=== PATIENT | female | born 1935 | race Caucasian/White ===

== ENCOUNTER 2016-07-02 16:47 | Inpatient (IN) | END 2016-07-20 14:56 | DRG 208 | DX: J96.01 Acute respiratory failure with hypoxia (principal); I63.40 Cerebral infarction due to embolism of unspecified cerebral artery; G93.40 Encephalopathy, unspecified; I13.2 Hypertensive heart and chronic kidney disease with heart failure and with stage 5 chronic kidney disease, or end stage renal disease; J18.9 Pneumonia, unspecified organism; R13.10 Dysphagia, unspecified; N18.6 End stage renal disease; N39.0 Urinary tract infection, site not specified; I42.9 Cardiomyopathy, unspecified; I50.9 Heart failure, unspecified; T82.49XA Other complication of vascular dialysis catheter, initial encounter; B96.1 Klebsiella pneumoniae [K. pneumoniae] as the cause of diseases classified elsewhere; E78.5 Hyperlipidemia, unspecified; I48.2 Chronic atrial fibrillation; I25.10 Atherosclerotic heart disease of native coronary artery without angina pectoris; G47.33 Obstructive sleep apnea (adult) (pediatric); Y83.2 Surgical operation with anastomosis, bypass or graft as the cause of abnormal reaction of the patient, or of later complication, without mention of misadventure at the time of the procedure; Y92.230 Patient room in hospital as the place of occurrence of the external cause; Z66 Do not resuscitate; Z99.2 Dependence on renal dialysis; Z79.02 Long term (current) use of antithrombotics/antiplatelets; Z95.0 Presence of cardiac pacemaker; Z86.73 Personal history of transient ischemic attack (TIA), and cerebral infarction without residual deficits ==

== ENCOUNTER 2016-07-29 15:44 | Inpatient (IN) | payer MEDICARE, OTHER ==
[~2016-07-29] VITALS: Ht 157.5 cm; Wt 75.0 kg
[~2016-07-29 15:44] MED LIST: ACET325T45 PO; AMIO200T2 PO; APIX2.5T PO; ASPI81TA3 PO; ATOR20TA38 PO; CARV6.2579 PO; DILT120C77 PO; DOCU-159 PO; FE F1TAB7 PO; LEVO150T67 PO; PANT40TA3 PO
--- NOTE | 2016-07-29 15:52 | ERA ---
ER Documentation Chief Complaint Date/Time DATE: 07/29/16 TIME: 15:52 Chief Complaint The patient is a 80-year-old female, presenting to the ER because of acute altered level of consciousness today, EMS Accu-Chek was 103, last hemodialysis was 2 days ago. She is DNR. She is unable to provide history. 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 Past medical history: CAD, chronic kidney disease, atrial fibrillation, history of CVA, history of CHF, hypertension, dyslipidemia, cardiomyopathy Past surgical history: G-tube, pacemaker, hemodialysis catheter ROS All systems reviewed and are negative except as per history of present illness. Medications Home Meds Reported Medications Docusate Sodium* (Docusate Sodium*) 100 Mg Capsule, 100 MG PO BID, #60 CAP 07/02/16 Carvedilol* (Carvedilol*) 6.25 Mg Tablet, 6.25 MG PO BID, #60 TAB 07/02/16 Pantoprazole* (Protonix*) 40 Mg Tablet.dr, 40 MG PO DAILY, TAB 07/02/16 Amiodarone Hcl* (Amiodarone Hcl*) 200 Mg Tablet, 200 MG PO DAILY, #30 TAB 07/02/16 Atorvastatin Calcium* (Atorvastatin Calcium*) 20 Mg Tablet, 20 MG PO QHS, #30 TAB 07/02/16 Fe Fumarate/Hemanth/FA/Bcomp,C (Nephron FA Tablet) 1 Each Tablet, 1 EACH PO DAILY, TAB 07/02/16 Diltiazem Hcl* (Cardizem CD*) 120 Mg Cap.sr.24h, 120 MG PO DAILY, #30 CAP 07/02/16 Apixaban* (Eliquis*) 2.5 Mg Tablet, 2.5 MG PO BID, TAB 07/02/16 Aspirin* (Aspirin* Chew) 81 Mg Tab.chew, 81 MG PO DAILY, TAB.CHEW 07/02/16 Acetaminophen* (Acetaminophen*) 325 Mg Tablet, 325 MG PO DAILY Y for PAIN AND OR ELEVATED TEMP, #30 TAB 07/02/16 Levothyroxine Sodium* (Levothyroxine Sodium*) 150 Mcg Tablet, 150 MCG PO BEFORE BREAKFAST, #30 TAB 07/02/16 Allergies Allergies: Coded Allergies: No Known Allergies (Verified Allergy, Unknown, 07/29/16) PMhx/Soc History of Surgery: Yes (AV FISTULA PLACEMENT, PACEMAKER PLACEMENT) Anesthesia Reaction: No Hx Neurological Disorder: Yes (CVA) Hx Respiratory Disorders: No Hx Cardiac Disorders: Yes (CHF, CARDIAC ARRYTHMIA, AFIB, A FLUTTER, HTN) Hx Psychiatric Problems: No Hx Miscellaneous Medical Probl: Yes (ANEMIA, DYSLIPIDEMIA, HYPOTHYROIDISM, SHOCK, HYPOVOLEMIA) Physical Exam Vitals Vital Signs Date Time Temp Pulse Resp B/P Pulse Ox O2 Delivery O2 Flow Rate FiO2 07/29/16 18:09 72 20 92/49 97 Nasal Cannula 07/29/16 17:30 72 22 90/65 95 Nasal Cannula 07/29/16 17:00 78 28 83/47 95 Nasal Cannula 07/29/16 15:51 Nasal Cannula 2 07/29/16 15:50 99.5 102 28 57/34 96 Physical Exam Const: Mild acute respiratory distress. Head: Atraumatic. Eyes: Normal Conjunctiva. ENT: Normal External Ears, Nose and Mouth. Neck: Full range of motion. No meningismus. Resp: Clear to auscultation bilaterally. Tachypneic Cardio: Regular rate but tachycardic Abd: Soft, non distended, normal bowel sounds, non tender. Skin: No petechiae or rashes. Back: No midline or flank tenderness. Ext: No cyanosis, or edema. Neur: Awake and alert. Unable to perform due to her condition Psych: Unable to perform due to her condition Result Diagram: 07/29/16 1620 07/29/16 1620 Results 24 hrs Laboratory Tests Test 07/29/16 16:00 07/29/16 16:20 07/29/16 16:25 Lactic Acid Level 3.0mmol/L Alanine Aminotransferase (ALT/SGPT) 273IU/L Albumin 3.0g/dl Albumin/Globulin Ratio 0.68 Alkaline Phosphatase 416IU/L Anion Gap 18 Aspartate Amino Transf (AST/SGOT) 547IU/L Band Neutrophils % 21.0% Blood Morphology Comment Blood Urea Nitrogen 63mg/dl Calcium Level 9.8mg/dl Carbon Dioxide Level 25mmol/L Chloride Level 103mmol/L Creatinine 1.90mg/dl Direct Bilirubin 1.20mg/dl Globulin 4.40g/dl Glucose Level 92mg/dl Hematocrit 31.8% Hemoglobin 10.6g/dl Indirect Bilirubin 0.3mg/dl Lymphocytes # 1.310^3/ul Lymphocytes % 4.0% Mean Corpuscular Hemoglobin 34.8pg Mean Corpuscular Hemoglobin Concent 33.3g/dl Mean Corpuscular Volume 104.6fl Mean Platelet Volume 10.1fl Monocytes # 2.010^3/ul Monocytes % 6.0% Neutrophils # 23.210^3/ul Neutrophils % 69.0% Platelet Count 15351^3/UL Polychromasia OCCASIONAL Potassium Level 3.7mmol/L Red Blood Count 3.0410^6/ul Red Cell Distribution Width 16.9% Sodium Level 142mmol/L Total Bilirubin 1.5mg/dl Total Protein 7.4g/dl Troponin I 0.050ng/ml White Blood Count 33.610^3/ul Activated Partial Thromboplast Time 33.1Sec INR International Normalized Ratio 1.56 Prothrombin Time 18.8Sec Prothrombin Time Ratio 1.5 Current Medications Medications (Trade) Dose Ordered Sig/Volodymyr Route PRN Reason Start Time Stop Time Status Last Admin Dose Admin Sodium Chloride 500 ml @ 500 mls/hr Q1H ONCE IV 07/29/16 16:30 07/29/16 17:29 DC 07/29/16 16:32 Albumin Human 250 ml @ 250 mls/hr Q1H IV 07/29/16 16:30 07/29/16 18:29 DC 07/29/16 17:59 Vancomycin HCl 250 ml @ 125 mls/hr ONCE IVPB 07/29/16 17:00 07/29/16 18:59 07/29/16 17:33 Piperacillin Sod/ Tazobactam Sod 50 ml @ 100 mls/hr ONCE ONCE IVPB 07/29/16 17:00 07/29/16 17:29 DC 07/29/16 17:14 Phenylephrine HCl (Gerardo-Synephrine) 250 ml @ 75 mls/hr TITRATE IV 07/29/16 17:00 Procedures/MDM EKG: Read by emergency physician Rate/Rhythm: Atrial fibrillation 91 beats per min QRS, ST, T-waves: No ST elevation,right bundle branch block, septal Q waves, inferior lateral T abnormality Impression: Abnormal EKG [place] [id number] Radiology Main Line: [phone] DIAGNOSTIC IMAGING REPORT Patient: LIEJT DICKERSON : 1935 Age: 80 Sex: F MR #: [id number] DOS: 07/29/16 1555 Ordering MD: JAREN JAMES MD Location: E/R Room/Bed: PROCEDURE: XR Chest 1 view. CLINICAL INDICATION: Shortness of breath and sepsis TECHNIQUE: AP views of the chest were obtained. COMPARISON: July 05, 2016 FINDINGS: The heart is large. Calcified atherosclerosis is noted in the aorta. Left- sided dual chamber pacemaker has its leads over the heart and appears stable. Left-sided dialysis catheter has its tip in the expected location of the proximal superior vena cava. Lungs are hyperexpanded. Mild interstitial prominence is seen in both lungs. Patchy potential alveolar infiltrates are identified in the right mid and lower lung. Scattered atelectasis is seen in the left lower lobe. Osseous structures are osteopenic, but grossly intact. Degenerative changes are seen in the shoulders. IMPRESSION: Cardiomegaly with calcified atherosclerosis in the aorta. Left sided dialysis catheter with its tip in the expected location of the proximal superior vena cava. No visualized pneumothorax. Diffuse mild interstitial prominence in both lungs. This could be chronic. Patchy potential alveolar infiltrates in the right mid and lower lung. Scattered atelectasis in the left lower lobe. RPTAT: AA .Charles Montenegro MD, MD Date Time Electronically viewed and signed by .Charles Montenegro MD, on 07/29/2016 16:23 .P/ CC: JAREN JAMES MD MEDICAL MAKING DECISION: The patient is a 80-year-old female, presenting with acute severe sepsis due to acute healthcare acquired pneumonia. She was treated with vancomycin IV, Zosyn IV, albumin 500 mg IV, normal saline 500 mL IV. Admit MDM: Patient's infectious symptoms have not stabilized and the patient is at risk of rapid decompensation. The patient will be admitted for careful hydration, antibiotic therapy, and infectious source control. 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 Provision of immediate and broad-spectrum antibiotic therapy. Simultaneous assessment for possible sources in order to direct targeted therapy. Consideration for invasive and chemical support to prevent cardiopulmonary collapse. Septic Shock Assessment: Any lactic acid > 4.0 no Persistent hypotension (SBP < 90 or 40 mmHg drop, MAP < 65) despite 30 mL/kg IV fluid bolusno Departure Diagnosis: Primary Impression: Severe sepsis Additional Impressions: Pneumonia Abnormal LFTs Anemia Condition: Critical Comments I discussed the findings with the patient. I discussed the patient with his physician who was made aware of the lab, the treatment, the patient condition. The patient is admitted to ICU at 6 pm JAREN JAMES MD Jul 29, 2016 15:52
--- NOTE | 2016-07-29 16:24 | RADRPT ---
PROCEDURE: XR Chest 1 view. CLINICAL INDICATION: Shortness of breath and sepsis TECHNIQUE: AP views of the chest were obtained. COMPARISON: July 05, 2016 FINDINGS: The heart is large. Calcified atherosclerosis is noted in the aorta. Left-sided dual chamber pacema ker has its leads over the heart and appears stable. Left-sided dialysis catheter has its tip in th e expected location of the proximal superior vena cava. Lungs are hyperexpanded. Mild interstitial prominence is seen in both lungs. Patchy potential alveolar infiltrates are identified in the righ t mid and lower lung. Scattered atelectasis is seen in the left lower lobe. Osseous structures are osteopenic, but grossly intact. Degenerative changes are seen in the shoulders. IMPRESSION: Cardiomegaly with calcified atherosclerosis in the aorta. Left sided dialysis catheter with its tip in the expected location of the proximal superior vena cav a. No visualized pneumothorax. Diffuse mild interstitial prominence in both lungs. This could be chronic. Patchy potential alveolar infiltrates in the right mid and lower lung. Scattered atelectasis in the left lower lobe. RPTAT: AA .Charles Montenegro MD, MD Date Time Electronically viewed and signed by .Charles Montenegro MD, on 07/29/2016 16:23 .P/
[2016-07-29] MEDS ORDERED: SOD CHLORIDE 0.9% 500 ML IV ONE (16:30)
[2016-07-29 16:40] LABS: HEMATOCRIT 31.8 % (37.0-47.0); HEMOGLOBIN 10.6 g/dl (12.0-16.0); MEAN CORPUSCULAR HEMOGLOBIN 34.8 pg (29.0-33.0); MEAN CORPUSCULAR HGB CONC 33.3 g/dl (32.0-37.0); MEAN CORPUSCULAR VOLUME 104.6 fl (82.0-101.0); MEAN PLATELET VOLUME 10.1 fl (7.4-10.4); PLATELET COUNT 287 10^3/UL (140-440); RED BLOOD COUNT 3.04 10^6/ul (4.20-5.40); RED CELL DISTRIBUTION WIDTH 16.9 % (11.5-14.5); UNCORRECTED WBC 33.6 10^3/ul (4.8-10.8); WHITE BLOOD COUNT 33.6 10^3/ul (4.8-10.8)
[2016-07-29 16:45] LABS: CONDITION 1; SUSPECT 1
[2016-07-29 16:55] LABS: INR 1.56; PROTIME 18.8 Sec (12.2-14.2); PT RATIO 1.5
[2016-07-29] MEDS: ALBUMIN HUMAN 5% 250 ML IV SCH ×2 (16:55→17:59)
[2016-07-29 16:56] LABS: PARTIAL THROMBOPLASTIN TIME 33.1 Sec (25.0-35.0)
[2016-07-29 16:59] LABS: POTASSIUM 3.7 mmol/L (3.5-5.1)
[2016-07-29] MEDS ORDERED: VANCOMYCIN 1 GM (PMX) 250 ML IVPB SCH (17:00)
[2016-07-29] MEDS ORDERED: PHENYLephrine 20MG IN 250 ML 250 ML IV SCH (17:00)
[2016-07-29] MEDS ORDERED: PIPER-TAZO 2.25 GM (PMX) 50 ML IVPB ONE (17:00)
[2016-07-29 17:01] LABS: ALBUMIN/GLOBULIN RATIO 0.68; BILIRUBIN,DIRECT 1.2 mg/dl (0.00-0.20); BILIRUBIN,INDIRECT 0.3 mg/dl (0-1.1); BILIRUBIN,TOTAL 1.5 mg/dl (0.2-1.3); CREATININE 1.9 mg/dl (0.44-1.00); TOTAL PROTEIN 7.4 g/dl (6.1-8.1)
[2016-07-29 17:02] LABS: CALCIUM 9.8 mg/dl (8.4-10.2)
[2016-07-29 17:13] LABS: TROPONIN-I 0.05 ng/ml (0.00-0.12)
[2016-07-29 17:36] LABS: LYMPHOCYTES # 1.3 10^3/ul (0.8-2.9); NEUTROPHIL # 23.2 10^3/ul (1.6-7.5)
[2016-07-29 17:37] LABS: POLYCHROMASIA OCCASIONAL
[2016-07-29] MEDS ORDERED: DOCUSATE SODIUM 100 MG CAP PO PRN (20:30)
[2016-07-29] MEDS ORDERED: BISACODYL (EC) 5 MG TAB PO PRN (20:30)
[2016-07-29] MEDS ORDERED: ACETAMINOPHEN 325 MG TAB PO PRN (20:30)
[2016-07-29] MEDS ORDERED: NITROGLYCERIN (SL) 0.4 MG TAB SL PRN (20:30)
[2016-07-29] MEDS ORDERED: ONDANSETRON 4 MG INJ IV PRN (20:30)
[2016-07-29] MEDS ORDERED: IPRATROPIUM (NEB) 0.5 MG/2.5 ML AMP NEB PRN (20:30)
--- NOTE | 2016-07-29 20:43 | QN ---
Documentation Comment [id number] CRUZITO ARELLANO MD Jul 29, 2016 20:43
[2016-07-29] MEDS ORDERED: PIPER-TAZO 2.25 GM (PMX) 50 ML IVPB SCH (21:00)
[2016-07-29] MEDS: ALBUTEROL 0.5% (NEB) 2.5 MG/0.5 ML AMP NEB SCH (21:00)
[2016-07-29] MEDS: DOCUSATE SODIUM 100 MG CAP PO SCH (21:00)
--- NOTE | 2016-07-29 23:06 | RADRPT ---
PROCEDURE: Ultrasound of the abdomen. CLINICAL INDICATION: Right upper quadrant pain. TECHNIQUE: Sonographic images of the abdomen were performed. COMPARISON: No pertinent prior examinations were submitted for comparison. FINDINGS: Liver: The liver is normal in echogencity and size measuring approximately 16.2 cm. The hepatic vei ns and portal veins are patent with appropriate directional flow. No intrahepatic ductal dilatation is seen. Gallbladder: Stones are noted within the gallbladder. There is no definite gallbladder wall thicke aaron or pericholecystic free fluid. The common duct measures 3.2 mm. Pancreas: There is limited evaluation of the pancreatic body and tail. The visualized portions of the pancreas are unremarkable. Kidneys: The right kidney measures 8.5 cm. There is normal corticomedullary differentiation. There is no evidence of renal calculus or hydronephrosis. There is mild renal cortical thinning. IVC: The visualized portion of the inferior vena cava is unremarkable. Aorta: Normal in size. Free fluid: None. IMPRESSION: Small right kidney with mild cortical thinning. Cholelithiasis. RPTAT: HIKT .Yung Espino MD, Date Time Electronically viewed and signed by .Yung Espino MD, on 07/29/2016 23:05 .T/
[2016-07-29 23:15] VITALS: PULSE 70
[2016-07-29 23:32] VITALS: BP 88/44; PULSE 70; RESP 18
[2016-07-29 23:53] VITALS: Ht 157.5 cm; Wt 75.0 kg
[2016-07-30] VITALS (11 sets, daily range): BP systolic 89–97; BP diastolic 48–56; PULSE 69–70; RESP 17–21
[2016-07-30] MEDS: ALBUTEROL 0.5% (NEB) 2.5 MG/0.5 ML AMP NEB SCH ×6 (01:18→21:09)
[2016-07-30] MEDS: DEXTROSE 5%-0.45% NACL 1,000 ML IV SCH ×3 (01:24→21:52)
[2016-07-30] MEDS: ATORVASTATIN 20 MG TAB PO SCH ×2 (01:25→20:33)
[2016-07-30] MEDS: APIXABAN 5 MG TABLET PO SCH ×3 (01:25→20:33)
[2016-07-30] MEDS: PANTOPRAZOLE 40 MG INJ IV SCH (05:30)
--- NOTE | 2016-07-30 05:31 | HP ---
DATE OF ADMISSION: 07/29/2016 HISTORY OF PRESENT ILLNESS: The patient is an 80-year-old female who has a history of ESRD, hyperte nsion, and a history of atrial fibrillation, hypothyroidism, dyslipidemia, and G-tube placement, CVA recently. Was in the [place] [facility] and noted to have altered mental status, lethargic. The patient was transferred to [facility]. The patient was seen in the emergency room by Dr. Carmona, case was discussed with him. Dr. Carmona decided to put the patient on telemetry floor. Later on he changed his decision to put patient in ICU. The patient's blood pressure running 88/50 and emilio ent is going to be monitored for further management. PAST MEDICAL HISTORY: Please review the old chart. Positive for PermCath replacement, G-tube place ment, CVA with multiple strokes, congestive heart failure, ejection fraction 40%, atrial fibrillatio n, hypertension, dyslipidemia, cardiomyopathy, clotted AV graft. ALLERGY HISTORY: NEGATIVE. FAMILY HISTORY: Negative. SOCIAL HISTORY: Negative. MEDICATION HISTORY: The patient is on: 1. Tylenol. 2. Amiodarone. 3. Apixaban. 4. Aspirin. 5. Lipitor. 6. Coreg. 7. Diltiazem. 8. Docusate sodium. 9. Iron. 10. Levothyroxine. 11. Protonix. REVIEW OF SYSTEMS: Cannot be obtained. PHYSICAL EXAMINATION: GENERAL: The patient is weak, lethargic, family at bedside. VITAL SIGNS: As mentioned above. HEENT: Head is atraumatic. Pupils voluntary closing of both eyes. NECK: Supple. LUNGS: Clear. CARDIOVASCULAR: S1, S2 normal, irregular. ABDOMEN: Soft, nontender. Bowel sounds positive. No palpable mass or hepatosplenomegaly. No guar ding, rebound tenderness. EXTREMITIES: The patient has no cyanosis, clubbing, or edema. CENTRAL NERVOUS SYSTEM: The patient is weak, lethargic, unable to follow commands at this point. LABORATORY DATA: WBC 33.6, hematocrit 31.8, platelet count of 27. Sodium 142, potassium 3.7, BUN 6 3, creatinine 1.90, lactic acid 3, bilirubin 1.5, direct bilirubin 1.20, AST 547, ALT 279, alkaline phosphatase 416. IMPRESSION: 1. The patient has severe sepsis. 2. Chronic kidney disease. 3. The patient had atrial fibrillation history. 4. Leukocytosis. 5. Anemia. 6. Gastrostomy tube placement. 7. catheter placement. 8. Atherosclerotic heart disease. 9. Dyslipidemia. 10. Hypothyroidism. PLAN: To continue to support this patient with IV fluid, antibiotic. The patient will also h ave all medications reviewed and continued. The patient's family is at bedside, discussed with them . Dictated By: CRUZITO PLAZA/KATE Conf#: [id number] DID#: [id number]
[2016-07-30] MEDS ORDERED: PIPER-TAZO 2.25 GM (PMX) 50 ML IVPB SCH ×2 (06:00→14:00)
[2016-07-30] MEDS ORDERED: GLUCOSE GEL 15 GRAM TUBE PO PRN ×2 (06:30)
[2016-07-30] MEDS ORDERED: GLUCOSE GEL 15 GRAM TUBE BUCCAL PRN (06:30)
[2016-07-30] MEDS ORDERED: GLUCAGON 1 MG INJ IM PRN (06:30)
[2016-07-30] MEDS ORDERED: DEXTROSE 50% 50 ML SYRINGE IV PRN ×2 (06:30)
[2016-07-30] MEDS: LEVOTHYROXINE 150 MCG TAB PO SCH (06:46)
[2016-07-30] MEDS: INSULIN ASPART [NOVOLOG] 3 ML PEN SC SCH ×4 (08:00→20:54)
[2016-07-30] MEDS: DOCUSATE SODIUM 100 MG CAP PO SCH ×2 (09:00→20:33)
[2016-07-30] MEDS: DILTIAZEM (CD) 120 MG CAP PO SCH (09:00)
[2016-07-30] MEDS ORDERED: AMIODARONE 200 MG TAB PO SCH (09:00)
[2016-07-30] MEDS: ASPIRIN 81 MG TAB PO SCH (10:05)
[2016-07-30 12:23] LABS: HEMATOCRIT 24.9 % (37.0-47.0); HEMOGLOBIN 8.3 g/dl (12.0-16.0); MEAN CORPUSCULAR HEMOGLOBIN 35.3 pg (29.0-33.0); MEAN CORPUSCULAR HGB CONC 33.5 g/dl (32.0-37.0); MEAN CORPUSCULAR VOLUME 105.3 fl (82.0-101.0); MEAN PLATELET VOLUME 9.6 fl (7.4-10.4); PLATELET COUNT 219 10^3/UL (140-440); RED BLOOD COUNT 2.36 10^6/ul (4.20-5.40); RED CELL DISTRIBUTION WIDTH 17.8 % (11.5-14.5); UNCORRECTED WBC 20.5 10^3/ul (4.8-10.8); WHITE BLOOD COUNT 20.5 10^3/ul (4.8-10.8)
[2016-07-30 12:30] LABS: ALBUMIN/GLOBULIN RATIO 0.85; BILIRUBIN,DIRECT 1.2 mg/dl (0.00-0.20); BILIRUBIN,INDIRECT 0.2 mg/dl (0-1.1); BILIRUBIN,TOTAL 1.4 mg/dl (0.2-1.3); CREATININE 1.83 mg/dl (0.44-1.00); TOTAL PROTEIN 6.5 g/dl (6.1-8.1)
[2016-07-30 12:31] LABS: CALCIUM 8.9 mg/dl (8.4-10.2)
[2016-07-30 12:42] LABS: CONDITION 1; LH ANALYZER COMMENTS 1; SUSPECT 1
[2016-07-30] MEDS: ACETAMINOPHEN 325 MG TAB PO PRN ×2 (13:44→21:47)
[2016-07-30] MEDS: PIPER-TAZO 2.25 GM (PMX) 50 ML IVPB SCH ×2 (13:44→21:28)
[2016-07-30] MEDS ORDERED: POTASSIUM CHLORIDE 20 MEQ POWDER FOR ORAL SOLN GTB ONE (14:00)
--- NOTE | 2016-07-30 14:07 | RADRPT ---
PROCEDURE: XR Abdomen. CLINICAL INDICATION: Abdomen pain. TECHNIQUE: AP supine abdomen x-ray. COMPARISON: None. FINDINGS: The bowel gas pattern is normal. There is no evidence of obstruction. There are no abnormal calcifications overlying the urinary tracts. There are degenerative changes of the spine. There has been prior surgery with hardware and the L2- S1 level. There is a dual lead permanent pacemaker with leads in the right atrium and right ventric le. IMPRESSION: 1. Prior spine surgery. 2. Degenerative changes of the spine. 3. Permanent pacemaker. 4. Otherwise unremarkable supine abdomen radiograph. RPTAT: QQ .Darren Cornejo MD, MD Date Time Electronically viewed and signed by .Darren Cornejo MD, MD on 07/30/2016 14:06 .R/
[2016-07-30 14:52] LABS: LYMPHOCYTES # 1.2 10^3/ul (0.8-2.9)
[2016-07-30 16:34] LABS: LH ANALYZER COMMENTS 1
--- NOTE | 2016-07-30 16:56 | PN ---
Date/Time of Note Date/Time of Note DATE: 07/30/16 TIME: 16:53 Assessment/Plan VTE Prophylaxis VTE Prophylaxis Intervention: other Lines/Catheters IV [facility]ter Type (from [facility]): Peripheral IV Urinary Cath still in place: No Assessment/Plan Chief Complaint/Hosp Course IMPRESSION: 1. The patient has severe sepsis. 2. Chronic kidney disease. 3. The patient had atrial fibrillation history. 4. Leukocytosis. 5. Anemia. 6. Gastrostomy tube placement. 7. PERMA catheter placement. 8. Atherosclerotic heart disease. 9. Dyslipidemia. 10. Hypothyroidism. 11 GN BACTERRMIA PLAN ANTIBIOTIC HD AM Problems: Subjective 24 Hr Interval Summary Subjective hx not possible: other (AWAKE AND ALERT) Exam/Review of Systems Vital Signs Vitals Vital Signs Date Time Temp Pulse Resp B/P Pulse Ox O2 Delivery O2 Flow Rate FiO2 07/30/16 16:10 70 07/30/16 15:37 97.4 18 97/56 100 07/30/16 13:33 Nasal Cannula 2.0 Intake and Output 07/29/16 07/29/16 07/30/16 15:00 23:00 07:00 Intake Total 150 ml Balance 150 ml Exam Neck: supple Respiratory: clear to auscultation Cardiovascular: regular rate and rhythm Gastrointestinal: soft Musculoskeletal: nl extremities to inspection Extremities: normal pulses Results Result Diagram: 07/30/16 1150 07/30/16 1150 Results 24 hrs Laboratory Tests Test 07/29/16 18:49 07/29/16 21:30 07/30/16 01:45 07/30/16 08:25 Lactic Acid Level 2.3 H 1.7 Bedside Glucose 126 111 Test 07/30/16 11:50 07/30/16 12:37 Alanine Aminotransferase (ALT/SGPT) 165 H Albumin 3.0 L Albumin/Globulin Ratio 0.85 Alkaline Phosphatase 245 H Anion Gap 16 Aspartate Amino Transf (AST/SGOT) 225 H Band Neutrophils % 6.0 H Basophils # Basophils % Blood Morphology Comment Blood Urea Nitrogen 70 H Calcium Level 8.9 Carbon Dioxide Level 26 Chloride Level 103 Creatinine 1.83 H Differential Comment MANUAL DIFF Direct Bilirubin 1.20 H Eosinophils # Eosinophils % Globulin 3.50 H Glucose Level 124 Hematocrit 24.9 #L Hemoglobin 8.3 #L Indirect Bilirubin 0.2 Lymphocytes # 1.2 Lymphocytes % 6.0 L Mean Corpuscular Hemoglobin 35.3 H Mean Corpuscular Hemoglobin Concent 33.5 Mean Corpuscular Volume 105.3 H Mean Platelet Volume 9.6 Monocytes # 1.0 H Monocytes % 5.0 Neutrophils # 17.0 H Neutrophils % 83.0 H Nucleated Red Blood Cells # Nucleated Red Blood Cells % Platelet Count 219 # Potassium Level 3.0 L Red Blood Count 2.36 #L Red Cell Distribution Width 17.8 H Sodium Level 142 Total Bilirubin 1.4 H Total Protein 6.5 White Blood Count 20.5 #H Bedside Glucose 123 Medications Medications Current Medications Dextrose/Sodium Chloride (D5-1/2ns) 1,000 ml @ 50 mls/hr Q20H IV Last administered on 07/30/16 01:24; Admin Dose 50 MLS/HR; Start 07/29/16 at 20:17 Ondansetron HCl (Zofran Inj) 4 mg Q6H PRN IV NAUSEA AND/OR VOMITING; Start at 20:30 Nitroglycerin (Nitroglycerin (Sl Tab) 0.4 Mg) 1 tab Q5M PRN SL CHEST PAIN; Start 07/29/16 at 20:30 Acetaminophen (Tylenol Tab) 650 mg Q6H PRN PO PAIN LEVEL 1-3 OR FEVER Last administered on 07/30/16 13:44; Admin Dose 650 MG; Start 07/29/16 at 20:30 Docusate Sodium (Colace) 100 mg Q12H PRN PO CONSTIPATION; Start 07/29/16 at 20: 30 Bisacodyl (Dulcolax) 5 mg DAILY PRN PO CONSTIPATION; Start 07/29/16 at 20:30 Pantoprazole (Protonix Iv) 40 mg DAILY@06 IV Last administered on 07/30/16 05: 30; Admin Dose 40 MG; Start 07/30/16 at 06:00 Acetaminophen (Tylenol Tab) 325 mg DAILY PRN PO PAIN AND OR ELEVATED TEMP; Start 07/29/16 at 20:30 Amiodarone HCl (Cordarone) 200 mg DAILY PO Last administered on 07/30/16 10:07 ; Admin Dose 200 MG; Start 07/30/16 at 09:00 Apixaban (Eliquis) 2.5 mg BID PO Last administered on 07/30/16 10:07; Admin Dose 2.5 MG; Start 07/29/16 at 21:00 Aspirin (Aspirin) 81 mg DAILY PO Last administered on 07/30/16 10:05; Admin Dose 81 MG; Start 07/30/16 at 09:00 Atorvastatin Calcium (Lipitor) 20 mg QHS PO Last administered on 07/30/16 01: 25; Admin Dose 20 MG; Start 07/29/16 at 21:00 Carvedilol (Coreg) 6.25 mg BID PO ; Start 07/29/16 at 21:00 Diltiazem HCl (Cardizem Cd) 120 mg DAILY PO ; Start 07/30/16 at 09:00 Docusate Sodium (Colace) 100 mg BID PO Last administered on 07/29/16 21:00; Admin Dose 100 MG; Start 07/29/16 at 21:00 Diagnostic Test (Pha) (Accucheck) 1 ea 02 XX ; Start 07/31/16 at 02:00 Miscellaneous Information 1 ea NOTE XX ; Start 07/30/16 at 06:30 Glucose (Glutose) 15 gm Q15M PRN PO DECREASED GLUCOSE; Start 07/30/16 at 06:30 Glucose (Glutose) 22.5 gm Q15M PRN PO DECREASED GLUCOSE; Start 07/30/16 at 06: 30 Dextrose (D50w Syringe) 25 ml Q15M PRN IV DECREASED GLUCOSE; Start 07/30/16 at 06:30 Dextrose (D50w Syringe) 50 ml Q15M PRN IV DECREASED GLUCOSE; Start 07/30/16 at 06:30 Glucagon (Glucagen) 1 mg Q15M PRN IM DECREASED GLUCOSE; Start 07/30/16 at 06:30 Glucose 15 gm 15 gm Q15M PRN BUCCAL DECREASED GLUCOSE; Start 07/30/16 at 06:30 Piperacillin Sod/ Tazobactam Sod (Zosyn 2.25gm/ 50ml (Pmx)) 50 ml @ 100 mls/hr Q8 IVPB Last administered on 07/30/16 13:44; Admin Dose 100 MLS/HR; Start at 14:00 CRUZITO ARELLANO MD Jul 30, 2016 16:56
[2016-07-30] MEDS ORDERED: DIGOXIN 500 MCG INJ IV ONE (18:00)
[2016-07-30] MEDS ORDERED: METOPROLOL 5 MG INJ IV PRN (18:00)
--- NOTE | 2016-07-30 19:30 | CONS ---
DATE OF ADMISSION: 07/29/2016 DATE OF CONSULTATION: 07/30/2016 REASON FOR CONSULTATION: Cardiomyopathy, syncope. Assess for cardiac etiology, as well as rule out congestive heart failure. REQUESTING PHYSICIAN: Ceferino Arellano MD HISTORY OF PRESENT ILLNESS: Ms. Hooker is an 80-year-old female with a history of cardiomyo long with mildly depressed left ventricular ejection fraction, last known to be approximately 40% b y echo 06/2016, atrial fibrillation on systemic anticoagulation, very recent acute cerebrovascular a ccident with, thereafter, encephalopathy; hypertension, dysphagia status post G-tube, dyslipidemia w ho presented with worsening mental status, very lethargic, concern for possible syncope. Upon arriv al, temperature 99.5, blood pressure documented very low at 57/34, pulse 102, respiratory rate 28, s aturating 96% with improvement to systolic pressures in the 90s by the time she was transferred to [facility] floor. The patient's labs revealed a white count 33.6, hemoglobin 10.6, platelet count 287. Sod ium 142, potassium 3.7, creatinine 1.9, BUN of 63. T bilirubin 1.5. AST 547, ALT 273. INR 1.56. The patient underwent a liver ultrasound revealing a small right kidney with mild cortical thinning and cholelithiasis. The patient then underwent a chest x-ray revealing cardiomegaly with calcified atherosclerosis in the aorta, left-sided dialysis catheter, diffuse mild interstitial prominence of both lungs, patchy potential alveolar infiltration of the right mid and lower lung. A KUB revealed degenerative changes of the spine, permanent pacemaker. The patient's electrocardiogram revealed at rial fibrillation, rate of 91 with right bundle branch block, very wide QRS interval of 170 millisec onds, secondary repolarization abnormalities. Subsequently, she was on short term Levo, albumin wit h improvement in systolic blood pressure to the 90s. She has been transferred to the telemetry [facility]. She remains at this time. The patient was started on antibiotics and has her baseline diltiazem and carvedilol held in the setting of low blood pressures. The patient, at this time, does not res pond clearly to questioning pertaining to chest pain or shortness of breath and is very lethargic. PAST MEDICAL HISTORY: As above in HPI. MEDICATIONS CURRENTLY IN HOSPITAL: 1. Zosyn IV q.8h. 2. Amiodarone 200 mg daily. 3. Aspirin 81 mg daily. 4. Diltiazem 120 mg daily. 5. ____ 150 mcg daily. 6. Protonix 40 mg IV daily. 7. Albuterol. 8. Apixiban 2.5 mg p.o. b.i.d. 9. Lipitor 20 mg at bedtime. 10. Carvedilol 6.25 mg p.o. b.i.d. 11. Colace 100 mg b.i.d. 12. Zofran p.r.n. 13. Ativan p.r.n. 14. ____ p.r.n. 15. Colace p.r.n. 16. Tylenol p.r.n. 17. IV fluid hydration at 50 mL an hour. ALLERGIES: NO KNOWN DRUG ALLERGIES. SOCIAL HISTORY: No tobacco, ETOH, or illicit drug use. FAMILY HISTORY: No history of sudden cardiac or early CAD. REVIEW OF SYSTEMS: As above in HPI. CONSTITUTIONAL: No fevers, chills. PULMONARY: No current signs of respiratory compromise. GASTROINTESTINAL: Dysphagia, status post G-tube. GENITOURINARY: Renal failure. PSYCHIATRIC: No documented psychiatric history. NEUROLOGIC: Encephalopathy. CARDIOVASCULAR: Atrial fibrillation, hypotension. PHYSICAL EXAMINATION: VITAL SIGNS: Temperature 97.4, blood pressure 97/56, pulse 70, respiratory rate 18, saturating 100% . GENERAL: The patient is sleeping, encephalopathic, arousable, confused. NECK: No jugular venous distention. CHEST: Decreased breath sounds at bases bilaterally. Upper airway transferred rhonchorous sounds. HEART: Irregularly irregular. I/ systolic murmur, nondisplaced PMI. ABDOMEN: Positive bowel sounds, soft. Positive G-tube. EXTREMITIES: Trace edema, 1+ pulses bilaterally, posterior tibial. LABORATORIES: As above in HPI, with most recent today, sodium 142, potassium 3.0, creatinine 1.83, BUN of 70. AST 222, ALT 165, alkaline phosphatase 245. White blood cell count 20.5, hemoglobin 8.3 , platelet count 219. IMAGING STUDIES: As above in HPI. No further imaging studies for my review at this time. ELECTROCARDIOGRAM: As above in HPI. No further electrocardiograms for my review at this time. IMPRESSION: 1. Atrial fibrillation. 2. Abnormal electrocardiogram, assess for acute coronary syndrome. 3. History of cardiomyopathy with decreased left ventricular ejection fraction approximately 40% by most recent echo June 2016, assess for congestive heart failure. 4. Encephalopathy. 5. History of recent cerebrovascular accident. 6. Lethargy. 7. Leukocytosis. 8. Anemia. 9. Diabetes mellitus. 10. Hypotension. RECOMMENDATIONS: 1. At this time, would maintain the patient on Eliquis and will increase the patient's amiodarone i n an attempt to improve heart rate control and possible return to sinus rhythm. 2. Continue the patient's current carvedilol and diltiazem, as tolerated only, and will give patien t IV push p.r.n. beta-surya to use as necessary. 4. Continue the patient's antibiotics and follow up culture data closely. 5. Continue the patient's baby aspirin at this time and watch for any bleeding complications. The patient is also on Eliquis. 6. Continue to follow the patient's mental status closely. 7. Continue antibiotics and follow up all culture data. Thank you for allowing me to take part in the care of this patient. I will continue to follow along very closely with you. Further recommendations will be made as the patient progresses through her inpatient hospital clinical course. Dictated By: SASKIA MELVIN/KATE Conf#: [id number] DID#: [id number] CC: CEFERINO ARELLANO MD;*End*
[2016-07-30] MEDS: AMIODARONE 200 MG TAB PO SCH (20:55)
[2016-07-31] VITALS (12 sets, daily range): BP systolic 106–138; BP diastolic 53–72; PULSE 69–71; RESP 17–18
[2016-07-31] MEDS: ACCUCHECK XX SCH (01:20)
[2016-07-31] MEDS: ALBUTEROL 0.5% (NEB) 2.5 MG/0.5 ML AMP NEB SCH ×6 (01:38→22:16)
[2016-07-31] MEDS: PANTOPRAZOLE 40 MG INJ IV SCH (05:32)
[2016-07-31] MEDS: PIPER-TAZO 2.25 GM (PMX) 50 ML IVPB SCH ×3 (05:32→21:06)
[2016-07-31] MEDS: LEVOTHYROXINE 150 MCG TAB PO SCH (06:49)
[2016-07-31 07:29] LABS: EOSINOPHILS # 0.2 10^3/ul (0.0-0.5); EOSINOPHILS % 1.6 % (0.0-7.0); HEMATOCRIT 25.8 % (37.0-47.0); HEMOGLOBIN 8.6 g/dl (12.0-16.0); LYMPHOCYTES # 0.5 10^3/ul (0.8-2.9); MEAN CORPUSCULAR HEMOGLOBIN 35.3 pg (29.0-33.0); MEAN CORPUSCULAR HGB CONC 33.4 g/dl (32.0-37.0); MEAN CORPUSCULAR VOLUME 105.6 fl (82.0-101.0); MEAN PLATELET VOLUME 9.8 fl (7.4-10.4); MONOCYTE # 0.4 10^3/ul (0.3-0.9); MONOCYTES % 3.7 % (0.0-11.0); NEUTROPHIL # 9.6 10^3/ul (1.6-7.5); NEUTROPHILS % 89.7 % (39.0-77.0); PLATELET COUNT 211 10^3/UL (140-440); RED BLOOD COUNT 2.45 10^6/ul (4.20-5.40); RED CELL DISTRIBUTION WIDTH 17.8 % (11.5-14.5); UNCORRECTED WBC 10.7 10^3/ul (4.8-10.8); WHITE BLOOD COUNT 10.7 10^3/ul (4.8-10.8)
[2016-07-31 07:35] LABS: CONDITION 1; LH ANALYZER COMMENTS 1
[2016-07-31 08:23] LABS: ALBUMIN 2.9 g/dl (3.3-4.9)
[2016-07-31 08:26] LABS: ALBUMIN/GLOBULIN RATIO 0.8; BILIRUBIN,DIRECT 0.8 mg/dl (0.00-0.20); BILIRUBIN,INDIRECT 0.1 mg/dl (0-1.1); BILIRUBIN,TOTAL 0.9 mg/dl (0.2-1.3); CREATININE 1.68 mg/dl (0.44-1.00); TOTAL PROTEIN 6.5 g/dl (6.1-8.1)
[2016-07-31 08:27] LABS: CALCIUM 8.8 mg/dl (8.4-10.2)
[2016-07-31] MEDS: DOCUSATE SODIUM 100 MG CAP PO SCH (09:00)
[2016-07-31] MEDS: DILTIAZEM (CD) 120 MG CAP PO SCH (09:00)
--- NOTE | 2016-07-31 09:29 | RADRPT ---
Vent Rate: 71 bpm RR Interval: 0 msec ND Interval: 276 msec QRS Duration: 178 msec QT Interval: 464 msec QTC Interval: 504 msec P-R-T [place]: 79 - -57 - 97 degrees Undetermined rhythm Left axis deviation Right bundle branch block Inferior infarct , age undetermined Anterolateral infarct , age undetermined Abnormal ECG Electronically Signed By: Mukund Menjivar [id number]
[2016-07-31] MEDS: ASPIRIN 81 MG TAB PO SCH (10:33)
[2016-07-31] MEDS: AMIODARONE 200 MG TAB PO SCH ×2 (10:38→20:39)
[2016-07-31] MEDS: APIXABAN 5 MG TABLET PO SCH ×2 (10:40→20:38)
[2016-07-31] MEDS: INSULIN ASPART [NOVOLOG] 3 ML PEN SC SCH ×4 (10:45→20:40)
[2016-07-31] MEDS ORDERED: DOCUSATE SODIUM 10 MG/ML (10ML CUP) PO PRN (11:00)
--- NOTE | 2016-07-31 12:21 | CONS ---
Date/Time of Note Date/Time of Note DATE: 07/31/16 TIME: 12:17 Assessment/Plan Assessment/Plan Chief Complaint/Hosp Course IMPRESSION: 1. Atrial fibrillation-improved rate control s/p IVP digoxin 2. Abnormal electrocardiogram, assess for acute coronary syndrome. 3. History of cardiomyopathy with decreased left ventricular ejection fraction approximately 40% by most recent echo June 2016, assess for congestive heart failure. 4. Encephalopathy. 5. History of recent cerebrovascular accident. 6. Lethargy. 7. Leukocytosis. 8. Anemia. 9. Diabetes mellitus. 10. Hypotension-borderline Recc: -Tele -serial ecg's -Continue eliquis -contiue coreg and dilt as tolerated only -HD for volume removal -Follow MS closely -Continue amio/asa/statin . Problems: Consultation Date/Type/Reason Admit Date/Time Jul 29, 2016 at 20:17 Initial Consult Date 07/30/2016 Type of Consultation: Cardiology Reason for Consultation AF/cardiomyopathy Referring Provider: MANDI ARELLANO MD Exam/Review of Systems Vital Signs Vitals Vital Signs Date Time Temp Pulse Resp B/P Pulse Ox O2 Delivery O2 Flow Rate FiO2 07/31/16 11:57 97.5 70 18 138/62 97 07/31/16 08:40 3.0 07/31/16 08:40 Nasal Cannula Intake and Output 07/30/16 07/30/16 07/31/16 15:00 23:00 07:00 Intake Total 560 ml 600 ml Balance 560 ml 600 ml Exam Review of Systems: CONSTITUTIONAL: No fevers, chills. PULMONARY: No sob CARDIOVASCULAR: No chest pain/palpitations GASTROINTESTINAL: No nausea/vomiting. GENITOURINARY: No hematuria/dysuria. MUSCULOSKELETAL: No myagias/arthalgias. PSYCHIATRIC: The patient denies depression. NEUROLOGIC: encephalopathic Constitutional: other (encephalopathic) Head: normocephalic ENMT: mucosa pink and moist Neck: jvd (9 cm water), supple Respiratory: diminished breath sounds (at bases/B) Cardiovascular: regular rate and rhythm Gastrointestinal: non-tender, soft Musculoskeletal: muscle tone Extremities: normal pulses Neurological: confused (hold ) Results Result Diagram: 07/31/16 0628 07/31/1628 Results 24 hrs Laboratory Tests Test 07/30/16 12:37 07/30/16 17:22 07/30/16 20:07 2/1/17 06:28 Bedside Glucose 123 122 152 Alanine Aminotransferase (ALT/SGPT) 138 H Albumin 2.9 L Albumin/Globulin Ratio 0.80 Alkaline Phosphatase 240 H Anion Gap 19 H Aspartate Amino Transf (AST/SGOT) 151 H Basophils # 0.0 Basophils % 0.0 Blood Morphology Comment Blood Urea Nitrogen 73 H Calcium Level 8.8 Carbon Dioxide Level 21 Chloride Level 106 Creatinine 1.68 H Direct Bilirubin 0.80 #H Eosinophils # 0.2 Eosinophils % 1.6 Globulin 3.60 H Glucose Level 112 Hematocrit 25.8 L Hemoglobin 8.6 L Indirect Bilirubin 0.1 Lymphocytes # 0.5 L Lymphocytes % 5.0 L Mean Corpuscular Hemoglobin 35.3 H Mean Corpuscular Hemoglobin Concent 33.4 Mean Corpuscular Volume 105.6 H Mean Platelet Volume 9.8 Monocytes # 0.4 Monocytes % 3.7 Neutrophils # 9.6 H Neutrophils % 89.7 H Nucleated Red Blood Cells # 0.0 Nucleated Red Blood Cells % 0.0 Platelet Count 211 Potassium Level 4.0 Red Blood Count 2.45 L Red Cell Distribution Width 17.8 H Sodium Level 142 Total Bilirubin 0.9 Total Protein 6.5 White Blood Count 10.7 # Medications Medications Current Medications Dextrose/Sodium Chloride (D5-1/2ns) 1,000 ml @ 50 mls/hr Q20H IV Last administered on 07/30/16 21:52; Admin Dose 50 MLS/HR; Start 07/29/16 at 20:17 Ondansetron HCl (Zofran Inj) 4 mg Q6H PRN IV NAUSEA AND/OR VOMITING; Start at 20:30 Nitroglycerin (Nitroglycerin (Sl Tab) 0.4 Mg) 1 tab Q5M PRN SL CHEST PAIN; Start 07/29/16 at 20:30 Acetaminophen (Tylenol Tab) 650 mg Q6H PRN PO PAIN LEVEL 1-3 OR FEVER Last administered on 07/30/16 21:47; Admin Dose 650 MG; Start 07/29/16 at 20:30 Bisacodyl (Dulcolax) 5 mg DAILY PRN PO CONSTIPATION; Start 07/29/16 at 20:30 Pantoprazole (Protonix Iv) 40 mg DAILY@06 IV Last administered on 2/1/17at 05: 32; Admin Dose 40 MG; Start 07/30/16 at 06:00 Acetaminophen (Tylenol Tab) 325 mg DAILY PRN PO PAIN AND OR ELEVATED TEMP; Start 07/29/16 at 20:30 Apixaban (Eliquis) 2.5 mg BID PO Last administered on 07/31/16 10:40; Admin Dose 2.5 MG; Start 07/29/16 at 21:00 Aspirin (Aspirin) 81 mg DAILY PO Last administered on 07/31/16 10:33; Admin Dose 81 MG; Start 07/30/16 at 09:00 Atorvastatin Calcium (Lipitor) 20 mg QHS PO Last administered on 07/30/16 20: 33; Admin Dose 20 MG; Start 07/29/16 at 21:00 Carvedilol (Coreg) 6.25 mg BID PO ; Start 07/29/16 at 21:00 Diltiazem HCl (Cardizem Cd) 120 mg DAILY PO ; Start 07/30/16 at 09:00 Diagnostic Test (Pha) (Accucheck) 1 ea 02 XX ; Start 07/31/16 at 02:00 Miscellaneous Information 1 ea NOTE XX ; Start 07/30/16 at 06:30 Glucose (Glutose) 15 gm Q15M PRN PO DECREASED GLUCOSE; Start 07/30/16 at 06:30 Glucose (Glutose) 22.5 gm Q15M PRN PO DECREASED GLUCOSE; Start 07/30/16 at 06: 30 Dextrose (D50w Syringe) 25 ml Q15M PRN IV DECREASED GLUCOSE; Start 07/30/16 at 06:30 Dextrose (D50w Syringe) 50 ml Q15M PRN IV DECREASED GLUCOSE; Start 07/30/16 at 06:30 Glucagon (Glucagen) 1 mg Q15M PRN IM DECREASED GLUCOSE; Start 07/30/16 at 06:30 Glucose 15 gm 15 gm Q15M PRN BUCCAL DECREASED GLUCOSE; Start 07/30/16 at 06:30 Piperacillin Sod/ Tazobactam Sod (Zosyn 2.25gm/ 50ml (Pmx)) 50 ml @ 100 mls/hr Q8 IVPB Last administered on 07/31/16 05:32; Admin Dose 100 MLS/HR; Start 07/30 at 14:00 Amiodarone HCl (Cordarone) 200 mg BID PO Last administered on 07/31/16t 10:38; Admin Dose 200 MG; Start 07/30/16 at 21:00 Metoprolol Tartrate (Lopressor) 5 mg Q4H PRN IV HR>110 Hold SBP<100; Start at 18:00 Docusate Sodium (Colace Liquid Cup) 100 mg BID PO ; Start 07/31/16 at 21:00 Docusate Sodium (Colace Liquid Cup) 100 mg Q12H PRN PO CONSTIPATION; Start 07/31 at 11:00 SASKIA WHITE Jul 31, 2016 12:21
[2016-07-31] MEDS: DILTIAZEM 30 MG TAB PO SCH ×2 (17:51→21:06)
--- NOTE | 2016-07-31 19:56 | PN ---
Date/Time of Note Date/Time of Note DATE: 07/31/16 TIME: 19:55 Assessment/Plan VTE Prophylaxis VTE Prophylaxis Intervention: other Lines/Catheters IV Catheter Type (from [facility]): Peripheral IV Urinary Cath still in place: No Assessment/Plan Chief Complaint/Hosp Course IMPRESSION: 1. The patient has severe sepsis. 2. Chronic kidney disease. 3. The patient had atrial fibrillation history. 4. Leukocytosis. 5. Anemia. 6. Gastrostomy tube placement. 7. PERMA catheter placement. 8. Atherosclerotic heart disease. 9. Dyslipidemia. 10. Hypothyroidism. 11 GN BACTERRMIA PLAN ANTIBIOTIC HD AM Problems: Subjective 24 Hr Interval Summary Respiratory: no complaints Cardiovascular: no complaints Gastrointestinal: no complaints Exam/Review of Systems Vital Signs Vitals Vital Signs Date Time Temp Pulse Resp B/P Pulse Ox O2 Delivery O2 Flow Rate FiO2 07/31/16 17:19 70 07/31/16 17:07 18 98 Nasal Cannula 2.0 07/31/16 15:19 97.0 118/72 Intake and Output 07/30/16 07/30/16 07/31/16 15:00 23:00 07:00 Intake Total 560 ml 600 ml Balance 560 ml 600 ml Exam Neck: supple Respiratory: clear to auscultation Cardiovascular: regular rate and rhythm Gastrointestinal: soft Musculoskeletal: nl extremities to inspection Extremities: normal pulses Results Result Diagram: 07/31/1628 07/31/16627 Results 24 hrs Laboratory Tests Test 07/30/16 20:07 07/31/16 06:28 07/31/16 12:44 07/31/16 17:54 Bedside Glucose 152 115 131 Alanine Aminotransferase (ALT/SGPT) 138 H Albumin 2.9 L Albumin/Globulin Ratio 0.80 Alkaline Phosphatase 240 H Anion Gap 19 H Aspartate Amino Transf (AST/SGOT) 151 H Basophils # 0.0 Basophils % 0.0 Blood Morphology Comment Blood Urea Nitrogen 73 H Calcium Level 8.8 Carbon Dioxide Level 21 Chloride Level 106 Creatinine 1.68 H Direct Bilirubin 0.80 #H Eosinophils # 0.2 Eosinophils % 1.6 Globulin 3.60 H Glucose Level 112 Hematocrit 25.8 L Hemoglobin 8.6 L Indirect Bilirubin 0.1 Lymphocytes # 0.5 L Lymphocytes % 5.0 L Mean Corpuscular Hemoglobin 35.3 H Mean Corpuscular Hemoglobin Concent 33.4 Mean Corpuscular Volume 105.6 H Mean Platelet Volume 9.8 Monocytes # 0.4 Monocytes % 3.7 Neutrophils # 9.6 H Neutrophils % 89.7 H Nucleated Red Blood Cells # 0.0 Nucleated Red Blood Cells % 0.0 Platelet Count 211 Potassium Level 4.0 Red Blood Count 2.45 L Red Cell Distribution Width 17.8 H Sodium Level 142 Total Bilirubin 0.9 Total Protein 6.5 White Blood Count 10.7 # Medications Medications Current Medications Dextrose/Sodium Chloride (D5-1/2ns) 1,000 ml @ 50 mls/hr Q20H IV Last administered on 07/30/16 21:52; Admin Dose 50 MLS/HR; Start 07/29/16 at 20:17 Ondansetron HCl (Zofran Inj) 4 mg Q6H PRN IV NAUSEA AND/OR VOMITING; Start at 20:30 Nitroglycerin (Nitroglycerin (Sl Tab) 0.4 Mg) 1 tab Q5M PRN SL CHEST PAIN; Start 07/29/16 at 20:30 Acetaminophen (Tylenol Tab) 650 mg Q6H PRN PO PAIN LEVEL 1-3 OR FEVER Last administered on 07/30/16 21:47; Admin Dose 650 MG; Start 07/29/16 at 20:30 Bisacodyl (Dulcolax) 5 mg DAILY PRN PO CONSTIPATION; Start 07/29/16 at 20:30 Pantoprazole (Protonix Iv) 40 mg DAILY@06 IV Last administered on 07/31/16 05: 32; Admin Dose 40 MG; Start 07/30/16 at 06:00 Acetaminophen (Tylenol Tab) 325 mg DAILY PRN PO PAIN AND OR ELEVATED TEMP; Start 07/29/16 at 20:30 Apixaban (Eliquis) 2.5 mg BID PO Last administered on 07/31/16 10:40; Admin Dose 2.5 MG; Start 07/29/16 at 21:00 Aspirin (Aspirin) 81 mg DAILY PO Last administered on 07/31/16 10:33; Admin Dose 81 MG; Start 07/30/16 at 09:00 Atorvastatin Calcium (Lipitor) 20 mg QHS PO Last administered on 07/30/16 20: 33; Admin Dose 20 MG; Start 07/29/16 at 21:00 Carvedilol (Coreg) 6.25 mg BID PO ; Start 07/29/16 at 21:00 Diagnostic Test (Pha) (Accucheck) 1 ea 02 XX ; Start 07/31/16 at 02:00 Miscellaneous Information 1 ea NOTE XX ; Start 07/30/16 at 06:30 Glucose (Glutose) 15 gm Q15M PRN PO DECREASED GLUCOSE; Start 07/30/16 at 06:30 Glucose (Glutose) 22.5 gm Q15M PRN PO DECREASED GLUCOSE; Start 07/30/16 at 06: 30 Dextrose (D50w Syringe) 25 ml Q15M PRN IV DECREASED GLUCOSE; Start 07/30/16 at 06:30 Dextrose (D50w Syringe) 50 ml Q15M PRN IV DECREASED GLUCOSE; Start 07/30/16 at 06:30 Glucagon (Glucagen) 1 mg Q15M PRN IM DECREASED GLUCOSE; Start 07/30/16 at 06:30 Glucose 15 gm 15 gm Q15M PRN BUCCAL DECREASED GLUCOSE; Start 07/30/16 at 06:30 Piperacillin Sod/ Tazobactam Sod (Zosyn 2.25gm/ 50ml (Pmx)) 50 ml @ 100 mls/hr Q8 IVPB Last administered on 07/31/16 15:43; Admin Dose 100 MLS/HR; Start 07/30 at 14:00 Amiodarone HCl (Cordarone) 200 mg BID PO Last administered on 07/31/16 10:38; Admin Dose 200 MG; Start 07/30/16 at 21:00 Metoprolol Tartrate (Lopressor) 5 mg Q4H PRN IV HR>110 Hold SBP<100; Start at 18:00 Docusate Sodium (Colace Liquid Cup) 100 mg BID PO ; Start 07/31/16 at 21:00 Docusate Sodium (Colace Liquid Cup) 100 mg Q12H PRN PO CONSTIPATION; Start 07/31 at 11:00 Diltiazem HCl (Cardizem) 30 mg Q8 PO Last administered on 07/31/16 17:51; Admin Dose 30 MG; Start 07/31/16 at 14:00 CRUZITO ARELLANO MD Jul 31, 2016 19:56
[2016-07-31] MEDS: ATORVASTATIN 20 MG TAB PO SCH (20:38)
[2016-07-31] MEDS: DOCUSATE SODIUM 10 MG/ML (10ML CUP) PO SCH (20:38)
[2016-07-31] MEDS: DEXTROSE 5%-0.45% NACL 1,000 ML IV SCH (21:13)
[2016-08-01] VITALS (21 sets, daily range): BP systolic 97–135; BP diastolic 44–115; PULSE 70–71; RESP 16–20
[2016-08-01] MEDS: ACCUCHECK XX SCH (02:00)
[2016-08-01] MEDS: ALBUTEROL 0.5% (NEB) 2.5 MG/0.5 ML AMP NEB SCH ×6 (02:20→21:47)
[2016-08-01] MEDS: PIPER-TAZO 2.25 GM (PMX) 50 ML IVPB SCH ×3 (06:20→21:10)
[2016-08-01] MEDS: PANTOPRAZOLE 40 MG INJ IV SCH (06:21)
[2016-08-01] MEDS: DILTIAZEM 30 MG TAB PO SCH ×3 (06:21→21:12)
[2016-08-01] MEDS: LEVOTHYROXINE 150 MCG TAB PO SCH (06:21)
[2016-08-01] MEDS: INSULIN ASPART [NOVOLOG] 3 ML PEN SC SCH ×4 (08:00→21:00)
[2016-08-01] MEDS: ASPIRIN 81 MG TAB PO SCH (08:49)
[2016-08-01] MEDS: DOCUSATE SODIUM 10 MG/ML (10ML CUP) PO SCH ×2 (08:49→21:09)
[2016-08-01] MEDS: APIXABAN 5 MG TABLET PO SCH ×2 (08:51→21:11)
[2016-08-01] MEDS: AMIODARONE 200 MG TAB PO SCH ×2 (08:51→21:11)
[2016-08-01] MEDS ORDERED: SOD CHLORIDE 0.9% 1,000 ML IV PRN (11:44)
[2016-08-01] MEDS ORDERED: HEPARIN 1000 UNITS/ML 10 ML INJ CATHETER SCH (12:00)
[2016-08-01] MEDS ORDERED: ALTEPLASE (CATHFLO) 2 MG INJ CATHETER STA (14:48)
--- NOTE | 2016-08-01 17:57 | CONS ---
Date/Time of Note Date/Time of Note DATE: 08/01/16 TIME: 17:55 Assessment/Plan Assessment/Plan Chief Complaint/Hosp Course IMPRESSION: 1. Atrial fibrillation-improved rate control s/p IVP digoxin 2. Abnormal electrocardiogram, assess for acute coronary syndrome. 3. History of cardiomyopathy with decreased left ventricular ejection fraction approximately 40% by most recent echo June 2016, assess for congestive heart failure. 4. Encephalopathy. 5. History of recent cerebrovascular accident. 6. Lethargy. 7. Leukocytosis. 8. Anemia. 9. Diabetes mellitus. 10. Hypotension-very labile 11. Bacteremia-GNR Recc: -Tele -serial ecg's -Continue eliquis -Continue abx's and f/u cx data -contiue coreg and dilt as tolerated only -HD for volume removal -Follow MS closely -Continue amio/asa/statin . Problems: Consultation Date/Type/Reason Admit Date/Time Jul 29, 2016 at 20:17 Initial Consult Date 07/30/2016 Type of Consultation: Cardiology Reason for Consultation AF Referring Provider: MANDI ARELLANO MD Exam/Review of Systems Vital Signs Vitals Vital Signs Date Time Temp Pulse Resp B/P Pulse Ox O2 Delivery O2 Flow Rate FiO2 08/01/16 17:30 2.0 08/01/16 17:09 79 16 98 Nasal Cannula 08/01/16 15:59 98.3 135/60 Intake and Output 07/31/16 07/31/16 08/01/16 15:00 23:00 07:00 Intake Total 550 ml 1060 ml Balance 550 ml 1060 ml Exam Review of Systems: CONSTITUTIONAL: No fevers, chills. PULMONARY: No sob CARDIOVASCULAR: No chest pain/palpitations GASTROINTESTINAL: No nausea/vomiting. GENITOURINARY: No hematuria/dysuria. MUSCULOSKELETAL: No myagias/arthalgias. PSYCHIATRIC: The patient denies depression. NEUROLOGIC: Encephalopathic Constitutional: alert, oriented Psych: no complaints Head: normocephalic ENMT: mucosa pink and moist Neck: jvd (9 cm water), supple Respiratory: diminished breath sounds (at bases/B) Cardiovascular: regular rate and rhythm Gastrointestinal: non-tender, soft Musculoskeletal: muscle tone (normal) Extremities: edema (none) Neurological: lethargic Results Result Diagram: 2/1/17 0628 2/1/17 0628 Results 24 hrs Laboratory Tests Test 07/31/16 20:37 08/01/16 08:47 08/01/16 12:36 Bedside Glucose 115 106 140 Medications Medications Current Medications Dextrose/Sodium Chloride (D5-1/2ns) 1,000 ml @ 50 mls/hr Q20H IV Last administered on 07/31/16 21:13; Admin Dose 50 MLS/HR; Start 07/29/16 at 20:17 Ondansetron HCl (Zofran Inj) 4 mg Q6H PRN IV NAUSEA AND/OR VOMITING; Start at 20:30 Nitroglycerin (Nitroglycerin (Sl Tab) 0.4 Mg) 1 tab Q5M PRN SL CHEST PAIN; Start 07/29/16 at 20:30 Acetaminophen (Tylenol Tab) 650 mg Q6H PRN PO PAIN LEVEL 1-3 OR FEVER Last administered on 07/30/16 21:47; Admin Dose 650 MG; Start 07/29/16 at 20:30 Bisacodyl (Dulcolax) 5 mg DAILY PRN PO CONSTIPATION; Start 07/29/16 at 20:30 Pantoprazole (Protonix Iv) 40 mg DAILY@06 IV Last administered on 08/01/16 06: 21; Admin Dose 40 MG; Start 07/30/16 at 06:00 Acetaminophen (Tylenol Tab) 325 mg DAILY PRN PO PAIN AND OR ELEVATED TEMP; Start 07/29/16 at 20:30 Apixaban (Eliquis) 2.5 mg BID PO Last administered on 08/01/16 08:51; Admin Dose 2.5 MG; Start 07/29/16 at 21:00 Aspirin (Aspirin) 81 mg DAILY PO Last administered on 08/01/16 08:49; Admin Dose 81 MG; Start 07/30/16 at 09:00 Atorvastatin Calcium (Lipitor) 20 mg QHS PO Last administered on 07/31/16 20:38 ; Admin Dose 20 MG; Start 07/29/16 at 21:00 Carvedilol (Coreg) 6.25 mg BID PO Last administered on 07/31/16 20:39; Admin Dose 6.25 MG; Start 07/29/16 at 21:00 Diagnostic Test (Pha) (Accucheck) 1 ea 02 XX ; Start 07/31/16 at 02:00 Miscellaneous Information 1 ea NOTE XX ; Start 07/30/16 at 06:30 Glucose (Glutose) 15 gm Q15M PRN PO DECREASED GLUCOSE; Start 07/30/16 at 06:30 Glucose (Glutose) 22.5 gm Q15M PRN PO DECREASED GLUCOSE; Start 07/30/16 at 06: 30 Dextrose (D50w Syringe) 25 ml Q15M PRN IV DECREASED GLUCOSE; Start 07/30/16 at 06:30 Dextrose (D50w Syringe) 50 ml Q15M PRN IV DECREASED GLUCOSE; Start 07/30/16 at 06:30 Glucagon (Glucagen) 1 mg Q15M PRN IM DECREASED GLUCOSE; Start 07/30/16 at 06:30 Glucose 15 gm 15 gm Q15M PRN BUCCAL DECREASED GLUCOSE; Start 07/30/16 at 06:30 Piperacillin Sod/ Tazobactam Sod (Zosyn 2.25gm/ 50ml (Pmx)) 50 ml @ 100 mls/hr Q8 IVPB Last administered on 08/01/16 16:14; Admin Dose 100 MLS/HR; Start 07/30 at 14:00 Amiodarone HCl (Cordarone) 200 mg BID PO Last administered on 08/01/16 08:51; Admin Dose 200 MG; Start 07/30/16 at 21:00 Metoprolol Tartrate (Lopressor) 5 mg Q4H PRN IV HR>110 Hold SBP<100; Start at 18:00 Docusate Sodium (Colace Liquid Cup) 100 mg BID PO Last administered on 08:49; Admin Dose 100 MG; Start 07/31/16 at 21:00 Docusate Sodium (Colace Liquid Cup) 100 mg Q12H PRN PO CONSTIPATION; Start 07/31 at 11:00 Diltiazem HCl 30 mg 30 mg Q8 PO Last administered on 08/01/16 06:21; Admin Dose 30 MG; Start 07/31/16 at 14:00 Sodium Chloride (NS) 1,000 ml @ 0 mls/hr Q0M PRN IV TO KEEP SBP ABOVE 90; Start 08/01/16 at 11:44 SASKIA WHITE Aug 01, 2016 17:57
--- NOTE | 2016-08-01 18:51 | PN ---
Date/Time of Note Date/Time of Note DATE: 08/01/16 TIME: 18:51 Assessment/Plan VTE Prophylaxis VTE Prophylaxis Intervention: other Lines/Catheters [facility]from [facility] Permacath Urinary Cath still in place: No Assessment/Plan Chief Complaint/Hosp Course IMPRESSION: 1. The patient has severe sepsis. 2. Chronic kidney disease. 3. The patient had atrial fibrillation history. 4. Leukocytosis. 5. Anemia. 6. Gastrostomy tube placement. 7. PERMA catheter placement. 8. Atherosclerotic heart disease. 9. Dyslipidemia. 10. Hypothyroidism. 11 GN BACTERRMIA PLAN ANTIBIOTIC HD AM ck labs Problems: Subjective 24 Hr Interval Summary Respiratory: no complaints Cardiovascular: no complaints Exam/Review of Systems Vital Signs Vitals Vital Signs Date Time Temp Pulse Resp B/P Pulse Ox O2 Delivery O2 Flow Rate FiO2 08/01/16 17:30 2.0 08/01/16 17:09 79 16 98 Nasal Cannula 08/01/16 15:59 98.3 135/60 Intake and Output 07/31/16 07/31/16 08/01/16 15:00 23:00 07:00 Intake Total 550 ml 1060 ml Balance 550 ml 1060 ml Exam Neck: supple Respiratory: clear to auscultation Cardiovascular: regular rate and rhythm Gastrointestinal: soft Extremities: normal pulses Results Result Diagram: 07/31/1662707/31/16627 Results 24 hrs Laboratory Tests Test 07/31/16 20:37 08/01/16 08:47 08/01/16 12:36 08/01/16 18:19 Bedside Glucose 115 106 140 126 Medications Medications Current Medications Dextrose/Sodium Chloride (D5-1/2ns) 1,000 ml @ 50 mls/hr Q20H IV Last administered on 07/31/16 21:13; Admin Dose 50 MLS/HR; Start 07/29/16 at 20:17 Ondansetron HCl (Zofran Inj) 4 mg Q6H PRN IV NAUSEA AND/OR VOMITING; Start at 20:30 Nitroglycerin (Nitroglycerin (Sl Tab) 0.4 Mg) 1 tab Q5M PRN SL CHEST PAIN; Start 07/29/16 at 20:30 Acetaminophen (Tylenol Tab) 650 mg Q6H PRN PO PAIN LEVEL 1-3 OR FEVER Last administered on 07/30/16 21:47; Admin Dose 650 MG; Start 07/29/16 at 20:30 Bisacodyl (Dulcolax) 5 mg DAILY PRN PO CONSTIPATION; Start 07/29/16 at 20:30 Pantoprazole (Protonix Iv) 40 mg DAILY@06 IV Last administered on 08/01/16 06: 21; Admin Dose 40 MG; Start 07/30/16 at 06:00 Acetaminophen (Tylenol Tab) 325 mg DAILY PRN PO PAIN AND OR ELEVATED TEMP; Start 07/29/16 at 20:30 Apixaban (Eliquis) 2.5 mg BID PO Last administered on 08/01/16 08:51; Admin Dose 2.5 MG; Start 07/29/16 at 21:00 Aspirin (Aspirin) 81 mg DAILY PO Last administered on 08/01/16 08:49; Admin Dose 81 MG; Start 07/30/16 at 09:00 Atorvastatin Calcium (Lipitor) 20 mg QHS PO Last administered on 07/31/16 20:38 ; Admin Dose 20 MG; Start 07/29/16 at 21:00 Carvedilol (Coreg) 6.25 mg BID PO Last administered on 07/31/16 20:39; Admin Dose 6.25 MG; Start 07/29/16 at 21:00 Diagnostic Test (Pha) (Accucheck) 1 ea 02 XX ; Start 07/31/16 at 02:00 Miscellaneous Information 1 ea NOTE XX ; Start 07/30/16 at 06:30 Glucose (Glutose) 15 gm Q15M PRN PO DECREASED GLUCOSE; Start 07/30/16 at 06:30 Glucose (Glutose) 22.5 gm Q15M PRN PO DECREASED GLUCOSE; Start 07/30/16 at 06: 30 Dextrose (D50w Syringe) 25 ml Q15M PRN IV DECREASED GLUCOSE; Start 07/30/16 at 06:30 Dextrose (D50w Syringe) 50 ml Q15M PRN IV DECREASED GLUCOSE; Start 07/30/16 at 06:30 Glucagon (Glucagen) 1 mg Q15M PRN IM DECREASED GLUCOSE; Start 07/30/16 at 06:30 Glucose 15 gm 15 gm Q15M PRN BUCCAL DECREASED GLUCOSE; Start 07/30/16 at 06:30 Piperacillin Sod/ Tazobactam Sod (Zosyn 2.25gm/ 50ml (Pmx)) 50 ml @ 100 mls/hr Q8 IVPB Last administered on 08/01/16 16:14; Admin Dose 100 MLS/HR; Start 07/30 at 14:00 Amiodarone HCl (Cordarone) 200 mg BID PO Last administered on 08/01/16 08:51; Admin Dose 200 MG; Start 07/30/16 at 21:00 Metoprolol Tartrate (Lopressor) 5 mg Q4H PRN IV HR>110 Hold SBP<100; Start at 18:00 Docusate Sodium (Colace Liquid Cup) 100 mg BID PO Last administered on 08:49; Admin Dose 100 MG; Start 07/31/16 at 21:00 Docusate Sodium (Colace Liquid Cup) 100 mg Q12H PRN PO CONSTIPATION; Start 07/31 at 11:00 Diltiazem HCl 30 mg 30 mg Q8 PO Last administered on 08/01/16 06:21; Admin Dose 30 MG; Start 07/31/16 at 14:00 Sodium Chloride (NS) 1,000 ml @ 0 mls/hr Q0M PRN IV TO KEEP SBP ABOVE 90; Start 08/01/16 at 11:44 CRUZITO ARELLANO MD Aug 01, 2016 18:51
[2016-08-01] MEDS: ATORVASTATIN 20 MG TAB PO SCH (21:11)
[2016-08-02] VITALS (11 sets, daily range): BP systolic 90–115; BP diastolic 46–85; PULSE 68–70; RESP 17–20
[2016-08-02] MEDS ORDERED: ALTEPLASE (CATHFLO) 2 MG INJ CATHETER ONE (01:31)
[2016-08-02] MEDS: ALBUTEROL 0.5% (NEB) 2.5 MG/0.5 ML AMP NEB SCH ×6 (01:59→21:46)
[2016-08-02] MEDS: ACCUCHECK XX SCH (02:00)
[2016-08-02] MEDS: DEXTROSE 5%-0.45% NACL 1,000 ML IV SCH ×2 (05:19→23:44)
[2016-08-02] MEDS: PANTOPRAZOLE 40 MG INJ IV SCH (05:19)
[2016-08-02] MEDS: DILTIAZEM 30 MG TAB PO SCH ×3 (05:19→22:09)
[2016-08-02] MEDS: LEVOTHYROXINE 150 MCG TAB PO SCH (05:19)
[2016-08-02] MEDS: PIPER-TAZO 2.25 GM (PMX) 50 ML IVPB SCH ×3 (05:19→22:08)
[2016-08-02 06:22] LABS: BASOPHILS % 0.2 % (0.0-2.0); EOSINOPHILS # 0.4 10^3/ul (0.0-0.5); EOSINOPHILS % 5.3 % (0.0-7.0); HEMATOCRIT 25.6 % (37.0-47.0); HEMOGLOBIN 8.6 g/dl (12.0-16.0); LYMPHOCYTES # 0.8 10^3/ul (0.8-2.9); LYMPHOCYTES % 11.2 % (15.0-51.0); MEAN CORPUSCULAR HEMOGLOBIN 35.5 pg (29.0-33.0); MEAN CORPUSCULAR HGB CONC 33.8 g/dl (32.0-37.0); MEAN PLATELET VOLUME 9.9 fl (7.4-10.4); MONOCYTE # 0.6 10^3/ul (0.3-0.9); MONOCYTES % 7.9 % (0.0-11.0); NEUTROPHIL # 5.7 10^3/ul (1.6-7.5); NEUTROPHILS % 75.4 % (39.0-77.0); PLATELET COUNT 184 10^3/UL (140-440); RED BLOOD COUNT 2.44 10^6/ul (4.20-5.40); RED CELL DISTRIBUTION WIDTH 16.3 % (11.5-14.5); UNCORRECTED WBC 7.5 10^3/ul (4.8-10.8); WHITE BLOOD COUNT 7.5 10^3/ul (4.8-10.8)
[2016-08-02 06:27] LABS: POTASSIUM 3.6 mmol/L (3.5-5.1)
[2016-08-02 06:29] LABS: CREATININE 1.2 mg/dl (0.44-1.00)
[2016-08-02 06:30] LABS: CALCIUM 8.2 mg/dl (8.4-10.2)
[2016-08-02 06:50] LABS: CONDITION 1; LH ANALYZER COMMENTS 1
[2016-08-02] MEDS: INSULIN ASPART [NOVOLOG] 3 ML PEN SC SCH ×4 (08:00→21:00)
[2016-08-02] MEDS: ASPIRIN 81 MG TAB PO SCH (08:32)
[2016-08-02] MEDS: DOCUSATE SODIUM 10 MG/ML (10ML CUP) PO SCH ×2 (08:32→21:15)
[2016-08-02] MEDS: AMIODARONE 200 MG TAB PO SCH ×2 (08:33→21:17)
[2016-08-02] MEDS: APIXABAN 5 MG TABLET PO SCH ×2 (08:35→21:16)
--- NOTE | 2016-08-02 16:01 | CONS ---
Date/Time of Note Date/Time of Note DATE: 08/02/16 TIME: 15:59 Assessment/Plan Assessment/Plan Chief Complaint/Hosp Course IMPRESSION: 1. Atrial fibrillation-improved rate control s/p IVP digoxin 2. Abnormal electrocardiogram, assess for acute coronary syndrome. 3. History of cardiomyopathy with decreased left ventricular ejection fraction approximately 40% by most recent echo June 2016, assess for congestive heart failure. 4. Encephalopathy. 5. History of recent cerebrovascular accident. 6. Lethargy. 7. Leukocytosis. 8. Anemia. 9. Diabetes mellitus. 10. Hypotension-very labile 11. Bacteremia-GNR Recc: -Tele -serial ecg's -Continue eliquis -Continue abx's and f/u cx data -contiue coreg and dilt as tolerated only -HD for volume removal -Follow MS closely -Continue amio/asa/statin . Problems: Consultation Date/Type/Reason Admit Date/Time Jul 29, 2016 at 20:17 Initial Consult Date 07/30/2016 Type of Consultation: Cardiology Reason for Consultation AF Referring Provider: MANDI ARELLANO MD Exam/Review of Systems Vital Signs Vitals Vital Signs Date Time Temp Pulse Resp B/P Pulse Ox O2 Delivery O2 Flow Rate FiO2 08/02/16 13:40 74 20 98 Nasal Cannula 2.0 08/02/16 11:00 97.8 115/85 Intake and Output 08/01/16 08/01/16 08/02/16 15:00 23:00 07:00 Intake Total 400 ml 800 ml 460 ml Output Total 3000 ml Balance -2600 ml 800 ml 460 ml Exam Review of Systems: CONSTITUTIONAL: No fevers, chills. PULMONARY: No sob CARDIOVASCULAR: No chest pain/palpitations GASTROINTESTINAL: No nausea/vomiting. GENITOURINARY: No hematuria/dysuria. MUSCULOSKELETAL: No myagias/arthalgias. PSYCHIATRIC: The patient denies depression. NEUROLOGIC: No weakness Constitutional: alert Psych: no complaints Head: normocephalic ENMT: mucosa pink and moist Neck: jvd (8-9 cm water), supple Respiratory: diminished breath sounds (at bases/B) Cardiovascular: regular rate and rhythm Gastrointestinal: non-tender, soft Musculoskeletal: muscle tone (n ormal) Extremities: edema (none) Neurological: other (NO focal deficits) Results Result Diagram: 08/02/16 0553 08/02/16 0553 Results 24 hrs Laboratory Tests Test 08/01/16 18:19 08/01/16 21:09 08/02/16 02:53 08/02/16 05:53 Bedside Glucose 126 131 134 Anion Gap 14 Basophils # 0.0 Basophils % 0.2 Blood Morphology Comment Blood Urea Nitrogen 38 #H Calcium Level 8.2 L Carbon Dioxide Level 25 Chloride Level 102 Creatinine 1.20 H Eosinophils # 0.4 Eosinophils % 5.3 Glucose Level 116 Hematocrit 25.6 L Hemoglobin 8.6 L Lymphocytes # 0.8 Lymphocytes % 11.2 L Mean Corpuscular Hemoglobin 35.5 H Mean Corpuscular Hemoglobin Concent 33.8 Mean Corpuscular Volume 105.0 H Mean Platelet Volume 9.9 Monocytes # 0.6 Monocytes % 7.9 Neutrophils # 5.7 Neutrophils % 75.4 Nucleated Red Blood Cells # 0.0 Nucleated Red Blood Cells % 0.0 Platelet Count 184 Potassium Level 3.6 Red Blood Count 2.44 L Red Cell Distribution Width 16.3 H Sodium Level 137 White Blood Count 7.5 # Test 08/02/16 08:37 08/02/16 11:29 Bedside Glucose 125 110 Medications Medications Current Medications Dextrose/Sodium Chloride (D5-1/2ns) 1,000 ml @ 50 mls/hr Q20H IV Last administered on 08/02/16 05:19; Admin Dose 50 MLS/HR; Start 07/29/16 at 20:17 Ondansetron HCl (Zofran Inj) 4 mg Q6H PRN IV NAUSEA AND/OR VOMITING; Start at 20:30 Nitroglycerin (Nitroglycerin (Sl Tab) 0.4 Mg) 1 tab Q5M PRN SL CHEST PAIN; Start 07/29/16 at 20:30 Acetaminophen (Tylenol Tab) 650 mg Q6H PRN PO PAIN LEVEL 1-3 OR FEVER Last administered on 07/30/16 21:47; Admin Dose 650 MG; Start 07/29/16 at 20:30 Bisacodyl (Dulcolax) 5 mg DAILY PRN PO CONSTIPATION; Start 07/29/16 at 20:30 Pantoprazole (Protonix Iv) 40 mg DAILY@06 IV Last administered on 08/02/16 05: 19; Admin Dose 40 MG; Start 07/30/16 at 06:00 Acetaminophen (Tylenol Tab) 325 mg DAILY PRN PO PAIN AND OR ELEVATED TEMP; Start 07/29/16 at 20:30 Apixaban (Eliquis) 2.5 mg BID PO Last administered on 08/02/16 08:35; Admin Dose 2.5 MG; Start 07/29/16 at 21:00 Aspirin (Aspirin) 81 mg DAILY PO Last administered on 08/02/16 08:32; Admin Dose 81 MG; Start 07/30/16 at 09:00 Atorvastatin Calcium (Lipitor) 20 mg QHS PO Last administered on 08/01/16 21:11 ; Admin Dose 20 MG; Start 07/29/16 at 21:00 Carvedilol (Coreg) 6.25 mg BID PO Last administered on 08/01/16 21:11; Admin Dose 6.25 MG; Start 07/29/16 at 21:00 Diagnostic Test (Pha) (Accucheck) 1 ea 02 XX ; Start 07/31/16 at 02:00 Miscellaneous Information 1 ea NOTE XX ; Start 07/30/16 at 06:30 Glucose (Glutose) 15 gm Q15M PRN PO DECREASED GLUCOSE; Start 07/30/16 at 06:30 Glucose (Glutose) 22.5 gm Q15M PRN PO DECREASED GLUCOSE; Start 07/30/16 at 06: 30 Dextrose (D50w Syringe) 25 ml Q15M PRN IV DECREASED GLUCOSE; Start 07/30/16 at 06:30 Dextrose (D50w Syringe) 50 ml Q15M PRN IV DECREASED GLUCOSE; Start 07/30/16 at 06:30 Glucagon (Glucagen) 1 mg Q15M PRN IM DECREASED GLUCOSE; Start 07/30/16 at 06:30 Glucose 15 gm 15 gm Q15M PRN BUCCAL DECREASED GLUCOSE; Start 07/30/16 at 06:30 Piperacillin Sod/ Tazobactam Sod (Zosyn 2.25gm/ 50ml (Pmx)) 50 ml @ 100 mls/hr Q8 IVPB Last administered on 08/02/16 14:17; Admin Dose 100 MLS/HR; Start 07/30 at 14:00 Amiodarone HCl (Cordarone) 200 mg BID PO Last administered on 08/02/16 08:33; Admin Dose 200 MG; Start 07/30/16 at 21:00 Metoprolol Tartrate (Lopressor) 5 mg Q4H PRN IV HR>110 Hold SBP<100; Start at 18:00 Docusate Sodium (Colace Liquid Cup) 100 mg BID PO Last administered on 08:32; Admin Dose 100 MG; Start 07/31/16 at 21:00 Docusate Sodium (Colace Liquid Cup) 100 mg Q12H PRN PO CONSTIPATION; Start 07/31 at 11:00 Diltiazem HCl 30 mg 30 mg Q8 PO Last administered on 08/02/16 14:18; Admin Dose 30 MG; Start 07/31/16 at 14:00 Sodium Chloride (NS) 1,000 ml @ 0 mls/hr Q0M PRN IV TO KEEP SBP ABOVE 90; Start 08/01/16 at 11:44 SASKIA WHITE Aug 02, 2016 16:01
--- NOTE | 2016-08-02 16:52 | PN ---
Date/Time of Note Date/Time of Note DATE: 08/02/16 TIME: 16:51 Assessment/Plan VTE Prophylaxis VTE Prophylaxis Intervention: other Lines/Catheters IV [facility] Type [facility]from [facility] PERMACATH Urinary Cath still in place: No Assessment/Plan Chief Complaint/Hosp Course IMPRESSION: 1. The patient has severe sepsis. 2. Chronic kidney disease. 3. The patient had atrial fibrillation history. 4. Leukocytosis. 5. Anemia. 6. Gastrostomy tube placement. 7. PERMA catheter placement. 8. Atherosclerotic heart disease. 9. Dyslipidemia. 10. Hypothyroidism. 11 GN BACTERRMIA PLAN ANTIBIOTIC HD AM ck labs DC PLANNING Problems: Subjective 24 Hr Interval Summary Cardiovascular: no complaints Gastrointestinal: no complaints Genitourinary: no complaints Exam/Review of Systems Vital Signs Vitals Vital Signs Date Time Temp Pulse Resp B/P Pulse Ox O2 Delivery O2 Flow Rate FiO2 08/02/16 16:23 98.2 70 18 112/60 97 Nasal Cannula 2.0 Intake and Output 08/01/16 08/01/16 08/02/16 15:00 23:00 07:00 Intake Total 400 ml 800 ml 460 ml Output Total 3000 ml Balance -2600 ml 800 ml 460 ml Exam Respiratory: clear to auscultation Cardiovascular: regular rate and rhythm Gastrointestinal: soft Musculoskeletal: nl extremities to inspection Results Result Diagram: 08/02/16 0553 08/02/16 0553 Results 24 hrs Laboratory Tests Test 08/01/16 18:19 08/01/16 21:09 08/02/16 02:53 08/02/16 05:53 Bedside Glucose 126 131 134 Anion Gap 14 Basophils # 0.0 Basophils % 0.2 Blood Morphology Comment Blood Urea Nitrogen 38 #H Calcium Level 8.2 L Carbon Dioxide Level 25 Chloride Level 102 Creatinine 1.20 H Eosinophils # 0.4 Eosinophils % 5.3 Glucose Level 116 Hematocrit 25.6 L Hemoglobin 8.6 L Lymphocytes # 0.8 Lymphocytes % 11.2 L Mean Corpuscular Hemoglobin 35.5 H Mean Corpuscular Hemoglobin Concent 33.8 Mean Corpuscular Volume 105.0 H Mean Platelet Volume 9.9 Monocytes # 0.6 Monocytes % 7.9 Neutrophils # 5.7 Neutrophils % 75.4 Nucleated Red Blood Cells # 0.0 Nucleated Red Blood Cells % 0.0 Platelet Count 184 Potassium Level 3.6 Red Blood Count 2.44 L Red Cell Distribution Width 16.3 H Sodium Level 137 White Blood Count 7.5 # Test 08/02/16 08:37 08/02/16 11:29 Bedside Glucose 125 110 Medications Medications Current Medications Dextrose/Sodium Chloride (D5-1/2ns) 1,000 ml @ 50 mls/hr Q20H IV Last administered on 08/02/16 05:19; Admin Dose 50 MLS/HR; Start 07/29/16 at 20:17 Ondansetron HCl (Zofran Inj) 4 mg Q6H PRN IV NAUSEA AND/OR VOMITING; Start at 20:30 Nitroglycerin (Nitroglycerin (Sl Tab) 0.4 Mg) 1 tab Q5M PRN SL CHEST PAIN; Start 07/29/16 at 20:30 Acetaminophen (Tylenol Tab) 650 mg Q6H PRN PO PAIN LEVEL 1-3 OR FEVER Last administered on 07/30/16 21:47; Admin Dose 650 MG; Start 07/29/16 at 20:30 Bisacodyl (Dulcolax) 5 mg DAILY PRN PO CONSTIPATION; Start 07/29/16 at 20:30 Pantoprazole (Protonix Iv) 40 mg DAILY@06 IV Last administered on 08/02/16 05: 19; Admin Dose 40 MG; Start 07/30/16 at 06:00 Acetaminophen (Tylenol Tab) 325 mg DAILY PRN PO PAIN AND OR ELEVATED TEMP; Start 07/29/16 at 20:30 Apixaban (Eliquis) 2.5 mg BID PO Last administered on 08/02/16 08:35; Admin Dose 2.5 MG; Start 07/29/16 at 21:00 Aspirin (Aspirin) 81 mg DAILY PO Last administered on 08/02/16 08:32; Admin Dose 81 MG; Start 07/30/16 at 09:00 Atorvastatin Calcium (Lipitor) 20 mg QHS PO Last administered on 08/01/16 21:11 ; Admin Dose 20 MG; Start 07/29/16 at 21:00 Carvedilol (Coreg) 6.25 mg BID PO Last administered on 08/01/16 21:11; Admin Dose 6.25 MG; Start 07/29/16 at 21:00 Diagnostic Test (Pha) (Accucheck) 1 ea 02 XX ; Start 07/31/16 at 02:00 Miscellaneous Information 1 ea NOTE XX ; Start 07/30/16 at 06:30 Glucose (Glutose) 15 gm Q15M PRN PO DECREASED GLUCOSE; Start 07/30/16 at 06:30 Glucose (Glutose) 22.5 gm Q15M PRN PO DECREASED GLUCOSE; Start 07/30/16 at 06: 30 Dextrose (D50w Syringe) 25 ml Q15M PRN IV DECREASED GLUCOSE; Start 07/30/16 at 06:30 Dextrose (D50w Syringe) 50 ml Q15M PRN IV DECREASED GLUCOSE; Start 07/30/16 at 06:30 Glucagon (Glucagen) 1 mg Q15M PRN IM DECREASED GLUCOSE; Start 07/30/16 at 06:30 Glucose 15 gm 15 gm Q15M PRN BUCCAL DECREASED GLUCOSE; Start 07/30/16 at 06:30 Piperacillin Sod/ Tazobactam Sod (Zosyn 2.25gm/ 50ml (Pmx)) 50 ml @ 100 mls/hr Q8 IVPB Last administered on 08/02/16 14:17; Admin Dose 100 MLS/HR; Start 07/30 at 14:00 Amiodarone HCl (Cordarone) 200 mg BID PO Last administered on 08/02/16 08:33; Admin Dose 200 MG; Start 07/30/16 at 21:00 Metoprolol Tartrate (Lopressor) 5 mg Q4H PRN IV HR>110 Hold SBP<100; Start at 18:00 Docusate Sodium (Colace Liquid Cup) 100 mg BID PO Last administered on 08:32; Admin Dose 100 MG; Start 07/31/16 at 21:00 Docusate Sodium (Colace Liquid Cup) 100 mg Q12H PRN PO CONSTIPATION; Start 07/31 at 11:00 Diltiazem HCl 30 mg 30 mg Q8 PO Last administered on 08/02/16 14:18; Admin Dose 30 MG; Start 07/31/16 at 14:00 Sodium Chloride (NS) 1,000 ml @ 0 mls/hr Q0M PRN IV TO KEEP SBP ABOVE 90; Start 08/01/16 at 11:44 CRUZITO ARELLANO MD Aug 02, 2016 16:52
[2016-08-02] MEDS: ATORVASTATIN 20 MG TAB PO SCH (21:16)
[2016-08-03] VITALS (12 sets, daily range): BP systolic 100–159; BP diastolic 53–88; PULSE 70–82; RESP 15–20
[2016-08-03] MEDS: ALBUTEROL 0.5% (NEB) 2.5 MG/0.5 ML AMP NEB SCH ×6 (01:00→21:26)
[2016-08-03] MEDS: ACCUCHECK XX SCH (02:23)
[2016-08-03] MEDS: PIPER-TAZO 2.25 GM (PMX) 50 ML IVPB SCH ×3 (05:44→22:25)
[2016-08-03] MEDS: LANSOPRAZOLE 30 MG CAP GTB SCH (05:44)
[2016-08-03] MEDS: DILTIAZEM 30 MG TAB PO SCH ×3 (05:44→22:26)
[2016-08-03] MEDS: INSULIN ASPART [NOVOLOG] 3 ML PEN SC SCH ×4 (08:00→20:31)
[2016-08-03] MEDS: LEVOTHYROXINE 150 MCG TAB PO SCH (08:40)
[2016-08-03] MEDS: ASPIRIN 81 MG TAB PO SCH (08:41)
[2016-08-03] MEDS: DOCUSATE SODIUM 10 MG/ML (10ML CUP) PO SCH ×2 (08:41→20:30)
[2016-08-03] MEDS: AMIODARONE 200 MG TAB PO SCH ×2 (08:42→20:32)
[2016-08-03] MEDS: APIXABAN 5 MG TABLET PO SCH ×2 (08:42→20:30)
--- NOTE | 2016-08-03 12:03 | PN ---
Date/Time of Note Date/Time of Note DATE: 08/03/16 TIME: 12:02 Assessment/Plan VTE Prophylaxis VTE Prophylaxis Intervention: SCD's Lines/Catheters IV Catheter Type (from Nrs): PERMACATH Urinary Cath still in place: No Assessment/Plan Chief Complaint/Hosp Course IMPRESSION: 1. The patient has severe sepsis. 2. Chronic kidney disease. 3. The patient had atrial fibrillation history. 4. Leukocytosis. 5. Anemia. 6. Gastrostomy tube placement. 7. PERMA catheter placement. 8. Atherosclerotic heart disease. 9. Dyslipidemia. 10. Hypothyroidism. 11 GN BACTERRMIA PLAN ANTIBIOTIC HD AM ck labs DC PLANNING Problems: Subjective 24 Hr Interval Summary Gastrointestinal: no complaints Genitourinary: no complaints Musculoskeletal: no complaints Skin: no complaints Neurologic: no complaints Exam/Review of Systems Vital Signs Vitals Vital Signs Date Time Temp Pulse Resp B/P Pulse Ox O2 Delivery O2 Flow Rate FiO2 08/03/16 10:24 72 20 98 Nasal Cannula 2.0 08/03/16 07:32 98.9 159/67 Intake and Output 08/02/16 08/02/16 08/03/16 15:00 23:00 07:00 Intake Total 560 ml 400 ml Balance 560 ml 400 ml Exam Cardiovascular: regular rate and rhythm Gastrointestinal: soft Extremities: normal pulses Results Result Diagram: 08/02/16 0553 08/02/16 0553 Results 24 hrs Laboratory Tests Test 08/02/16 17:29 08/02/16 20:35 08/03/16 07:28 08/03/16 11:38 Bedside Glucose 128 134 140 111 Medications Medications Current Medications Dextrose/Sodium Chloride (D5-1/2ns) 1,000 ml @ 50 mls/hr Q20H IV Last administered on 08/02/16 23:44; Admin Dose 50 MLS/HR; Start 07/29/16 at 20:17 Ondansetron HCl (Zofran Inj) 4 mg Q6H PRN IV NAUSEA AND/OR VOMITING; Start at 20:30 Nitroglycerin (Nitroglycerin (Sl Tab) 0.4 Mg) 1 tab Q5M PRN SL CHEST PAIN; Start 07/29/16 at 20:30 Acetaminophen (Tylenol Tab) 650 mg Q6H PRN PO PAIN LEVEL 1-3 OR FEVER Last administered on 07/30/16 21:47; Admin Dose 650 MG; Start 07/29/16 at 20:30 Bisacodyl (Dulcolax) 5 mg DAILY PRN PO CONSTIPATION; Start 07/29/16 at 20:30 Acetaminophen (Tylenol Tab) 325 mg DAILY PRN PO PAIN AND OR ELEVATED TEMP; Start 07/29/16 at 20:30 Apixaban (Eliquis) 2.5 mg BID PO Last administered on 08/03/16 08:42; Admin Dose 2.5 MG; Start 07/29/16 at 21:00 Aspirin (Aspirin) 81 mg DAILY PO Last administered on 08/03/16 08:41; Admin Dose 81 MG; Start 07/30/16 at 09:00 Atorvastatin Calcium (Lipitor) 20 mg QHS PO Last administered on 08/02/16 21:16 ; Admin Dose 20 MG; Start 07/29/16 at 21:00 Carvedilol (Coreg) 6.25 mg BID PO Last administered on 08/02/16 21:16; Admin Dose 6.25 MG; Start 07/29/16 at 21:00 Diagnostic Test (Pha) (Accucheck) 1 ea 02 XX Last administered on 08/03/16 02: 23; Admin Dose 1 EA; Start 07/31/16 at 02:00 Miscellaneous Information 1 ea NOTE XX ; Start 07/30/16 at 06:30 Glucose (Glutose) 15 gm Q15M PRN PO DECREASED GLUCOSE; Start 07/30/16 at 06:30 Glucose (Glutose) 22.5 gm Q15M PRN PO DECREASED GLUCOSE; Start 07/30/16 at 06: 30 Dextrose (D50w Syringe) 25 ml Q15M PRN IV DECREASED GLUCOSE; Start 07/30/16 at 06:30 Dextrose (D50w Syringe) 50 ml Q15M PRN IV DECREASED GLUCOSE; Start 07/30/16 at 06:30 Glucagon (Glucagen) 1 mg Q15M PRN IM DECREASED GLUCOSE; Start 07/30/16 at 06:30 Glucose 15 gm 15 gm Q15M PRN BUCCAL DECREASED GLUCOSE; Start 07/30/16 at 06:30 Piperacillin Sod/ Tazobactam Sod (Zosyn 2.25gm/ 50ml (Pmx)) 50 ml @ 100 mls/hr Q8 IVPB Last administered on 08/03/16 05:44; Admin Dose 100 MLS/HR; Start 07/30 at 14:00 Amiodarone HCl (Cordarone) 200 mg BID PO Last administered on 08/03/16 08:42; Admin Dose 200 MG; Start 07/30/16 at 21:00 Metoprolol Tartrate (Lopressor) 5 mg Q4H PRN IV HR>110 Hold SBP<100; Start at 18:00 Docusate Sodium (Colace Liquid Cup) 100 mg BID PO Last administered on 08:41; Admin Dose 100 MG; Start 07/31/16 at 21:00 Docusate Sodium (Colace Liquid Cup) 100 mg Q12H PRN PO CONSTIPATION; Start 07/31 at 11:00 Diltiazem HCl 30 mg 30 mg Q8 PO Last administered on 08/03/16 05:44; Admin Dose 30 MG; Start 07/31/16 at 14:00 Sodium Chloride (NS) 1,000 ml @ 0 mls/hr Q0M PRN IV TO KEEP SBP ABOVE 90; Start 08/01/16 at 11:44 Lansoprazole (Prevacid) 30 mg DAILY@06 GTB Last administered on 08/03/16 05:44 ; Admin Dose 30 MG; Start 08/03/16 at 06:00 CRUZITO ARELLANO MD Aug 03, 2016 12:03
[2016-08-03] MEDS: DEXTROSE 5%-0.45% NACL 1,000 ML IV SCH (20:21)
[2016-08-03] MEDS: ATORVASTATIN 20 MG TAB PO SCH (20:31)
[2016-08-04] MEDS: ALBUTEROL 0.5% (NEB) 2.5 MG/0.5 ML AMP NEB SCH ×6 (00:45→21:13)
[2016-08-04] MEDS: ACCUCHECK XX SCH (02:00)
[2016-08-04] MEDS: PIPER-TAZO 2.25 GM (PMX) 50 ML IVPB SCH ×3 (05:35→21:45)
[2016-08-04] MEDS: LANSOPRAZOLE 30 MG CAP GTB SCH (05:35)
[2016-08-04] MEDS: DILTIAZEM 30 MG TAB PO SCH ×3 (05:38→21:49)
[2016-08-04] MEDS: LEVOTHYROXINE 150 MCG TAB PO SCH (07:10)
[2016-08-04 07:46] VITALS: BP 126/58; RESP 21
[2016-08-04] MEDS: INSULIN ASPART [NOVOLOG] 3 ML PEN SC SCH ×4 (08:00→20:48)
[2016-08-04] MEDS: AMIODARONE 200 MG TAB PO SCH ×2 (09:00→20:50)
[2016-08-04] MEDS: DOCUSATE SODIUM 10 MG/ML (10ML CUP) PO SCH ×2 (09:13→20:46)
[2016-08-04] MEDS: ASPIRIN 81 MG TAB PO SCH (09:13)
[2016-08-04] MEDS: APIXABAN 5 MG TABLET PO SCH ×2 (09:13→20:49)
[2016-08-04] MEDS: DEXTROSE 5%-0.45% NACL 1,000 ML IV SCH (12:15)
[2016-08-04] MEDS: ACETAMINOPHEN 325 MG TAB PO PRN (14:23)
[2016-08-04 19:46] VITALS: BP 122/59; RESP 18
[2016-08-04] MEDS: ATORVASTATIN 20 MG TAB PO SCH (20:47)
[2016-08-04 21:45] VITALS: BP 113/57; PULSE 70
--- NOTE | 2016-08-04 22:46 | PN ---
Date/Time of Note Date/Time of Note DATE: 08/04/16 TIME: 22:45 Assessment/Plan VTE Prophylaxis VTE Prophylaxis Intervention: other Lines/Catheters IV Catheter Type (from Nrs): permacath Urinary Cath still in place: No Assessment/Plan Chief Complaint/Hosp Course IMPRESSION: 1. The patient has severe sepsis.better 2. Chronic kidney disease. 3. The patient had atrial fibrillation history. 4. Leukocytosis.better 5. Anemia. 6. Gastrostomy tube placement. 7. PERMA catheter placement. 8. Atherosclerotic heart disease. 9. Dyslipidemia. 10. Hypothyroidism. 11 GN BACTERRMIA PLAN ANTIBIOTIC HD AM ck labs DC PLANNING Problems: Subjective 24 Hr Interval Summary Respiratory: no complaints Cardiovascular: no complaints Gastrointestinal: no complaints Exam/Review of Systems Vital Signs Vitals Vital Signs Date Time Temp Pulse Resp B/P Pulse Ox O2 Delivery O2 Flow Rate FiO2 08/04/16 21:18 76 18 99 Nasal Cannula 2.0 08/04/16 19:46 96.3 122/59 Intake and Output 08/03/16 08/03/16 08/04/16 15:00 23:00 07:00 Intake Total 50 ml 2010 ml 800 ml Output Total 2900 ml Balance 50 ml -890 ml 800 ml Exam Neck: supple Respiratory: clear to auscultation Cardiovascular: regular rate and rhythm Gastrointestinal: bowel sounds (+), soft Musculoskeletal: nl extremities to inspection Results Result Diagram: 08/02/16 0553 08/02/16 0553 Results 24 hrs Laboratory Tests Test 08/04/16 07:40 08/04/16 11:32 08/04/16 16:52 08/04/16 20:48 Bedside Glucose 131 122 133 145 Medications Medications Current Medications Dextrose/Sodium Chloride (D5-1/2ns) 1,000 ml @ 50 mls/hr Q20H IV Last administered on 08/04/16t 12:15; Admin Dose 50 MLS/HR; Start 07/29/16 at 20:17 Ondansetron HCl (Zofran Inj) 4 mg Q6H PRN IV NAUSEA AND/OR VOMITING; Start at 20:30 Nitroglycerin (Nitroglycerin (Sl Tab) 0.4 Mg) 1 tab Q5M PRN SL CHEST PAIN; Start 07/29/16 at 20:30 Acetaminophen (Tylenol Tab) 650 mg Q6H PRN PO PAIN LEVEL 1-3 OR FEVER Last administered on 08/04/16 14:23; Admin Dose 650 MG; Start 07/29/16 at 20:30 Bisacodyl (Dulcolax) 5 mg DAILY PRN PO CONSTIPATION; Start 07/29/16 at 20:30 Acetaminophen (Tylenol Tab) 325 mg DAILY PRN PO PAIN AND OR ELEVATED TEMP; Start 07/29/16 at 20:30 Apixaban (Eliquis) 2.5 mg BID PO Last administered on 08/04/16 20:49; Admin Dose 2.5 MG; Start 07/29/16 at 21:00 Aspirin (Aspirin) 81 mg DAILY PO Last administered on 08/04/16 09:13; Admin Dose 81 MG; Start 07/30/16 at 09:00 Atorvastatin Calcium (Lipitor) 20 mg QHS PO Last administered on 08/04/16 20:47 ; Admin Dose 20 MG; Start 07/29/16 at 21:00 Carvedilol (Coreg) 6.25 mg BID PO Last administered on 08/04/16 20:50; Admin Dose 6.25 MG; Start 07/29/16 at 21:00 Diagnostic Test (Pha) (Accucheck) 1 ea 02 XX Last administered on 08/03/16 02: 23; Admin Dose 1 EA; Start 07/31/16 at 02:00 Miscellaneous Information 1 ea NOTE XX ; Start 07/30/16 at 06:30 Glucose (Glutose) 15 gm Q15M PRN PO DECREASED GLUCOSE; Start 07/30/16 at 06:30 Glucose (Glutose) 22.5 gm Q15M PRN PO DECREASED GLUCOSE; Start 07/30/16 at 06: 30 Dextrose (D50w Syringe) 25 ml Q15M PRN IV DECREASED GLUCOSE; Start 07/30/16 at 06:30 Dextrose (D50w Syringe) 50 ml Q15M PRN IV DECREASED GLUCOSE; Start 07/30/16 at 06:30 Glucagon (Glucagen) 1 mg Q15M PRN IM DECREASED GLUCOSE; Start 07/30/16 at 06:30 Glucose 15 gm 15 gm Q15M PRN BUCCAL DECREASED GLUCOSE; Start 07/30/16 at 06:30 Piperacillin Sod/ Tazobactam Sod (Zosyn 2.25gm/ 50ml (Pmx)) 50 ml @ 100 mls/hr Q8 IVPB Last administered on 08/04/16 21:45; Admin Dose 100 MLS/HR; Start 07/30 at 14:00 Amiodarone HCl (Cordarone) 200 mg BID PO Last administered on 08/04/16 20:50; Admin Dose 200 MG; Start 07/30/16 at 21:00 Metoprolol Tartrate (Lopressor) 5 mg Q4H PRN IV HR>110 Hold SBP<100; Start at 18:00 Docusate Sodium (Colace Liquid Cup) 100 mg BID PO Last administered on 20:46; Admin Dose 100 MG; Start 07/31/16 at 21:00 Docusate Sodium (Colace Liquid Cup) 100 mg Q12H PRN PO CONSTIPATION; Start 07/31 at 11:00 Diltiazem HCl 30 mg 30 mg Q8 PO Last administered on 08/04/16 21:49; Admin Dose 30 MG; Start 07/31/16 at 14:00 Sodium Chloride (NS) 1,000 ml @ 0 mls/hr Q0M PRN IV TO KEEP SBP ABOVE 90; Start 08/01/16 at 11:44 Lansoprazole (Prevacid) 30 mg DAILY@06 GTB Last administered on 08/04/16 05:35 ; Admin Dose 30 MG; Start 08/03/16 at 06:00 CRUZITO ARELLANO MD Aug 04, 2016 22:45
[2016-08-04] MEDS: ERTAPENEM SODIUM 1 GM in SOD CHLORIDE 0.9% 100 ML IVPB SCH (23:33)
[2016-08-04 23:40] VITALS: BP 93/47; PULSE 70
[2016-08-05] VITALS (11 sets, daily range): BP systolic 107–141; BP diastolic 46–68; PULSE 69–78; RESP 18
[2016-08-05] MEDS: ALBUTEROL 0.5% (NEB) 2.5 MG/0.5 ML AMP NEB SCH ×6 (00:11→21:52)
[2016-08-05] MEDS: ACCUCHECK XX SCH (02:00)
[2016-08-05 06:12] LABS: ALBUMIN 2.7 g/dl (3.3-4.9); POTASSIUM 3.7 mmol/L (3.5-5.1)
[2016-08-05] MEDS: LANSOPRAZOLE 30 MG CAP GTB SCH (06:13)
[2016-08-05] MEDS: LEVOTHYROXINE 150 MCG TAB PO SCH (06:13)
[2016-08-05 06:15] LABS: ALBUMIN/GLOBULIN RATIO 0.81; BILIRUBIN,INDIRECT 0.1 mg/dl (0-1.1); BILIRUBIN,TOTAL 0.1 mg/dl (0.2-1.3); CALCIUM 8.7 mg/dl (8.4-10.2); CREATININE 1.22 mg/dl (0.44-1.00)
[2016-08-05] MEDS: DILTIAZEM 30 MG TAB PO SCH ×3 (06:19→22:34)
[2016-08-05 06:24] LABS: BASOPHILS % 0.2 % (0.0-2.0); EOSINOPHILS # 0.4 10^3/ul (0.0-0.5); EOSINOPHILS % 4.7 % (0.0-7.0); HEMOGLOBIN 8.9 g/dl (12.0-16.0); LYMPHOCYTES # 1.2 10^3/ul (0.8-2.9); LYMPHOCYTES % 13.5 % (15.0-51.0); MEAN CORPUSCULAR HEMOGLOBIN 36.2 pg (29.0-33.0); MEAN CORPUSCULAR HGB CONC 34.5 g/dl (32.0-37.0); MEAN CORPUSCULAR VOLUME 105.1 fl (82.0-101.0); MEAN PLATELET VOLUME 10.2 fl (7.4-10.4); MONOCYTE # 0.6 10^3/ul (0.3-0.9); MONOCYTES % 6.9 % (0.0-11.0); NEUTROPHIL # 6.5 10^3/ul (1.6-7.5); NEUTROPHILS % 74.7 % (39.0-77.0); PLATELET COUNT 206 10^3/UL (140-440); RED BLOOD COUNT 2.47 10^6/ul (4.20-5.40); RED CELL DISTRIBUTION WIDTH 16.6 % (11.5-14.5); UNCORRECTED WBC 8.7 10^3/ul (4.8-10.8); WHITE BLOOD COUNT 8.7 10^3/ul (4.8-10.8)
[2016-08-05 06:28] LABS: CONDITION 1; LH ANALYZER COMMENTS 1
[2016-08-05] MEDS: INSULIN ASPART [NOVOLOG] 3 ML PEN SC SCH ×4 (08:00→20:31)
[2016-08-05] MEDS: AMIODARONE 200 MG TAB PO SCH ×2 (09:00→20:30)
[2016-08-05] MEDS: ACETAMINOPHEN 325 MG TAB PO PRN (09:09)
[2016-08-05] MEDS: APIXABAN 5 MG TABLET PO SCH ×2 (09:09→20:28)
[2016-08-05] MEDS: DOCUSATE SODIUM 10 MG/ML (10ML CUP) PO SCH ×2 (09:09→20:28)
[2016-08-05] MEDS: ASPIRIN 81 MG TAB PO SCH (09:09)
--- NOTE | 2016-08-05 17:44 | PDOCDIS ---
Discharge Instructions CONDITION Patient Condition: Stable HOME CARE INSTRUCTIONS: Special Diet: NPO ACTIVITY: Activity Restrictions: Slowly Increase Activity FOLLOW UP/APPOINTMENTS Appointments f/u dr arellano [address] ford 1 wk CRUZITO ARELLANO MD Aug 05, 2016 17:44
[2016-08-05] MEDS ORDERED: LEVO500T10 PO (17:47)
[2016-08-05] MEDS ORDERED: LANS30CA GTB (17:47)
[2016-08-05] MEDS ORDERED: AMIO200T2 PO (17:47)
[2016-08-05] MEDS ORDERED: NIT4 SL (17:47)
--- NOTE | 2016-08-05 17:50 | PN ---
Date/Time of Note Date/Time of Note DATE: 08/05/16 TIME: 17:49 Assessment/Plan VTE Prophylaxis VTE Prophylaxis Intervention: other Lines/Catheters IV C[facility]ter Type (from [facility] PERMA CATH Urinary Cath still in place: No Assessment/Plan Chief Complaint/Hosp Course IMPRESSION: 1. The patient has severe sepsis.better 2. Chronic kidney disease. 3. The patient had atrial fibrillation history. 4. Leukocytosis.better 5. Anemia. 6. Gastrostomy tube placement. 7. PERMA catheter placement. 8. Atherosclerotic heart disease. 9. Dyslipidemia. 10. Hypothyroidism. 11 GN BACTERRMIA PLAN ANTIBIOTIC HD pt will need g tube feeding for 99 month due to cva /dysphagia and hospital bed due to cva/chf/afib.esrd Problems: Subjective 24 Hr Interval Summary Gastrointestinal: no complaints Genitourinary: no complaints Musculoskeletal: no complaints Exam/Review of Systems Vital Signs Vitals Vital Signs Date Time Temp Pulse Resp B/P Pulse Ox O2 Delivery O2 Flow Rate FiO2 08/05/16 17:00 72 08/05/16 17:00 20 08/05/16 12:46 95 Nasal Cannula 2.0 08/05/16 08:20 97.7 131/63 Intake and Output 08/04/16 08/04/16 08/05/16 15:00 23:00 07:00 Intake Total 610 ml 1030 ml Balance 610 ml 1030 ml Exam Respiratory: clear to auscultation Cardiovascular: regular rate and rhythm Gastrointestinal: soft Musculoskeletal: nl extremities to inspection Results Result Diagram: 08/05/16 0515 08/05/16 0515 Results 24 hrs Laboratory Tests Test 08/04/16 20:48 08/05/16 05:15 08/05/16 07:45 08/05/16 11:39 Bedside Glucose 145 118 120 Alanine Aminotransferase (ALT/SGPT) 52 Albumin 2.7 L Albumin/Globulin Ratio 0.81 Alkaline Phosphatase 289 H Anion Gap 14 Aspartate Amino Transf (AST/SGOT) 49 H Basophils # 0.0 Basophils % 0.2 Blood Morphology Comment Blood Urea Nitrogen 39 H Calcium Level 8.7 Carbon Dioxide Level 26 Chloride Level 100 Creatinine 1.22 H Direct Bilirubin 0.00 Eosinophils # 0.4 Eosinophils % 4.7 Globulin 3.30 H Glucose Level 139 Hematocrit 26.0 L Hemoglobin 8.9 L Indirect Bilirubin 0.1 Lymphocytes # 1.2 Lymphocytes % 13.5 L Mean Corpuscular Hemoglobin 36.2 H Mean Corpuscular Hemoglobin Concent 34.5 Mean Corpuscular Volume 105.1 H Mean Platelet Volume 10.2 Monocytes # 0.6 Monocytes % 6.9 Neutrophils # 6.5 Neutrophils % 74.7 Nucleated Red Blood Cells # 0.0 Nucleated Red Blood Cells % 0.0 Platelet Count 206 Potassium Level 3.7 Red Blood Count 2.47 L Red Cell Distribution Width 16.6 H Sodium Level 136 Total Bilirubin 0.1 L Total Protein 6.0 L White Blood Count 8.7 Test 08/05/16 17:28 Bedside Glucose 137 Medications Medications Current Medications Ondansetron HCl (Zofran Inj) 4 mg Q6H PRN IV NAUSEA AND/OR VOMITING; Start at 20:30 Nitroglycerin (Nitroglycerin (Sl Tab) 0.4 Mg) 1 tab Q5M PRN SL CHEST PAIN; Start 07/29/16 at 20:30 Acetaminophen (Tylenol Tab) 650 mg Q6H PRN PO PAIN LEVEL 1-3 OR FEVER Last administered on 08/05/16 09:09; Admin Dose 650 MG; Start 07/29/16 at 20:30 Bisacodyl (Dulcolax) 5 mg DAILY PRN PO CONSTIPATION; Start 07/29/16 at 20:30 Acetaminophen (Tylenol Tab) 325 mg DAILY PRN PO PAIN AND OR ELEVATED TEMP; Start 07/29/16 at 20:30 Apixaban (Eliquis) 2.5 mg BID PO Last administered on 08/05/16 09:09; Admin Dose 2.5 MG; Start 07/29/16 at 21:00 Aspirin (Aspirin) 81 mg DAILY PO Last administered on 08/05/16 09:09; Admin Dose 81 MG; Start 07/30/16 at 09:00 Atorvastatin Calcium (Lipitor) 20 mg QHS PO Last administered on 08/04/16 20:47 ; Admin Dose 20 MG; Start 07/29/16 at 21:00 Carvedilol (Coreg) 6.25 mg BID PO Last administered on 08/04/16 20:50; Admin Dose 6.25 MG; Start 07/29/16 at 21:00 Diagnostic Test (Pha) (Accucheck) XX Last administered on 08/03/16 02: 23; Admin Dose 1 EA; Start 07/31/16 at 02:00 Miscellaneous Information 1 ea NOTE XX ; Start 07/30/16 at 06:30 Glucose (Glutose) 15 gm Q15M PRN PO DECREASED GLUCOSE; Start 07/30/16 at 06:30 Glucose (Glutose) 22.5 gm Q15M PRN PO DECREASED GLUCOSE; Start 07/30/16 at 06: 30 Dextrose (D50w Syringe) 25 ml Q15M PRN IV DECREASED GLUCOSE; Start 07/30/16 at 06:30 Dextrose (D50w Syringe) 50 ml Q15M PRN IV DECREASED GLUCOSE; Start 07/30/16 at 06:30 Glucagon (Glucagen) 1 mg Q15M PRN IM DECREASED GLUCOSE; Start 07/30/16 at 06:30 Glucose (Glutose) 15 gm Q15M PRN BUCCAL DECREASED GLUCOSE; Start 07/30/16 at 06 :30 Amiodarone HCl (Cordarone) 200 mg BID PO Last administered on 08/04/16 20:50; Admin Dose 200 MG; Start 07/30/16 at 21:00 Metoprolol Tartrate (Lopressor) 5 mg Q4H PRN IV HR>110 Hold SBP<100; Start at 18:00 Docusate Sodium (Colace Liquid Cup) 100 mg BID PO Last administered on 09:09; Admin Dose 100 MG; Start 07/31/16 at 21:00 Docusate Sodium (Colace Liquid Cup) 100 mg Q12H PRN PO CONSTIPATION; Start 07/31 at 11:00 Diltiazem HCl 30 mg 30 mg Q8 PO Last administered on 08/05/16 06:19; Admin Dose 30 MG; Start 07/31/16 at 14:00 Sodium Chloride (NS) 1,000 ml @ 0 mls/hr Q0M PRN IV TO KEEP SBP ABOVE 90; Start 08/01/16 at 11:44 Lansoprazole 30 mg 30 mg DAILY@06 GTB Last administered on 08/05/16 06:13; Admin Dose 30 MG; Start 08/03/16 at 06:00 Ertapenem/Sodium Chloride (Invanz/NS) 100 ml @ 200 mls/hr Q24H IVPB Last administered on 08/04/16 23:33; Admin Dose 200 MLS/HR; Start 08/04/16 at 23:00 CRUZITO ARELLANO MD Aug 05, 2016 17:50
--- NOTE | 2016-08-05 18:10 | CONS ---
Date/Time of Note Date/Time of Note DATE: 08/05/16 TIME: 18:08 Assessment/Plan Assessment/Plan Chief Complaint/Hosp Course IMPRESSION: 1. Atrial fibrillation-improved rate control s/p IVP digoxin 2. Abnormal electrocardiogram, assess for acute coronary syndrome. 3. History of cardiomyopathy with decreased left ventricular ejection fraction approximately 40% by most recent echo June 2016, assess for congestive heart failure. 4. Encephalopathy. 5. History of recent cerebrovascular accident. 6. Lethargy. 7. Leukocytosis. 8. Anemia. 9. Diabetes mellitus. 10. Hypotension-very labile 11. Bacteremia-GNR Recc: -now on med-surg -serial ecg's -Continue eliquis -Continue abx's and f/u cx data -contiue coreg and dilt as tolerated only -HD for volume removal -Follow MS closely -Continue amio/asa/statin . Problems: Consultation Date/Type/Reason Admit Date/Time Jul 29, 2016 at 20:17 Initial Consult Date 07/30/2016 Type of Consultation: Cardiology Reason for Consultation AF/PPM Referring Provider: MANDI ARELLANO MD Exam/Review of Systems Vital Signs Vitals Vital Signs Date Time Temp Pulse Resp B/P Pulse Ox O2 Delivery O2 Flow Rate FiO2 08/05/16 17:00 72 08/05/16 17:00 20 08/05/16 12:46 95 Nasal Cannula 2.0 08/05/16 08:20 97.7 131/63 Intake and Output 08/04/16 08/04/16 08/05/16 15:00 23:00 07:00 Intake Total 610 ml 1030 ml Balance 610 ml 1030 ml Exam Review of Systems: CONSTITUTIONAL: No fevers, chills. PULMONARY: No sob CARDIOVASCULAR: No chest pain/palpitations GASTROINTESTINAL: No nausea/vomiting. GENITOURINARY: No hematuria/dysuria. MUSCULOSKELETAL: No myagias/arthalgias. PSYCHIATRIC: The patient denies depression. NEUROLOGIC: lethargic/encephalopathic Constitutional: other (sleeping) Psych: no complaints Head: normocephalic ENMT: mucosa pink and moist Neck: jvd (9 cm water), supple Respiratory: diminished breath sounds (at bases/B) Cardiovascular: regular rate and rhythm Gastrointestinal: non-tender, soft Musculoskeletal: muscle tone (normal) Extremities: edema (trace bilateral) Neurological: lethargic Results Result Diagram: 08/05/16 0515 08/05/16 0515 Results 24 hrs Laboratory Tests Test 08/04/16 20:48 08/05/16 05:15 08/05/16 07:45 08/05/16 11:39 Bedside Glucose 145 118 120 Alanine Aminotransferase (ALT/SGPT) 52 Albumin 2.7 L Albumin/Globulin Ratio 0.81 Alkaline Phosphatase 289 H Anion Gap 14 Aspartate Amino Transf (AST/SGOT) 49 H Basophils # 0.0 Basophils % 0.2 Blood Morphology Comment Blood Urea Nitrogen 39 H Calcium Level 8.7 Carbon Dioxide Level 26 Chloride Level 100 Creatinine 1.22 H Direct Bilirubin 0.00 Eosinophils # 0.4 Eosinophils % 4.7 Globulin 3.30 H Glucose Level 139 Hematocrit 26.0 L Hemoglobin 8.9 L Indirect Bilirubin 0.1 Lymphocytes # 1.2 Lymphocytes % 13.5 L Mean Corpuscular Hemoglobin 36.2 H Mean Corpuscular Hemoglobin Concent 34.5 Mean Corpuscular Volume 105.1 H Mean Platelet Volume 10.2 Monocytes # 0.6 Monocytes % 6.9 Neutrophils # 6.5 Neutrophils % 74.7 Nucleated Red Blood Cells # 0.0 Nucleated Red Blood Cells % 0.0 Platelet Count 206 Potassium Level 3.7 Red Blood Count 2.47 L Red Cell Distribution Width 16.6 H Sodium Level 136 Total Bilirubin 0.1 L Total Protein 6.0 L White Blood Count 8.7 Test 08/05/16 17:28 Bedside Glucose 137 Medications Medications Current Medications Ondansetron HCl (Zofran Inj) 4 mg Q6H PRN IV NAUSEA AND/OR VOMITING; Start at 20:30 Nitroglycerin (Nitroglycerin (Sl Tab) 0.4 Mg) 1 tab Q5M PRN SL CHEST PAIN; Start 07/29/16 at 20:30 Acetaminophen (Tylenol Tab) 650 mg Q6H PRN PO PAIN LEVEL 1-3 OR FEVER Last administered on 08/05/16t 09:09; Admin Dose 650 MG; Start 07/29/16 at 20:30 Bisacodyl (Dulcolax) 5 mg DAILY PRN PO CONSTIPATION; Start 07/29/16 at 20:30 Acetaminophen (Tylenol Tab) 325 mg DAILY PRN PO PAIN AND OR ELEVATED TEMP; Start 07/29/16 at 20:30 Apixaban (Eliquis) 2.5 mg BID PO Last administered on 08/05/16 09:09; Admin Dose 2.5 MG; Start 07/29/16 at 21:00 Aspirin (Aspirin) 81 mg DAILY PO Last administered on 08/05/16 09:09; Admin Dose 81 MG; Start 07/30/16 at 09:00 Atorvastatin Calcium (Lipitor) 20 mg QHS PO Last administered on 08/04/16 20:47 ; Admin Dose 20 MG; Start 07/29/16 at 21:00 Carvedilol (Coreg) 6.25 mg BID PO Last administered on 08/04/16 20:50; Admin Dose 6.25 MG; Start 07/29/16 at 21:00 Diagnostic Test (Pha) (Accucheck) 1 ea 02 XX Last administered on 08/03/16 02: 23; Admin Dose 1 EA; Start 07/31/16 at 02:00 Miscellaneous Information 1 ea NOTE XX ; Start 07/30/16 at 06:30 Glucose (Glutose) 15 gm Q15M PRN PO DECREASED GLUCOSE; Start 07/30/16 at 06:30 Glucose (Glutose) 22.5 gm Q15M PRN PO DECREASED GLUCOSE; Start 07/30/16 at 06: 30 Dextrose (D50w Syringe) 25 ml Q15M PRN IV DECREASED GLUCOSE; Start 07/30/16 at 06:30 Dextrose (D50w Syringe) 50 ml Q15M PRN IV DECREASED GLUCOSE; Start 07/30/16 at 06:30 Glucagon (Glucagen) 1 mg Q15M PRN IM DECREASED GLUCOSE; Start 07/30/16 at 06:30 Glucose (Glutose) 15 gm Q15M PRN BUCCAL DECREASED GLUCOSE; Start 07/30/16 at 06 :30 Amiodarone HCl (Cordarone) 200 mg BID PO Last administered on 08/04/16 20:50; Admin Dose 200 MG; Start 07/30/16 at 21:00 Metoprolol Tartrate (Lopressor) 5 mg Q4H PRN IV HR>110 Hold SBP<100; Start at 18:00 Docusate Sodium (Colace Liquid Cup) 100 mg BID PO Last administered on 09:09; Admin Dose 100 MG; Start 07/31/16 at 21:00 Docusate Sodium (Colace Liquid Cup) 100 mg Q12H PRN PO CONSTIPATION; Start 07/31 at 11:00 Diltiazem HCl 30 mg 30 mg Q8 PO Last administered on 08/05/16 06:19; Admin Dose 30 MG; Start 07/31/16 at 14:00 Sodium Chloride (NS) 1,000 ml @ 0 mls/hr Q0M PRN IV TO KEEP SBP ABOVE 90; Start 08/01/16 at 11:44 Lansoprazole 30 mg 30 mg DAILY@06 GTB Last administered on 08/05/16 06:13; Admin Dose 30 MG; Start 08/03/16 at 06:00 Ertapenem/Sodium Chloride (Invanz/NS) 100 ml @ 200 mls/hr Q24H IVPB Last administered on 08/04/16 23:33; Admin Dose 200 MLS/HR; Start 08/04/16 at 23:00 SASKIA WHITE Aug 05, 2016 18:10
[2016-08-05] MEDS: ATORVASTATIN 20 MG TAB PO SCH (20:29)
[2016-08-05] MEDS: ERTAPENEM SODIUM 1 GM in SOD CHLORIDE 0.9% 100 ML IVPB SCH (22:34)
[2016-08-06] MEDS: ALBUTEROL 0.5% (NEB) 2.5 MG/0.5 ML AMP NEB SCH ×6 (01:34→20:17)
[2016-08-06] MEDS: ACCUCHECK XX SCH (01:39)
[2016-08-06] MEDS: LANSOPRAZOLE 30 MG CAP GTB SCH (06:14)
[2016-08-06] MEDS: LEVOTHYROXINE 150 MCG TAB PO SCH (06:14)
[2016-08-06] MEDS: DILTIAZEM 30 MG TAB PO SCH ×2 (06:15→14:00)
[2016-08-06 06:21] VITALS: BP 118/58; PULSE 70
[2016-08-06] MEDS: INSULIN ASPART [NOVOLOG] 3 ML PEN SC SCH ×4 (07:50→20:36)
[2016-08-06 08:51] VITALS: BP 112/54; RESP 16
[2016-08-06] MEDS: ASPIRIN 81 MG TAB PO SCH (09:16)
[2016-08-06] MEDS: DOCUSATE SODIUM 10 MG/ML (10ML CUP) PO SCH ×2 (09:16→20:19)
[2016-08-06] MEDS: APIXABAN 5 MG TABLET PO SCH ×2 (09:17→20:20)
[2016-08-06] MEDS: AMIODARONE 200 MG TAB PO SCH ×2 (09:17→20:20)
--- NOTE | 2016-08-06 09:51 | CONS ---
Date/Time of Note Date/Time of Note DATE: 08/06/16 TIME: 09:49 Assessment/Plan Assessment/Plan Additional Assessment/Plan 1. Atrial fibrillation-improved rate control s/p IVP digoxin - rate controlled - pacer in place. 2. Abnormal electrocardiogram, assess for acute coronary syndrome- no CP - no intervention planned now. 3. History of cardiomyopathy with decreased left ventricular ejection fraction approximately 40% by most recent echo June 2016, assess for congestive heart failure- stable fluid satus. 4. Encephalopathy- no change - family at bedside -plan for home dispo. 5. History of recent cerebrovascular accident- no change. 6. Lethargy. 7. Leukocytosis- on anti-bx, con't med rx 8. Anemia. 9. Diabetes mellitus. 10. Hypotension-very labile 11. Bacteremia-GNR Consultation Date/Type/Reason Admit Date/Time Jul 29, 2016 at 20:17 Initial Consult Date Type of Consultation: Cardiology Referring Provider: MANDI ARELLANO MD 24 HR Interval Summary Free Text/Dictation NO acute change - lethargic - family at bedside - aware of guarded condition, ROS: No fever, no chills, no nausea, no vomiting, no diarrhea/constipation No recent weight changes No chest pain, no PND, no orthopnea No dizziness, blurred vision No thirst, no heat or cold intolerance (per nurse) Exam/Review of Systems Vital Signs Vitals Vital Signs Date Time Temp Pulse Resp B/P Pulse Ox O2 Delivery O2 Flow Rate FiO2 08/06/16 08:51 97.6 70 16 112/54 98 08/06/16 08:27 2.0 08/06/16 08:26 Nasal Cannula Intake and Output 08/05/16 08/05/16 08/06/16 15:00 23:00 07:00 Intake Total 860 ml 780 ml Output Total 3300 ml Balance -2440 ml 780 ml Exam General: WN/WD/NAD, AOx 0 HEENT: Unicetric/atraumatic/EOMI (does not follow commands) NECK: JVD elevated, no thyromegaly Lymph: no lymphadenopathy HEART: IRregular with no S3, II/ systolic murmur at apex, pacer LUNGS: Coarse sounds ABD: soft, NT, ND, +BS : Intact Neuro: non focal SKIN: chronic changes EXT: trace edema Results Result Diagram: 08/05/16 0515 08/05/16 0515 Results 24 hrs Laboratory Tests Test 08/05/16 11:39 08/05/16 17:28 08/05/16 20:27 08/06/16 07:29 Bedside Glucose 120 137 125 118 Medications Medications Current Medications Ondansetron HCl (Zofran Inj) 4 mg Q6H PRN IV NAUSEA AND/OR VOMITING; Start at 20:30 Nitroglycerin (Nitroglycerin (Sl Tab) 0.4 Mg) 1 tab Q5M PRN SL CHEST PAIN; Start 07/29/16 at 20:30 Acetaminophen (Tylenol Tab) 650 mg Q6H PRN PO PAIN LEVEL 1-3 OR FEVER Last administered on 08/05/16 09:09; Admin Dose 650 MG; Start 07/29/16 at 20:30 Bisacodyl (Dulcolax) 5 mg DAILY PRN PO CONSTIPATION; Start 07/29/16 at 20:30 Acetaminophen (Tylenol Tab) 325 mg DAILY PRN PO PAIN AND OR ELEVATED TEMP; Start 07/29/16 at 20:30 Apixaban (Eliquis) 2.5 mg BID PO Last administered on 08/06/16 09:17; Admin Dose 2.5 MG; Start 07/29/16 at 21:00 Aspirin (Aspirin) 81 mg DAILY PO Last administered on 08/06/16 09:16; Admin Dose 81 MG; Start 07/30/16 at 09:00 Atorvastatin Calcium (Lipitor) 20 mg QHS PO Last administered on 08/05/16 20:29 ; Admin Dose 20 MG; Start 07/29/16 at 21:00 Carvedilol (Coreg) 6.25 mg BID PO Last administered on 08/06/16 09:17; Admin Dose 6.25 MG; Start 07/29/16 at 21:00 Diagnostic Test (Pha) (Accucheck) 1 ea 02 XX Last administered on 08/03/16 02: 23; Admin Dose 1 EA; Start 07/31/16 at 02:00 Miscellaneous Information 1 ea NOTE XX ; Start 07/30/16 at 06:30 Glucose (Glutose) 15 gm Q15M PRN PO DECREASED GLUCOSE; Start 07/30/16 at 06:30 Glucose (Glutose) 22.5 gm Q15M PRN PO DECREASED GLUCOSE; Start 07/30/16 at 06: 30 Dextrose (D50w Syringe) 25 ml Q15M PRN IV DECREASED GLUCOSE; Start 07/30/16 at 06:30 Dextrose (D50w Syringe) 50 ml Q15M PRN IV DECREASED GLUCOSE; Start 07/30/16 at 06:30 Glucagon (Glucagen) 1 mg Q15M PRN IM DECREASED GLUCOSE; Start 07/30/16 at 06:30 Glucose (Glutose) 15 gm Q15M PRN BUCCAL DECREASED GLUCOSE; Start 07/30/16 at 06 :30 Amiodarone HCl (Cordarone) 200 mg BID PO Last administered on 08/06/16 09:17; Admin Dose 200 MG; Start 07/30/16 at 21:00 Metoprolol Tartrate (Lopressor) 5 mg Q4H PRN IV HR>110 Hold SBP<100; Start at 18:00 Docusate Sodium (Colace Liquid Cup) 100 mg BID PO Last administered on 09:16; Admin Dose 100 MG; Start 07/31/16 at 21:00 Docusate Sodium (Colace Liquid Cup) 100 mg Q12H PRN PO CONSTIPATION; Start 07/31 at 11:00 Diltiazem HCl 30 mg 30 mg Q8 PO Last administered on 08/06/16 06:15; Admin Dose 30 MG; Start 07/31/16 at 14:00 Sodium Chloride (NS) 1,000 ml @ 0 mls/hr Q0M PRN IV TO KEEP SBP ABOVE 90; Start 08/01/16 at 11:44 Lansoprazole 30 mg 30 mg DAILY@06 GTB Last administered on 08/06/16 06:14; Admin Dose 30 MG; Start 08/03/16 at 06:00 Ertapenem/Sodium Chloride (Invanz/NS) 100 ml @ 200 mls/hr Q24H IVPB Last administered on 08/05/16 22:34; Admin Dose 200 MLS/HR; Start 08/04/16 at 23:00 BURT BRITT MD Aug 06, 2016 09:51
[2016-08-06 14:24] VITALS: BP 104/56; PULSE 70; RESP 16
--- NOTE | 2016-08-06 14:51 | PN ---
Date/Time of Note Date/Time of Note DATE: 08/06/16 TIME: 14:49 Assessment/Plan VTE Prophylaxis VTE Prophylaxis Intervention: other Lines/Catheters IV [facility] [place] Urinary Cath still in place: No Assessment/Plan Chief Complaint/Hosp Course IMPRESSION: 1. The patient has severe sepsis.better 2. Chronic kidney disease. 3. The patient had atrial fibrillation history. 4. Leukocytosis.better 5. Anemia. 6. Gastrostomy tube placement. 7. PERMA catheter placement. 8. Atherosclerotic heart disease. 9. Dyslipidemia. 10. Hypothyroidism. 11 GN BACTERRMIA PLAN ANTIBIOTIC HD pt will need g tube feeding for 99 month due to cva /dysphagia and hospital bed due to cva/chf/afib.esrd home Problems: Subjective 24 Hr Interval Summary Gastrointestinal: no complaints Genitourinary: no complaints Musculoskeletal: no complaints Exam/Review of Systems Vital Signs Vitals Vital Signs Date Time Temp Pulse Resp B/P Pulse Ox O2 Delivery O2 Flow Rate FiO2 08/06/16 14:24 70 16 104/56 96 Nasal Cannula 2.0 08/06/16 08:51 97.6 Intake and Output 08/05/16 08/05/16 08/06/16 15:00 23:00 07:00 Intake Total 860 ml 780 ml Output Total 3300 ml Balance -2440 ml 780 ml Exam Neck: supple Respiratory: clear to auscultation Cardiovascular: regular rate and rhythm Gastrointestinal: soft Musculoskeletal: nl extremities to inspection Extremities: normal pulses Results Result Diagram: 08/05/16 0515 08/05/16 0515 Results 24 hrs Laboratory Tests Test 08/05/16 17:28 08/05/16 20:27 08/06/16 07:29 08/06/16 11:56 Bedside Glucose 137 125 118 111 Medications Medications Current Medications Ondansetron HCl (Zofran Inj) 4 mg Q6H PRN IV NAUSEA AND/OR VOMITING; Start at 20:30 Nitroglycerin (Nitroglycerin (Sl Tab) 0.4 Mg) 1 tab Q5M PRN SL CHEST PAIN; Start 07/29/16 at 20:30 Acetaminophen (Tylenol Tab) 650 mg Q6H PRN PO PAIN LEVEL 1-3 OR FEVER Last administered on 08/05/16t 09:09; Admin Dose 650 MG; Start 07/29/16 at 20:30 Bisacodyl (Dulcolax) 5 mg DAILY PRN PO CONSTIPATION; Start 07/29/16 at 20:30 Acetaminophen (Tylenol Tab) 325 mg DAILY PRN PO PAIN AND OR ELEVATED TEMP; Start 07/29/16 at 20:30 Apixaban (Eliquis) 2.5 mg BID PO Last administered on 08/06/16 09:17; Admin Dose 2.5 MG; Start 07/29/16 at 21:00 Aspirin (Aspirin) 81 mg DAILY PO Last administered on 08/06/16 09:16; Admin Dose 81 MG; Start 07/30/16 at 09:00 Atorvastatin Calcium (Lipitor) 20 mg QHS PO Last administered on 08/05/16 20:29 ; Admin Dose 20 MG; Start 07/29/16 at 21:00 Carvedilol (Coreg) 6.25 mg BID PO Last administered on 08/06/16 09:17; Admin Dose 6.25 MG; Start 07/29/16 at 21:00 Diagnostic Test (Pha) (Accucheck) 1 ea 02 XX Last administered on 08/03/16 02: 23; Admin Dose 1 EA; Start 07/31/16 at 02:00 Miscellaneous Information 1 ea NOTE XX ; Start 07/30/16 at 06:30 Glucose (Glutose) 15 gm Q15M PRN PO DECREASED GLUCOSE; Start 07/30/16 at 06:30 Glucose (Glutose) 22.5 gm Q15M PRN PO DECREASED GLUCOSE; Start 07/30/16 at 06: 30 Dextrose (D50w Syringe) 25 ml Q15M PRN IV DECREASED GLUCOSE; Start 07/30/16 at 06:30 Dextrose (D50w Syringe) 50 ml Q15M PRN IV DECREASED GLUCOSE; Start 07/30/16 at 06:30 Glucagon (Glucagen) 1 mg Q15M PRN IM DECREASED GLUCOSE; Start 07/30/16 at 06:30 Glucose (Glutose) 15 gm Q15M PRN BUCCAL DECREASED GLUCOSE; Start 07/30/16 at 06 :30 Amiodarone HCl (Cordarone) 200 mg BID PO Last administered on 08/06/16 09:17; Admin Dose 200 MG; Start 07/30/16 at 21:00 Metoprolol Tartrate (Lopressor) 5 mg Q4H PRN IV HR>110 Hold SBP<100; Start at 18:00 Docusate Sodium (Colace Liquid Cup) 100 mg BID PO Last administered on 09:16; Admin Dose 100 MG; Start 07/31/16 at 21:00 Docusate Sodium (Colace Liquid Cup) 100 mg Q12H PRN PO CONSTIPATION; Start 07/31 at 11:00 Diltiazem HCl 30 mg 30 mg Q8 PO Last administered on 08/06/16 06:15; Admin Dose 30 MG; Start 07/31/16 at 14:00 Sodium Chloride (NS) 1,000 ml @ 0 mls/hr Q0M PRN IV TO KEEP SBP ABOVE 90; Start 08/01/16 at 11:44 Lansoprazole 30 mg 30 mg DAILY@06 GTB Last administered on 08/06/16 06:14; Admin Dose 30 MG; Start 08/03/16 at 06:00 Ertapenem/Sodium Chloride (Invanz/NS) 100 ml @ 200 mls/hr Q24H IVPB Last administered on 08/05/16 22:34; Admin Dose 200 MLS/HR; Start 08/04/16 at 23:00 CRUZITO ARELLANO MD Aug 06, 2016 14:51
[2016-08-06 20:00] VITALS: BP 118/59; PULSE 70; RESP 20
[2016-08-06] MEDS: ATORVASTATIN 20 MG TAB PO SCH (20:20)
--- NOTE | 2016-08-07 20:57 | QN ---
Documentation Comment [id number] CRUZITO ARELLANO MD Aug 07, 2016 20:57
--- NOTE | 2016-08-08 07:43 | DS ---
DATE OF ADMISSION: 07/29/2016 DATE OF DISCHARGE: 08/06/2016 ADMITTING DIAGNOSES: The patient was admitted with diagnosis of 1. Sepsis. 2. Chronic kidney disease. 3. Atrial fibrillation. 4. Leukocytosis. 5. Anemia. 6. G tube placement. 7. Atherosclerotic heart disease. 8. Dyslipidemia. Was seen by in consultation. The patient also noted to have gram negative bacteremia. The patient's culture was positive for Klebsiella pneumoniae ESBL, gram negative rods as well as patient has Klebsiella pneumoniae ESBL, pneumoniae bacteremia. The patient's subsequent blood cultures were negative. The patient received antibiotics. The patient also did not want to go back to the nursing facility. Attempts were being made for patient to go home with home health and home antibiotics. The patient finally was cleared at the time of discharge. DISCHARGE DIAGNOSES: Includes: 1. Severe sepsis. 2. Chronic kidney disease. 3. Atrial fibrillation. 4. Leukocytosis. 5. Anemia. 6. G tube placement. 7. Perm-A-Cath replacement. 8. Atherosclerotic heart disease. 9. Dyslipidemia. 10. Hypothyroidism. 11. Gram negative bacteremia. 12. Klebsiella pneumoniae sepsis. DISCHARGE MEDICATIONS: The patient's discharge medications include: 1. Continue amiodarone. 2. Prevacid. 3. Levofloxacin. 4. Nitroglycerine. 5. Tylenol. 6. f acid. 7. Aspirin. 8. Lipitor. 9. Coreg. 10. Diltiazem. 11. Docusate sodium. 12. Levofloxacin. 13. Protonix. The patient's levofloxacin was switched to Septra. The patient will get gentamicin as an outpatient at the dialysis center. The patient is stable at the time of discharge. Dictated By: CRUZITO PLAZA/KATE Conf#: [id number] DID#: [id number] RENE
== END 2016-08-06 23:28 | disposition home health service (06) | DRG 871 ==
LOC: E/R 15:44 → MS4 20:17 → PP2 08-03 12:55
PROVIDERS: ADMIT Internal Medicine Nephrology; ATTEND Internal Medicine Nephrology
PROC: 5A1D60Z (ICD-10-PCS; principal; 2016-08-01)
DX: A41.59 Other Gram-negative sepsis (principal); N18.6 End stage renal disease; G93.40 Encephalopathy, unspecified; L89.152 Pressure ulcer of sacral region, stage 2; I12.0 Hypertensive chronic kidney disease with stage 5 chronic kidney disease or end stage renal disease; I42.9 Cardiomyopathy, unspecified; E11.22 Type 2 diabetes mellitus with diabetic chronic kidney disease; R65.20 Severe sepsis without septic shock; I48.91 Unspecified atrial fibrillation; E03.9 Hypothyroidism, unspecified; E78.5 Hyperlipidemia, unspecified; Z86.73 Personal history of transient ischemic attack (TIA), and cerebral infarction without residual deficits; D64.9 Anemia, unspecified; Z93.1 Gastrostomy status; I25.10 Atherosclerotic heart disease of native coronary artery without angina pectoris; I95.9 Hypotension, unspecified; Z95.0 Presence of cardiac pacemaker; L89.610 Pressure ulcer of right heel, unstageable; S31.119A Laceration without foreign body of abdominal wall, unspecified quadrant without penetration into peritoneal cavity, initial encounter; X58.XXXA Exposure to other specified factors, initial encounter; Y92.239 Unspecified place in hospital as the place of occurrence of the external cause; Z99.2 Dependence on renal dialysis
CPT/HCPCS: 36415; 71010; 74000; 76705; 80048; 80053; 82962; 83605; 84443; 84484; 85025; 85610; 85730; 87040; 87081; 90935; 93005; 94640; 94664; 94667; 94668; 96374; 96375; 96376; C9113; J1335; J1815; J2370; J2543; J2997; J3370; J7040; J7042; P9045

== ENCOUNTER → 2016-08-28 | Outpatient (CLI) | payer MEDICARE, OTHER ==
[~2016-08-28] MED LIST changes: +LANS30CA GTB; +LEVO500T10 PO; +NIT4 SL
--- NOTE | 2016-08-29 12:14 | RADRPT ---
PROCEDURE: Video-fluoroscopy swallowing study. CLINICAL INDICATION: Dysphagia. TECHNIQUE: Fluoroscopic guided video swallowing study was done in conjunction with the speech ther apist. The study was confined to the oral, pharyngeal, and cervical phases of the swallowing mechani sm. 4.7 minutes of fluoroscopy time was used. COMPARISON: No prior study is available for comparison. FINDINGS: There is penetration with nectar-thick liquids by spoon and cup. There is also penetration and resi dual within the vallecula with puree. There is deep penetration with nectar-thick liquids by straw. Penetration is also present with mechanical soft food. Trace aspiration is visualized on high-res olution imaging with the patient swallowing using a straw and soft food. IMPRESSION: 1. Extensive penetration and trace aspiration during swallowing as described above. 2. Please refer to the speech therapist's recommendations for future feedings. RPTAT: QQ .Darren Cornejo MD, MD Date Time Electronically viewed and signed by .Darren Cornejo MD, on 08/29/2016 12:14 .R/
== END | disposition home or self-care (01) ==
LOC: RAD 10:45
PROVIDERS: ATTEND Internal Medicine Nephrology
DX: R13.10 Dysphagia, unspecified (principal)
CPT/HCPCS: 74230

== ENCOUNTER 2016-09-04 08:52 | Inpatient (IN) | payer MEDICARE, OTHER ==
[~2016-09-04] VITALS: Ht 157.5 cm; Wt 70.0 kg
[2016-09-04] MEDS ORDERED: ALBUTEROL 0.5% (NEB) 2.5 MG/0.5 ML AMP INH STA (09:19)
[2016-09-04] MEDS ORDERED: METHYLPREDNISOLONE 125 MG INJ IV STA (09:19)
[2016-09-04] MEDS ORDERED: IPRATROPIUM (NEB) 0.5 MG/2.5 ML AMP INH STA (09:19)
[2016-09-04] MEDS ORDERED: AMIO200T2 PO (09:21)
--- NOTE | 2016-09-04 09:43 | ERA ---
ER Documentation Chief Complaint Date/Time DATE: 09/04/16 TIME: 09:39 Chief Complaint (ASHLEY SARMIENTO) HPI This is an 80-year-old [place] Zealander-speaking bedbound female, DO NOT RESUSCITATE, currently on dialysis which she receives every Friday and Friday. The patient a full run of dialysis yesterday. The patient is on home oxygen 2 L nasal cannula. Her daughter indicates that over the past 3 days she has had rhinorrhea, productive cough with whitish sputum and increased dyspnea. They increased her home oxygen to 4 L as the patient was hypoxic at roughly 89% on 2 L. She has had a decrease in appetite and has a PEG tube. There is been no documentation of fever shaking or chills. 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 (ASHLEY SARMIENTO) ROS All systems reviewed and are negative except as per history of present illness. (ASHLEY SARMIENTO) Medications Home Meds Active Scripts Nitroglycerin* (Nitrostat*) 0.4 Mg Tab.subl, 1 TAB SL Q5M Y for CHEST PAIN for 28 Days Prov:CRUZITO ARELLANO MD 08/05/16 Reported Medications Amiodarone Hcl* (Amiodarone Hcl*) 200 Mg Tablet, 200 MG PO DAILY, #30 TAB 09/04/16 Docusate Sodium* (Docusate Sodium*) 100 Mg Capsule, 100 MG PO BID, #60 CAP 07/02/16 Carvedilol* (Carvedilol*) 6.25 Mg Tablet, 6.25 MG PO BID, #60 TAB 07/02/16 Pantoprazole* (Protonix*) 40 Mg Tablet.dr, 40 MG PO DAILY, TAB 07/02/16 Atorvastatin Calcium* (Atorvastatin Calcium*) 20 Mg Tablet, 20 MG PO QHS, #30 TAB 07/02/16 Fe Fumarate/Hemanth/FA/Bcomp,C (Nephron FA Tablet) 1 Each Tablet, 1 EACH PO DAILY, TAB 07/02/16 Diltiazem Hcl* (Cardizem CD*) 120 Mg Cap.sr.24h, 120 MG PO DAILY, #30 CAP 07/02/16 Apixaban* (Eliquis*) 2.5 Mg Tablet, 2.5 MG PO BID, TAB 07/02/16 Aspirin* (Aspirin* Chew) 81 Mg Tab.chew, 81 MG PO DAILY, TAB.CHEW 07/02/16 Acetaminophen* (Acetaminophen*) 325 Mg Tablet, 325 MG PO DAILY Y for PAIN AND OR ELEVATED TEMP, #30 TAB 07/02/16 Levothyroxine Sodium* (Levothyroxine Sodium*) 150 Mcg Tablet, 150 MCG PO BEFORE BREAKFAST, #30 TAB 07/02/16 Discontinued Scripts Levofloxacin* (Levofloxacin*) 500 Mg Tablet, 500 MG PO DAILY for 10 Days, TAB Prov:CRUZITO ARELLANO MD 08/05/16 Lansoprazole* (Lansoprazole*) 30 Mg Capsule.dr, 30 MG GTB DAILY@06 for 28 Days Prov:CRUZITO ARELLANO MD 08/05/16 Amiodarone Hcl* (Amiodarone Hcl*) 200 Mg Tablet, 200 MG PO BID for 28 Days, TAB Prov:CRUZITO ARELLANO MD 08/05/16 Allergies Allergies: Coded Allergies: No Known Allergies (Verified Allergy, Unknown, 09/04/16) PMhx/Soc History of Surgery: Yes (AV FISTULA PLACEMENT, PACEMAKER PLACEMENT, GT ) Anesthesia Reaction: No Hx Neurological Disorder: Yes (CVA) Hx Respiratory Disorders: Yes (PNEUMONIA) Hx Cardiac Disorders: Yes (HTN,AFIB,A FLUTTER) Hx Psychiatric Problems: Yes (DEMENTIA) Hx Miscellaneous Medical Probl: Yes (ANEMIA,DYSLIPDIMIA) Hx Alcohol Use: No Hx Substance Use: No Hx Tobacco Use: No Smoking Status: Never smoker (ASHLEY SARMIENTO) Physical Exam Vitals Vital Signs Date Time Temp Pulse Resp B/P Pulse Ox O2 Delivery O2 Flow Rate FiO2 09/04/16 16:00 91 18 79/53 100 Mask 5.0 09/04/16 14:00 88 18 116/73 100 Mask 5.0 09/04/16 10:18 Simple Mask 5 09/04/16 09:54 90 22 98 Nasal Cannula 4.0 09/04/16 09:54 4.0 09/04/16 09:16 99.1 79 20 113/53 92 (CEE QUIROZ DO) Physical Exam Constitutional:Well-developed. Debilitated female in mild respiratory distress HEENT:Normocephalic. Atraumatic.Pupils were equal round reactive to light. Dry mucous membranes.No tonsillar exudates. Neck: No nuchal rigidity. No lymphadenopathy. No posterior cervical spine tenderness or step-offs. Respiratory: Not using accessory muscles of respiration. Not tachypneic. Bilateral rhonchi and wheezing on end auscultation bilaterally. Cardiovascular: Tachycardic with regular rhythm.No murmurs. No rubs were appreciated.S1, S2 normal. Distal pulses are palpable 2+ bilaterally. GI: Abdomen was soft. Nontender. Non Distended. No pulsatile abdominal masses or bruits. No rebound. No guarding. Bowel sounds were present and normal. G- tube present with no surrounding erythema warmth tenderness fluctuance or induration Muscle skeletal: Patient has full range of motion of bilateral upper extremities. No range of motion against gravity of the bilateral lower extremities due to previous CVA. With muscle atrophy of the bilateral lower extremities. Skin: No petechia, no purpura. No lesions on the palms or the soles of the feet. No maculopapular rash. Left tunneled chest catheter was clean dry and intact with no surrounding erythema warmth tenderness fluctuance or induration NEURO: Patient would open eyes to pain. Withdrew to pain. Gait not observed as patient is bedbound. Aphasic (GUILLERMINA,ASHLEY) Result Diagram: 09/04/16 1005 09/04/16 1005 Results 24 hrs Laboratory Tests Test 09/04/16 08:54 09/04/16 10:05 Arterial Blood HCO3 25.2mmol/L Arterial Blood Base Excess 0mmol/L Arterial Blood Oxygen Saturation 96.2mmHG Lloyd Test ACCEPTAB Arterial Blood Gas Puncture Site Right Radial Arterial Blood Carboxyhemoglobin 0.4% Arterial Blood Date Drawn 09/04/2016 10:19:29 AM Arterial Blood Methemoglobin 0.3% Arterial Blood pCO2 (Temp correct) 43.0mmhg Arterial Blood pH (Temp corrected) 7.385 Arterial Blood pO2 (Temp corrected) 85.0mmHG Blood Gas A-a O2 Differential 186.9mmHg Blood Gas Modality NEB MASK Blood Gas Notified Time 09/04/2016 10:28:13 AM Blood Gas Notified Whom DODIED Blood Gas Specimen Source Blood arterial Blood Gas Temperature 37.0C FiO2 45.0% Oxyhemoglobin Percent 95.5% Total Hemoglobin 12.9g/dl Activated Partial Thromboplast Time 37.8Sec Alanine Aminotransferase (ALT/SGPT) 149IU/L Albumin 3.7g/dl Albumin/Globulin Ratio 0.88 Alkaline Phosphatase 844IU/L Anion Gap 20 Aspartate Amino Transf (AST/SGOT) 286IU/L B-Type Natriuretic Peptide 65632JU/ML Basophils # 0.010^3/ul Basophils % 0.3% Blood Urea Nitrogen 32mg/dl Calcium Level 10.2mg/dl Carbon Dioxide Level 27mmol/L Chloride Level 99mmol/L Creatine Kinase 24IU/L Creatine Kinase Index 5.2 Creatinine 2.73mg/dl Creatinine Kinase MB (Mass) 1.24ng/ml Direct Bilirubin 0.40mg/dl Eosinophils # 0.010^3/ul Eosinophils % 0.1% Globulin 4.20g/dl Glucose Level 126mg/dl Hematocrit 39.0% Hemoglobin 12.4g/dl INR International Normalized Ratio 1.54 Indirect Bilirubin 0.1mg/dl Lymphocytes # 0.810^3/ul Lymphocytes % 6.8% Mean Corpuscular Hemoglobin 34.6pg Mean Corpuscular Hemoglobin Concent 31.8g/dl Mean Corpuscular Volume 108.9fl Mean Platelet Volume 11.8fl Monocytes # 0.610^3/ul Monocytes % 5.1% Neutrophils # 10.310^3/ul Neutrophils % 87.2% Nucleated Red Blood Cells # 0.010^3/ul Nucleated Red Blood Cells % 0.0/100WBC Platelet Count 36527^3/UL Potassium Level 5.1mmol/L Prothrombin Time 18.6Sec Prothrombin Time Ratio 1.5 Red Blood Count 3.5810^6/ul Red Cell Distribution Width 14.7% Sodium Level 141mmol/L Total Bilirubin 0.5mg/dl Total Protein 7.9g/dl Troponin I < 0.012ng/ml White Blood Count 11.810^3/ul Current Medications Medications (Trade) Dose Ordered Sig/Volodymyr Route PRN Reason Start Time Stop Time Status Last Admin Dose Admin Albuterol (Proventil 0.5% (Neb)) 10 mg ONCE STAT INH 09/04/16 09:19 09/04/16 09:22 DC 09/04/16 09:53 Ipratropium [place] (Atrovent 0.02% (Neb)) 1 mg ONCE STAT INH 09/04/16 09:19 09/04/16 09:22 DC 09/04/16 09:53 Methylprednisolone Sodium Succinate 125 mg 125 mg ONCE STAT IV 09/04/16 09:19 09/04/16 09:22 DC 09/04/16 10:18 Vancomycin HCl 250 ml @ 125 mls/hr ONCE IVPB 09/04/16 11:30 09/04/16 13:29 DC 09/04/16 13:03 Levofloxacin/ Dextrose (Levaquin 500mg/ D5W 100 ml (Pmx)) 100 ml @ 100 mls/hr ONCE ONCE IVPB 09/04/16 11:30 09/04/16 12:29 DC 09/04/16 13:03 Acetaminophen (Tylenol Tab) 325 mg DAILY PRN PO PAIN AND OR ELEVATED TEMP 09/04/16 16:00 Amiodarone HCl (Cordarone) 200 mg DAILY PO 09/05/16 09:00 Apixaban (Eliquis) 2.5 mg BID PO 09/04/16 21:00 Aspirin (Aspirin) 81 mg DAILY PO 09/05/16 09:00 Atorvastatin Calcium (Lipitor) 20 mg QHS PO 09/04/16 21:00 Carvedilol (Coreg) 6.25 mg BID PO 09/04/16 21:00 Diltiazem HCl (Cardizem Cd) 120 mg DAILY PO 09/05/16 09:00 Docusate Sodium (Colace) 100 mg BID PO 09/04/16 21:00 Levothyroxine Sodium (Synthroid) 150 mcg BEFORE BREAKFAST PO 09/05/16 07:00 Nitroglycerin (Nitroglycerin (Sl Tab) 0.4 Mg) 1 tab Q5M PRN SL CHEST PAIN 09/04/16 16:00 Pantoprazole 40 mg 40 mg DAILY PO 09/05/16 09:00 Sodium Chloride (NS) 500 ml @ 500 mls/hr Q1H ONCE IV 09/04/16 16:00 09/04/16 16:59 DC 09/04/16 15:53 Ondansetron HCl (Zofran Inj) 4 mg ER BRIDGE PRN IV NAUSEA AND/OR VOMITING 09/04/16 16:30 09/05/16 16:29 Acetaminophen 650 mg 650 mg ER BRIDGE PRN PO MILD PAIN/FEVER 09/04/16 16:30 09/04/16 16:30 DC Norepinephrine 250 ml @ ud STK-MED ONCE .ROUTE 09/04/16 17:19 09/04/16 17:20 DC Norepinephrine 250 ml @ 1.875 mls/ hr TITRATE IV 09/04/16 18:00 Sodium Chloride 1,000 ml @ 1,000 mls/hr Q1H ONCE IV 09/04/16 18:00 09/04/16 18:59 Sodium Chloride (NS) 500 ml @ 500 mls/hr Q1H ONCE IV 09/04/16 18:00 09/04/16 18:59 (CEE QUIROZ DO) Procedures/MDM The patient presented to the emergency department with dyspnea. My differential diagnosis included but was not limited to upper airway obstruction, CHF, pulmonary embolism, cardiac ischemia, pneumonia, pneumothorax, anemia, drug overdose, pulmonary edema, COPD or asthma. Patient was admitted placed on a dumpman continuous pulse oximetry and IV access was established by nursing staff. The patient appeared to be in mild respiratory distress and was started on nebulizer treatments of albuterol and Atrovent. Chest radiograph indicated that there was mild pulmonary vascular congestion however this had been improved from previous chest radiograph. The chest radiograph reviewed by the radiologist as well as myself indicated the followin. Cardiomegaly with significantly improved hydrostatic edema with minor residual right basilar atelectasis versus infiltrate. 2. Vascular calcifications consistent with atherosclerosis. 12 Lead EKG tracing ordered and reviewed by myself showed: Patient has a demand pacemaker rhythm at 105 bpm and no arrhythmia. WV interval prolonged at 178 ms with rightward axis deviation. Low voltage QRS The EKG read an acute CA with ST segment elevation in the inferior and anterior leads however this appeared to be premature supraventricular complexes due to the demand paced rhythm No ST segment depression. No changes consistent with acute ischemia. The patient has chronic renal failure with a BUN of 32 and a creatinine of 2.73 however the patient's potassium was normal at 5.1. EKG read an acute myocardial infarction however the patient is a DO NOT RESUSCITATE and I did feel the symptoms were likely result of premature ventricular complexes versus ST segment elevation therefore the patient was not taken to the [facility]. Blood cultures were obtained and the patient was started on broad-spectrum antibiotics to treat a suspected aspiration pneumonia. The patient was given vancomycin and Levaquin. The patient was given nebulizer treatments of albuterol Atrovent and low-dose steroids. The patient's respiratory distress had significantly improved but given her multiple comorbidities will be admitted for observation under the care of her wireless watcher Dr. Arellano. The patient will go to the telemetry service in serious condition for difficulty breathing and antibiotic treatment for possible right lower lobe pneumonia. (ASHLEY SARMIENTO) This 80-year-old female who is DNR had Jg been admitted to the telemetry floor under Dr. Arellano. However she began to have decreasing blood pressure with a systolic consistently in the 70s. This point I added sepsis to her diagnosis at approximately 5 PM and ordered additional IV fluids as well as lactate levels. I also placed a central line and initiated norepinephrine through IV drip. Critical care time 36 minutes: This includes time spent managing sepsis patient who began to have unstable vital signs, use of vasoactive medication Levophed, careful fluid administration, chart reviewed, discussion with family, discussion with admitting doctor for change his status to ICU. This does not include any billable procedures Central line note: Ultrasound-guided. Right IJ central line was first attempted however the wire would not feed more than 9 cm even though the ultrasound showed the wire in the center of the vein. Patient was then placed on this side an attempt was made at the left side were central line was successfully placed in the left IJ using ultrasound guidance. Patient was anesthetized with 2 cc of lidocaine without epinephrine, Seldinger technique was used to easily introduce a 7 [place] triple lumen catheter into the IJ. Patient taught the procedure well there were no complications. All ports flushed well and there was good blood return from each port. Vital signs remained unchanged. (CEE QUIROZ DO) Departure Diagnosis: Primary Impression: Pneumonia Qualified Code: J18.9 - Pneumonia of right lower lobe due to infectious organism Additional Impression: Chronic renal failure Qualified Code: N18.9 - Chronic renal failure, unspecified stage Condition: Serious ASHLEY SARMIENTO Sep 04, 2016 09:43 CEE QUIROZ DO Sep 04, 2016 18:13
--- NOTE | 2016-09-04 09:45 | RADRPT ---
PROCEDURE: XR Chest. CLINICAL INDICATION: Chest pain. TECHNIQUE: Single frontal chest x-ray. COMPARISON: Exam dated 07/29/2016. FINDINGS: The examination is rotated. There are atherosclerotic changes of the aorta. There is a left-sided dual lead cardiac pacer device and a tunneled left IJ central venous catheter tip overlying the uppe r SVC. The cardiomediastinal silhouette remains enlarged. Diffuse interstitial disease is improved with minor residual right basilar atelectasis versus infiltrate. There is no new focal consolidatio n, effusion, or pneumothorax. There are no acute osseous abnormalities. IMPRESSION: 1. Cardiomegaly with significantly improved hydrostatic edema with minor residual right basilar ate lectasis versus infiltrate. 2. Vascular calcifications consistent with atherosclerosis. RPTAT: GG .Jp Warren MD, Date Time Electronically viewed and signed by .Jp Warren MD, on 09/04/2016 09:45 .P/
[2016-09-04 10:11] LABS: ADD SCAN DIFF NO
[2016-09-04 10:23] LABS: ALBUMIN 3.7 g/dl (3.3-4.9)
[2016-09-04 10:24] LABS: CHLORIDE 99 mmol/L (97-110); POTASSIUM 5.1 mmol/L (3.5-5.1); SODIUM 141 mmol/L (135-144)
[2016-09-04 10:26] LABS: ALBUMIN/GLOBULIN RATIO 0.88; ANION GAP 20 (8-16); ASPARTATE AMINO TRANSFERASE 286 IU/L (15-46); BILIRUBIN,INDIRECT 0.1 mg/dl (0-1.1); BILIRUBIN,TOTAL 0.5 mg/dl (0.2-1.3); CARBON DIOXIDE 27 mmol/L (21-31); CREATININE 2.73 mg/dl (0.44-1.00); TOTAL PROTEIN 7.9 g/dl (6.1-8.1)
[2016-09-04 10:27] LABS: ALANINE AMINOTRANSFERASE 149 IU/L (13-69); ALKALINE PHOSPHATASE 844 IU/L (42-121); BLOOD UREA NITROGEN 32 mg/dl (7-20); CALCIUM 10.2 mg/dl (8.4-10.2); CREATINE KINASE 24 IU/L (23-200); GLUCOSE 126 mg/dl (70-220)
[2016-09-04 10:28] LABS: AADO2 Arterial 186.9 mmHg (7.0-24.0); Allen Test ACCEPTAB; Arterial Base Excess 0 mmol/L (-3.0-3); Arterial COHb 0.4 % (0.0-3.0); Arterial Fraction of Oxyhgb 95.5 % (93.0-99.0); Arterial HCO3 25.2 mmol/L (22.0-26.0); Arterial MetHb 0.3 % (0.0-1.5); Arterial Total Hemglobin 12.9 g/dl (12.0-18.0); MODE NEB MASK
[2016-09-04 10:30] LABS: BASOPHILS % 0.3 % (0.0-2.0); EOSINOPHILS % 0.1 % (0.0-7.0); HEMOGLOBIN 12.4 g/dl (12.0-16.0); LYMPHOCYTES # 0.8 10^3/ul (0.8-2.9); LYMPHOCYTES % 6.8 % (15.0-51.0); MEAN CORPUSCULAR HEMOGLOBIN 34.6 pg (29.0-33.0); MEAN CORPUSCULAR HGB CONC 31.8 g/dl (32.0-37.0); MEAN CORPUSCULAR VOLUME 108.9 fl (82.0-101.0); MEAN PLATELET VOLUME 11.8 fl (7.4-10.4); MONOCYTE # 0.6 10^3/ul (0.3-0.9); MONOCYTES % 5.1 % (0.0-11.0); NEUTROPHIL # 10.3 10^3/ul (1.6-7.5); NEUTROPHILS % 87.2 % (39.0-77.0); PLATELET COUNT 193 10^3/UL (140-415); RED BLOOD COUNT 3.58 10^6/ul (4.20-5.40); RED CELL DISTRIBUTION WIDTH 14.7 % (11.5-14.5); WHITE BLOOD COUNT 11.8 10^3/ul (4.8-10.8)
[2016-09-04 10:34] LABS: INR 1.54; PROTIME 18.6 Sec (12.2-14.2); PT RATIO 1.5
[2016-09-04 10:35] LABS: B-TYPE NATRIURETIC PEPTIDE 24900 PG/ML (0-450); CK-MB 1.24 ng/ml (0.0-2.4); PARTIAL THROMBOPLASTIN TIME 37.8 Sec (25.0-35.0)
[2016-09-04 10:41] LABS: TROPONIN-I < 0.012 ng/ml (0.00-0.12)
[2016-09-04] MEDS ORDERED: LEVOFLOXACIN 500MG/D5W (PMX) 100 ML IVPB ONE (11:30)
[2016-09-04] MEDS ORDERED: VANCOMYCIN 1 GM (PMX) 250 ML IVPB SCH (11:30)
[2016-09-04] MEDS ORDERED: SOD CHLORIDE 0.9% 500 ML IV ONE ×2 (16:00→18:00)
[2016-09-04] MEDS ORDERED: NITROGLYCERIN (SL) 0.4 MG TAB SL PRN ×2 (16:00→19:30)
[2016-09-04] MEDS ORDERED: ONDANSETRON 4 MG INJ IV PRN ×2 (16:30→19:30)
[2016-09-04] MEDS ORDERED: ACETAMINOPHEN 325 MG TAB PO PRN (16:30)
[2016-09-04] MEDS ORDERED: NORepinephrine 8MG/250 ML (PMX 250 ML ONE (17:19)
[2016-09-04] MEDS ORDERED: SOD CHLORIDE 0.9% 1,000 ML IV ONE (18:00)
[2016-09-04] MEDS ORDERED: NORepinephrine 8MG/250 ML (PMX 250 ML IV SCH (19:00)
--- NOTE | 2016-09-04 19:04 | RADRPT ---
PROCEDURE: XR Chest. CLINICAL INDICATION: Shortness of breath. TECHNIQUE: A single portable view of the chest was obtained. COMPARISON: 09/04/2016 from 09:34 a.m. FINDINGS: The hemodialysis catheter and pacemaker are unchanged. The aorta is tortuous and atherosclerotic. The cardiomediastinal silhouette is otherwise enlarged and is stable. Diffuse interstitial changes a re once again seen and has not changed significantly. Mild right basilar air space disease is once a gain seen and is stable. No discrete pleural effusion is seen. The soft tissues and osseous struct ures demonstrate benign age related senescent changes. IMPRESSION: 1. Diffuse interstitial changes which may represent interstitial pulmonary edema and is stable. 2. Mild right basilar air space disease which is unchanged. RPTAT: HPNM Physician Radha Date Time Electronically viewed and signed by Francois Pennington Physician on 09/04/2016 19:04 /
--- NOTE | 2016-09-04 19:21 | QN ---
Documentation Comment [id number] CRUZITO ARELLANO MD Sep 04, 2016 19:21
[2016-09-04] MEDS ORDERED: NALOXONE (0.4 MG/ML) INJ IV PRN (19:30)
[2016-09-04] MEDS: NORepinephrine 8MG/250 ML (PMX 250 ML IV SCH (20:02)
--- NOTE | 2016-09-04 20:13 | HP ---
DATE OF ADMISSION: 09/04/2016 HISTORY OF PRESENT ILLNESS: The patient with history of ESRD, hypertension, diabetes mellitus in th e past, AFib, cerebrovascular accident, dysphagia, G-tube placement, recently discharged with the di agnosis of sepsis, CKD, AFib, leukocytosis with anemia, G-tube placement and PermCath placement, ath erosclerotic heart disease, dyslipidemia, gram-negative bacteremia, presented with shortness of kam th, cough, lung congestion. The patient is being admitted to ICU for further management. The patie nt herself is unable to give any detailed history at this point. PAST MEDICAL HISTORY: 1. Sepsis. 2. CKD. 3. AFib. 4. Leukocytosis. 5. Anemia. 6. G-tube placement. 7. Atherosclerotic heart disease. 8. Dyslipidemia. 9. PermCath placement. 10. CVA. 11. Gram-negative bacteremia. ALLERGY HISTORY: NEGATIVE. FAMILY HISTORY: Noncontributory. MEDICATION HISTORY: The patient is currently on: 1. Tylenol. 2. Amiodarone. 3. Eliquis. 4. Aspirin. 5. Lipitor. 6. Diltiazem. 7. Docusate sodium. 8. Nephron. 9. Levothyroxine. 10. Nitroglycerin. 11. Protonix. REVIEW OF SYSTEMS: Cannot be obtained since patient is weak, lethargic. PHYSICAL EXAMINATION: GENERAL: The patient is awake, alert. Not able to communicate because of severe weakness. VITAL SIGNS: Pulse 71, blood pressure 116/73. HEENT: Head is atraumatic, normocephalic. PERRL. Pale conjunctivae. No icterus. NECK: Supple. LUNGS: Congestion noted. CARDIOVASCULAR: S1, S2 is normal. Irregular. ABDOMEN: Soft. Bowel sounds positive. EXTREMITIES: There is no cyanosis, clubbing. Trace edema. CENTRAL NERVOUS SYSTEM: The patient is weak, awake, lethargic. LABORATORY DATA: WBC 11.8, hematocrit 39.0, platelet count of 193. Sodium 141, potassium 5.1, BUN 32, creatinine 2.73. Lactic acid 3.9. IMPRESSION: 1. Sepsis. 2. Lung congestion. 3. Possible underlying pneumonia. 4. Underlying bronchitis. 5. Endstage renal disease. 6. Atrial fibrillation. 7. Atherosclerotic heart disease. 8. Dyslipidemia. 9. G-tube placement. PLAN: Continue home medication, oxygen, bronchodilator, and antibiotic. Orders were done. Dictated By: CRUZITO ARELLANO MD BS/NTS Conf#: [id number] DID#: [id number]
[2016-09-04] MEDS: ATORVASTATIN 20 MG TAB PO SCH (20:39)
[2016-09-04] MEDS: APIXABAN 5 MG TABLET PO SCH (20:39)
[2016-09-04] MEDS: METHYLPREDNISOLONE 40 MG INJ IV SCH (20:54)
[2016-09-04] MEDS ORDERED: DOCUSATE SODIUM 100 MG CAP PO SCH (21:00)
[2016-09-04] MEDS: ACETYLCYSTEINE 20% 4 ML VIAL NEB SCH (21:12)
[2016-09-04] MEDS: ALBUTEROL/IPRATROPIUM (NEB) 3 ML AMP NEB PRN (21:13)
[2016-09-04 22:30] VITALS: TEMP 99.1
[2016-09-04 23:27] VITALS: BP 123/85; PULSE 86; RESP 26
[2016-09-04 23:30] VITALS: BP 132/100; PULSE 79; RESP 20; Ht 157.5 cm; Wt 70.0 kg
[2016-09-04 23:45] VITALS: BP 116/66; PULSE 70; RESP 16
[2016-09-05] VITALS (86 sets, daily range): BP systolic 83–140; BP diastolic 11–111; PULSE 66–95; RESP 12–25
[2016-09-05] MEDS: NORepinephrine 8MG/250 ML (PMX 250 ML IV SCH ×3 (00:23→06:02)
[2016-09-05] MEDS: ALBUTEROL/IPRATROPIUM (NEB) 3 ML AMP NEB PRN ×3 (01:51→19:47)
[2016-09-05] MEDS: ACETYLCYSTEINE 20% 4 ML VIAL NEB SCH ×4 (01:51→19:47)
[2016-09-05] MEDS: PANTOPRAZOLE 40 MG INJ IV SCH (05:55)
[2016-09-05] MEDS: LEVOTHYROXINE 150 MCG TAB PO SCH (06:29)
[2016-09-05 06:49] LABS: ADD SCAN DIFF NO
[2016-09-05 06:52] LABS: BASOPHILS % 0.1 % (0.0-2.0); HEMATOCRIT 29.4 % (37.0-47.0); HEMOGLOBIN 9.1 g/dl (12.0-16.0); LYMPHOCYTES # 0.8 10^3/ul (0.8-2.9); LYMPHOCYTES % 4.2 % (15.0-51.0); MEAN CORPUSCULAR VOLUME 109.7 fl (82.0-101.0); MEAN PLATELET VOLUME 11.7 fl (7.4-10.4); MONOCYTE # 0.4 10^3/ul (0.3-0.9); NEUTROPHIL # 17.3 10^3/ul (1.6-7.5); PLATELET COUNT 150 10^3/UL (140-415); RED BLOOD COUNT 2.68 10^6/ul (4.20-5.40); WHITE BLOOD COUNT 18.6 10^3/ul (4.8-10.8)
[2016-09-05 07:01] LABS: NEUTROPHILS % 92.9 % (39.0-77.0)
[2016-09-05 07:08] LABS: POTASSIUM 4.6 mmol/L (3.5-5.1)
[2016-09-05 07:11] LABS: CALCIUM 8.8 mg/dl (8.4-10.2); CREATININE 3.28 mg/dl (0.44-1.00)
[2016-09-05] MEDS: ASPIRIN 81 MG TAB PO SCH (09:00)
[2016-09-05] MEDS ORDERED: DILTIAZEM (CD) 120 MG CAP PO SCH (09:00)
[2016-09-05] MEDS ORDERED: PANTOPRAZOLE (EC) 40 MG TAB PO SCH (09:00)
[2016-09-05] MEDS: DOCUSATE SODIUM 10 MG/ML (10ML CUP) GTB SCH ×2 (11:11→21:38)
[2016-09-05] MEDS: METHYLPREDNISOLONE 40 MG INJ IV SCH ×2 (11:11→21:39)
[2016-09-05] MEDS: AMIODARONE 200 MG TAB PO SCH (11:11)
[2016-09-05] MEDS: APIXABAN 5 MG TABLET PO SCH ×2 (11:12→21:40)
--- NOTE | 2016-09-05 12:16 | CONS ---
DATE OF ADMISSION: 09/04/2016 DATE OF CONSULTATION: 09/05/2016 REASON FOR CONSULTATION: Permanent pacemaker, atrial fibrillation, cardiomyopathy, shortness of yeimy ath, assess for congestive heart failure, as well as abnormal electrocardiogram, assess for acute co ronary syndrome. REQUESTING PHYSICIAN: Ceferino Arellano MD HISTORY OF PRESENT ILLNESS: Ms. 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 Upon arrival in the emergency department, temperature 99.1, blood pressure 113/50, pulse 79, respira tory rate 20, saturating 92%. The patient's labs revealed white count 11.8, hemoglobin 12.4, platel et count 193. Sodium of 141, potassium 5.1, creatinine 2.73, BUN 32, AST 286, ALT 149, alkaline billie sphatase 844. BNP of 24,900. INR 1.54. The patient underwent a chest x-ray revealing diffuse interstitial changes, may represent interstiti al pulmonary edema and is stable, and a mild right basilar airspace disease which is unchanged. The patient's electrocardiogram revealed a demand paced rhythm with underlying probable atrial fibri llation with nonspecific ST-T abnormalities diffusely and baseline artifact affecting accurate inter pretation. The patient has subsequently been admitted to the ICU where she remains at this time. The patient a t this time continues to be confused with labile blood pressures as low as 90s and high as 116. The patient has been placed on steroids and is additionally on pressors at this time, Levophed. PAST MEDICAL HISTORY: As above in HPI. MEDICATIONS CURRENTLY IN HOSPITAL: 1. Cefepime. 2. Amiodarone 200 mg daily. 3. Aspirin 81 mg daily. 4. Diltiazem CD 120 mg daily. 5. Colace 100 mg b.i.d. 6. Synthroid 150 mg daily. 7. Protonix 40 mg IV daily. 8. Apixaban 2.5 mg p.o. b.i.d. 9. Lipitor 20 mg at bedtime. 10. Carvedilol 6.25 mg p.o. b.i.d. 12. Solu-Medrol 40 mg IV b.i.d. 12. Mucomyst p.r.n. 13. Narcan p.r.n. 14. Zofran p.r.n. 15. DuoNebs p.r.n. ALLERGIES: NO KNOWN DRUG ALLERGIES. SOCIAL HISTORY: No current tobacco, ETOH or illicit drug use. FAMILY HISTORY: Negative for sudden cardiac or early CAD. REVIEW OF SYSTEMS: As above in HPI. CONSTITUTIONAL: No fevers, chills. PULMONARY: Shortness of breath. CARDIOVASCULAR: Cardiomyopathy with decreased left ventricular ejection fraction, congestive heart failure. GASTROINTESTINAL: Dysphagia, status post G-tube. GENITOURINARY: No hematuria. MUSCULOSKELETAL: Degenerative joint disease. PSYCHIATRIC: The patient denies depression. NEUROLOGIC: No documented history of CVA. PHYSICAL EXAMINATION VITAL SIGNS: Temperature of 98.5, blood pressure most recently 116/64, pulse of 66, respirations 17 , saturating 97%. GENERAL: The patient is alert, awake, confused. NECK: JVP approximately 9 cm of water. CHEST: Bibasilar crackles. HEART: Irregularly irregular, I/ systolic murmur. ABDOMEN: Positive bowel sounds, soft, obese. EXTREMITIES: Trace edema, 1+ pulses bilaterally, posterior tibial. LABORATORY DATA: As above in HPI, with most recent to date: Troponins negative x2. Sodium 141, po tassium 4.6, creatinine 3.28, BUN of 43, white count 18.6, hemoglobin 9.1, platelet count of 150, MC V 109. IMAGING STUDIES: As above in HPI with chest x-ray from today revealing cardiomegaly significantly i mproved hydropic edema with minor to the right basilar atelectasis, vascular calcifications consiste nt with atherosclerosis. IMPRESSION: 1. Congestive heart failure exacerbation, systolic, acute on chronic. 2. Hypotension/shock on pressor support. 3. Atrial fibrillation on systemic anticoagulation with reasonable rate control at this time. 4. History of recent cerebrovascular accident with altered mental status, encephalopathy. 5. Hypoxia. 6. Coronary artery disease. 7. Dysphagia status post G-tube. 8. Hypothyroidism. 9. Dyslipidemia. RECOMMENDATIONS: 1. At this time, would maintain the patient on telemetry monitoring to follow rhythm and rate contr ol closely. 2. Would continue hemodialysis for volume removal. 3. Continue the patient's antibiotics and follow up all culture data. 4. Hold the patient's diltiazem and carvedilol at this time while the patient on pressure support. 5. Wean the patient's pressor support as possible. 6. Continue the patient's aspirin at this time along with apixaban for prevention of cardiovascular events and thromboembolic events in the setting of paroxysmal atrial fibrillation and coronary martha ry disease. 7. Continue the patient's bronchodilators. 8. Follow the patient's mental status closely. 9. Continue the amiodarone at this time, but may be discontinued if patient continues to have bouts of atrial fibrillation. In addition, will check a TSH to assess the patient's current thyroid stat e and a fasting lipid panel and adjust the patient's statin therapy as necessary. Thank you for allowing me to take part in the care of this patient. I will continue to follow along very closely with you with further recommendations to be made as the patient progresses through her inpatient hospital clinical course. Dictated By: SASKIA MELVIN/KATE Conf#: [id number] DID#: [id number] CC: CEFERINO ARELLANO MD;*EndCC*
[2016-09-05] MEDS: DILTIAZEM 30 MG TAB PO SCH ×2 (14:00→21:39)
[2016-09-05 14:14] LABS: CK-MB 6.18 ng/ml (0.0-2.4)
[2016-09-05 14:17] LABS: TROPONIN-I 0.062 ng/ml (0.00-0.12)
[2016-09-05 19:23] LABS: CK-MB 4.81 ng/ml (0.0-2.4)
[2016-09-05 19:26] LABS: TROPONIN-I 0.044 ng/ml (0.00-0.12)
--- NOTE | 2016-09-05 20:28 | PN ---
Date/Time of Note Date/Time of Note DATE: 09/05/16 TIME: 20:26 Assessment/Plan VTE Prophylaxis VTE Prophylaxis Intervention: other Lines/Catheters IV Catheter Type (from Nrsg): Central Line Central line still needed: Yes Urinary Cath still in place: No Reason Cath still needed: other (indicate) Assessment/Plan Chief Complaint/Hosp Course IMPRESSION: 1. Sepsis. 2. Lung congestion. 3. Possible underlying pneumonia. 4. Underlying bronchitis. 5. Endstage renal disease. 6. Atrial fibrillation. 7. Atherosclerotic heart disease. 8. Dyslipidemia. 9. G-tube placement. plan antibiotic hd Problems: Subjective 24 Hr Interval Summary Respiratory: shortness of breath (better) Exam/Review of Systems Vital Signs Vitals Vital Signs Date Time Temp Pulse Resp B/P Pulse Ox O2 Delivery O2 Flow Rate FiO2 09/05/16 19:55 95 2.0 09/05/16 19:55 87 22 Nasal Cannula 09/05/16 18:30 121/83 09/05/16 16:00 98.4 Intake and Output 09/04/16 09/04/16 09/05/16 15:00 23:00 07:00 Intake Total 34.5 ml Output Total 0 ml Balance 34.5 ml Exam Respiratory: diminished breath sounds Cardiovascular: regular rate and rhythm Gastrointestinal: bowel sounds (+), soft Extremities: edema (tr) Results Result Diagram: 09/05/16 0550 09/05/16 0550 Results 24 hrs Laboratory Tests Test 09/04/16 22:45 09/05/16 00:50 09/05/16 05:50 09/05/16 13:15 Lactic Acid Level 1.4 Troponin I 0.053 0.062 Anion Gap 18 H Basophils # 0.0 Basophils % 0.1 Blood Urea Nitrogen 43 #H Calcium Level 8.8 Carbon Dioxide Level 23 Chloride Level 105 Creatinine 3.28 H Eosinophils # 0.0 Eosinophils % 0.0 Glucose Level 102 Hematocrit 29.4 #L Hemoglobin 9.1 #L Lymphocytes # 0.8 Lymphocytes % 4.2 L Mean Corpuscular Hemoglobin 34.0 H Mean Corpuscular Hemoglobin Concent 31.0 L Mean Corpuscular Volume 109.7 H Mean Platelet Volume 11.7 H Monocytes # 0.4 Monocytes % 2.0 Neutrophils # 17.3 H Neutrophils % 92.9 H Nucleated Red Blood Cells # 0.0 Nucleated Red Blood Cells % 0.0 Platelet Count 150 # Potassium Level 4.6 Red Blood Count 2.68 #L Red Cell Distribution Width 15.0 H Sodium Level 141 White Blood Count 18.6 #H Creatine Kinase 167 Creatine Kinase Index 3.7 Creatinine Kinase MB (Mass) 6.18 H Thyroid Stimulating Hormone (TSH) 1.310 Test 09/05/16 18:35 Creatine Kinase 123 Creatine Kinase Index 3.9 Creatinine Kinase MB (Mass) 4.81 H Troponin I 0.044 Medications Medications Current Medications Acetaminophen (Tylenol Tab) 325 mg DAILY PRN PO PAIN AND OR ELEVATED TEMP; Start 09/04/16 at 16:00 Amiodarone HCl (Cordarone) 200 mg DAILY PO Last administered on 09/05/16 11:11 ; Admin Dose 200 MG; Start 09/05/16 at 09:00 Apixaban (Eliquis) 2.5 mg BID PO Last administered on 09/05/16 11:12; Admin Dose 2.5 MG; Start 09/04/16 at 21:00 Aspirin (Aspirin) 81 mg DAILY PO Last administered on 09/05/16 09:00; Admin Dose 81 MG; Start 09/05/16 at 09:00 Atorvastatin Calcium (Lipitor) 20 mg QHS PO Last administered on 09/04/16 20:39 ; Admin Dose 20 MG; Start 09/04/16 at 21:00 Carvedilol 6.25 mg 6.25 mg BID PO ; Start 09/04/16 at 21:00 Norepinephrine (Levophed) 250 ml @ 1.875 mls/ hr TITRATE IV Last administered on 09/05/16 06:02; Admin Dose 3.75 MLS/HR; Start 09/04/16 at 18:00 Naloxone HCl (Narcan) 0.4 mg Q3M PRN IV DECREASED REPIRATORY RATE; Start at 19:30 Ondansetron HCl (Zofran Inj) 4 mg Q6H PRN IV NAUSEA AND/OR VOMITING; Start 09/04 at 19:30 Methylprednisolone Sodium Succinate (Solu-Medrol) 40 mg BID IV Last administered on 09/05/16 11:11; Admin Dose 40 MG; Start 09/04/16 at 21:00 Nitroglycerin (Nitroglycerin (Sl Tab) 0.4 Mg) 1 tab Q5M PRN SL CHEST PAIN; Start 09/04/16 at 19:30 Acetaminophen (Tylenol Liquid) 650 mg Q6H PRN PO PAIN LEVEL 1-3 OR FEVER; Start 09/04/16 at 19:30 Acetaminophen (Tylenol Tab) 650 mg Q6H PRN PO PAIN LEVEL 1-3 OR FEVER; Start at 19:30 Pantoprazole 40 mg 40 mg DAILY@06 IV Last administered on 09/05/16 05:55; Admin Dose 40 MG; Start 09/05/16 at 06:00 Cefepime HCl (Maxipime 1gm/50 ml (Pmx)) 50 ml @ 100 mls/hr Q24H IVPB ; Start at 20:00 Docusate Sodium (Colace Liquid Cup) 100 mg BID GTB Last administered on 11:11; Admin Dose 100 MG; Start 09/05/16 at 09:00 Diltiazem HCl (Cardizem) 30 mg Q8 PO ; Start 09/05/16 at 14:00 CRUZITO ARELLANO MD Sep 05, 2016 20:27
[2016-09-05] MEDS: ATORVASTATIN 20 MG TAB PO SCH (21:40)
[2016-09-05] MEDS: CEFEPIME 1GM/50 ML (PMX) 50 ML IVPB SCH (21:40)
[2016-09-06] VITALS (83 sets, daily range): BP systolic 81–141; BP diastolic 42–92; PULSE 69–89; RESP 13–29
[2016-09-06] MEDS: ALBUTEROL/IPRATROPIUM (NEB) 3 ML AMP NEB PRN ×3 (01:01→13:11)
[2016-09-06] MEDS: ACETYLCYSTEINE 20% 4 ML VIAL NEB SCH ×4 (01:01→20:00)
[2016-09-06 05:02] LABS: ADD SCAN DIFF NO
[2016-09-06 05:06] LABS: ABNORMAL IP MESSAGE 1; BASOPHILS % 0.1 % (0.0-2.0); HEMATOCRIT 31.7 % (37.0-47.0); HEMOGLOBIN 9.9 g/dl (12.0-16.0); LYMPHOCYTES # 0.6 10^3/ul (0.8-2.9); LYMPHOCYTES % 3.1 % (15.0-51.0); MEAN CORPUSCULAR HEMOGLOBIN 33.8 pg (29.0-33.0); MEAN CORPUSCULAR HGB CONC 31.2 g/dl (32.0-37.0); MEAN CORPUSCULAR VOLUME 108.2 fl (82.0-101.0); MEAN PLATELET VOLUME 11.9 fl (7.4-10.4); MONOCYTE # 0.5 10^3/ul (0.3-0.9); MONOCYTES % 2.6 % (0.0-11.0); NEUTROPHIL # 18.1 10^3/ul (1.6-7.5); NEUTROPHILS % 93.7 % (39.0-77.0); PLATELET COUNT 200 10^3/UL (140-415); RED BLOOD COUNT 2.93 10^6/ul (4.20-5.40); RED CELL DISTRIBUTION WIDTH 14.8 % (11.5-14.5); WHITE BLOOD COUNT 19.3 10^3/ul (4.8-10.8)
[2016-09-06] MEDS: PANTOPRAZOLE 40 MG INJ IV SCH (05:16)
[2016-09-06] MEDS: LEVOTHYROXINE 150 MCG TAB PO SCH ×2 (05:17→06:30)
[2016-09-06] MEDS: DILTIAZEM 30 MG TAB PO SCH (05:17)
[2016-09-06 05:23] LABS: CHOL/HDL RATIO 2.5 RATIO
[2016-09-06 05:59] LABS: ALBUMIN 2.9 g/dl (3.3-4.9)
[2016-09-06 06:00] LABS: POTASSIUM 3.9 mmol/L (3.5-5.1)
[2016-09-06 06:02] LABS: ALBUMIN/GLOBULIN RATIO 0.78; CREATININE 2.56 mg/dl (0.44-1.00); TOTAL PROTEIN 6.6 g/dl (6.1-8.1)
[2016-09-06 06:03] LABS: CALCIUM 9.1 mg/dl (8.4-10.2)
[2016-09-06] MEDS: AMIODARONE 200 MG TAB PO SCH (10:04)
[2016-09-06] MEDS: DOCUSATE SODIUM 10 MG/ML (10ML CUP) GTB SCH ×2 (10:04→20:26)
[2016-09-06] MEDS: METHYLPREDNISOLONE 40 MG INJ IV SCH ×2 (10:04→20:26)
[2016-09-06] MEDS: APIXABAN 5 MG TABLET PO SCH ×2 (10:05→20:26)
[2016-09-06] MEDS: ASPIRIN 81 MG TAB PO SCH (10:06)
[2016-09-06] MEDS: NORepinephrine 8MG/250 ML (PMX 250 ML IV SCH (10:45)
--- NOTE | 2016-09-06 10:50 | CONS ---
Date/Time of Note Date/Time of Note DATE: 09/06/16 TIME: 10:47 Assessment/Plan Assessment/Plan Chief Complaint/Hosp Course MPRESSION: 1. Congestive heart failure exacerbation, systolic, acute on chronic. 2. Hypotension/shock on pressor support. 3. Atrial fibrillation on systemic anticoagulation with reasonable rate control at this time. 4. History of recent cerebrovascular accident with altered mental status, encephalopathy. 5. Hypoxia. 6. Coronary artery disease. 7. Dysphagia status post G-tube. 8. Hypothyroidism. 9. Dyslipidemia. Recc: -Tele -wean levo as tolerated -HD for volume removal -Hold BB/CCB while patient is on pressors -Continue amio/asa/apixaban Problems: Consultation Date/Type/Reason Admit Date/Time Sep 04, 2016 at 16:03 Initial Consult Date 09/05/2016 Type of Consultation: Cardiology Reason for Consultation CHF Referring Provider: CRUZITO ARELLANO MD Exam/Review of Systems Vital Signs Vitals Vital Signs Date Time Temp Pulse Resp B/P Pulse Ox O2 Delivery O2 Flow Rate FiO2 09/06/16 09:00 72 22 135/74 94 Mechanical Ventilator 09/06/16 08:32 2.0 09/06/16 08:00 98.0 Intake and Output 09/05/16 09/05/16 09/06/16 15:00 23:00 07:00 Intake Total 523.750 ml 150.425 ml 260 ml Output Total 1800 ml Balance -1276.250 ml 150.425 ml 260 ml Exam Review of Systems: CONSTITUTIONAL: No fevers, chills. PULMONARY: Mild sob CARDIOVASCULAR: No chest pain/palpitations GASTROINTESTINAL: No nausea/vomiting. GENITOURINARY: No hematuria/dysuria. MUSCULOSKELETAL: No myagias/arthalgias. PSYCHIATRIC: The patient denies depression. NEUROLOGIC: Lethargic Constitutional: alert, other (lethargic) Psych: no complaints Head: normocephalic ENMT: mucosa pink and moist Neck: supple Respiratory: diminished breath sounds (at bases/B) Cardiovascular: regular rate and rhythm Gastrointestinal: non-tender, soft Musculoskeletal: muscle tone (normal) Extremities: edema (trace BIlateral) Neurological: lethargic Results Result Diagram: 09/06/16 0415 09/06/16 0415 Results 24 hrs Laboratory Tests Test 09/05/16 13:15 09/05/16 18:35 09/06/16 04:15 Creatine Kinase 167 123 Creatine Kinase Index 3.7 3.9 Creatinine Kinase MB (Mass) 6.18 H 4.81 H Thyroid Stimulating Hormone (TSH) 1.310 Troponin I 0.062 0.044 Alanine Aminotransferase (ALT/SGPT) 130 H Albumin 2.9 L Albumin/Globulin Ratio 0.78 Alkaline Phosphatase 443 H Anion Gap 19 H Aspartate Amino Transf (AST/SGOT) 147 H Basophils # 0.0 Basophils % 0.1 Blood Urea Nitrogen 40 H Calcium Level 9.1 Carbon Dioxide Level 25 Chloride Level 104 Cholesterol Level 87 L Cholesterol/HDL Ratio 2.5 Creatinine 2.56 H Direct Bilirubin 0.00 # Eosinophils # 0.0 Eosinophils % 0.0 Globulin 3.70 H Glucose Level 171 HDL Cholesterol 34 Hematocrit 31.7 L Hemoglobin 9.9 L Indirect Bilirubin 0.0 LDL Cholesterol, Calculated 27 Lymphocytes # 0.6 L Lymphocytes % 3.1 L Mean Corpuscular Hemoglobin 33.8 H Mean Corpuscular Hemoglobin Concent 31.2 L Mean Corpuscular Volume 108.2 H Mean Platelet Volume 11.9 H Monocytes # 0.5 Monocytes % 2.6 Neutrophils # 18.1 H Neutrophils % 93.7 H Nucleated Red Blood Cells # 0.0 Nucleated Red Blood Cells % 0.0 Platelet Count 200 # Potassium Level 3.9 Red Blood Count 2.93 L Red Cell Distribution Width 14.8 H Sodium Level 144 Total Bilirubin 0.0 L Total Protein 6.6 # Triglycerides Level 131 White Blood Count 19.3 H Medications Medications Current Medications Acetaminophen (Tylenol Tab) 325 mg DAILY PRN PO PAIN AND OR ELEVATED TEMP; Start 09/04/16 at 16:00 Amiodarone HCl (Cordarone) 200 mg DAILY PO Last administered on 09/06/16 10:04 ; Admin Dose 200 MG; Start 09/05/16 at 09:00 Apixaban (Eliquis) 2.5 mg BID PO Last administered on 09/06/16 10:05; Admin Dose 2.5 MG; Start 09/04/16 at 21:00 Aspirin (Aspirin) 81 mg DAILY PO Last administered on 09/06/16 10:06; Admin Dose 81 MG; Start 09/05/16 at 09:00 Atorvastatin Calcium (Lipitor) 20 mg QHS PO Last administered on 09/05/16 21:40 ; Admin Dose 20 MG; Start 09/04/16 at 21:00 Carvedilol 6.25 mg 6.25 mg BID PO Last administered on 09/05/16 21:39; Admin Dose 6.25 MG; Start 09/04/16 at 21:00 Norepinephrine (Levophed) 250 ml @ 1.875 mls/ hr TITRATE IV Last administered on 09/06/16 10:45; Admin Dose 7.5 MLS/HR; Start 09/04/16 at 18:00 Naloxone HCl (Narcan) 0.4 mg Q3M PRN IV DECREASED REPIRATORY RATE; Start at 19:30 Ondansetron HCl (Zofran Inj) 4 mg Q6H PRN IV NAUSEA AND/OR VOMITING; Start 09/04 at 19:30 Methylprednisolone Sodium Succinate (Solu-Medrol) 40 mg BID IV Last administered on 09/06/16 10:04; Admin Dose 40 MG; Start 09/04/16 at 21:00 Nitroglycerin (Nitroglycerin (Sl Tab) 0.4 Mg) 1 tab Q5M PRN SL CHEST PAIN; Start 09/04/16 at 19:30 Acetaminophen (Tylenol Liquid) 650 mg Q6H PRN PO PAIN LEVEL 1-3 OR FEVER; Start 09/04/16 at 19:30 Acetaminophen (Tylenol Tab) 650 mg Q6H PRN PO PAIN LEVEL 1-3 OR FEVER; Start at 19:30 Pantoprazole 40 mg 40 mg DAILY@06 IV Last administered on 09/06/16 05:16; Admin Dose 40 MG; Start 09/05/16 at 06:00 Cefepime HCl (Maxipime 1gm/50 ml (Pmx)) 50 ml @ 100 mls/hr Q24H IVPB Last administered on 09/05/16 21:40; Admin Dose 100 MLS/HR; Start 09/05/16 at 20:00 Docusate Sodium (Colace Liquid Cup) 100 mg BID GTB Last administered on 10:04; Admin Dose 100 MG; Start 09/05/16 at 09:00 Diltiazem HCl (Cardizem) 30 mg Q8 PO Last administered on 09/06/16 05:17; Admin Dose 30 MG; Start 09/05/16 at 14:00 SASKIA WHITE Sep 06, 2016 10:50
--- NOTE | 2016-09-06 18:44 | PN ---
Date/Time of Note Date/Time of Note DATE: 09/06/16 TIME: 18:43 Assessment/Plan VTE Prophylaxis VTE Prophylaxis Intervention: other Lines/Catheters IV Catheter Type (from Nrs): Central Line Central line still needed: Yes Urinary Cath still in place: No Assessment/Plan Chief Complaint/Hosp Course IMPRESSION: 1. Sepsis. 2. Lung congestion. 3. Possible underlying pneumonia. 4. Underlying bronchitis. 5. Endstage renal disease. 6. Atrial fibrillation. 7. Atherosclerotic heart disease. 8. Dyslipidemia. 9. G-tube placement. plan antibiotic hd AM Problems: Subjective 24 Hr Interval Summary Respiratory: shortness of breath (BETTER) Exam/Review of Systems Vital Signs Vitals Vital Signs Date Time Temp Pulse Resp B/P Pulse Ox O2 Delivery O2 Flow Rate FiO2 09/06/16 18:30 71 20 113/63 96 09/06/16 18:00 Nasal Cannula 09/06/16 16:00 97.7 09/06/16 15:30 4.0 Intake and Output 09/05/16 09/05/16 09/06/16 15:00 23:00 07:00 Intake Total 523.750 ml 150.425 ml 260 ml Output Total 1800 ml Balance -1276.250 ml 150.425 ml 260 ml Exam Respiratory: diminished breath sounds Cardiovascular: regular rate and rhythm Gastrointestinal: bowel sounds (+), soft Results Result Diagram: 09/06/16 0415 09/06/16 0415 Results 24 hrs Laboratory Tests Test 09/06/16 04:15 Alanine Aminotransferase (ALT/SGPT) 130 H Albumin 2.9 L Albumin/Globulin Ratio 0.78 Alkaline Phosphatase 443 H Anion Gap 19 H Aspartate Amino Transf (AST/SGOT) 147 H Basophils # 0.0 Basophils % 0.1 Blood Urea Nitrogen 40 H Calcium Level 9.1 Carbon Dioxide Level 25 Chloride Level 104 Cholesterol Level 87 L Cholesterol/HDL Ratio 2.5 Creatinine 2.56 H Direct Bilirubin 0.00 # Eosinophils # 0.0 Eosinophils % 0.0 Globulin 3.70 H Glucose Level 171 HDL Cholesterol 34 Hematocrit 31.7 L Hemoglobin 9.9 L Indirect Bilirubin 0.0 LDL Cholesterol, Calculated 27 Lymphocytes # 0.6 L Lymphocytes % 3.1 L Mean Corpuscular Hemoglobin 33.8 H Mean Corpuscular Hemoglobin Concent 31.2 L Mean Corpuscular Volume 108.2 H Mean Platelet Volume 11.9 H Monocytes # 0.5 Monocytes % 2.6 Neutrophils # 18.1 H Neutrophils % 93.7 H Nucleated Red Blood Cells # 0.0 Nucleated Red Blood Cells % 0.0 Platelet Count 200 # Potassium Level 3.9 Red Blood Count 2.93 L Red Cell Distribution Width 14.8 H Sodium Level 144 Total Bilirubin 0.0 L Total Protein 6.6 # Triglycerides Level 131 White Blood Count 19.3 H Medications Medications Current Medications Acetaminophen (Tylenol Tab) 325 mg DAILY PRN PO PAIN AND OR ELEVATED TEMP; Start 09/04/16 at 16:00 Amiodarone HCl (Cordarone) 200 mg DAILY PO Last administered on 09/06/16 10:04 ; Admin Dose 200 MG; Start 09/05/16 at 09:00 Apixaban (Eliquis) 2.5 mg BID PO Last administered on 09/06/16 10:05; Admin Dose 2.5 MG; Start 09/04/16 at 21:00 Aspirin (Aspirin) 81 mg DAILY PO Last administered on 09/06/16 10:06; Admin Dose 81 MG; Start 09/05/16 at 09:00 Atorvastatin Calcium 20 mg 20 mg QHS PO Last administered on 09/05/16 21:40; Admin Dose 20 MG; Start 09/04/16 at 21:00 Norepinephrine (Levophed) 250 ml @ 1.875 mls/ hr TITRATE IV Last administered on 09/06/16 10:45; Admin Dose 7.5 MLS/HR; Start 09/04/16 at 18:00 Naloxone HCl (Narcan) 0.4 mg Q3M PRN IV DECREASED REPIRATORY RATE; Start at 19:30 Ondansetron HCl (Zofran Inj) 4 mg Q6H PRN IV NAUSEA AND/OR VOMITING; Start 09/04 at 19:30 Methylprednisolone Sodium Succinate (Solu-Medrol) 40 mg BID IV Last administered on 09/06/16 10:04; Admin Dose 40 MG; Start 09/04/16 at 21:00 Nitroglycerin (Nitroglycerin (Sl Tab) 0.4 Mg) 1 tab Q5M PRN SL CHEST PAIN; Start 09/04/16 at 19:30 Acetaminophen (Tylenol Liquid) 650 mg Q6H PRN PO PAIN LEVEL 1-3 OR FEVER; Start 09/04/16 at 19:30 Acetaminophen (Tylenol Tab) 650 mg Q6H PRN PO PAIN LEVEL 1-3 OR FEVER; Start at 19:30 Pantoprazole 40 mg 40 mg DAILY@06 IV Last administered on 09/06/16 05:16; Admin Dose 40 MG; Start 09/05/16 at 06:00 Cefepime HCl (Maxipime 1gm/50 ml (Pmx)) 50 ml @ 100 mls/hr Q24H IVPB Last administered on 09/05/16 21:40; Admin Dose 100 MLS/HR; Start 09/05/16 at 20:00 Docusate Sodium (Colace Liquid Cup) 100 mg BID GTB Last administered on 10:04; Admin Dose 100 MG; Start 09/05/16 at 09:00 Diltiazem HCl (Cardizem) 30 mg Q8 PO Last administered on 09/06/16 05:17; Admin Dose 30 MG; Start 09/05/16 at 14:00; Status Future Hold CRUZITO ARELLANO MD Sep 06, 2016 18:44
[2016-09-06] MEDS: ATORVASTATIN 20 MG TAB PO SCH (20:26)
[2016-09-06] MEDS: CEFEPIME 1GM/50 ML (PMX) 50 ML IVPB SCH (20:26)
[2016-09-07] VITALS (39 sets, daily range): BP systolic 92–149; BP diastolic 48–100; PULSE 69–103; RESP 11–31
[2016-09-07] MEDS: ACETYLCYSTEINE 20% 4 ML VIAL NEB SCH ×4 (01:52→20:24)
[2016-09-07] MEDS: ALBUTEROL/IPRATROPIUM (NEB) 3 ML AMP NEB PRN ×3 (01:54→20:41)
[2016-09-07 04:33] LABS: ADD SCAN DIFF NO
[2016-09-07 04:39] LABS: ABNORMAL IP MESSAGE 1; BASOPHILS % 0.1 % (0.0-2.0); HEMATOCRIT 29.2 % (37.0-47.0); LYMPHOCYTES # 0.5 10^3/ul (0.8-2.9); LYMPHOCYTES % 4.2 % (15.0-51.0); MEAN CORPUSCULAR HEMOGLOBIN 33.7 pg (29.0-33.0); MEAN CORPUSCULAR HGB CONC 30.8 g/dl (32.0-37.0); MEAN CORPUSCULAR VOLUME 109.4 fl (82.0-101.0); MONOCYTE # 0.3 10^3/ul (0.3-0.9); MONOCYTES % 2.3 % (0.0-11.0); NEUTROPHIL # 11.9 10^3/ul (1.6-7.5); NEUTROPHILS % 92.8 % (39.0-77.0); PLATELET COUNT 166 10^3/UL (140-415); RED BLOOD COUNT 2.67 10^6/ul (4.20-5.40); RED CELL DISTRIBUTION WIDTH 14.7 % (11.5-14.5); WHITE BLOOD COUNT 12.8 10^3/ul (4.8-10.8)
[2016-09-07 04:49] LABS: ALBUMIN 2.6 g/dl (3.3-4.9); POTASSIUM 4.2 mmol/L (3.5-5.1)
[2016-09-07 04:52] LABS: ALBUMIN/GLOBULIN RATIO 0.81; CREATININE 3.37 mg/dl (0.44-1.00); TOTAL PROTEIN 5.8 g/dl (6.1-8.1)
[2016-09-07 04:53] LABS: CALCIUM 9.3 mg/dl (8.4-10.2)
[2016-09-07] MEDS: PANTOPRAZOLE 40 MG INJ IV SCH (06:00)
[2016-09-07] MEDS: METHYLPREDNISOLONE 40 MG INJ IV SCH ×2 (09:15→20:15)
[2016-09-07] MEDS: LEVOTHYROXINE 150 MCG TAB PO SCH (09:15)
[2016-09-07] MEDS: ASPIRIN 81 MG TAB PO SCH (09:15)
[2016-09-07] MEDS: APIXABAN 5 MG TABLET PO SCH (09:15)
[2016-09-07] MEDS: DOCUSATE SODIUM 10 MG/ML (10ML CUP) GTB SCH ×2 (09:15→20:18)
[2016-09-07] MEDS: AMIODARONE 200 MG TAB PO SCH (09:15)
--- NOTE | 2016-09-07 13:02 | PN ---
Date/Time of Note Date/Time of Note DATE: 09/07/16 TIME: 13:00 Assessment/Plan VTE Prophylaxis VTE Prophylaxis Intervention: SCD's Lines/Catheters IV Catheter Type (from [facility]): Central Line Central line still needed: No Urinary Cath still in place: No Assessment/Plan Chief Complaint/Hosp Course 1. Pt was transferred to [facility] floor, improvement Problems: Assessment/Plan 1. Continue a/b and hydration Subjective 24 Hr Interval Summary Constitutional: improved Exam/Review of Systems Vital Signs Vitals Vital Signs Date Time Temp Pulse Resp B/P Pulse Ox O2 Delivery O2 Flow Rate FiO2 09/07/16 11:26 98.0 84 20 149/68 98 09/07/16 11:00 Nasal Cannula 09/07/16 09:27 3.0 Intake and Output 09/06/16 09/06/16 09/07/16 15:00 23:00 07:00 Intake Total 593.75 ml 400.00 ml 855.00 ml Output Total 0 ml 3000 ml Balance 593.75 ml 400.00 ml -2145.00 ml Exam Constitutional: alert Psych: no complaints Head: normocephalic Eyes: nl conjunctiva ENMT: nl external ears & nose Respiratory: clear to auscultation Cardiovascular: regular rate and rhythm Results Result Diagram: 09/07/165 09/07/16 0345 Results 24 hrs Laboratory Tests Test 09/07/16 03:45 Alanine Aminotransferase (ALT/SGPT) 97 H Albumin 2.6 L Albumin/Globulin Ratio 0.81 Alkaline Phosphatase 324 H Anion Gap 18 H Aspartate Amino Transf (AST/SGOT) 69 H Basophils # 0.0 Basophils % 0.1 Blood Urea Nitrogen 67 H Calcium Level 9.3 Carbon Dioxide Level 25 Chloride Level 103 Creatinine 3.37 H Direct Bilirubin 0.00 Eosinophils # 0.0 Eosinophils % 0.0 Globulin 3.20 Glucose Level 155 Hematocrit 29.2 L Hemoglobin 9.0 L Indirect Bilirubin 0.0 Lymphocytes # 0.5 L Lymphocytes % 4.2 L Mean Corpuscular Hemoglobin 33.7 H Mean Corpuscular Hemoglobin Concent 30.8 L Mean Corpuscular Volume 109.4 H Mean Platelet Volume 12.0 H Monocytes # 0.3 Monocytes % 2.3 Neutrophils # 11.9 H Neutrophils % 92.8 H Nucleated Red Blood Cells # 0.0 Nucleated Red Blood Cells % 0.0 Platelet Count 166 Potassium Level 4.2 Red Blood Count 2.67 L Red Cell Distribution Width 14.7 H Sodium Level 142 Total Bilirubin 0.0 L Total Protein 5.8 L White Blood Count 12.8 #H Medications Medications Current Medications Acetaminophen (Tylenol Tab) 325 mg DAILY PRN PO PAIN AND OR ELEVATED TEMP; Start 09/04/16 at 16:00 Amiodarone HCl (Cordarone) 200 mg DAILY PO Last administered on 09/07/16 09:15 ; Admin Dose 200 MG; Start 09/05/16 at 09:00 Apixaban (Eliquis) 2.5 mg BID PO Last administered on 09/07/16 09:15; Admin Dose 2.5 MG; Start 09/04/16 at 21:00 Aspirin (Aspirin) 81 mg DAILY PO Last administered on 09/07/16 09:15; Admin Dose 81 MG; Start 09/05/16 at 09:00 Atorvastatin Calcium (Lipitor) 20 mg QHS PO Last administered on 09/06/16 20: 26; Admin Dose 20 MG; Start 09/04/16 at 21:00 Naloxone HCl (Narcan) 0.4 mg Q3M PRN IV DECREASED REPIRATORY RATE; Start at 19:30 Ondansetron HCl (Zofran Inj) 4 mg Q6H PRN IV NAUSEA AND/OR VOMITING; Start 09/04 at 19:30 Methylprednisolone Sodium Succinate (Solu-Medrol) 40 mg BID IV Last administered on 09/07/16 09:15; Admin Dose 40 MG; Start 09/04/16 at 21:00 Nitroglycerin (Nitroglycerin (Sl Tab) 0.4 Mg) 1 tab Q5M PRN SL CHEST PAIN; Start 09/04/16 at 19:30 Acetaminophen (Tylenol Liquid) 650 mg Q6H PRN PO PAIN LEVEL 1-3 OR FEVER; Start 09/04/16 at 19:30 Acetaminophen (Tylenol Tab) 650 mg Q6H PRN PO PAIN LEVEL 1-3 OR FEVER; Start at 19:30 Pantoprazole 40 mg 40 mg DAILY@06 IV Last administered on 09/07/16 06:00; Admin Dose 40 MG; Start 09/05/16 at 06:00 Cefepime HCl (Maxipime 1gm/50 ml (Pmx)) 50 ml @ 100 mls/hr Q24H IVPB Last administered on 09/06/16 20:26; Admin Dose 100 MLS/HR; Start 09/05/16 at 20:00 Docusate Sodium (Colace Liquid Cup) 100 mg BID GTB Last administered on 09:15; Admin Dose 100 MG; Start 09/05/16 at 09:00 Diltiazem HCl (Cardizem) 30 mg Q8 PO Last administered on 09/06/16 05:17; Admin Dose 30 MG; Start 09/05/16 at 14:00; Status Future Hold JERAMIE FLORES Sep 07, 2016 13:02
--- NOTE | 2016-09-07 14:26 | CONS ---
Date/Time of Note Date/Time of Note DATE: 09/07/16 TIME: 14:23 Assessment/Plan Assessment/Plan Chief Complaint/Hosp Course MPRESSION: 1. Congestive heart failure exacerbation, systolic, acute on chronic. EF 40% by echo 07/16 2. Hypotension/shock on pressor support. 3. Atrial fibrillation on systemic anticoagulation with reasonable rate control at this time. 4. History of recent cerebrovascular accident with altered mental status, encephalopathy. 5. Hypoxia. 6. Coronary artery disease. 7. Dysphagia status post G-tube. 8. Hypothyroidism. 9. Dyslipidemia. 10.PPM Recc: -Tele -HD for volume removal -Resume BB and erick CCB thereafterGiven now improved BP -Continue amio/asa/apixaban Problems: Consultation Date/Type/Reason Admit Date/Time Sep 04, 2016 at 16:03 Initial Consult Date 09/05/2016 Type of Consultation: Cardiology Reason for Consultation CHF/AF/PPM Referring Provider: CRUZITO ARELLANO MD Exam/Review of Systems Vital Signs Vitals Vital Signs Date Time Temp Pulse Resp B/P Pulse Ox O2 Delivery O2 Flow Rate FiO2 09/07/16 12:19 82 09/07/16 11:26 98.0 20 149/68 98 09/07/16 11:00 Nasal Cannula 09/07/16 09:27 3.0 Intake and Output 09/06/16 09/06/16 09/07/16 15:00 23:00 07:00 Intake Total 593.75 ml 400.00 ml 855.00 ml Output Total 0 ml 3000 ml Balance 593.75 ml 400.00 ml -2145.00 ml Exam Review of Systems: CONSTITUTIONAL: No fevers, chills. PULMONARY: No sob CARDIOVASCULAR: No chest pain/palpitations GASTROINTESTINAL: No nausea/vomiting. GENITOURINARY: No hematuria/dysuria. MUSCULOSKELETAL: No myagias/arthalgias. PSYCHIATRIC: The patient denies depression. NEUROLOGIC: lethargic Constitutional: other (sleeping, arousable) Psych: no complaints Head: normocephalic ENMT: mucosa pink and moist Neck: jvd (9 cm water), supple Respiratory: diminished breath sounds (at bases/B) Cardiovascular: irregular rhythm Gastrointestinal: non-tender, soft Musculoskeletal: muscle tone (normal) Extremities: edema (none) Neurological: lethargic Results Result Diagram: 09/07/16 0345 09/07/16 0345 Results 24 hrs Laboratory Tests Test 09/07/16 03:45 Alanine Aminotransferase (ALT/SGPT) 97 H Albumin 2.6 L Albumin/Globulin Ratio 0.81 Alkaline Phosphatase 324 H Anion Gap 18 H Aspartate Amino Transf (AST/SGOT) 69 H Basophils # 0.0 Basophils % 0.1 Blood Urea Nitrogen 67 H Calcium Level 9.3 Carbon Dioxide Level 25 Chloride Level 103 Creatinine 3.37 H Direct Bilirubin 0.00 Eosinophils # 0.0 Eosinophils % 0.0 Globulin 3.20 Glucose Level 155 Hematocrit 29.2 L Hemoglobin 9.0 L Indirect Bilirubin 0.0 Lymphocytes # 0.5 L Lymphocytes % 4.2 L Mean Corpuscular Hemoglobin 33.7 H Mean Corpuscular Hemoglobin Concent 30.8 L Mean Corpuscular Volume 109.4 H Mean Platelet Volume 12.0 H Monocytes # 0.3 Monocytes % 2.3 Neutrophils # 11.9 H Neutrophils % 92.8 H Nucleated Red Blood Cells # 0.0 Nucleated Red Blood Cells % 0.0 Platelet Count 166 Potassium Level 4.2 Red Blood Count 2.67 L Red Cell Distribution Width 14.7 H Sodium Level 142 Total Bilirubin 0.0 L Total Protein 5.8 L White Blood Count 12.8 #H Medications Medications Current Medications Acetaminophen (Tylenol Tab) 325 mg DAILY PRN PO PAIN AND OR ELEVATED TEMP; Start 09/04/16 at 16:00 Amiodarone HCl (Cordarone) 200 mg DAILY PO Last administered on 09/07/16 09:15 ; Admin Dose 200 MG; Start 09/05/16 at 09:00 Apixaban (Eliquis) 2.5 mg BID PO Last administered on 09/07/16 09:15; Admin Dose 2.5 MG; Start 09/04/16 at 21:00 Aspirin (Aspirin) 81 mg DAILY PO Last administered on 09/07/16 09:15; Admin Dose 81 MG; Start 09/05/16 at 09:00 Atorvastatin Calcium (Lipitor) 20 mg QHS PO Last administered on 09/06/16 20: 26; Admin Dose 20 MG; Start 09/04/16 at 21:00 Naloxone HCl (Narcan) 0.4 mg Q3M PRN IV DECREASED REPIRATORY RATE; Start at 19:30 Ondansetron HCl (Zofran Inj) 4 mg Q6H PRN IV NAUSEA AND/OR VOMITING; Start 09/04 at 19:30 Methylprednisolone Sodium Succinate (Solu-Medrol) 40 mg BID IV Last administered on 09/07/16 09:15; Admin Dose 40 MG; Start 09/04/16 at 21:00 Nitroglycerin (Nitroglycerin (Sl Tab) 0.4 Mg) 1 tab Q5M PRN SL CHEST PAIN; Start 09/04/16 at 19:30 Acetaminophen (Tylenol Liquid) 650 mg Q6H PRN PO PAIN LEVEL 1-3 OR FEVER; Start 09/04/16 at 19:30 Acetaminophen (Tylenol Tab) 650 mg Q6H PRN PO PAIN LEVEL 1-3 OR FEVER; Start at 19:30 Pantoprazole 40 mg 40 mg DAILY@06 IV Last administered on 09/07/16 06:00; Admin Dose 40 MG; Start 09/05/16 at 06:00 Cefepime HCl (Maxipime 1gm/50 ml (Pmx)) 50 ml @ 100 mls/hr Q24H IVPB Last administered on 09/06/16 20:26; Admin Dose 100 MLS/HR; Start 09/05/16 at 20:00 Docusate Sodium (Colace Liquid Cup) 100 mg BID GTB Last administered on 09:15; Admin Dose 100 MG; Start 09/05/16 at 09:00 Diltiazem HCl (Cardizem) 30 mg Q8 PO Last administered on 09/06/16 05:17; Admin Dose 30 MG; Start 09/05/16 at 14:00; Status Future Hold SASKIA WHITE Sep 07, 2016 14:26
[2016-09-07] MEDS: CEFEPIME 1GM/50 ML (PMX) 50 ML IVPB SCH (20:14)
[2016-09-07] MEDS: ATORVASTATIN 20 MG TAB GTB SCH (20:18)
[2016-09-07] MEDS: APIXABAN 5 MG TABLET GTB SCH (20:19)
[2016-09-08] VITALS (12 sets, daily range): BP systolic 96–143; BP diastolic 53–64; PULSE 69–81; RESP 18–20
[2016-09-08] MEDS: ACETYLCYSTEINE 20% 4 ML VIAL NEB SCH ×4 (01:15→20:09)
[2016-09-08] MEDS: ALBUTEROL/IPRATROPIUM (NEB) 3 ML AMP NEB PRN ×4 (01:24→16:21)
[2016-09-08] MEDS: PANTOPRAZOLE 40 MG INJ IV SCH (06:19)
[2016-09-08] MEDS: LEVOTHYROXINE 150 MCG TAB GTB SCH (07:35)
[2016-09-08] MEDS: DOCUSATE SODIUM 10 MG/ML (10ML CUP) GTB SCH ×2 (09:29→20:34)
[2016-09-08] MEDS: ASPIRIN 81 MG TAB PO SCH (09:30)
[2016-09-08] MEDS: APIXABAN 5 MG TABLET GTB SCH ×2 (09:30→20:34)
[2016-09-08] MEDS: METHYLPREDNISOLONE 40 MG INJ IV SCH ×2 (09:30→20:54)
[2016-09-08] MEDS: AMIODARONE 200 MG TAB PO SCH (09:31)
[2016-09-08] MEDS: ACETAMINOPHEN 650MG/20.3ML CUP PO PRN ×2 (09:33→20:48)
--- NOTE | 2016-09-08 14:24 | CONS ---
Date/Time of Note Date/Time of Note DATE: 09/08/16 TIME: 14:20 Assessment/Plan Assessment/Plan Chief Complaint/Hosp Course IMPRESSION: 1. Congestive heart failure exacerbation, systolic, acute on chronic. EF 40% by echo 07/16 2. Hypotension/shock on pressor support. 3. Atrial fibrillation on systemic anticoagulation with reasonable rate control at this time. 4. History of recent cerebrovascular accident with altered mental status, encephalopathy. 5. Hypoxia. 6. Coronary artery disease. 7. Dysphagia status post G-tube. 8. Hypothyroidism. 9. Dyslipidemia. 10.PPM Recc: -Tele -HD for volume removal -Continue current BB -Continue amio/asa/apixaban -start ACEI afterload reduction for low EF Problems: Consultation Date/Type/Reason Admit Date/Time Sep 04, 2016 at 16:03 Initial Consult Date 09/05/2016 Type of Consultation: Cardiology Reason for Consultation CHF Referring Provider: CRUZITO ARELLANO MD Exam/Review of Systems Vital Signs Vitals Vital Signs Date Time Temp Pulse Resp B/P Pulse Ox O2 Delivery O2 Flow Rate FiO2 09/08/16 13:18 78 18 95 3.0 32 09/08/16 11:47 98.2 96/53 09/08/16 07:30 Nasal Cannula Intake and Output 09/07/16 09/07/16 09/08/16 15:00 23:00 07:00 Intake Total 170 ml 280 ml Output Total 0 ml Balance 170 ml 280 ml Exam Review of Systems: CONSTITUTIONAL: No fevers, chills. PULMONARY: No sob CARDIOVASCULAR: No chest pain/palpitations GASTROINTESTINAL: No nausea/vomiting. GENITOURINARY: No hematuria/dysuria. MUSCULOSKELETAL: No myagias/arthalgias. PSYCHIATRIC: The patient denies depression. NEUROLOGIC: No weakness Constitutional: other (sleeping) Head: normocephalic ENMT: mucosa pink and moist Neck: jvd (9 cm water), supple Respiratory: diminished breath sounds (at bases/B) Cardiovascular: regular rate and rhythm Gastrointestinal: non-tender, soft Musculoskeletal: muscle tone Extremities: normal pulses (normal) Neurological: lethargic Results Result Diagram: 09/07/16 0345 09/07/16 0345 Medications Medications Current Medications Acetaminophen (Tylenol Tab) 325 mg DAILY PRN PO PAIN AND OR ELEVATED TEMP; Start 09/04/16 at 16:00 Amiodarone HCl (Cordarone) 200 mg DAILY PO Last administered on 09/08/16 09:31 ; Admin Dose 200 MG; Start 09/05/16 at 09:00 Aspirin (Aspirin) 81 mg DAILY PO Last administered on 09/08/16 09:30; Admin Dose 81 MG; Start 09/05/16 at 09:00 Naloxone HCl (Narcan) 0.4 mg Q3M PRN IV DECREASED REPIRATORY RATE; Start at 19:30 Ondansetron HCl (Zofran Inj) 4 mg Q6H PRN IV NAUSEA AND/OR VOMITING; Start 09/04 at 19:30 Methylprednisolone Sodium Succinate (Solu-Medrol) 40 mg BID IV Last administered on 09/08/16 09:30; Admin Dose 40 MG; Start 09/04/16 at 21:00 Nitroglycerin (Nitroglycerin (Sl Tab) 0.4 Mg) 1 tab Q5M PRN SL CHEST PAIN; Start 09/04/16 at 19:30 Acetaminophen (Tylenol Liquid) 650 mg Q6H PRN PO PAIN LEVEL 1-3 OR FEVER Last administered on 09/08/16 09:33; Admin Dose 650 MG; Start 09/04/16 at 19:30 Acetaminophen (Tylenol Tab) 650 mg Q6H PRN PO PAIN LEVEL 1-3 OR FEVER; Start at 19:30 Pantoprazole 40 mg 40 mg DAILY@06 IV Last administered on 09/08/16 06:19; Admin Dose 40 MG; Start 09/05/16 at 06:00 Cefepime HCl (Maxipime 1gm/50 ml (Pmx)) 50 ml @ 100 mls/hr Q24H IVPB Last administered on 09/07/16 20:14; Admin Dose 100 MLS/HR; Start 09/05/16 at 20:00 Docusate Sodium (Colace Liquid Cup) 100 mg BID GTB Last administered on 09:29; Admin Dose 100 MG; Start 09/05/16 at 09:00 Diltiazem HCl (Cardizem) 30 mg Q8 PO Last administered on 09/06/16 05:17; Admin Dose 30 MG; Start 09/05/16 at 14:00; Status Future Hold Apixaban (Eliquis) 2.5 mg BID GTB Last administered on 09/08/16 09:30; Admin Dose 2.5 MG; Start 09/07/16 at 21:00 Atorvastatin Calcium (Lipitor) 20 mg HS GTB Last administered on 09/07/16 20: 18; Admin Dose 20 MG; Start 09/07/16 at 21:00 Carvedilol (Coreg) 6.25 mg BID GTB Last administered on 09/08/16 09:30; Admin Dose 6.25 MG; Start 09/07/16 at 21:00 SASKIA WHITE Sep 08, 2016 14:23
--- NOTE | 2016-09-08 17:16 | PN ---
Date/Time of Note Date/Time of Note DATE: 09/08/16 TIME: 17:15 Assessment/Plan VTE Prophylaxis VTE Prophylaxis Intervention: other Lines/Catheters IV Catheter Type (from Nrsg): Central Line Central line still needed: Yes Urinary Cath still in place: No Reason Cath still needed: other (indicate) Assessment/Plan Chief Complaint/Hosp Course IMPRESSION: 1. Sepsis. 2. Lung congestion. 3. Possible underlying pneumonia. 4. Underlying bronchitis. 5. Endstage renal disease. 6. Atrial fibrillation. 7. Atherosclerotic heart disease. 8. Dyslipidemia. 9. G-tube placement. plan antibiotic hd BLOOD CULTURE Problems: Subjective 24 Hr Interval Summary Cardiovascular: no complaints Gastrointestinal: no complaints Exam/Review of Systems Vital Signs Vitals Vital Signs Date Time Temp Pulse Resp B/P Pulse Ox O2 Delivery O2 Flow Rate FiO2 09/08/16 16:22 94 3.0 32 09/08/16 16:22 80 20 09/08/16 15:31 98.3 112/60 09/08/16 07:30 Nasal Cannula Intake and Output 09/07/16 09/07/16 09/08/16 15:00 23:00 07:00 Intake Total 170 ml 280 ml Output Total 0 ml Balance 170 ml 280 ml Exam Respiratory: clear to auscultation Cardiovascular: regular rate and rhythm Gastrointestinal: soft Musculoskeletal: nl extremities to inspection Results Result Diagram: 09/07/16 0345 09/07/16 0345 Medications Medications Current Medications Acetaminophen (Tylenol Tab) 325 mg DAILY PRN PO PAIN AND OR ELEVATED TEMP; Start 09/04/16 at 16:00 Amiodarone HCl (Cordarone) 200 mg DAILY PO Last administered on 09/08/16 09:31 ; Admin Dose 200 MG; Start 09/05/16 at 09:00 Aspirin (Aspirin) 81 mg DAILY PO Last administered on 09/08/16 09:30; Admin Dose 81 MG; Start 09/05/16 at 09:00 Naloxone HCl (Narcan) 0.4 mg Q3M PRN IV DECREASED REPIRATORY RATE; Start at 19:30 Ondansetron HCl (Zofran Inj) 4 mg Q6H PRN IV NAUSEA AND/OR VOMITING; Start 09/04 at 19:30 Methylprednisolone Sodium Succinate (Solu-Medrol) 40 mg BID IV Last administered on 09/08/16 09:30; Admin Dose 40 MG; Start 09/04/16 at 21:00 Nitroglycerin (Nitroglycerin (Sl Tab) 0.4 Mg) 1 tab Q5M PRN SL CHEST PAIN; Start 09/04/16 at 19:30 Acetaminophen (Tylenol Liquid) 650 mg Q6H PRN PO PAIN LEVEL 1-3 OR FEVER Last administered on 09/08/16 09:33; Admin Dose 650 MG; Start 09/04/16 at 19:30 Acetaminophen (Tylenol Tab) 650 mg Q6H PRN PO PAIN LEVEL 1-3 OR FEVER; Start at 19:30 Pantoprazole 40 mg 40 mg DAILY@06 IV Last administered on 09/08/16 06:19; Admin Dose 40 MG; Start 09/05/16 at 06:00 Cefepime HCl (Maxipime 1gm/50 ml (Pmx)) 50 ml @ 100 mls/hr Q24H IVPB Last administered on 09/07/16 20:14; Admin Dose 100 MLS/HR; Start 09/05/16 at 20:00 Docusate Sodium (Colace Liquid Cup) 100 mg BID GTB Last administered on 09:29; Admin Dose 100 MG; Start 09/05/16 at 09:00 Diltiazem HCl (Cardizem) 30 mg Q8 PO Last administered on 09/06/16 05:17; Admin Dose 30 MG; Start 09/05/16 at 14:00; Status Future Hold Apixaban (Eliquis) 2.5 mg BID GTB Last administered on 09/08/16 09:30; Admin Dose 2.5 MG; Start 09/07/16 at 21:00 Atorvastatin Calcium (Lipitor) 20 mg HS GTB Last administered on 09/07/16 20: 18; Admin Dose 20 MG; Start 09/07/16 at 21:00 Carvedilol (Coreg) 6.25 mg BID GTB Last administered on 09/08/16 09:30; Admin Dose 6.25 MG; Start 09/07/16 at 21:00 CRUZITO ARELLANO MD Sep 08, 2016 17:16
--- NOTE | 2016-09-08 18:20 | CONS ---
Date/Time of Note Date/Time of Note DATE: 09/08/16 TIME: 17:51 Assessment/Plan Assessment/Plan Chief Complaint/Hosp Course ID SHORT NOTE => Full Consult Note Dictation to Follow Per Dr. Guido Thank you Dr. Arellano for referring this pleasant lady for ID consultation. Reason for referral: Antibiotic Management HPI Briefly, 80 yo F w/MMP admit [facility] 09/04/16 w/Fevers and increased SOB at SNF w/congested cough admitted with hypoxic respiratory failure and septic shock w/hypotension and significant leukocytosis. The patient was initially admitted to the [facility] ICU and stabilized with pressor support, supplemental oxygen, and started on Vanco IV on 09/04/16 x1 and Cefepime IV 09/05/16 for concern Aspiration HCAP on CXR. Subsequently, Blood Cx have come back (+)GNR E.Coli sensitive to both Gentamicin /Tobramycin and Cefotaxime. The patient has stabilized Specimen: [id number] Status: Complete Guilherme: 09/04/16-1020 Rcvd: 09/04-1340 Source: BLOOD Sp Descrip: Microbiology BLOOD CULTURE Final BCULT GRAM BOTTLE 1 Gram negative rods . seen on gram stain of the broth Organism 1 ESCHERICHIA COLI E COLI M.I.C. RX --------- --- AMPICILLIN >=32 R CEFAZOLIN R CEFOTAXIME S CIPROFLOXACIN 2 I GENTAMICIN <=1 S LEVOFLOXACIN >=8 R TOBRAMYCIN <=1 S TRIMETHOPRIM/SULFAMETHOXAZOLE >=320 R PAST MEDICAL HISTORY: HTN, dyslipidemia, CAD, cardiomyopathy with mildly depressed LV systolic function, last only approximately 40% by echo 06/2016, atrial fibrillation on systemic anticoagulation, recent CVA with thereafter encephalopathy, dysphagia status post G-tube, anemia of chronic disease, ESRD-HD, s/p Right internal jugular vein tunneled hemodialysis catheter placement 07/26/2016. s/p [facility] admission Jun 2016 for KP-ESBL Septicemia. RECENT DIAGNOSTIC IMAGING CXR ON ADMISSION 09/04/16 ROCEDURE: XR Chest. CLINICAL INDICATION: Chest pain. TECHNIQUE: Single frontal chest x-ray. COMPARISON: Exam dated 07/29/2016. FINDINGS: The examination is rotated. There are atherosclerotic changes of the aorta. There is a left-sided dual lead cardiac pacer device and a tunneled left IJ central venous catheter tip overlying the upper SVC. The cardiomediastinal silhouette remains enlarged. Diffuse interstitial disease is improved with minor residual right basilar atelectasis versus infiltrate. There is no new focal consolidation, effusion, or pneumothorax. There are no acute osseous abnormalities. IMPRESSION: 1. Cardiomegaly with significantly improved hydrostatic edema with minor residual right basilar atelectasis versus infiltrate. 2. Vascular calcifications consistent with atherosclerosis. ID INITIAL IMPRESSION 80 yo F w/MMP including PMHx CVA w/encephalopathy, dysphagia, CAD, CMY, admit [facility] 09/04/16 w/Fevers and increased SOB at SNF w/congested cough admitted with hypoxic respiratory failure and septic shock w/hypotension and significant leukocytosis with: 1. GNR Sepsis on admission w/hypotensive shock now resolved, low grade fevers, and marked leukocytosis w/(+)GNR E.Coli septicemia BCx(+)09/04/16. * DDx PermCath line sepsis vs alternative source? Pt is incontinent w/limited urine output, no urine sample sent. 2. HCAP - Probably Aspiration PNA per (+)Dysphagia, failed swallow eval prior admission, now with Peg. 3. Acute CHF exacerbation 4. CV issues: HTN, DLD, Afib,CAD, CMY EF 40%, Indwelling Pacer 5. ESRD -> PermCath present on admission appears placed Jun 2016. (-)MRSA Nares Screen CURRENT ABX: Cefepime s/p Vanco IV 09/04/16 x1 ID RECOMMENDATIONS 1. Continue current ABX 2. Dr. Guido full note dictation/recommendations to follow. *Thank-you again Dr. Arellano, "Team MD Lata" ID consultants will follow the patient with you. . Problems: Consultation Date/Type/Reason Admit Date/Time Sep 04, 2016 at 16:03 Initial Consult Date Type of Consultation: ID Referring Provider: CRUZITO ARELLANO MD Exam/Review of Systems Vital Signs Vitals Vital Signs Date Time Temp Pulse Resp B/P Pulse Ox O2 Delivery O2 Flow Rate FiO2 09/08/16 16:22 94 3.0 32 09/08/16 16:22 80 20 09/08/16 15:31 98.3 112/60 09/08/16 07:30 Nasal Cannula Intake and Output 09/07/16 09/07/16 09/08/16 15:00 23:00 07:00 Intake Total 170 ml 280 ml Output Total 0 ml Balance 170 ml 280 ml Results Result Diagram: 09/07/16 0345 09/07/16 0345 Medications Medications Current Medications Acetaminophen (Tylenol Tab) 325 mg DAILY PRN PO PAIN AND OR ELEVATED TEMP; Start 09/04/16 at 16:00 Amiodarone HCl (Cordarone) 200 mg DAILY PO Last administered on 09/08/16 09:31 ; Admin Dose 200 MG; Start 09/05/16 at 09:00 Aspirin (Aspirin) 81 mg DAILY PO Last administered on 09/08/16 09:30; Admin Dose 81 MG; Start 09/05/16 at 09:00 Naloxone HCl (Narcan) 0.4 mg Q3M PRN IV DECREASED REPIRATORY RATE; Start at 19:30 Ondansetron HCl (Zofran Inj) 4 mg Q6H PRN IV NAUSEA AND/OR VOMITING; Start 09/04 at 19:30 Methylprednisolone Sodium Succinate (Solu-Medrol) 40 mg BID IV Last administered on 09/08/16 09:30; Admin Dose 40 MG; Start 09/04/16 at 21:00 Nitroglycerin (Nitroglycerin (Sl Tab) 0.4 Mg) 1 tab Q5M PRN SL CHEST PAIN; Start 09/04/16 at 19:30 Acetaminophen (Tylenol Liquid) 650 mg Q6H PRN PO PAIN LEVEL 1-3 OR FEVER Last administered on 09/08/16 09:33; Admin Dose 650 MG; Start 09/04/16 at 19:30 Acetaminophen (Tylenol Tab) 650 mg Q6H PRN PO PAIN LEVEL 1-3 OR FEVER; Start at 19:30 Pantoprazole 40 mg 40 mg DAILY@06 IV Last administered on 09/08/16 06:19; Admin Dose 40 MG; Start 09/05/16 at 06:00 Cefepime HCl (Maxipime 1gm/50 ml (Pmx)) 50 ml @ 100 mls/hr Q24H IVPB Last administered on 09/07/16 20:14; Admin Dose 100 MLS/HR; Start 09/05/16 at 20:00 Docusate Sodium (Colace Liquid Cup) 100 mg BID GTB Last administered on 09:29; Admin Dose 100 MG; Start 09/05/16 at 09:00 Diltiazem HCl (Cardizem) 30 mg Q8 PO Last administered on 09/06/16 05:17; Admin Dose 30 MG; Start 09/05/16 at 14:00; Status Future Hold Apixaban (Eliquis) 2.5 mg BID GTB Last administered on 09/08/16 09:30; Admin Dose 2.5 MG; Start 09/07/16 at 21:00 Atorvastatin Calcium (Lipitor) 20 mg HS GTB Last administered on 09/07/16 20: 18; Admin Dose 20 MG; Start 09/07/16 at 21:00 Carvedilol (Coreg) 6.25 mg BID GTB Last administered on 09/08/16 09:30; Admin Dose 6.25 MG; Start 09/07/16 at 21:00 LOUISA MARIE NP Sep 08, 2016 18:01
[2016-09-08] MEDS: CEFEPIME 1GM/50 ML (PMX) 50 ML IVPB SCH (20:34)
[2016-09-08] MEDS: ATORVASTATIN 20 MG TAB GTB SCH (20:34)
--- NOTE | 2016-09-08 20:34 | CONS ---
DATE OF ADMISSION: 09/04/2016 DATE OF CONSULTATION: 09/04/2016 TYPE OF CONSULTATION: Infectious disease. REASON FOR CONSULTATION: Antibiotic management. HISTORY OF PRESENT ILLNESS: May Hooker is an 80-year-old female who is admitted now with shortness of breath and is being seen for antibiotic management. Her problems include: 1. History of cardiomyopathy with mildly depressed left ventricular systolic function with an eject ion fraction of 40% on an echo in 06/2016. 2. Atrial fibrillation on systemic anticoagulation. 3. Recent cerebrovascular accident with subsequent encephalopathy. 4. Hypertension. 5. Dysphagia, status post G-tube placement. 6. Dyslipidemia. 7. Permanent pacemaker placement. 8. Atrial fibrillation. She presents with worsening respiratory distress and hypoxemia. In the emergency room, she was afeb rile. White count was 11.8, hemoglobin 12.4, platelet count 193. BUN and creatinine 32/2.[address] with renal insufficiency or failure. Chest x-ray showed diffuse interstitial changes, which ma y represent interstitial pulmonary edema. She had mild right basilar airspace disease, which is unc hanged. Echocardiogram revealed a demand pacemaker, underlying probable atrial fibrillation. The p atroger was admitted to the ICU initially and subsequently transferred up to telemetry. PAST MEDICAL HISTORY: The patient is a resident of a alf facility. She came in with se ptic shock, hypotension, significant leukocytosis. She was started on vancomycin and cefepime, vanc omycin on 09/04/2016, cefepime on 09/05/2016. There was concern for aspiration and healthcare-assoc iated pneumonia. Blood cultures were positive for gram-negative rods, E. coli sensitive to gentamic in, tobramycin, and cefotaxime. The patient stabilized. PAST MEDICAL HISTORY: Operations as outlined. FAMILY HISTORY: Noncontributory. SOCIAL HISTORY: She does not smoke, drink, or abuse drugs. ALLERGIES: NONE TO PENICILLIN, SULFA, OR FOODS. MEDICATIONS: Per chart. REVIEW OF SYSTEMS: As per HPI. PHYSICAL EXAMINATION: GENERAL: The patient is an elderly appearing 80-year-old female who is encephalopathic. She has dy sphagia. She is in no acute distress. SKIN: Without generalized rash. She has a central line in place. HEENT: Within normal limits. NECK: Supple. She has a right internal jugular vein tunneled hemodialysis catheter placed 07/26/19 17. LYMPH NODES: None palpable. CHEST: Decreased breath sounds at the bases with scattered rhonchi. HEART: Irregularly irregular rhythm. ABDOMEN: Soft, nontender without organosplenomegaly or masses. She has a G-tube in place. EXTREMITIES: Without cyanosis, clubbing, or edema. RECTAL AND GENITAL: Deferred. NEUROLOGIC: No focal neurological abnormalities. She is encephalopathic. IMPRESSION AND PLAN: An 80-year-old female with numerous problems as previously outlined. She had gram-negative sepsis with hypotension and shock, now resolved. She had marked leukocytosis. She gr ew out Escherichia coli sensitive to cefotaxime. She is currently on cefepime. We will continue he r on this regimen. I will dictate my findings to Dr. Arellano and to the aforementioned consultants. Dictated By: OUSMANE GRIFFIN MD, JD/KATE Conf#: [id number] DID#: [id number] CC: CRUZITO ARELLANO MD;*End*
[2016-09-09] VITALS (26 sets, daily range): BP systolic 99–159; BP diastolic 56–75; PULSE 70–87; RESP 18–22
[2016-09-09] MEDS: ACETYLCYSTEINE 20% 4 ML VIAL NEB SCH ×4 (02:08→19:50)
[2016-09-09] MEDS: LEVOTHYROXINE 150 MCG TAB GTB SCH (07:00)
[2016-09-09] MEDS: PANTOPRAZOLE 40 MG INJ IV SCH (07:00)
[2016-09-09 07:06] LABS: ADD SCAN DIFF NO
[2016-09-09 07:19] LABS: BASOPHILS % 0.1 % (0.0-2.0); HEMATOCRIT 31.8 % (37.0-47.0); HEMOGLOBIN 10.1 g/dl (12.0-16.0); LYMPHOCYTES # 0.7 10^3/ul (0.8-2.9); LYMPHOCYTES % 4.5 % (15.0-51.0); MEAN CORPUSCULAR HEMOGLOBIN 34.5 pg (29.0-33.0); MEAN CORPUSCULAR HGB CONC 31.8 g/dl (32.0-37.0); MEAN CORPUSCULAR VOLUME 108.5 fl (82.0-101.0); MEAN PLATELET VOLUME 11.9 fl (7.4-10.4); MONOCYTE # 0.5 10^3/ul (0.3-0.9); MONOCYTES % 3.4 % (0.0-11.0); NEUTROPHIL # 13.8 10^3/ul (1.6-7.5); NEUTROPHILS % 90.4 % (39.0-77.0); PLATELET COUNT 191 10^3/UL (140-415); RED BLOOD COUNT 2.93 10^6/ul (4.20-5.40); RED CELL DISTRIBUTION WIDTH 14.2 % (11.5-14.5); WHITE BLOOD COUNT 15.2 10^3/ul (4.8-10.8)
[2016-09-09 07:35] LABS: ALBUMIN 2.9 g/dl (3.3-4.9)
[2016-09-09 07:36] LABS: POTASSIUM 4.4 mmol/L (3.5-5.1)
[2016-09-09 07:38] LABS: CREATININE 4.23 mg/dl (0.44-1.00)
[2016-09-09 07:39] LABS: ALBUMIN/GLOBULIN RATIO 0.82; CALCIUM 9.9 mg/dl (8.4-10.2); TOTAL PROTEIN 6.4 g/dl (6.1-8.1)
[2016-09-09] MEDS: ALBUTEROL/IPRATROPIUM (NEB) 3 ML AMP NEB PRN ×3 (08:31→19:50)
[2016-09-09] MEDS: METHYLPREDNISOLONE 40 MG INJ IV SCH ×2 (09:38→20:25)
[2016-09-09] MEDS: AMIODARONE 200 MG TAB PO SCH (09:39)
[2016-09-09] MEDS: DOCUSATE SODIUM 10 MG/ML (10ML CUP) GTB SCH ×2 (09:39→20:24)
[2016-09-09] MEDS: APIXABAN 5 MG TABLET GTB SCH (09:39)
[2016-09-09] MEDS: ASPIRIN 81 MG TAB PO SCH (09:43)
[2016-09-09] MEDS: METOCLOPRAMIDE 5 MG TAB PO SCH ×2 (12:48→20:26)
--- NOTE | 2016-09-09 13:15 | PN ---
DATE: 09/09/2016 SUBJECTIVE: No acute events overnight. The patient is lying comfortably in bed. She has high resi duals over 500 and tube feeding on hold, no fevers. LABORATORIES: WBC today 15.2 with H and H 10.1 and 31.8, platelets 191. INDWELLINGS: The patient has left chest Perm-A-Cath, PEG, PICC line, permanent pacemaker. ANTIMICROBIALS: Cefepime started on 09/05/2016. MICROBIOLOGY: Blood culture on admission grew E. coli resistant to ampicillin, Ancef and sensitive to cefotaxime, gentamicin and Tobramycin. PHYSICAL EXAMINATION: GENERAL: This is a fragile, elderly woman who is in no distress. The patient is noncommunicative. HEENT: Head atraumatic, normocephalic. Sclerae anicteric. Buccal mucosa dry. NECK: Supple, trachea midline. CHEST: Rise symmetrical. Breath sounds diminished to bases. HEART: S1, S2. ABDOMEN: Soft. Bowel tones present. EXTREMITIES: Without cyanosis. ASSESSMENT: 1. Sepsis, status post shock. 2. Escherichia coli bacteremia, possibly line sepsis. 3. End-stage renal disease, hemodialysis dependent. 4. Dysphagia. 5. Encephalopathy, status post cerebrovascular accident. 6. Atrial fibrillation. 7. History of permanent pacemaker placement. PLAN: The patient remained stable. We are going to repeat blood cultures with hemodialysis from [facility]. Continue cefepime. Continue Reglan and monitor residuals. Anti-aspiration measures, steroi d taper. Dictated By: TREMAINE MUNROE CLOTH FINISHING RANGE OPERATOR for OUSMANE JUAREZ/NTS Conf#: [id number] DID#: [id number]
--- NOTE | 2016-09-09 15:12 | CONS ---
Date/Time of Note Date/Time of Note DATE: 09/09/16 TIME: 15:10 Assessment/Plan Assessment/Plan Chief Complaint/Hosp Course IMPRESSION: 1. Congestive heart failure exacerbation, systolic, acute on chronic. EF 40% by echo 07/16 2. Hypotension/shock on pressor support. 3. Atrial fibrillation on systemic anticoagulation with reasonable rate control at this time. 4. History of recent cerebrovascular accident with altered mental status, encephalopathy. 5. Hypoxia. 6. Coronary artery disease. 7. Dysphagia status post G-tube. 8. Hypothyroidism. 9. Dyslipidemia. 10.PPM Recc: -Tele -HD for volume removal -Continue current BB/ACEI -Continue amio/asa/apixaban -Follow [facility] closely Problems: Consultation Date/Type/Reason Admit Date/Time Sep 04, 2016 at 16:03 Initial Consult Date 09/05/2016 Type of Consultation: Cardiology Reason for Consultation CHF Referring Provider: CRUZITO ARELLANO MD Exam/Review of Systems Vital Signs Vitals Vital Signs Date Time Temp Pulse Resp B/P Pulse Ox O2 Delivery O2 Flow Rate FiO2 09/09/16 13:37 79 18 96 Nasal Cannula 4.0 09/09/16 13:00 98.2 129/67 09/09/16 02:11 36 Intake and Output 09/08/16 09/08/16 09/09/16 15:00 23:00 07:00 Intake Total 460 ml 510 ml Output Total 0 ml 0 ml Balance 460 ml 510 ml Exam Review of Systems: CONSTITUTIONAL: No fevers, chills. PULMONARY: No sob CARDIOVASCULAR: No chest pain/palpitations GASTROINTESTINAL: No nausea/vomiting. GENITOURINARY: No hematuria/dysuria. MUSCULOSKELETAL: No myagias/arthalgias. PSYCHIATRIC: The patient denies depression. NEUROLOGIC: encephalopathic Constitutional: other (sleeping but arousable) Psych: no complaints Head: normocephalic ENMT: mucosa pink and moist Neck: jvd (9 cm water), supple Respiratory: diminished breath sounds (at bases/B) Cardiovascular: regular rate and rhythm Gastrointestinal: non-tender, soft Musculoskeletal: muscle tone (normal) Extremities: edema (trace/B) Neurological: confused, lethargic Results Result Diagram: 09/09/16 0640 09/09/16 0640 Results 24 hrs Laboratory Tests Test 09/09/16 06:40 Alanine Aminotransferase (ALT/SGPT) 64 Albumin 2.9 L Albumin/Globulin Ratio 0.82 Alkaline Phosphatase 286 H Anion Gap 20 H Aspartate Amino Transf (AST/SGOT) 34 Basophils # 0.0 Basophils % 0.1 Blood Urea Nitrogen 104 H Calcium Level 9.9 Carbon Dioxide Level 26 Chloride Level 105 Creatinine 4.23 H Direct Bilirubin 0.00 Eosinophils # 0.0 Eosinophils % 0.0 Globulin 3.50 H Glucose Level 168 Hematocrit 31.8 L Hemoglobin 10.1 L Indirect Bilirubin 0.0 Lymphocytes # 0.7 L Lymphocytes % 4.5 L Mean Corpuscular Hemoglobin 34.5 H Mean Corpuscular Hemoglobin Concent 31.8 L Mean Corpuscular Volume 108.5 H Mean Platelet Volume 11.9 H Monocytes # 0.5 Monocytes % 3.4 Neutrophils # 13.8 H Neutrophils % 90.4 H Nucleated Red Blood Cells # 0.0 Nucleated Red Blood Cells % 0.0 Platelet Count 191 Potassium Level 4.4 Red Blood Count 2.93 L Red Cell Distribution Width 14.2 Sodium Level 147 H Total Bilirubin 0.0 L Total Protein 6.4 White Blood Count 15.2 H Medications Medications Current Medications Acetaminophen (Tylenol Tab) 325 mg DAILY PRN PO PAIN AND OR ELEVATED TEMP; Start 09/04/16 at 16:00 Amiodarone HCl (Cordarone) 200 mg DAILY PO Last administered on 09/09/16 09:39 ; Admin Dose 200 MG; Start 09/05/16 at 09:00 Aspirin (Aspirin) 81 mg DAILY PO Last administered on 09/09/16 09:43; Admin Dose 81 MG; Start 09/05/16 at 09:00 Naloxone HCl (Narcan) 0.4 mg Q3M PRN IV DECREASED REPIRATORY RATE; Start at 19:30 Ondansetron HCl (Zofran Inj) 4 mg Q6H PRN IV NAUSEA AND/OR VOMITING; Start 09/04 at 19:30 Methylprednisolone Sodium Succinate (Solu-Medrol) 40 mg BID IV Last administered on 09/09/16 09:38; Admin Dose 40 MG; Start 09/04/16 at 21:00 Nitroglycerin (Nitroglycerin (Sl Tab) 0.4 Mg) 1 tab Q5M PRN SL CHEST PAIN; Start 09/04/16 at 19:30 Acetaminophen (Tylenol Liquid) 650 mg Q6H PRN PO PAIN LEVEL 1-3 OR FEVER Last administered on 09/08/16 20:48; Admin Dose 650 MG; Start 09/04/16 at 19:30 Acetaminophen (Tylenol Tab) 650 mg Q6H PRN PO PAIN LEVEL 1-3 OR FEVER; Start at 19:30 Pantoprazole 40 mg 40 mg DAILY@06 IV Last administered on 09/09/16 07:00; Admin Dose 40 MG; Start 09/05/16 at 06:00 Cefepime HCl (Maxipime 1gm/50 ml (Pmx)) 50 ml @ 100 mls/hr Q24H IVPB Last administered on 09/08/16 20:34; Admin Dose 100 MLS/HR; Start 09/05/16 at 20:00 Docusate Sodium (Colace Liquid Cup) 100 mg BID GTB Last administered on 09:39; Admin Dose 100 MG; Start 09/05/16 at 09:00 Diltiazem HCl (Cardizem) 30 mg Q8 PO Last administered on 09/06/16 05:17; Admin Dose 30 MG; Start 09/05/16 at 14:00; Status Future Hold Apixaban (Eliquis) 2.5 mg BID GTB Last administered on 09/09/16 09:39; Admin Dose 2.5 MG; Start 09/07/16 at 21:00 Atorvastatin Calcium (Lipitor) 20 mg HS GTB Last administered on 09/08/16 20: 34; Admin Dose 20 MG; Start 09/07/16 at 21:00 Carvedilol (Coreg) 6.25 mg BID GTB Last administered on 09/08/16 20:35; Admin Dose 6.25 MG; Start 09/07/16 at 21:00 Metoclopramide HCl (Reglan) 5 mg TID PO Last administered on 09/09/16 12:48; Admin Dose 5 MG; Start 09/09/16 at 13:00 SASKIA WHITE 13, 2017 15:11
--- NOTE | 2016-09-09 16:24 | RADRPT ---
PROCEDURE: XR Chest 1 view. CLINICAL INDICATION: Shortness of breath, pneumonia TECHNIQUE: AP views of the chest were obtained. COMPARISON: September 04, 2016 FINDINGS: The heart is large. Calcified atherosclerosis is noted in the aorta. Left-sided dual chamber pacema ker has its leads over the heart and is stable. Left-sided dialysis catheter is unchanged. Central pulmonary vascular congestion and interstitial prominence in both lungs appears stable. Small righ t pleural effusion has developed. Atelectasis versus mild infiltrate in the right lower lung is stab le. The osseous structures are osteopenic, but appear grossly intact. IMPRESSION: Cardiomegaly with calcified atherosclerosis in the aorta. Stable central pulmonary vascular congestion and interstitial prominence in both lungs. Interval development of small right pleural effusion. Stable atelectasis versus mild infiltrate in the right lower lung. RPTAT: AA .Charles Montenegro MD, MD Date Time Electronically viewed and signed by .Charles Montenegro MD, MD on 09/09/2016 16:23 .P/
[2016-09-09] MEDS: CEFEPIME 1GM/50 ML (PMX) 50 ML IVPB SCH (19:27)
[2016-09-09] MEDS: APIXABAN 5 MG TABLET PO SCH (20:25)
[2016-09-09] MEDS: ATORVASTATIN 20 MG TAB PO SCH (20:26)
--- NOTE | 2016-09-09 23:37 | PN ---
Date/Time of Note Date/Time of Note DATE: 09/09/16 TIME: 23:36 Assessment/Plan VTE Prophylaxis VTE Prophylaxis Intervention: other Lines/Catheters IV Catheter Type (from Nrs): Central Line Central line still needed: Yes Urinary Cath still in place: No Assessment/Plan Chief Complaint/Hosp Course IMPRESSION: 1. Sepsis. 2. Lung congestion. 3. Possible underlying pneumonia. 4. Underlying bronchitis. 5. Endstage renal disease. 6. Atrial fibrillation. 7. Atherosclerotic heart disease. 8. Dyslipidemia. 9. G-tube placement. plan antibiotic hd per id Problems: Subjective 24 Hr Interval Summary Cardiovascular: no complaints Gastrointestinal: no complaints Genitourinary: no complaints Exam/Review of Systems Vital Signs Vitals Vital Signs Date Time Temp Pulse Resp B/P Pulse Ox O2 Delivery O2 Flow Rate FiO2 09/09/16 20:31 84 09/09/16 19:56 4.0 09/09/16 19:55 22 96 Nasal Cannula 09/09/16 19:54 97.7 159/69 09/09/16 02:11 36 Intake and Output 09/08/16 09/08/16 09/09/16 15:00 23:00 07:00 Intake Total 460 ml 510 ml Output Total 0 ml 0 ml Balance 460 ml 510 ml Exam Respiratory: clear to auscultation Cardiovascular: regular rate and rhythm Gastrointestinal: soft Musculoskeletal: nl extremities to inspection Results Result Diagram: 09/09/16 0640 09/09/16 0640 Results 24 hrs Laboratory Tests Test 09/09/16 06:40 Alanine Aminotransferase (ALT/SGPT) 64 Albumin 2.9 L Albumin/Globulin Ratio 0.82 Alkaline Phosphatase 286 H Anion Gap 20 H Aspartate Amino Transf (AST/SGOT) 34 Basophils # 0.0 Basophils % 0.1 Blood Urea Nitrogen 104 H Calcium Level 9.9 Carbon Dioxide Level 26 Chloride Level 105 Creatinine 4.23 H Direct Bilirubin 0.00 Eosinophils # 0.0 Eosinophils % 0.0 Globulin 3.50 H Glucose Level 168 Hematocrit 31.8 L Hemoglobin 10.1 L Indirect Bilirubin 0.0 Lymphocytes # 0.7 L Lymphocytes % 4.5 L Mean Corpuscular Hemoglobin 34.5 H Mean Corpuscular Hemoglobin Concent 31.8 L Mean Corpuscular Volume 108.5 H Mean Platelet Volume 11.9 H Monocytes # 0.5 Monocytes % 3.4 Neutrophils # 13.8 H Neutrophils % 90.4 H Nucleated Red Blood Cells # 0.0 Nucleated Red Blood Cells % 0.0 Platelet Count 191 Potassium Level 4.4 Red Blood Count 2.93 L Red Cell Distribution Width 14.2 Sodium Level 147 H Total Bilirubin 0.0 L Total Protein 6.4 White Blood Count 15.2 H Medications Medications Current Medications Acetaminophen (Tylenol Tab) 325 mg DAILY PRN PO PAIN AND OR ELEVATED TEMP; Start 09/04/16 at 16:00 Amiodarone HCl (Cordarone) 200 mg DAILY PO Last administered on 09/09/16 09:39 ; Admin Dose 200 MG; Start 09/05/16 at 09:00 Aspirin (Aspirin) 81 mg DAILY PO Last administered on 09/09/16 09:43; Admin Dose 81 MG; Start 09/05/16 at 09:00 Naloxone HCl (Narcan) 0.4 mg Q3M PRN IV DECREASED REPIRATORY RATE; Start at 19:30 Ondansetron HCl (Zofran Inj) 4 mg Q6H PRN IV NAUSEA AND/OR VOMITING; Start 09/04 at 19:30 Methylprednisolone Sodium Succinate (Solu-Medrol) 40 mg BID IV Last administered on 09/09/16 20:25; Admin Dose 40 MG; Start 09/04/16 at 21:00 Nitroglycerin (Nitroglycerin (Sl Tab) 0.4 Mg) 1 tab Q5M PRN SL CHEST PAIN; Start 09/04/16 at 19:30 Acetaminophen (Tylenol Liquid) 650 mg Q6H PRN PO PAIN LEVEL 1-3 OR FEVER Last administered on 09/08/16 20:48; Admin Dose 650 MG; Start 09/04/16 at 19:30 Acetaminophen (Tylenol Tab) 650 mg Q6H PRN PO PAIN LEVEL 1-3 OR FEVER; Start at 19:30 Pantoprazole 40 mg 40 mg DAILY@06 IV Last administered on 09/09/16 07:00; Admin Dose 40 MG; Start 09/05/16 at 06:00 Cefepime HCl (Maxipime 1gm/50 ml (Pmx)) 50 ml @ 100 mls/hr Q24H IVPB Last administered on 09/09/16 19:27; Admin Dose 100 MLS/HR; Start 09/05/16 at 20:00 Docusate Sodium (Colace Liquid Cup) 100 mg BID GTB Last administered on 20:24; Admin Dose 100 MG; Start 09/05/16 at 09:00 Diltiazem HCl (Cardizem) 30 mg Q8 PO Last administered on 09/06/16 05:17; Admin Dose 30 MG; Start 09/05/16 at 14:00; Status Future Hold Carvedilol (Coreg) 6.25 mg BID GTB Last administered on 09/09/16 20:24; Admin Dose 6.25 MG; Start 09/07/16 at 21:00 Metoclopramide HCl (Reglan) 5 mg TID PO Last administered on 09/09/16 20:26; Admin Dose 5 MG; Start 09/09/16 at 13:00 Apixaban (Eliquis) 2.5 mg BID PO Last administered on 09/09/16 20:25; Admin Dose 2.5 MG; Start 09/09/16 at 21:00 Atorvastatin Calcium (Lipitor) 20 mg QHS PO Last administered on 09/09/16 20: 26; Admin Dose 20 MG; Start 09/09/16 at 21:00 CRUZITO ARELLANO MD Sep 09, 2016 23:37
[2016-09-10] VITALS (12 sets, daily range): BP systolic 115–149; BP diastolic 59–84; PULSE 71–92; RESP 18–20
[2016-09-10] MEDS: ACETYLCYSTEINE 20% 4 ML VIAL NEB SCH ×4 (02:14→20:46)
[2016-09-10] MEDS: ALBUTEROL/IPRATROPIUM (NEB) 3 ML AMP NEB PRN ×4 (02:14→20:46)
[2016-09-10] MEDS: PANTOPRAZOLE 40 MG INJ IV SCH (05:23)
[2016-09-10] MEDS: LEVOTHYROXINE 150 MCG TAB PO SCH (06:50)
[2016-09-10 06:59] LABS: ADD SCAN DIFF NO
[2016-09-10 07:02] LABS: BASOPHILS % 0.1 % (0.0-2.0); HEMATOCRIT 33.8 % (37.0-47.0); HEMOGLOBIN 10.5 g/dl (12.0-16.0); LYMPHOCYTES # 0.8 10^3/ul (0.8-2.9); LYMPHOCYTES % 4.8 % (15.0-51.0); MEAN CORPUSCULAR HEMOGLOBIN 33.1 pg (29.0-33.0); MEAN CORPUSCULAR HGB CONC 31.1 g/dl (32.0-37.0); MEAN CORPUSCULAR VOLUME 106.6 fl (82.0-101.0); MEAN PLATELET VOLUME 11.8 fl (7.4-10.4); MONOCYTE # 0.7 10^3/ul (0.3-0.9); MONOCYTES % 4.5 % (0.0-11.0); NEUTROPHIL # 13.7 10^3/ul (1.6-7.5); NEUTROPHILS % 87.2 % (39.0-77.0); NUCLEATED RED BLOOD CELLS% 0.2 /100WBC (0.0-0.0); PLATELET COUNT 203 10^3/UL (140-415); RED BLOOD COUNT 3.17 10^6/ul (4.20-5.40); RED CELL DISTRIBUTION WIDTH 14.1 % (11.5-14.5); WHITE BLOOD COUNT 15.7 10^3/ul (4.8-10.8)
[2016-09-10] MEDS: APIXABAN 5 MG TABLET PO SCH ×2 (08:40→21:37)
[2016-09-10] MEDS: DOCUSATE SODIUM 10 MG/ML (10ML CUP) GTB SCH ×2 (08:40→21:37)
[2016-09-10] MEDS: AMIODARONE 200 MG TAB PO SCH (08:41)
[2016-09-10] MEDS: ASPIRIN 81 MG TAB PO SCH (08:42)
[2016-09-10] MEDS: METOCLOPRAMIDE 5 MG TAB PO SCH ×3 (08:42→21:35)
[2016-09-10] MEDS: METHYLPREDNISOLONE 40 MG INJ IV SCH (08:42)
--- NOTE | 2016-09-10 09:54 | CONS ---
Date/Time of Note Date/Time of Note DATE: 09/10/16 TIME: 09:52 Assessment/Plan Assessment/Plan Additional Assessment/Plan 1. Congestive heart failure exacerbation, systolic, acute on chronic. EF 40% by echo 07/16 - stable fluid satus - remove fluid with HD 2. Hypotension/shock on pressor support- BP better now (pt DNR) 3. Atrial fibrillation on systemic anticoagulation with reasonable rate control at this time- pacer in place - chronic a. fib 4. History of recent cerebrovascular accident with altered mental status, encephalopathy- unchanged. 5. Hypoxia. 6. Coronary artery disease. 7. Dysphagia status post G-tube- Rx as needed 8. Hypothyroidism. 9. Dyslipidemia. 10.PPM -VVI - good function Consultation Date/Type/Reason Admit Date/Time Sep 04, 2016 at 16:03 Initial Consult Date Type of Consultation: Cardiology Referring Provider: CRUZITO ARELLANO MD 24 HR Interval Summary Free Text/Dictation NO acute events - confused - stable fluid status - will monitor as needed ROS: No fever, no chills, no nausea, no vomiting, no diarrhea/constipation No recent weight changes No chest pain, no PND, no orthopnea No dizziness, blurred vision No thirst, no heat or cold intolerance (confused, but stable per family at bedside) Exam/Review of Systems Vital Signs Vitals Vital Signs Date Time Temp Pulse Resp B/P Pulse Ox O2 Delivery O2 Flow Rate FiO2 09/10/16 08:24 75 18 97 Nasal Cannula 4.0 09/10/16 07:24 98.7 130/84 09/09/16 02:11 36 Intake and Output 09/09/16 09/09/16 09/10/16 15:00 23:00 07:00 Intake Total 460 ml 930 ml Output Total 2500 ml Balance 460 ml -1570 ml Results General: WN/WD/NAD, AOx 0 HEENT: Unicetric/atraumatic/EOMI (does not follow commands) NECK: JVD elevated, no thyromegaly Lymph: no lymphadenopathy HEART: regular with no S3, II/ systolic murmur at apex, pacer in place LUNGS: Coarse sounds ABD: soft, NT, ND, +BS : Intact Neuro: non focal SKIN: chronic changes EXT: trace edema Result Diagram: 09/10/16 0600 09/09/16 0640 Results 24 hrs Laboratory Tests Test 09/10/16 06:00 Basophils # 0.0 Basophils % 0.1 Eosinophils # 0.0 Eosinophils % 0.0 Hematocrit 33.8 L Hemoglobin 10.5 L Lymphocytes # 0.8 Lymphocytes % 4.8 L Mean Corpuscular Hemoglobin 33.1 H Mean Corpuscular Hemoglobin Concent 31.1 L Mean Corpuscular Volume 106.6 H Mean Platelet Volume 11.8 H Monocytes # 0.7 Monocytes % 4.5 Neutrophils # 13.7 H Neutrophils % 87.2 H Nucleated Red Blood Cells # 0.0 Nucleated Red Blood Cells % 0.2 H Platelet Count 203 Red Blood Count 3.17 L Red Cell Distribution Width 14.1 White Blood Count 15.7 H Medications Medications Current Medications Acetaminophen (Tylenol Tab) 325 mg DAILY PRN PO PAIN AND OR ELEVATED TEMP; Start 09/04/16 at 16:00 Amiodarone HCl (Cordarone) 200 mg DAILY PO Last administered on 09/10/16 08:41 ; Admin Dose 200 MG; Start 09/05/16 at 09:00 Aspirin (Aspirin) 81 mg DAILY PO Last administered on 09/10/16 08:42; Admin Dose 81 MG; Start 09/05/16 at 09:00 Naloxone HCl (Narcan) 0.4 mg Q3M PRN IV DECREASED REPIRATORY RATE; Start at 19:30 Ondansetron HCl (Zofran Inj) 4 mg Q6H PRN IV NAUSEA AND/OR VOMITING; Start 09/04 at 19:30 Methylprednisolone Sodium Succinate (Solu-Medrol) 40 mg BID IV Last administered on 09/10/16 08:42; Admin Dose 40 MG; Start 09/04/16 at 21:00 Nitroglycerin (Nitroglycerin (Sl Tab) 0.4 Mg) 1 tab Q5M PRN SL CHEST PAIN; Start 09/04/16 at 19:30 Acetaminophen (Tylenol Liquid) 650 mg Q6H PRN PO PAIN LEVEL 1-3 OR FEVER Last administered on 09/08/16 20:48; Admin Dose 650 MG; Start 09/04/16 at 19:30 Acetaminophen (Tylenol Tab) 650 mg Q6H PRN PO PAIN LEVEL 1-3 OR FEVER; Start at 19:30 Pantoprazole 40 mg 40 mg DAILY@06 IV Last administered on 09/10/16 05:23; Admin Dose 40 MG; Start 09/05/16 at 06:00 Cefepime HCl (Maxipime 1gm/50 ml (Pmx)) 50 ml @ 100 mls/hr Q24H IVPB Last administered on 09/09/16 19:27; Admin Dose 100 MLS/HR; Start 09/05/16 at 20:00 Docusate Sodium (Colace Liquid Cup) 100 mg BID GTB Last administered on 08:40; Admin Dose 100 MG; Start 09/05/16 at 09:00 Diltiazem HCl (Cardizem) 30 mg Q8 PO Last administered on 09/06/16 05:17; Admin Dose 30 MG; Start 09/05/16 at 14:00; Status Future Hold Carvedilol (Coreg) 6.25 mg BID GTB Last administered on 09/10/16 08:41; Admin Dose 6.25 MG; Start 09/07/16 at 21:00 Metoclopramide HCl (Reglan) 5 mg TID PO Last administered on 09/10/16 08:42; Admin Dose 5 MG; Start 09/09/16 at 13:00 Apixaban (Eliquis) 2.5 mg BID PO Last administered on 09/10/16 08:40; Admin Dose 2.5 MG; Start 09/09/16 at 21:00 Atorvastatin Calcium (Lipitor) 20 mg QHS PO Last administered on 09/09/16 20: 26; Admin Dose 20 MG; Start 09/09/16 at 21:00 BURT BRITT MD Sep 10, 2016 09:54
[2016-09-10] MEDS: ACETAMINOPHEN 650MG/20.3ML CUP PO PRN (13:56)
--- NOTE | 2016-09-10 16:19 | CONS ---
Date/Time of Note Date/Time of Note DATE: 09/10/16 TIME: 16:17 Assessment/Plan Assessment/Plan Chief Complaint/Hosp Course SUBJECTIVE: No acute events overnight. The patient is lying comfortably in bed. INDWELLINGS: The patient has left chest Perm-A-Cath, PEG, PICC line, permanent pacemaker. ANTIMICROBIALS: Cefepime #6 MICROBIOLOGY: Blood culture on admission grew E. coli resistant to ampicillin, Ancef and sensitive to cefotaxime, gentamicin and Tobramycin. PHYSICAL EXAMINATION: GENERAL: This is a fragile, elderly woman who is in no distress. The patient is noncommunicative. HEENT: Head atraumatic, normocephalic. Sclerae anicteric. Buccal mucosa dry. NECK: Supple, trachea midline. CHEST: Rise symmetrical. Breath sounds diminished to bases. HEART: S1, S2. ABDOMEN: Soft. Bowel tones present. EXTREMITIES: Without cyanosis. ASSESSMENT: 1. Sepsis, status post shock. 2. Escherichia coli bacteremia, possibly line sepsis. 3. End-stage renal disease, hemodialysis dependent. 4. Dysphagia. 5. Encephalopathy, status post cerebrovascular accident. 6. Atrial fibrillation. 7. History of permanent pacemaker placement. PLAN: The patient remained stable. Repeat bld cx negative, will change Cefepime to Gentamicin, continue anti-aspiration measures, steroid taper, recommend to change permacath. DW staff Problems: Consultation Date/Type/Reason Admit Date/Time Sep 04, 2016 at 16:03 Initial Consult Date Type of Consultation: ID Referring Provider: CRUZITO ARELLANO MD Exam/Review of Systems Vital Signs Vitals Vital Signs Date Time Temp Pulse Resp B/P Pulse Ox O2 Delivery O2 Flow Rate FiO2 09/10/16 15:22 98.7 71 18 138/61 97 09/10/16 13:40 Nasal Cannula 4.0 09/09/16 02:11 36 Intake and Output 09/09/16 09/09/16 09/10/16 15:00 23:00 07:00 Intake Total 460 ml 930 ml Output Total 2500 ml Balance 460 ml -1570 ml Results Result Diagram: 09/10/16 0600 09/09/16 0640 Results 24 hrs Laboratory Tests Test 09/10/16 06:00 Basophils # 0.0 Basophils % 0.1 Eosinophils # 0.0 Eosinophils % 0.0 Hematocrit 33.8 L Hemoglobin 10.5 L Lymphocytes # 0.8 Lymphocytes % 4.8 L Mean Corpuscular Hemoglobin 33.1 H Mean Corpuscular Hemoglobin Concent 31.1 L Mean Corpuscular Volume 106.6 H Mean Platelet Volume 11.8 H Monocytes # 0.7 Monocytes % 4.5 Neutrophils # 13.7 H Neutrophils % 87.2 H Nucleated Red Blood Cells # 0.0 Nucleated Red Blood Cells % 0.2 H Platelet Count 203 Red Blood Count 3.17 L Red Cell Distribution Width 14.1 White Blood Count 15.7 H Medications Medications Current Medications Acetaminophen (Tylenol Tab) 325 mg DAILY PRN PO PAIN AND OR ELEVATED TEMP; Start 09/04/16 at 16:00 Amiodarone HCl (Cordarone) 200 mg DAILY PO Last administered on 09/10/16 08:41 ; Admin Dose 200 MG; Start 09/05/16 at 09:00 Aspirin (Aspirin) 81 mg DAILY PO Last administered on 09/10/16 08:42; Admin Dose 81 MG; Start 09/05/16 at 09:00 Naloxone HCl (Narcan) 0.4 mg Q3M PRN IV DECREASED REPIRATORY RATE; Start at 19:30 Ondansetron HCl (Zofran Inj) 4 mg Q6H PRN IV NAUSEA AND/OR VOMITING; Start 09/04 at 19:30 Methylprednisolone Sodium Succinate (Solu-Medrol) 40 mg BID IV Last administered on 09/10/16 08:42; Admin Dose 40 MG; Start 09/04/16 at 21:00 Nitroglycerin (Nitroglycerin (Sl Tab) 0.4 Mg) 1 tab Q5M PRN SL CHEST PAIN; Start 09/04/16 at 19:30 Acetaminophen (Tylenol Liquid) 650 mg Q6H PRN PO PAIN LEVEL 1-3 OR FEVER Last administered on 09/10/16 13:56; Admin Dose 650 MG; Start 09/04/16 at 19:30 Acetaminophen (Tylenol Tab) 650 mg Q6H PRN PO PAIN LEVEL 1-3 OR FEVER; Start at 19:30 Pantoprazole 40 mg 40 mg DAILY@06 IV Last administered on 09/10/16 05:23; Admin Dose 40 MG; Start 09/05/16 at 06:00 Cefepime HCl (Maxipime 1gm/50 ml (Pmx)) 50 ml @ 100 mls/hr Q24H IVPB Last administered on 09/09/16 19:27; Admin Dose 100 MLS/HR; Start 09/05/16 at 20:00 Docusate Sodium (Colace Liquid Cup) 100 mg BID GTB Last administered on 08:40; Admin Dose 100 MG; Start 09/05/16 at 09:00 Diltiazem HCl (Cardizem) 30 mg Q8 PO Last administered on 09/06/16 05:17; Admin Dose 30 MG; Start 09/05/16 at 14:00; Status Future Hold Carvedilol (Coreg) 6.25 mg BID GTB Last administered on 09/10/16 08:41; Admin Dose 6.25 MG; Start 09/07/16 at 21:00 Metoclopramide HCl (Reglan) 5 mg TID PO Last administered on 09/10/16 13:54; Admin Dose 5 MG; Start 09/09/16 at 13:00 Apixaban (Eliquis) 2.5 mg BID PO Last administered on 09/10/16 08:40; Admin Dose 2.5 MG; Start 09/09/16 at 21:00 Atorvastatin Calcium (Lipitor) 20 mg QHS PO Last administered on 09/09/16 20: 26; Admin Dose 20 MG; Start 09/09/16 at 21:00 TREMAINE MUNROE NP Sep 10, 2016 16:19
[2016-09-10] MEDS ORDERED: GENTAMICIN IV PER PHARMACY XX SCH (16:30)
[2016-09-10] MEDS ORDERED: GENTAMICIN 150 MG in SOD CHLORIDE 0.9% 100 ML IVPB SCH (19:00)
--- NOTE | 2016-09-10 20:01 | PN ---
Date/Time of Note Date/Time of Note DATE: 09/10/16 TIME: 19:58 Assessment/Plan VTE Prophylaxis VTE Prophylaxis Intervention: other Lines/Catheters IV Catheter Type (from Nrsg): Central Line Central line still needed: Yes Urinary Cath still in place: No Assessment/Plan Chief Complaint/Hosp Course IMPRESSION: 1. Sepsis.better 2. Lung congestion.better 3. Possible underlying pneumonia. 4. Underlying bronchitis. 5. Endstage renal disease. 6. Atrial fibrillation. 7. Atherosclerotic heart disease. 8. Dyslipidemia. 9. G-tube placement. 10 e coli sepsis plan antibiotic hd per id dec steroid Problems: Subjective 24 Hr Interval Summary Respiratory: no complaints Cardiovascular: no complaints Exam/Review of Systems Vital Signs Vitals Vital Signs Date Time Temp Pulse Resp B/P Pulse Ox O2 Delivery O2 Flow Rate FiO2 09/10/16 19:40 97.5 20 123/66 98 09/10/16 16:00 71 09/10/16 13:40 Nasal Cannula 4.0 09/09/16 02:11 36 Intake and Output 09/09/16 09/09/16 09/10/16 15:00 23:00 07:00 Intake Total 460 ml 930 ml Output Total 2500 ml Balance 460 ml -1570 ml Exam Neck: supple Respiratory: clear to auscultation Cardiovascular: regular rate and rhythm Gastrointestinal: soft Musculoskeletal: nl extremities to inspection Results Result Diagram: 09/10/16 0600 09/09/16 0640 Results 24 hrs Laboratory Tests Test 09/10/16 06:00 Basophils # 0.0 Basophils % 0.1 Eosinophils # 0.0 Eosinophils % 0.0 Hematocrit 33.8 L Hemoglobin 10.5 L Lymphocytes # 0.8 Lymphocytes % 4.8 L Mean Corpuscular Hemoglobin 33.1 H Mean Corpuscular Hemoglobin Concent 31.1 L Mean Corpuscular Volume 106.6 H Mean Platelet Volume 11.8 H Monocytes # 0.7 Monocytes % 4.5 Neutrophils # 13.7 H Neutrophils % 87.2 H Nucleated Red Blood Cells # 0.0 Nucleated Red Blood Cells % 0.2 H Platelet Count 203 Red Blood Count 3.17 L Red Cell Distribution Width 14.1 White Blood Count 15.7 H Medications Medications Current Medications Acetaminophen (Tylenol Tab) 325 mg DAILY PRN PO PAIN AND OR ELEVATED TEMP; Start 09/04/16 at 16:00 Amiodarone HCl (Cordarone) 200 mg DAILY PO Last administered on 09/10/16 08:41 ; Admin Dose 200 MG; Start 09/05/16 at 09:00 Aspirin (Aspirin) 81 mg DAILY PO Last administered on 09/10/16 08:42; Admin Dose 81 MG; Start 09/05/16 at 09:00 Naloxone HCl (Narcan) 0.4 mg Q3M PRN IV DECREASED REPIRATORY RATE; Start at 19:30 Ondansetron HCl (Zofran Inj) 4 mg Q6H PRN IV NAUSEA AND/OR VOMITING; Start 09/04 at 19:30 Nitroglycerin (Nitroglycerin (Sl Tab) 0.4 Mg) 1 tab Q5M PRN SL CHEST PAIN; Start 09/04/16 at 19:30 Acetaminophen (Tylenol Liquid) 650 mg Q6H PRN PO PAIN LEVEL 1-3 OR FEVER Last administered on 09/10/16 13:56; Admin Dose 650 MG; Start 09/04/16 at 19:30 Acetaminophen (Tylenol Tab) 650 mg Q6H PRN PO PAIN LEVEL 1-3 OR FEVER; Start at 19:30 Pantoprazole (Protonix Iv) 40 mg DAILY@06 IV Last administered on 09/10/16 05: 23; Admin Dose 40 MG; Start 09/05/16 at 06:00 Docusate Sodium (Colace Liquid Cup) 100 mg BID GTB Last administered on 08:40; Admin Dose 100 MG; Start 09/05/16 at 09:00 Diltiazem HCl (Cardizem) 30 mg Q8 PO Last administered on 09/06/16 05:17; Admin Dose 30 MG; Start 09/05/16 at 14:00; Status Future Hold Carvedilol (Coreg) 6.25 mg BID GTB Last administered on 09/10/16 08:41; Admin Dose 6.25 MG; Start 09/07/16 at 21:00 Metoclopramide HCl (Reglan) 5 mg TID PO Last administered on 09/10/16 13:54; Admin Dose 5 MG; Start 09/09/16 at 13:00 Apixaban (Eliquis) 2.5 mg BID PO Last administered on 09/10/16 08:40; Admin Dose 2.5 MG; Start 09/09/16 at 21:00 Atorvastatin Calcium (Lipitor) 20 mg QHS PO Last administered on 09/09/16 20: 26; Admin Dose 20 MG; Start 09/09/16 at 21:00 Gentamicin Sulfate GENTAMICIN PER PHARMACY NOTE XX ; Start 09/10/16 at 16:30 Gentamicin Sulfate/Sodium Chloride (Gentamicin/NS) 103.75 ml @ 103.75 mls/hr ONCE IVPB Last administered on 09/10/16 19:24; Admin Dose 103.75 MLS/HR; Start 09/10/16 at 19:00; Stop 09/10/16 at 19:59 Methylprednisolone Sodium Succinate (Solu-Medrol) 20 mg DAILY IV ; Start at 09:00 CRUZITO ARELLANO MD Sep 10, 2016 20:00
[2016-09-10] MEDS: ATORVASTATIN 20 MG TAB PO SCH (21:36)
[2016-09-11] VITALS (21 sets, daily range): BP systolic 105–163; BP diastolic 57–74; PULSE 70–85; RESP 17–20
[2016-09-11] MEDS: ACETYLCYSTEINE 20% 4 ML VIAL NEB SCH ×4 (02:25→20:50)
[2016-09-11] MEDS: ALBUTEROL/IPRATROPIUM (NEB) 3 ML AMP NEB PRN ×3 (02:25→20:50)
[2016-09-11] MEDS: ACETAMINOPHEN 650MG/20.3ML CUP PO PRN ×2 (04:30→11:53)
[2016-09-11] MEDS: PANTOPRAZOLE 40 MG INJ IV SCH (06:41)
[2016-09-11] MEDS: LEVOTHYROXINE 150 MCG TAB PO SCH (06:41)
[2016-09-11 07:11] LABS: ADD SCAN DIFF NO
[2016-09-11 07:16] LABS: BASOPHILS % 0.1 % (0.0-2.0); EOSINOPHILS % 0.1 % (0.0-7.0); HEMATOCRIT 31.2 % (37.0-47.0); LYMPHOCYTES # 1.1 10^3/ul (0.8-2.9); LYMPHOCYTES % 6.4 % (15.0-51.0); MEAN CORPUSCULAR HEMOGLOBIN 33.9 pg (29.0-33.0); MEAN CORPUSCULAR HGB CONC 32.1 g/dl (32.0-37.0); MEAN CORPUSCULAR VOLUME 105.8 fl (82.0-101.0); MONOCYTE # 0.9 10^3/ul (0.3-0.9); MONOCYTES % 5.2 % (0.0-11.0); NEUTROPHIL # 14.2 10^3/ul (1.6-7.5); NEUTROPHILS % 85.5 % (39.0-77.0); PLATELET COUNT 213 10^3/UL (140-415); RED BLOOD COUNT 2.95 10^6/ul (4.20-5.40); RED CELL DISTRIBUTION WIDTH 13.7 % (11.5-14.5); WHITE BLOOD COUNT 16.6 10^3/ul (4.8-10.8)
[2016-09-11] MEDS: DOCUSATE SODIUM 10 MG/ML (10ML CUP) GTB SCH ×2 (09:20→21:16)
[2016-09-11] MEDS: METHYLPREDNISOLONE 40 MG INJ IV SCH (09:21)
[2016-09-11] MEDS: ASPIRIN 81 MG TAB PO SCH (09:21)
[2016-09-11] MEDS: APIXABAN 5 MG TABLET PO SCH ×2 (09:21→21:17)
[2016-09-11] MEDS: METOCLOPRAMIDE 5 MG TAB PO SCH ×3 (09:25→21:17)
[2016-09-11] MEDS: AMIODARONE 200 MG TAB PO SCH (09:25)
--- NOTE | 2016-09-11 14:59 | CONS ---
Date/Time of Note Date/Time of Note DATE: 09/11/16 TIME: 14:56 Assessment/Plan Assessment/Plan Chief Complaint/Hosp Course SUBJECTIVE: No acute events overnight. The patient is lying comfortably in bed. No fevers, TF on hold 2 to high residuals INDWELLINGS: The patient has left chest Perm-A-Cath, PEG, PICC line, permanent pacemaker. ANTIMICROBIALS: Gentamicin s/p Cefepime ==> abx #7 MICROBIOLOGY: Blood culture on admission grew E. coli resistant to ampicillin, Ancef and sensitive to cefotaxime, gentamicin and Tobramycin. PHYSICAL EXAMINATION: GENERAL: This is a fragile, elderly woman who is in no distress. The patient is noncommunicative. HEENT: Head atraumatic, normocephalic. Sclerae anicteric. Buccal mucosa dry. NECK: Supple, trachea midline. CHEST: Rise symmetrical. Breath sounds diminished to bases. HEART: S1, S2. ABDOMEN: Soft. Bowel tones present. EXTREMITIES: Without cyanosis. ASSESSMENT: 1. Sepsis, status post shock. 2. Escherichia coli bacteremia, possibly line sepsis. 3. End-stage renal disease, hemodialysis dependent. 4. Dysphagia. 5. Encephalopathy, status post cerebrovascular accident. 6. Atrial fibrillation. 7. History of permanent pacemaker placement. PLAN: The patient remained unchanged. Repeat bld cx negative, continue abx, anti-aspiration measures, steroid taper, may need permacath dc DW staff DW Dr Arellano Problems: Consultation Date/Type/Reason Admit Date/Time Sep 04, 2016 at 16:03 Type of Consultation: ID Referring Provider: CRUZITO ARELLANO MD 24 HR Interval Summary Subjective hx not possible: pt non-verbal Exam/Review of Systems Vital Signs Vitals Vital Signs Date Time Temp Pulse Resp B/P Pulse Ox O2 Delivery O2 Flow Rate FiO2 09/11/16 13:38 4.0 09/11/16 13:32 90 22 95 36 09/11/16 11:41 97.5 135/63 09/11/16 08:30 Nasal Cannula Intake and Output 09/10/16 09/10/16 09/11/16 15:00 23:00 07:00 Intake Total 550 ml 220 ml Balance 550 ml 220 ml Results Result Diagram: 09/11/16 0650 09/09/16 0640 Results 24 hrs Laboratory Tests Test 09/11/16 06:50 Basophils # 0.0 Basophils % 0.1 Eosinophils # 0.0 Eosinophils % 0.1 Hematocrit 31.2 L Hemoglobin 10.0 L Lymphocytes # 1.1 Lymphocytes % 6.4 L Mean Corpuscular Hemoglobin 33.9 H Mean Corpuscular Hemoglobin Concent 32.1 Mean Corpuscular Volume 105.8 H Mean Platelet Volume 12.0 H Monocytes # 0.9 Monocytes % 5.2 Neutrophils # 14.2 H Neutrophils % 85.5 H Nucleated Red Blood Cells # 0.0 Nucleated Red Blood Cells % 0.0 Platelet Count 213 Red Blood Count 2.95 L Red Cell Distribution Width 13.7 White Blood Count 16.6 H Medications Medications Current Medications Acetaminophen (Tylenol Tab) 325 mg DAILY PRN PO PAIN AND OR ELEVATED TEMP; Start 09/04/16 at 16:00 Amiodarone HCl (Cordarone) 200 mg DAILY PO Last administered on 09/11/16 09:25 ; Admin Dose 200 MG; Start 09/05/16 at 09:00 Aspirin (Aspirin) 81 mg DAILY PO Last administered on 09/11/16 09:21; Admin Dose 81 MG; Start 09/05/16 at 09:00 Naloxone HCl (Narcan) 0.4 mg Q3M PRN IV DECREASED REPIRATORY RATE; Start at 19:30 Ondansetron HCl (Zofran Inj) 4 mg Q6H PRN IV NAUSEA AND/OR VOMITING; Start 09/04 at 19:30 Nitroglycerin (Nitroglycerin (Sl Tab) 0.4 Mg) 1 tab Q5M PRN SL CHEST PAIN; Start 09/04/16 at 19:30 Acetaminophen (Tylenol Liquid) 650 mg Q6H PRN PO PAIN LEVEL 1-3 OR FEVER Last administered on 09/11/16 11:53; Admin Dose 650 MG; Start 09/04/16 at 19:30 Acetaminophen (Tylenol Tab) 650 mg Q6H PRN PO PAIN LEVEL 1-3 OR FEVER; Start at 19:30 Pantoprazole (Protonix Iv) 40 mg DAILY@06 IV Last administered on 09/11/16 06: 41; Admin Dose 40 MG; Start 09/05/16 at 06:00 Docusate Sodium (Colace Liquid Cup) 100 mg BID GTB Last administered on 09:20; Admin Dose 100 MG; Start 09/05/16 at 09:00 Diltiazem HCl (Cardizem) 30 mg Q8 PO Last administered on 09/06/16 05:17; Admin Dose 30 MG; Start 09/05/16 at 14:00; Status Future Hold Carvedilol (Coreg) 6.25 mg BID GTB Last administered on 09/11/16 09:24; Admin Dose 6.25 MG; Start 09/07/16 at 21:00 Metoclopramide HCl (Reglan) 5 mg TID PO Last administered on 09/11/16 12:32; Admin Dose 5 MG; Start 09/09/16 at 13:00 Apixaban (Eliquis) 2.5 mg BID PO Last administered on 09/11/16 09:21; Admin Dose 2.5 MG; Start 09/09/16 at 21:00 Atorvastatin Calcium (Lipitor) 20 mg QHS PO Last administered on 09/10/16 21: 36; Admin Dose 20 MG; Start 09/09/16 at 21:00 Gentamicin Sulfate (Gentamicin Iv Per Pharmacy) GENTAMICIN PER PHARMACY NOTE XX ; Start 09/10/16 at 16:30 Methylprednisolone Sodium Succinate (Solu-Medrol) 20 mg DAILY IV Last administered on 09/11/16 09:21; Admin Dose 20 MG; Start 09/11/16 at 09:00 TREMAINE MUNROE NP Sep 11, 2016 14:58
--- NOTE | 2016-09-11 15:18 | CONS ---
Date/Time of Note Date/Time of Note DATE: 09/11/16 TIME: 15:17 Assessment/Plan Assessment/Plan Chief Complaint/Hosp Course IMPRESSION: 1. Congestive heart failure exacerbation, systolic, acute on chronic. EF 40% by echo 07/16 2. Hypotension/shock on pressor support. 3. Atrial fibrillation on systemic anticoagulation with reasonable rate control at this time. 4. History of recent cerebrovascular accident with altered mental status, encephalopathy. 5. Hypoxia. 6. Coronary artery disease. 7. Dysphagia status post G-tube. 8. Hypothyroidism. 9. Dyslipidemia. 10.PPM Recc: -Tele -HD for volume removal -Continue current BB/ACEI -Continue amio/asa/apixaban -Follow MS closely Problems: Consultation Date/Type/Reason Admit Date/Time Sep 04, 2016 at 16:03 Initial Consult Date 09/05/2016 Type of Consultation: Cardiology Reason for Consultation CHF Referring Provider: CRUZITO ARELLANO MD Exam/Review of Systems Vital Signs Vitals Vital Signs Date Time Temp Pulse Resp B/P Pulse Ox O2 Delivery O2 Flow Rate FiO2 09/11/16 13:38 4.0 09/11/16 13:32 90 22 95 36 09/11/16 11:41 97.5 135/63 09/11/16 08:30 Nasal Cannula Intake and Output 09/10/16 09/10/16 09/11/16 15:00 23:00 07:00 Intake Total 550 ml 220 ml Balance 550 ml 220 ml Exam Review of Systems: CONSTITUTIONAL: No fevers, chills. PULMONARY: No sob CARDIOVASCULAR: No chest pain/palpitations GASTROINTESTINAL: No nausea/vomiting. GENITOURINARY: No hematuria/dysuria. MUSCULOSKELETAL: No myagias/arthalgias. PSYCHIATRIC: The patient denies depression. NEUROLOGIC: No weakness Constitutional: other (encephlaopathic) Psych: no complaints Head: normocephalic ENMT: mucosa pink and moist Neck: jvd (9 cm water), supple Respiratory: diminished breath sounds (at bases/B) Cardiovascular: regular rate and rhythm Gastrointestinal: non-tender, soft Musculoskeletal: muscle tone Extremities: edema (none) Neurological: other (No focal deficits) Results Result Diagram: 09/11/16 0650 09/09/16 0640 Results 24 hrs Laboratory Tests Test 09/11/16 06:50 Basophils # 0.0 Basophils % 0.1 Eosinophils # 0.0 Eosinophils % 0.1 Hematocrit 31.2 L Hemoglobin 10.0 L Lymphocytes # 1.1 Lymphocytes % 6.4 L Mean Corpuscular Hemoglobin 33.9 H Mean Corpuscular Hemoglobin Concent 32.1 Mean Corpuscular Volume 105.8 H Mean Platelet Volume 12.0 H Monocytes # 0.9 Monocytes % 5.2 Neutrophils # 14.2 H Neutrophils % 85.5 H Nucleated Red Blood Cells # 0.0 Nucleated Red Blood Cells % 0.0 Platelet Count 213 Red Blood Count 2.95 L Red Cell Distribution Width 13.7 White Blood Count 16.6 H Medications Medications Current Medications Acetaminophen (Tylenol Tab) 325 mg DAILY PRN PO PAIN AND OR ELEVATED TEMP; Start 09/04/16 at 16:00 Amiodarone HCl (Cordarone) 200 mg DAILY PO Last administered on 09/11/16 09:25 ; Admin Dose 200 MG; Start 09/05/16 at 09:00 Aspirin (Aspirin) 81 mg DAILY PO Last administered on 09/11/16 09:21; Admin Dose 81 MG; Start 09/05/16 at 09:00 Naloxone HCl (Narcan) 0.4 mg Q3M PRN IV DECREASED REPIRATORY RATE; Start at 19:30 Ondansetron HCl (Zofran Inj) 4 mg Q6H PRN IV NAUSEA AND/OR VOMITING; Start 09/04 at 19:30 Nitroglycerin (Nitroglycerin (Sl Tab) 0.4 Mg) 1 tab Q5M PRN SL CHEST PAIN; Start 09/04/16 at 19:30 Acetaminophen (Tylenol Liquid) 650 mg Q6H PRN PO PAIN LEVEL 1-3 OR FEVER Last administered on 09/11/16 11:53; Admin Dose 650 MG; Start 09/04/16 at 19:30 Acetaminophen (Tylenol Tab) 650 mg Q6H PRN PO PAIN LEVEL 1-3 OR FEVER; Start at 19:30 Pantoprazole (Protonix Iv) 40 mg DAILY@06 IV Last administered on 09/11/16 06: 41; Admin Dose 40 MG; Start 09/05/16 at 06:00 Docusate Sodium (Colace Liquid Cup) 100 mg BID GTB Last administered on 09:20; Admin Dose 100 MG; Start 09/05/16 at 09:00 Diltiazem HCl (Cardizem) 30 mg Q8 PO Last administered on 09/06/16 05:17; Admin Dose 30 MG; Start 09/05/16 at 14:00; Status Future Hold Carvedilol (Coreg) 6.25 mg BID GTB Last administered on 09/11/16 09:24; Admin Dose 6.25 MG; Start 09/07/16 at 21:00 Metoclopramide HCl (Reglan) 5 mg TID PO Last administered on 09/11/16 12:32; Admin Dose 5 MG; Start 09/09/16 at 13:00 Apixaban (Eliquis) 2.5 mg BID PO Last administered on 09/11/16 09:21; Admin Dose 2.5 MG; Start 09/09/16 at 21:00 Atorvastatin Calcium (Lipitor) 20 mg QHS PO Last administered on 09/10/16 21: 36; Admin Dose 20 MG; Start 09/09/16 at 21:00 Gentamicin Sulfate (Gentamicin Iv Per Pharmacy) GENTAMICIN PER PHARMACY NOTE XX ; Start 09/10/16 at 16:30 Methylprednisolone Sodium Succinate (Solu-Medrol) 20 mg DAILY IV Last administered on 09/11/16 09:21; Admin Dose 20 MG; Start 09/11/16 at 09:00 SASKIA HWITE Sep 11, 2016 15:18
[2016-09-11] MEDS: GENTAMICIN 70 MG in SOD CHLORIDE 0.9% 50 ML IVPB SCH (18:44)
--- NOTE | 2016-09-11 20:28 | PN ---
Date/Time of Note Date/Time of Note DATE: 09/11/16 TIME: 20:26 Assessment/Plan VTE Prophylaxis VTE Prophylaxis Intervention: other Lines/Catheters IV Catheter Type (from Nrsg): Central Line Central line still needed: Yes Urinary Cath still in place: No Assessment/Plan Chief Complaint/Hosp Course IMPRESSION: 1. Sepsis.better 2. Lung congestion.better 3. Possible underlying pneumonia. 4. Underlying bronchitis. 5. Endstage renal disease. 6. Atrial fibrillation. 7. Atherosclerotic heart disease. 8. Dyslipidemia. 9. G-tube placement.inc gastric residual 10 e coli sepsis plan antibiotic hd per id dec steroid gi consullt called Problems: Subjective 24 Hr Interval Summary Subjective hx not possible: other (weakness/lethargic) Exam/Review of Systems Vital Signs Vitals Vital Signs Date Time Temp Pulse Resp B/P Pulse Ox O2 Delivery O2 Flow Rate FiO2 09/11/16 20:24 85 09/11/16 19:59 97.6 20 163/74 96 09/11/16 13:38 4.0 09/11/16 13:32 36 09/11/16 08:30 Nasal Cannula Intake and Output 09/10/16 09/10/16 09/11/16 15:00 23:00 07:00 Intake Total 550 ml 220 ml Balance 550 ml 220 ml Exam Neck: supple Respiratory: diminished breath sounds Cardiovascular: regular rate and rhythm Gastrointestinal: soft Musculoskeletal: nl extremities to inspection Results Result Diagram: 09/11/16 0650 09/09/16 0640 Results 24 hrs Laboratory Tests Test 09/11/16 06:50 Basophils # 0.0 Basophils % 0.1 Eosinophils # 0.0 Eosinophils % 0.1 Hematocrit 31.2 L Hemoglobin 10.0 L Lymphocytes # 1.1 Lymphocytes % 6.4 L Mean Corpuscular Hemoglobin 33.9 H Mean Corpuscular Hemoglobin Concent 32.1 Mean Corpuscular Volume 105.8 H Mean Platelet Volume 12.0 H Monocytes # 0.9 Monocytes % 5.2 Neutrophils # 14.2 H Neutrophils % 85.5 H Nucleated Red Blood Cells # 0.0 Nucleated Red Blood Cells % 0.0 Platelet Count 213 Red Blood Count 2.95 L Red Cell Distribution Width 13.7 White Blood Count 16.6 H Medications Medications Current Medications Acetaminophen (Tylenol Tab) 325 mg DAILY PRN PO PAIN AND OR ELEVATED TEMP; Start 09/04/16 at 16:00 Amiodarone HCl (Cordarone) 200 mg DAILY PO Last administered on 09/11/16 09:25 ; Admin Dose 200 MG; Start 09/05/16 at 09:00 Aspirin (Aspirin) 81 mg DAILY PO Last administered on 09/11/16 09:21; Admin Dose 81 MG; Start 09/05/16 at 09:00 Naloxone HCl (Narcan) 0.4 mg Q3M PRN IV DECREASED REPIRATORY RATE; Start at 19:30 Ondansetron HCl (Zofran Inj) 4 mg Q6H PRN IV NAUSEA AND/OR VOMITING; Start 09/04 at 19:30 Nitroglycerin (Nitroglycerin (Sl Tab) 0.4 Mg) 1 tab Q5M PRN SL CHEST PAIN; Start 09/04/16 at 19:30 Acetaminophen (Tylenol Liquid) 650 mg Q6H PRN PO PAIN LEVEL 1-3 OR FEVER Last administered on 09/11/16 11:53; Admin Dose 650 MG; Start 09/04/16 at 19:30 Acetaminophen (Tylenol Tab) 650 mg Q6H PRN PO PAIN LEVEL 1-3 OR FEVER; Start at 19:30 Docusate Sodium (Colace Liquid Cup) 100 mg BID GTB Last administered on 09:20; Admin Dose 100 MG; Start 09/05/16 at 09:00 Diltiazem HCl (Cardizem) 30 mg Q8 PO Last administered on 09/06/16 05:17; Admin Dose 30 MG; Start 09/05/16 at 14:00; Status Future Hold Carvedilol (Coreg) 6.25 mg BID GTB Last administered on 09/11/16 09:24; Admin Dose 6.25 MG; Start 09/07/16 at 21:00 Metoclopramide HCl (Reglan) 5 mg TID PO Last administered on 09/11/16 12:32; Admin Dose 5 MG; Start 09/09/16 at 13:00 Apixaban (Eliquis) 2.5 mg BID PO Last administered on 09/11/16 09:21; Admin Dose 2.5 MG; Start 09/09/16 at 21:00 Atorvastatin Calcium (Lipitor) 20 mg QHS PO Last administered on 09/10/16 21: 36; Admin Dose 20 MG; Start 09/09/16 at 21:00 Gentamicin Sulfate (Gentamicin Iv Per Pharmacy) GENTAMICIN PER PHARMACY NOTE XX ; Start 09/10/16 at 16:30 Methylprednisolone Sodium Succinate (Solu-Medrol) 20 mg DAILY IV Last administered on 09/11/16 09:21; Admin Dose 20 MG; Start 09/11/16 at 09:00 Lansoprazole (Prevacid) 30 mg DAILY@06 GTB ; Start 09/12/16 at 06:00 CRUZITO ARELLANO MD Sep 11, 2016 20:28
[2016-09-11] MEDS: ATORVASTATIN 20 MG TAB PO SCH (21:17)
[2016-09-12] VITALS (12 sets, daily range): BP systolic 111–147; BP diastolic 63–70; PULSE 69–90; RESP 15–20
[2016-09-12] MEDS: ACETYLCYSTEINE 20% 4 ML VIAL NEB SCH ×4 (02:09→19:52)
[2016-09-12] MEDS: ALBUTEROL/IPRATROPIUM (NEB) 3 ML AMP NEB PRN ×4 (02:15→20:02)
[2016-09-12] MEDS: LANSOPRAZOLE 30 MG CAP GTB SCH (05:54)
[2016-09-12] MEDS: LEVOTHYROXINE 150 MCG TAB PO SCH (08:11)
[2016-09-12] MEDS: DOCUSATE SODIUM 10 MG/ML (10ML CUP) GTB SCH ×2 (09:00→20:49)
[2016-09-12] MEDS: METHYLPREDNISOLONE 40 MG INJ IV SCH (09:22)
[2016-09-12] MEDS: ASPIRIN 81 MG TAB PO SCH (09:22)
[2016-09-12] MEDS: AMIODARONE 200 MG TAB PO SCH (09:23)
[2016-09-12] MEDS: APIXABAN 5 MG TABLET PO SCH ×2 (09:23→20:48)
[2016-09-12] MEDS: METOCLOPRAMIDE 5 MG TAB PO SCH ×2 (09:35→14:16)
--- NOTE | 2016-09-12 13:30 | CONS ---
Date/Time of Note Date/Time of Note DATE: 09/12/16 TIME: 13:28 Assessment/Plan Assessment/Plan Chief Complaint/Hosp Course IMPRESSION: 1. Congestive heart failure exacerbation, systolic, acute on chronic. EF 40% by echo 07/16 2. Hypotension/shock on pressor support. 3. Atrial fibrillation on systemic anticoagulation with reasonable rate control at this time. 4. History of recent cerebrovascular accident with altered mental status, encephalopathy. 5. Hypoxia. 6. Coronary artery disease. 7. Dysphagia status post G-tube. 8. Hypothyroidism. 9. Dyslipidemia. 10.PPM Recc: -Tele -HD for volume removal -Continue current BB/ACEI -Continue amio/asa/apixaban -Follow MS closely Problems: Consultation Date/Type/Reason Admit Date/Time Sep 04, 2016 at 16:03 Initial Consult Date 09/05/2016 Type of Consultation: Cardiology Reason for Consultation CHF Referring Provider: CRUZITO ARELLANO MD Exam/Review of Systems Vital Signs Vitals Vital Signs Date Time Temp Pulse Resp B/P Pulse Ox O2 Delivery O2 Flow Rate FiO2 09/12/16 12:20 90 09/12/16 11:35 98.6 18 118/66 98 09/12/16 08:14 Nasal Cannula 3.0 09/11/16 13:32 36 Intake and Output 09/11/16 09/11/16 09/12/16 15:00 23:00 07:00 Intake Total 665 ml Output Total 1900 ml Balance -1235 ml Exam Review of Systems: CONSTITUTIONAL: No fevers, chills. PULMONARY: No sob CARDIOVASCULAR: No chest pain/palpitations GASTROINTESTINAL: No nausea/vomiting. GENITOURINARY: No hematuria/dysuria. MUSCULOSKELETAL: No myagias/arthalgias. PSYCHIATRIC: The patient denies depression. NEUROLOGIC: lethargic/encephalopathic Constitutional: other (encephalopathic) Psych: no complaints Head: normocephalic ENMT: mucosa pink and moist Neck: jvd (9 cm water), supple Respiratory: diminished breath sounds (at bases/B) Cardiovascular: regular rate and rhythm Gastrointestinal: non-tender, soft Musculoskeletal: muscle tone (normal) Extremities: edema (none) Neurological: unresponsive Results Result Diagram: 09/11/16 0650 09/09/16 0640 Medications Medications Current Medications Acetaminophen (Tylenol Tab) 325 mg DAILY PRN PO PAIN AND OR ELEVATED TEMP; Start 09/04/16 at 16:00 Amiodarone HCl (Cordarone) 200 mg DAILY PO Last administered on 09/12/16 09:23 ; Admin Dose 200 MG; Start 09/05/16 at 09:00 Aspirin (Aspirin) 81 mg DAILY PO Last administered on 09/12/16 09:22; Admin Dose 81 MG; Start 09/05/16 at 09:00 Naloxone HCl (Narcan) 0.4 mg Q3M PRN IV DECREASED REPIRATORY RATE; Start at 19:30 Ondansetron HCl (Zofran Inj) 4 mg Q6H PRN IV NAUSEA AND/OR VOMITING; Start 09/04 at 19:30 Nitroglycerin (Nitroglycerin (Sl Tab) 0.4 Mg) 1 tab Q5M PRN SL CHEST PAIN; Start 09/04/16 at 19:30 Acetaminophen (Tylenol Liquid) 650 mg Q6H PRN PO PAIN LEVEL 1-3 OR FEVER Last administered on 09/11/16 11:53; Admin Dose 650 MG; Start 09/04/16 at 19:30 Acetaminophen (Tylenol Tab) 650 mg Q6H PRN PO PAIN LEVEL 1-3 OR FEVER; Start at 19:30 Docusate Sodium (Colace Liquid Cup) 100 mg BID GTB Last administered on 21:16; Admin Dose 100 MG; Start 09/05/16 at 09:00 Diltiazem HCl (Cardizem) 30 mg Q8 PO Last administered on 09/06/16 05:17; Admin Dose 30 MG; Start 09/05/16 at 14:00; Status Future Hold Carvedilol (Coreg) 6.25 mg BID GTB Last administered on 09/12/16 09:21; Admin Dose 6.25 MG; Start 09/07/16 at 21:00 Metoclopramide HCl (Reglan) 5 mg TID PO Last administered on 09/12/16 09:35; Admin Dose 5 MG; Start 09/09/16 at 13:00 Apixaban (Eliquis) 2.5 mg BID PO Last administered on 09/12/16 09:23; Admin Dose 2.5 MG; Start 09/09/16 at 21:00 Atorvastatin Calcium (Lipitor) 20 mg QHS PO Last administered on 09/11/16 21: 17; Admin Dose 20 MG; Start 09/09/16 at 21:00 Gentamicin Sulfate (Gentamicin Iv Per Pharmacy) GENTAMICIN PER PHARMACY NOTE XX ; Start 09/10/16 at 16:30 Methylprednisolone Sodium Succinate (Solu-Medrol) 20 mg DAILY IV Last administered on 09/12/16 09:22; Admin Dose 20 MG; Start 09/11/16 at 09:00 Lansoprazole (Prevacid) 30 mg DAILY@06 GTB Last administered on 09/12/16 05:54 ; Admin Dose 30 MG; Start 09/12/16 at 06:00 SASKIA WHITE Sep 12, 2016 13:30
--- NOTE | 2016-09-12 15:24 | CONS ---
Date/Time of Note Date/Time of Note DATE: 09/12/16 TIME: 15:22 Assessment/Plan Assessment/Plan Chief Complaint/Hosp Course SUBJECTIVE: No acute events overnight. The patient is lying comfortably in bed. No fevers, TF on hold 2 to high residuals INDWELLINGS: Left chest Perm-A-Cath, PEG, PICC line, permanent pacemaker. ANTIMICROBIALS: Gentamicin s/p Cefepime ==> abx #8 MICROBIOLOGY: Blood culture on admission grew E. coli resistant to ampicillin, Ancef and sensitive to cefotaxime, gentamicin and Tobramycin. PHYSICAL EXAMINATION: GENERAL: This is a fragile, elderly woman who is in no distress. The patient is noncommunicative. HEENT: Head atraumatic, normocephalic. Sclerae anicteric. Buccal mucosa dry. NECK: Supple, trachea midline. CHEST: Rise symmetrical. Breath sounds diminished to bases. HEART: S1, S2. ABDOMEN: Soft. Bowel tones present. EXTREMITIES: Without cyanosis. ASSESSMENT: 1. Sepsis, status post shock. 2. Escherichia coli bacteremia, possibly line sepsis. 3. End-stage renal disease, hemodialysis dependent. 4. Dysphagia. 5. Encephalopathy, status post cerebrovascular accident. 6. Atrial fibrillation. 7. History of permanent pacemaker placement. PLAN: The patient remained unchanged. Repeat bld cx negative, she is getting Reglan, residuals still high, consider GI eval, continue abx, anti-aspiration measures DW staff Problems: Consultation Date/Type/Reason Admit Date/Time Sep 04, 2016 at 16:03 Type of Consultation: ID Referring Provider: CRUZITO ARELLANO MD Exam/Review of Systems Vital Signs Vitals Vital Signs Date Time Temp Pulse Resp B/P Pulse Ox O2 Delivery O2 Flow Rate FiO2 09/12/16 14:38 73 20 97 Nasal Cannula 3.0 09/12/16 11:35 98.6 118/66 09/11/16 13:32 36 Intake and Output 09/11/16 09/11/16 09/12/16 15:00 23:00 07:00 Intake Total 665 ml Output Total 1900 ml Balance -1235 ml Results Result Diagram: 09/11/16 0650 09/09/16 0640 Results 24 hrs Laboratory Tests Test 09/12/16 14:10 Bedside Glucose 167 Medications Medications Current Medications Acetaminophen (Tylenol Tab) 325 mg DAILY PRN PO PAIN AND OR ELEVATED TEMP; Start 09/04/16 at 16:00 Amiodarone HCl (Cordarone) 200 mg DAILY PO Last administered on 09/12/16 09:23 ; Admin Dose 200 MG; Start 09/05/16 at 09:00 Aspirin (Aspirin) 81 mg DAILY PO Last administered on 09/12/16 09:22; Admin Dose 81 MG; Start 09/05/16 at 09:00 Naloxone HCl (Narcan) 0.4 mg Q3M PRN IV DECREASED REPIRATORY RATE; Start at 19:30 Ondansetron HCl (Zofran Inj) 4 mg Q6H PRN IV NAUSEA AND/OR VOMITING; Start 09/04 at 19:30 Nitroglycerin (Nitroglycerin (Sl Tab) 0.4 Mg) 1 tab Q5M PRN SL CHEST PAIN; Start 09/04/16 at 19:30 Acetaminophen (Tylenol Liquid) 650 mg Q6H PRN PO PAIN LEVEL 1-3 OR FEVER Last administered on 09/11/16 11:53; Admin Dose 650 MG; Start 09/04/16 at 19:30 Acetaminophen (Tylenol Tab) 650 mg Q6H PRN PO PAIN LEVEL 1-3 OR FEVER; Start at 19:30 Docusate Sodium (Colace Liquid Cup) 100 mg BID GTB Last administered on 21:16; Admin Dose 100 MG; Start 09/05/16 at 09:00 Diltiazem HCl (Cardizem) 30 mg Q8 PO Last administered on 09/06/16 05:17; Admin Dose 30 MG; Start 09/05/16 at 14:00; Status Future Hold Carvedilol (Coreg) 6.25 mg BID GTB Last administered on 09/12/16 09:21; Admin Dose 6.25 MG; Start 09/07/16 at 21:00 Metoclopramide HCl (Reglan) 5 mg TID PO Last administered on 09/12/16 14:16; Admin Dose 5 MG; Start 09/09/16 at 13:00 Apixaban (Eliquis) 2.5 mg BID PO Last administered on 09/12/16 09:23; Admin Dose 2.5 MG; Start 09/09/16 at 21:00 Atorvastatin Calcium (Lipitor) 20 mg QHS PO Last administered on 09/11/16 21: 17; Admin Dose 20 MG; Start 09/09/16 at 21:00 Gentamicin Sulfate (Gentamicin Iv Per Pharmacy) GENTAMICIN PER PHARMACY NOTE XX ; Start 09/10/16 at 16:30 Methylprednisolone Sodium Succinate (Solu-Medrol) 20 mg DAILY IV Last administered on 09/12/16 09:22; Admin Dose 20 MG; Start 09/11/16 at 09:00 Lansoprazole (Prevacid) 30 mg DAILY@06 GTB Last administered on 09/12/16 05:54 ; Admin Dose 30 MG; Start 09/12/16 at 06:00 TREMAINE MUNROE NP Sep 12, 2016 15:23
--- NOTE | 2016-09-12 18:35 | CONS ---
DATE OF ADMISSION: 09/04/2016 DATE OF CONSULTATION: TYPE OF CONSULTATION: Gastroenterology. CONSULTING PHYSICIAN: Heron Suazo MD REQUESTING PHYSICIAN: Ceferino Myles MD REASON FOR CONSULTATION: Severe gastroparesis. HISTORY OF PRESENT ILLNESS: Dear Ceferino: Thank you for asking me to evaluate the patient, who is pleasant 80-year-old female with end-stage renal disease on dialysis, hypertension, diabetes mellitu s, atrial fibrillation, CVA, status post G-tube placement, presented to the ER with shortness of yeimy ath. The patient was admitted to the intensive care unit, started on antibiotic, stabilized and sub sequently transferred to the telemetry floor. The GI consult was called in for and patient is unable to tolerate feedings for the last 24 hours. No nausea, vomiting, no abdominal pain, no ches t pain or shortness of breath. ALLERGIES: Negative. FAMILY HISTORY: Nothing contributory. MEDICATIONS: All reviewed. REVIEW OF SYSTEMS: Negative. PHYSICAL EXAMINATION GENERAL: Not in distress. VITAL SIGNS: Stable. HEENT: Unremarkable. CARDIOVASCULAR: No murmur, gallop or click. LUNGS: Air entry diminished at both bases. ABDOMEN: Soft. G-tube in place. Bowel sounds good. EXTREMITIES: No edema. CENTRAL NERVOUS SYSTEM: Grossly within normal limits. IMPRESSION: 1. Atrial fibrillation. 2. Cardiomyopathy with ejection fraction of 40%. 3. Sepsis, Escherichia coli bacteremia. 4. End-stage renal disease. The patient is on dialysis. 5. Gastroparesis. 6. Cerebrovascular accident. 7. Atrial fibrillation. 8. Status post pacemaker placement. 9. Abnormal LFT. Looking at the patient's lab, patient's alkaline phosphatase on September 06 was 443, SGOT and SGPT 147 and 130, which gradually dropped down finally to 286 alkaline phosphatase. Previous sonogram in Jun showed multiple gallstones. The patient's blood culture grew E. coli. PLAN: 1. Get repeat ultrasound done to make sure patient does not have biliary pathology which might be t he cause of her biliary sepsis and Escherichia coli bacteremia. 2. The patient will be started empirically on Reglan IV and also erythromycin for gastroparesis. C ontinue rest of the medication. Dictated By: HERON FONSECA/KATE Conf#: [id number] DID#: [id number]
--- NOTE | 2016-09-12 18:43 | PN ---
Date/Time of Note Date/Time of Note DATE: 09/12/16 TIME: 18:41 Assessment/Plan VTE Prophylaxis VTE Prophylaxis Intervention: other Lines/Catheters IV Catheter Type (from Nrsg): Central Line Central line still needed: Yes Urinary Cath still in place: No Assessment/Plan Chief Complaint/Hosp Course IMPRESSION: 1. Sepsis. 2. Lung congestion.better 3. Possible underlying pneumonia. 4. Underlying bronchitis. 5. Endstage renal disease. 6. Atrial fibrillation. 7. Atherosclerotic heart disease. 8. Dyslipidemia. 9. G-tube placement.inc gastric residual 10 e coli sepsis plan antibiotic hd per id dec steroid gi consullt called Problems: Subjective 24 Hr Interval Summary Respiratory: no complaints Cardiovascular: no complaints Gastrointestinal: no complaints Exam/Review of Systems Vital Signs Vitals Vital Signs Date Time Temp Pulse Resp B/P Pulse Ox O2 Delivery O2 Flow Rate FiO2 09/12/16 16:31 74 09/12/16 16:13 98.0 18 139/68 98 09/12/16 14:38 Nasal Cannula 3.0 09/11/16 13:32 36 Intake and Output 09/11/16 09/11/16 09/12/16 15:00 23:00 07:00 Intake Total 665 ml Output Total 1900 ml Balance -1235 ml Exam Neck: supple Respiratory: clear to auscultation Cardiovascular: regular rate and rhythm Gastrointestinal: bowel sounds (+), soft Results Result Diagram: 09/11/16 0650 09/09/16 0640 Results 24 hrs Laboratory Tests Test 09/12/16 14:10 Bedside Glucose 167 Medications Medications Current Medications Acetaminophen (Tylenol Tab) 325 mg DAILY PRN PO PAIN AND OR ELEVATED TEMP; Start 09/04/16 at 16:00 Amiodarone HCl (Cordarone) 200 mg DAILY PO Last administered on 09/12/16 09:23 ; Admin Dose 200 MG; Start 09/05/16 at 09:00 Aspirin (Aspirin) 81 mg DAILY PO Last administered on 09/12/16 09:22; Admin Dose 81 MG; Start 09/05/16 at 09:00 Naloxone HCl (Narcan) 0.4 mg Q3M PRN IV DECREASED REPIRATORY RATE; Start at 19:30 Ondansetron HCl (Zofran Inj) 4 mg Q6H PRN IV NAUSEA AND/OR VOMITING; Start 09/04 at 19:30 Nitroglycerin (Nitroglycerin (Sl Tab) 0.4 Mg) 1 tab Q5M PRN SL CHEST PAIN; Start 09/04/16 at 19:30 Acetaminophen (Tylenol Tab) 650 mg Q6H PRN PO PAIN LEVEL 1-3 OR FEVER; Start at 19:30 Docusate Sodium (Colace Liquid Cup) 100 mg BID GTB Last administered on 21:16; Admin Dose 100 MG; Start 09/05/16 at 09:00 Diltiazem HCl (Cardizem) 30 mg Q8 PO Last administered on 09/06/16 05:17; Admin Dose 30 MG; Start 09/05/16 at 14:00; Status Future Hold Carvedilol (Coreg) 6.25 mg BID GTB Last administered on 09/12/16 09:21; Admin Dose 6.25 MG; Start 09/07/16 at 21:00 Apixaban (Eliquis) 2.5 mg BID PO Last administered on 09/12/16 09:23; Admin Dose 2.5 MG; Start 09/09/16 at 21:00 Atorvastatin Calcium (Lipitor) 20 mg QHS PO Last administered on 09/11/16 21: 17; Admin Dose 20 MG; Start 09/09/16 at 21:00 Gentamicin Sulfate (Gentamicin Iv Per Pharmacy) GENTAMICIN PER PHARMACY NOTE XX ; Start 09/10/16 at 16:30 Methylprednisolone Sodium Succinate (Solu-Medrol) 20 mg DAILY IV Last administered on 09/12/16 09:22; Admin Dose 20 MG; Start 09/11/16 at 09:00 Lansoprazole (Prevacid) 30 mg DAILY@06 GTB Last administered on 09/12/16 05:54 ; Admin Dose 30 MG; Start 09/12/16 at 06:00 Metoclopramide HCl (Reglan) 5 mg Q6 IV ; Start 09/12/16 at 18:00 CRUZITO ARELLANO MD Sep 12, 2016 18:42
--- NOTE | 2016-09-12 20:45 | RADRPT ---
PROCEDURE: US right upper quadrant CLINICAL INDICATION: Abdominal pain. Questionable common bile duct stone TECHNIQUE: Multiple real-time images were acquired of the patient's right upper abdomen utilizing a high resolution transducer. COMPARISON: Ultrasound 07/29/2016 FINDINGS: Liver: Normal in size, contour and echogenicity. The maximum dimension estimated at 15.5 cm . Gallbladder: Multiple mobile echogenic foci with distal acoustic shadowing are present. . the gall bladder is contracted with the wall top normal in thickness estimated at 3 mm and no evidence of per icholecystic fluid. No sonographic Mcnair's sign is reported. Common bile duct: Dilated; 8.6 mm, previously 3.2 mm. There is no visualization of choledocholithi asis however. Right Kidney: Normal; maximum length measured at approximately 10 cm. Pancreas: Visualized portions are normal. The tail is partially obscured by bowel gas. RPTAT:HJJR IMPRESSION: 1. Cholelithiasis without evidence of cholecystitis. 2. Interval increase in caliber of the common bile duct from 3.2 mm on the study of 07/29/2016 to a current estimation of 8.6 mm but choledocholithiasis is not visualized. Physician Lefty Date Time Electronically viewed and signed by Physician Lefty on 09/12/2016 20:45 /
[2016-09-12] MEDS: ATORVASTATIN 20 MG TAB PO SCH (20:48)
[2016-09-12] MEDS: METOCLOPRAMIDE 10 MG INJ IV SCH (20:49)
[2016-09-13] VITALS (19 sets, daily range): BP systolic 99–140; BP diastolic 40–74; PULSE 69–84; RESP 15–18
[2016-09-13] MEDS: ACETAMINOPHEN 325 MG TAB PO PRN ×2 (00:45→13:00)
[2016-09-13] MEDS: METOCLOPRAMIDE 10 MG INJ IV SCH ×5 (00:45→23:55)
[2016-09-13] MEDS: ACETYLCYSTEINE 20% 4 ML VIAL NEB SCH ×4 (01:03→20:47)
[2016-09-13] MEDS: ALBUTEROL/IPRATROPIUM (NEB) 3 ML AMP NEB PRN ×3 (01:11→20:47)
[2016-09-13] MEDS: LANSOPRAZOLE 30 MG CAP GTB SCH (05:36)
[2016-09-13 07:01] LABS: ADD SCAN DIFF NO
[2016-09-13 07:14] LABS: POTASSIUM 4.2 mmol/L (3.5-5.1)
[2016-09-13 07:15] LABS: BASOPHILS % 0.1 % (0.0-2.0); EOSINOPHILS % 0.1 % (0.0-7.0); HEMATOCRIT 30.9 % (37.0-47.0); LYMPHOCYTES # 1.2 10^3/ul (0.8-2.9); LYMPHOCYTES % 7.8 % (15.0-51.0); MEAN CORPUSCULAR HEMOGLOBIN 33.2 pg (29.0-33.0); MEAN CORPUSCULAR HGB CONC 32.4 g/dl (32.0-37.0); MEAN CORPUSCULAR VOLUME 102.7 fl (82.0-101.0); MEAN PLATELET VOLUME 12.1 fl (7.4-10.4); MONOCYTE # 0.7 10^3/ul (0.3-0.9); MONOCYTES % 4.8 % (0.0-11.0); NEUTROPHIL # 12.7 10^3/ul (1.6-7.5); NEUTROPHILS % 84.9 % (39.0-77.0); PLATELET COUNT 244 10^3/UL (140-415); RED BLOOD COUNT 3.01 10^6/ul (4.20-5.40); RED CELL DISTRIBUTION WIDTH 13.9 % (11.5-14.5); WHITE BLOOD COUNT 14.9 10^3/ul (4.8-10.8)
[2016-09-13 07:17] LABS: CREATININE 3.52 mg/dl (0.44-1.00)
[2016-09-13 07:18] LABS: CALCIUM 8.7 mg/dl (8.4-10.2)
[2016-09-13] MEDS: DOCUSATE SODIUM 10 MG/ML (10ML CUP) GTB SCH ×2 (08:06→20:16)
[2016-09-13] MEDS: ASPIRIN 81 MG TAB PO SCH (08:06)
[2016-09-13] MEDS: APIXABAN 5 MG TABLET PO SCH ×2 (08:07→20:16)
[2016-09-13] MEDS: AMIODARONE 200 MG TAB PO SCH (08:07)
[2016-09-13] MEDS: LEVOTHYROXINE 150 MCG TAB PO SCH (08:07)
[2016-09-13] MEDS: METHYLPREDNISOLONE 40 MG INJ IV SCH (08:08)
--- NOTE | 2016-09-13 10:48 | PN ---
Date/Time of Note Date/Time of Note DATE: 09/13/16 TIME: 10:46 Assessment/Plan VTE Prophylaxis VTE Prophylaxis Intervention: SCD's Lines/Catheters IV Catheter Type (from Nrsg): Central Line Central line still needed: Yes Urinary Cath still in place: No Assessment/Plan Chief Complaint/Hosp Course 1. Sepsis. 2. Lung congestion.better 3. Possible underlying pneumonia. 4. Underlying bronchitis. 5. Endstage renal disease. 6. Atrial fibrillation. 7. Atherosclerotic heart disease. 8. Dyslipidemia. 9. G-tube placement.inc gastric residual 10 e coli sepsis 11. HD Problems: Assessment/Plan 1. Continue a/b for sepsis 2. Continue GT feeding 3. Continue HD as ordered 4. Pain medication 5. DNR Exam/Review of Systems Vital Signs Vitals Vital Signs Date Time Temp Pulse Resp B/P Pulse Ox O2 Delivery O2 Flow Rate FiO2 09/13/16 10:24 78 09/13/16 08:17 97.3 18 118/57 98 09/13/16 08:00 Nasal Cannula 3.0 09/11/16 13:32 36 Intake and Output 09/12/16 09/12/16 09/13/16 15:00 23:00 07:00 Intake Total 200 ml 100 ml Balance 200 ml 100 ml Results Result Diagram: 09/13/16 0620 09/13/16 0545 Results 24 hrs Laboratory Tests Test 09/12/16 14:10 09/13/16 05:45 09/13/16 06:20 Bedside Glucose 167 Anion Gap 21 H Blood Urea Nitrogen 104 H Calcium Level 8.7 Carbon Dioxide Level 24 Chloride Level 99 Creatinine 3.52 H Glucose Level 64 L Potassium Level 4.2 Sodium Level 140 Basophils # 0.0 Basophils % 0.1 Eosinophils # 0.0 Eosinophils % 0.1 Hematocrit 30.9 L Hemoglobin 10.0 L Lymphocytes # 1.2 Lymphocytes % 7.8 L Mean Corpuscular Hemoglobin 33.2 H Mean Corpuscular Hemoglobin Concent 32.4 Mean Corpuscular Volume 102.7 H Mean Platelet Volume 12.1 H Monocytes # 0.7 Monocytes % 4.8 Neutrophils # 12.7 H Neutrophils % 84.9 H Nucleated Red Blood Cells # 0.0 Nucleated Red Blood Cells % 0.0 Platelet Count 244 Red Blood Count 3.01 L Red Cell Distribution Width 13.9 White Blood Count 14.9 H Medications Medications Current Medications Acetaminophen (Tylenol Tab) 325 mg DAILY PRN PO PAIN AND OR ELEVATED TEMP; Start 09/04/16 at 16:00 Amiodarone HCl (Cordarone) 200 mg DAILY PO Last administered on 09/12/16 09:23 ; Admin Dose 200 MG; Start 09/05/16 at 09:00 Aspirin (Aspirin) 81 mg DAILY PO Last administered on 09/13/16 08:06; Admin Dose 81 MG; Start 09/05/16 at 09:00 Naloxone HCl (Narcan) 0.4 mg Q3M PRN IV DECREASED REPIRATORY RATE; Start at 19:30 Ondansetron HCl (Zofran Inj) 4 mg Q6H PRN IV NAUSEA AND/OR VOMITING; Start 09/04 at 19:30 Nitroglycerin (Nitroglycerin (Sl Tab) 0.4 Mg) 1 tab Q5M PRN SL CHEST PAIN; Start 09/04/16 at 19:30 Acetaminophen (Tylenol Tab) 650 mg Q6H PRN PO PAIN LEVEL 1-3 OR FEVER Last administered on 09/13/16 00:45; Admin Dose 650 MG; Start 09/04/16 at 19:30 Docusate Sodium (Colace Liquid Cup) 100 mg BID GTB Last administered on 08:06; Admin Dose 100 MG; Start 09/05/16 at 09:00 Diltiazem HCl (Cardizem) 30 mg Q8 PO Last administered on 09/06/16 05:17; Admin Dose 30 MG; Start 09/05/16 at 14:00; Status Future Hold Carvedilol (Coreg) 6.25 mg BID GTB Last administered on 09/12/16 20:48; Admin Dose 6.25 MG; Start 09/07/16 at 21:00 Apixaban (Eliquis) 2.5 mg BID PO Last administered on 09/13/16 08:07; Admin Dose 2.5 MG; Start 09/09/16 at 21:00 Atorvastatin Calcium (Lipitor) 20 mg QHS PO Last administered on 09/12/16 20: 48; Admin Dose 20 MG; Start 09/09/16 at 21:00 Gentamicin Sulfate (Gentamicin Iv Per Pharmacy) GENTAMICIN PER PHARMACY NOTE XX ; Start 09/10/16 at 16:30 Methylprednisolone Sodium Succinate (Solu-Medrol) 20 mg DAILY IV Last administered on 09/13/16 08:08; Admin Dose 20 MG; Start 09/11/16 at 09:00 Lansoprazole (Prevacid) 30 mg DAILY@06 GTB Last administered on 09/13/16 05:36 ; Admin Dose 30 MG; Start 09/12/16 at 06:00 Metoclopramide HCl (Reglan) 5 mg Q6 IV Last administered on 09/13/16 05:35; Admin Dose 5 MG; Start 09/12/16 at 18:00 JERAMIE FLORES 17, 2017 10:48
[2016-09-13] MEDS: GENTAMICIN 70 MG in SOD CHLORIDE 0.9% 50 ML IVPB SCH (11:41)
--- NOTE | 2016-09-13 13:22 | CONS ---
Date/Time of Note Date/Time of Note DATE: 09/13/16 TIME: 13:21 Assessment/Plan Assessment/Plan Additional Assessment/Plan IMPRESSION: 1. Atrial fibrillation. 2. Cardiomyopathy with ejection fraction of 40%. 3. Sepsis, Escherichia coli bacteremia. 4. End-stage renal disease. The patient is on dialysis. 5. Gastroparesis.,tolerating feeding now 6. Cerebrovascular accident. 7. Atrial fibrillation. 8. Status post pacemaker placement. 9. Abnormal LFT. dilated bile duct Plan continue present care MRCP today Consultation Date/Type/Reason Admit Date/Time Sep 04, 2016 at 16:03 Initial Consult Date Type of Consultation: ID Referring Provider: CRUZITO ARELLANO MD 24 HR Interval Summary Constitutional: no complaints Exam/Review of Systems Vital Signs Vitals Vital Signs Date Time Temp Pulse Resp B/P Pulse Ox O2 Delivery O2 Flow Rate FiO2 09/13/16 11:09 98.5 78 18 132/40 96 09/13/16 08:00 Nasal Cannula 3.0 09/11/16 13:32 36 Intake and Output 09/12/16 09/12/16 09/13/16 15:00 23:00 07:00 Intake Total 200 ml 100 ml Balance 200 ml 100 ml Exam Constitutional: alert, oriented, well developed Psych: nl mood/affect, no complaints Head: atraumatic, normocephalic Eyes: EOMI, PERRL, nl conjunctiva, nl lids, nl sclera ENMT: nl external ears & nose, nl lips & teeth, nl nasal mucosa & septum Neck: non-tender, supple Respiratory: clear to auscultation, normal air movement Cardiovascular: nl pulses, regular rate and rhythm Gastrointestinal: nl liver, spleen, non-tender, soft Musculoskeletal: nl extremities to inspection, nl gait and stance Extremities: normal pulses Neurological: RAVELER II-XII intact, nl mental status, nl speech, nl strength Skin: nl turgor, No rash or lesions Lymph: nl lymph nodes Results Result Diagram: 09/13/16 0620 09/13/16 0545 Results 24 hrs Laboratory Tests Test 09/12/16 14:10 09/13/16 05:45 09/13/16 06:20 Bedside Glucose 167 Anion Gap 21 H Blood Urea Nitrogen 104 H Calcium Level 8.7 Carbon Dioxide Level 24 Chloride Level 99 Creatinine 3.52 H Glucose Level 64 L Potassium Level 4.2 Sodium Level 140 Basophils # 0.0 Basophils % 0.1 Eosinophils # 0.0 Eosinophils % 0.1 Hematocrit 30.9 L Hemoglobin 10.0 L Lymphocytes # 1.2 Lymphocytes % 7.8 L Mean Corpuscular Hemoglobin 33.2 H Mean Corpuscular Hemoglobin Concent 32.4 Mean Corpuscular Volume 102.7 H Mean Platelet Volume 12.1 H Monocytes # 0.7 Monocytes % 4.8 Neutrophils # 12.7 H Neutrophils % 84.9 H Nucleated Red Blood Cells # 0.0 Nucleated Red Blood Cells % 0.0 Platelet Count 244 Red Blood Count 3.01 L Red Cell Distribution Width 13.9 White Blood Count 14.9 H Medications Medications Current Medications Acetaminophen (Tylenol Tab) 325 mg DAILY PRN PO PAIN AND OR ELEVATED TEMP Last administered on 09/13/16 13:00; Admin Dose 325 MG; Start 09/04/16 at 16:00 Amiodarone HCl (Cordarone) 200 mg DAILY PO Last administered on 09/12/16 09:23 ; Admin Dose 200 MG; Start 09/05/16 at 09:00 Aspirin (Aspirin) 81 mg DAILY PO Last administered on 09/13/16 08:06; Admin Dose 81 MG; Start 09/05/16 at 09:00 Naloxone HCl (Narcan) 0.4 mg Q3M PRN IV DECREASED REPIRATORY RATE; Start at 19:30 Ondansetron HCl (Zofran Inj) 4 mg Q6H PRN IV NAUSEA AND/OR VOMITING; Start 09/04 at 19:30 Nitroglycerin (Nitroglycerin (Sl Tab) 0.4 Mg) 1 tab Q5M PRN SL CHEST PAIN; Start 09/04/16 at 19:30 Acetaminophen (Tylenol Tab) 650 mg Q6H PRN PO PAIN LEVEL 1-3 OR FEVER Last administered on 09/13/16 00:45; Admin Dose 650 MG; Start 09/04/16 at 19:30 Docusate Sodium (Colace Liquid Cup) 100 mg BID GTB Last administered on 08:06; Admin Dose 100 MG; Start 09/05/16 at 09:00 Diltiazem HCl (Cardizem) 30 mg Q8 PO Last administered on 09/06/16 05:17; Admin Dose 30 MG; Start 09/05/16 at 14:00; Status Future Hold Carvedilol (Coreg) 6.25 mg BID GTB Last administered on 09/12/16 20:48; Admin Dose 6.25 MG; Start 09/07/16 at 21:00 Apixaban (Eliquis) 2.5 mg BID PO Last administered on 09/13/16 08:07; Admin Dose 2.5 MG; Start 09/09/16 at 21:00 Atorvastatin Calcium (Lipitor) 20 mg QHS PO Last administered on 09/12/16 20: 48; Admin Dose 20 MG; Start 09/09/16 at 21:00 Gentamicin Sulfate (Gentamicin Iv Per Pharmacy) GENTAMICIN PER PHARMACY NOTE XX ; Start 09/10/16 at 16:30 Methylprednisolone Sodium Succinate (Solu-Medrol) 20 mg DAILY IV Last administered on 09/13/16 08:08; Admin Dose 20 MG; Start 09/11/16 at 09:00 Lansoprazole (Prevacid) 30 mg DAILY@06 GTB Last administered on 09/13/16 05:36 ; Admin Dose 30 MG; Start 09/12/16 at 06:00 Metoclopramide HCl (Reglan) 5 mg Q6 IV Last administered on 09/13/16 11:41; Admin Dose 5 MG; Start 09/12/16 at 18:00 HERON DIALLO MD Sep 13, 2016 13:22
--- NOTE | 2016-09-13 15:38 | CONS ---
Date/Time of Note Date/Time of Note DATE: 09/13/16 TIME: 15:37 Assessment/Plan Assessment/Plan Chief Complaint/Hosp Course SUBJECTIVE: No acute events overnight. The patient is lying comfortably in bed. TF at 30 cc/hr, no fevers INDWELLINGS: Left chest Perm-A-Cath, PEG, PICC line, permanent pacemaker. ANTIMICROBIALS: Gentamicin ==> abx #9 MICROBIOLOGY: Blood culture on admission grew E. coli PHYSICAL EXAMINATION: GENERAL: This is a fragile, elderly woman who is in no distress. The patient is noncommunicative. HEENT: Head atraumatic, normocephalic. Sclerae anicteric. Buccal mucosa dry. NECK: Supple, trachea midline. CHEST: Rise symmetrical. Breath sounds diminished to bases. HEART: S1, S2. ABDOMEN: Soft. Bowel tones present. EXTREMITIES: Without cyanosis. ASSESSMENT: 1. Sepsis, status post shock. 2. Escherichia coli bacteremia, possibly line sepsis. 3. End-stage renal disease, hemodialysis dependent. 4. Dysphagia. 5. Encephalopathy, status post cerebrovascular accident. 6. Atrial fibrillation. 7. History of permanent pacemaker placement. PLAN: The patient remained unchanged. Repeat bld cx negative, continue abx, anti-aspiration measures DW staff Problems: Consultation Date/Type/Reason Admit Date/Time Sep 04, 2016 at 16:03 Type of Consultation: ID Referring Provider: CRUZITO ARELLANO MD Exam/Review of Systems Vital Signs Vitals Vital Signs Date Time Temp Pulse Resp B/P Pulse Ox O2 Delivery O2 Flow Rate FiO2 09/13/16 15:33 97.4 70 18 118/67 97 09/13/16 15:06 3.0 09/13/16 14:38 Nasal Cannula 09/11/16 13:32 36 Intake and Output 09/12/16 09/12/16 09/13/16 15:00 23:00 07:00 Intake Total 200 ml 100 ml Balance 200 ml 100 ml Results Result Diagram: 09/13/16 0620 09/13/16 0545 Results 24 hrs Laboratory Tests Test 09/13/16 05:45 09/13/16 06:20 Anion Gap 21 H Blood Urea Nitrogen 104 H Calcium Level 8.7 Carbon Dioxide Level 24 Chloride Level 99 Creatinine 3.52 H Glucose Level 64 L Potassium Level 4.2 Sodium Level 140 Basophils # 0.0 Basophils % 0.1 Eosinophils # 0.0 Eosinophils % 0.1 Hematocrit 30.9 L Hemoglobin 10.0 L Lymphocytes # 1.2 Lymphocytes % 7.8 L Mean Corpuscular Hemoglobin 33.2 H Mean Corpuscular Hemoglobin Concent 32.4 Mean Corpuscular Volume 102.7 H Mean Platelet Volume 12.1 H Monocytes # 0.7 Monocytes % 4.8 Neutrophils # 12.7 H Neutrophils % 84.9 H Nucleated Red Blood Cells # 0.0 Nucleated Red Blood Cells % 0.0 Platelet Count 244 Red Blood Count 3.01 L Red Cell Distribution Width 13.9 White Blood Count 14.9 H Medications Medications Current Medications Acetaminophen (Tylenol Tab) 325 mg DAILY PRN PO PAIN AND OR ELEVATED TEMP Last administered on 09/13/16 13:00; Admin Dose 325 MG; Start 09/04/16 at 16:00 Amiodarone HCl (Cordarone) 200 mg DAILY PO Last administered on 09/12/16 09:23 ; Admin Dose 200 MG; Start 09/05/16 at 09:00 Aspirin (Aspirin) 81 mg DAILY PO Last administered on 09/13/16 08:06; Admin Dose 81 MG; Start 09/05/16 at 09:00 Naloxone HCl (Narcan) 0.4 mg Q3M PRN IV DECREASED REPIRATORY RATE; Start at 19:30 Ondansetron HCl (Zofran Inj) 4 mg Q6H PRN IV NAUSEA AND/OR VOMITING; Start 09/04 at 19:30 Nitroglycerin (Nitroglycerin (Sl Tab) 0.4 Mg) 1 tab Q5M PRN SL CHEST PAIN; Start 09/04/16 at 19:30 Acetaminophen (Tylenol Tab) 650 mg Q6H PRN PO PAIN LEVEL 1-3 OR FEVER Last administered on 09/13/16 00:45; Admin Dose 650 MG; Start 09/04/16 at 19:30 Docusate Sodium (Colace Liquid Cup) 100 mg BID GTB Last administered on 08:06; Admin Dose 100 MG; Start 09/05/16 at 09:00 Diltiazem HCl (Cardizem) 30 mg Q8 PO Last administered on 09/06/16 05:17; Admin Dose 30 MG; Start 09/05/16 at 14:00; Status Future Hold Carvedilol (Coreg) 6.25 mg BID GTB Last administered on 09/12/16 20:48; Admin Dose 6.25 MG; Start 09/07/16 at 21:00 Apixaban (Eliquis) 2.5 mg BID PO Last administered on 09/13/16 08:07; Admin Dose 2.5 MG; Start 09/09/16 at 21:00 Atorvastatin Calcium (Lipitor) 20 mg QHS PO Last administered on 09/12/16 20: 48; Admin Dose 20 MG; Start 09/09/16 at 21:00 Gentamicin Sulfate (Gentamicin Iv Per Pharmacy) GENTAMICIN PER PHARMACY NOTE XX ; Start 09/10/16 at 16:30 Methylprednisolone Sodium Succinate (Solu-Medrol) 20 mg DAILY IV Last administered on 09/13/16 08:08; Admin Dose 20 MG; Start 09/11/16 at 09:00 Lansoprazole (Prevacid) 30 mg DAILY@06 GTB Last administered on 09/13/16 05:36 ; Admin Dose 30 MG; Start 09/12/16 at 06:00 Metoclopramide HCl (Reglan) 5 mg Q6 IV Last administered on 09/13/16 11:41; Admin Dose 5 MG; Start 09/12/16 at 18:00 TREMAINE MUNROE NP Sep 13, 2016 15:38
[2016-09-13] MEDS ORDERED: BARIUM SULF 2% 450 ML BTL (BERRY SMOOTHIE) PO ONE (17:30)
--- NOTE | 2016-09-13 17:55 | CONS ---
Date/Time of Note Date/Time of Note DATE: 09/13/16 TIME: 17:52 Assessment/Plan Assessment/Plan Chief Complaint/Hosp Course IMPRESSION: 1. Congestive heart failure exacerbation, systolic, acute on chronic. EF 40% by echo 07/16 2. Hypotension/shock on pressor support. 3. Atrial fibrillation on systemic anticoagulation with reasonable rate control at this time. 4. History of recent cerebrovascular accident with altered mental status, encephalopathy. 5. Hypoxia. 6. Coronary artery disease. 7. Dysphagia status post G-tube. 8. Hypothyroidism. 9. Dyslipidemia. 10.PPM Recc: -Tele -HD for volume removal -Continue current BB/ACEI -Continue amio for now/asa/apixaban -Follow MS closely -Dose digoxin Problems: Consultation Date/Type/Reason Admit Date/Time Sep 04, 2016 at 16:03 Initial Consult Date 09/05/2016 Type of Consultation: Cardiology Reason for Consultation AF/CHF Referring Provider: CRUZITO ARELLANO MD Exam/Review of Systems Vital Signs Vitals Vital Signs Date Time Temp Pulse Resp B/P Pulse Ox O2 Delivery O2 Flow Rate FiO2 09/13/16 16:30 77 09/13/16 15:33 97.4 18 118/67 97 09/13/16 15:06 3.0 09/13/16 14:38 Nasal Cannula 09/11/16 13:32 36 Intake and Output 09/12/16 09/12/16 09/13/16 15:00 23:00 07:00 Intake Total 200 ml 100 ml Balance 200 ml 100 ml Exam Review of Systems: CONSTITUTIONAL: No fevers, chills. PULMONARY: No sob CARDIOVASCULAR: No chest pain/palpitations GASTROINTESTINAL: No nausea/vomiting. GENITOURINARY: No hematuria/dysuria. MUSCULOSKELETAL: No myagias/arthalgias. PSYCHIATRIC: The patient denies depression. NEUROLOGIC: encephalopathic Constitutional: alert Psych: no complaints Head: normocephalic ENMT: mucosa pink and moist Neck: jvd, supple Respiratory: diminished breath sounds Cardiovascular: irregular rhythm Gastrointestinal: non-tender, soft Musculoskeletal: muscle tone (normal) Extremities: edema (Trace/B) Results Result Diagram: 09/13/16 0620 09/13/16 0545 Results 24 hrs Laboratory Tests Test 09/13/16 05:45 09/13/16 06:20 Anion Gap 21 H Blood Urea Nitrogen 104 H Calcium Level 8.7 Carbon Dioxide Level 24 Chloride Level 99 Creatinine 3.52 H Glucose Level 64 L Potassium Level 4.2 Sodium Level 140 Basophils # 0.0 Basophils % 0.1 Eosinophils # 0.0 Eosinophils % 0.1 Hematocrit 30.9 L Hemoglobin 10.0 L Lymphocytes # 1.2 Lymphocytes % 7.8 L Mean Corpuscular Hemoglobin 33.2 H Mean Corpuscular Hemoglobin Concent 32.4 Mean Corpuscular Volume 102.7 H Mean Platelet Volume 12.1 H Monocytes # 0.7 Monocytes % 4.8 Neutrophils # 12.7 H Neutrophils % 84.9 H Nucleated Red Blood Cells # 0.0 Nucleated Red Blood Cells % 0.0 Platelet Count 244 Red Blood Count 3.01 L Red Cell Distribution Width 13.9 White Blood Count 14.9 H Medications Medications Current Medications Acetaminophen (Tylenol Tab) 325 mg DAILY PRN PO PAIN AND OR ELEVATED TEMP Last administered on 09/13/16 13:00; Admin Dose 325 MG; Start 09/04/16 at 16:00 Amiodarone HCl (Cordarone) 200 mg DAILY PO Last administered on 09/12/16 09:23 ; Admin Dose 200 MG; Start 09/05/16 at 09:00 Aspirin (Aspirin) 81 mg DAILY PO Last administered on 09/13/16 08:06; Admin Dose 81 MG; Start 09/05/16 at 09:00 Naloxone HCl (Narcan) 0.4 mg Q3M PRN IV DECREASED REPIRATORY RATE; Start at 19:30 Ondansetron HCl (Zofran Inj) 4 mg Q6H PRN IV NAUSEA AND/OR VOMITING; Start 09/04 at 19:30 Nitroglycerin (Nitroglycerin (Sl Tab) 0.4 Mg) 1 tab Q5M PRN SL CHEST PAIN; Start 09/04/16 at 19:30 Acetaminophen (Tylenol Tab) 650 mg Q6H PRN PO PAIN LEVEL 1-3 OR FEVER Last administered on 09/13/16 00:45; Admin Dose 650 MG; Start 09/04/16 at 19:30 Docusate Sodium (Colace Liquid Cup) 100 mg BID GTB Last administered on 08:06; Admin Dose 100 MG; Start 09/05/16 at 09:00 Diltiazem HCl (Cardizem) 30 mg Q8 PO Last administered on 09/06/16 05:17; Admin Dose 30 MG; Start 09/05/16 at 14:00; Status Future Hold Carvedilol (Coreg) 6.25 mg BID GTB Last administered on 09/12/16 20:48; Admin Dose 6.25 MG; Start 09/07/16 at 21:00 Apixaban (Eliquis) 2.5 mg BID PO Last administered on 09/13/16 08:07; Admin Dose 2.5 MG; Start 09/09/16 at 21:00 Atorvastatin Calcium (Lipitor) 20 mg QHS PO Last administered on 09/12/16 20: 48; Admin Dose 20 MG; Start 09/09/16 at 21:00 Gentamicin Sulfate (Gentamicin Iv Per Pharmacy) GENTAMICIN PER PHARMACY NOTE XX ; Start 09/10/16 at 16:30 Methylprednisolone Sodium Succinate (Solu-Medrol) 20 mg DAILY IV Last administered on 09/13/16 08:08; Admin Dose 20 MG; Start 09/11/16 at 09:00 Lansoprazole (Prevacid) 30 mg DAILY@06 GTB Last administered on 09/13/16 05:36 ; Admin Dose 30 MG; Start 09/12/16 at 06:00 Metoclopramide HCl (Reglan) 5 mg Q6 IV Last administered on 09/13/16 17:02; Admin Dose 5 MG; Start 09/12/16 at 18:00 SASKIA WHITE 17, 2017 17:54
[2016-09-13] MEDS ORDERED: DIGOXIN 500 MCG INJ IV ONE (18:00)
[2016-09-13] MEDS: ATORVASTATIN 20 MG TAB PO SCH (20:16)
[2016-09-14] VITALS (12 sets, daily range): BP systolic 101–138; BP diastolic 53–71; PULSE 70–80; RESP 18–20
[2016-09-14] MEDS: ACETYLCYSTEINE 20% 4 ML VIAL NEB SCH ×4 (02:56→20:21)
[2016-09-14] MEDS: ALBUTEROL/IPRATROPIUM (NEB) 3 ML AMP NEB PRN ×3 (02:56→20:21)
[2016-09-14] MEDS: METOCLOPRAMIDE 10 MG INJ IV SCH ×3 (06:08→17:09)
[2016-09-14] MEDS: LEVOTHYROXINE 150 MCG TAB PO SCH (06:08)
[2016-09-14] MEDS: LANSOPRAZOLE 30 MG CAP GTB SCH (06:08)
[2016-09-14] MEDS: ASPIRIN 81 MG TAB PO SCH (08:31)
[2016-09-14] MEDS: DOCUSATE SODIUM 10 MG/ML (10ML CUP) GTB SCH ×2 (08:32→20:14)
[2016-09-14] MEDS: AMIODARONE 200 MG TAB PO SCH (08:32)
[2016-09-14] MEDS: APIXABAN 5 MG TABLET PO SCH ×2 (08:32→20:14)
[2016-09-14] MEDS: METHYLPREDNISOLONE 40 MG INJ IV SCH (08:32)
--- NOTE | 2016-09-14 09:21 | RADRPT ---
PROCEDURE: CT abdomen and pelvis without contrast. CLINICAL INDICATION: Obstructive uropathy TECHNIQUE: CT scan of the abdomen and pelvis without contrast was performed and is reconstructed a t 2.5 mm contiguous axial intervals from the dome of the diaphragm to the inferior pubic rami.. The patient was scanned without intravenous contrast. Sagittal and coronal reformatted images were obt ained from the axial source images. The calculated radiation dose measures 1128 mGy centimeters. The CTDI measures 22 mGy. COMPARISON: CT abdomen pelvis April 26, 2015 FINDINGS: There is plate-like atelectasis at the lung bases. Calcified granulomas seen in the right lower lob e. No alveolar infiltrate is seen. There is no effusion. Pacemaker wires are seen in the heart. There is cardiomegaly. The liver is of normal size, contour and attenuation with no mass or ductal dilatation. There are ga llstones. No splenic, adrenal or pancreatic abnormalities present. Kidneys are of normal size and contour. No hydronephrosis, calculus or masses seen. Ureters are o f normal course and caliber with no stone. No bladder mass or stone is present. Atrophic postmenopa usal uterus is normal. No adnexal mass is seen. There is no aneurysm. No adenopathy is present. No bowel mass or obstruction is present. Percutaneous gastrostomy tube is seen in the lumen of the stomach. There is diverticulosis. Retained barium is present in the sigmoid and rectum. The append ix is normal . no phlegmon, ascites or pneumoperitoneum is visualized. Postsurgical changes are noted in the lumbar spine. IMPRESSION: No evidence of urolithiasis, obstructive uropathy, diverticulitis or appendicitis. Diverticulosis. Bibasilar atelectasis. Cardiomegaly. .Ricardo Weaver MD, MD Date Time Electronically viewed and signed by .Ricardo Weaver MD, MD on 09/14/2016 09:21 .A/
--- NOTE | 2016-09-14 11:02 | PN ---
Date/Time of Note Date/Time of Note DATE: 09/14/16 TIME: 10:57 Assessment/Plan VTE Prophylaxis VTE Prophylaxis Intervention: SCD's Lines/Catheters IV Catheter Type (from Nrs): Central Line Central line still needed: Yes Urinary Cath still in place: No Assessment/Plan Chief Complaint/Hosp Course 1. Sepsis. 2. Lung congestion,l better 3. Possible underlying pneumonia. 4. Underlying bronchitis. 5. Endstage renal disease. 6. Atrial fibrillation. 7. Atherosclerotic heart disease. 8. Dyslipidemia. 9. G-tube placement.inc gastric residual 10 e coli sepsis 11. HD tomorrow Problems: Assessment/Plan 1. HD tomorrow 2, Continue A/b 3. Continue GT feeding Subjective 24 Hr Interval Summary Constitutional: no complaints Eyes: no complaints ENT: no complaints Respiratory: no complaints Cardiovascular: no complaints Gastrointestinal: pain Genitourinary: no complaints Exam/Review of Systems Vital Signs Vitals Vital Signs Date Time Temp Pulse Resp B/P Pulse Ox O2 Delivery O2 Flow Rate FiO2 09/14/16 09:57 80 20 99 Nasal Cannula 3.0 09/14/16 08:03 97.4 122/55 09/11/16 13:32 36 Intake and Output 09/13/16 09/13/16 09/14/16 15:00 23:00 07:00 Intake Total 400 ml 361 ml 310 ml Output Total 1400 ml Balance -1000 ml 361 ml 310 ml Exam Constitutional: alert, oriented Psych: no complaints Head: normocephalic Eyes: nl conjunctiva ENMT: nl external ears & nose Neck: supple Respiratory: diminished breath sounds Cardiovascular: irregular rhythm Gastrointestinal: other (GT ), soft Musculoskeletal: muscle weakness Extremities: normal pulses Results Result Diagram: 09/13/16 0620 09/13/16 0545 Results 24 hrs Laboratory Tests Test 09/13/16 16:30 Stool Occult Blood POSITIVE Medications Medications Current Medications Acetaminophen (Tylenol Tab) 325 mg DAILY PRN PO PAIN AND OR ELEVATED TEMP Last administered on 09/13/16 13:00; Admin Dose 325 MG; Start 09/04/16 at 16:00 Amiodarone HCl (Cordarone) 200 mg DAILY PO Last administered on 09/14/16 08:32 ; Admin Dose 200 MG; Start 09/05/16 at 09:00 Aspirin (Aspirin) 81 mg DAILY PO Last administered on 09/14/16 08:31; Admin Dose 81 MG; Start 09/05/16 at 09:00 Naloxone HCl (Narcan) 0.4 mg Q3M PRN IV DECREASED REPIRATORY RATE; Start at 19:30 Ondansetron HCl (Zofran Inj) 4 mg Q6H PRN IV NAUSEA AND/OR VOMITING; Start 09/04 at 19:30 Nitroglycerin (Nitroglycerin (Sl Tab) 0.4 Mg) 1 tab Q5M PRN SL CHEST PAIN; Start 09/04/16 at 19:30 Acetaminophen (Tylenol Tab) 650 mg Q6H PRN PO PAIN LEVEL 1-3 OR FEVER Last administered on 09/13/16 00:45; Admin Dose 650 MG; Start 09/04/16 at 19:30 Docusate Sodium (Colace Liquid Cup) 100 mg BID GTB Last administered on 08:32; Admin Dose 100 MG; Start 09/05/16 at 09:00 Diltiazem HCl (Cardizem) 30 mg Q8 PO Last administered on 09/06/16 05:17; Admin Dose 30 MG; Start 09/05/16 at 14:00; Status Future Hold Carvedilol (Coreg) 6.25 mg BID GTB Last administered on 09/14/16 08:32; Admin Dose 6.25 MG; Start 09/07/16 at 21:00 Apixaban (Eliquis) 2.5 mg BID PO Last administered on 09/14/16 08:32; Admin Dose 2.5 MG; Start 09/09/16 at 21:00 Atorvastatin Calcium (Lipitor) 20 mg QHS PO Last administered on 09/13/16 20: 16; Admin Dose 20 MG; Start 09/09/16 at 21:00 Gentamicin Sulfate (Gentamicin Iv Per Pharmacy) GENTAMICIN PER PHARMACY NOTE XX ; Start 09/10/16 at 16:30 Methylprednisolone Sodium Succinate (Solu-Medrol) 20 mg DAILY IV Last administered on 09/14/16 08:32; Admin Dose 20 MG; Start 09/11/16 at 09:00 Lansoprazole (Prevacid) 30 mg DAILY@06 GTB Last administered on 09/14/16 06:08 ; Admin Dose 30 MG; Start 09/12/16 at 06:00 Metoclopramide HCl (Reglan) 5 mg Q6 IV Last administered on 09/14/16t 06:08; Admin Dose 5 MG; Start 09/12/16 at 18:00 JERAMIE FLORES 18, 2017 11:01
--- NOTE | 2016-09-14 14:09 | CONS ---
Date/Time of Note Date/Time of Note DATE: 09/14/16 TIME: 14:07 Assessment/Plan Assessment/Plan Additional Assessment/Plan 1. Congestive heart failure exacerbation, systolic, acute on chronic. EF 40% by echo 07/16 - stable fluid satus - remove fluid with HD - BETTER NOW 2. Hypotension/shock on pressor support- BP better now (pt DNR) 3. Atrial fibrillation on systemic anticoagulation with reasonable rate control at this time- pacer in place - chronic a. fib - PACED 4. History of recent cerebrovascular accident with altered mental status, encephalopathy- unchanged. 5. Hypoxia. 6. Coronary artery disease. 7. Dysphagia status post G-tube- Rx as needed 8. Hypothyroidism. 9. Dyslipidemia. 10.PPM -VVI - good function Consultation Date/Type/Reason Admit Date/Time Sep 04, 2016 at 16:03 Type of Consultation: Cardiology Referring Provider: CRUZITO ARELLANO MD 24 HR Interval Summary Free Text/Dictation NO acute events - better fluid status - paced as need on tele ROS: No fever, no chills, no nausea, no vomiting, no diarrhea/constipation No recent weight changes No chest pain, no PND, no orthopnea No dizziness, blurred vision No thirst, no heat or cold intolerance Exam/Review of Systems Vital Signs Vitals Vital Signs Date Time Temp Pulse Resp B/P Pulse Ox O2 Delivery O2 Flow Rate FiO2 09/14/16 12:08 70 09/14/16 11:41 98.1 18 115/63 99 09/14/16 09:57 Nasal Cannula 3.0 09/11/16 13:32 36 Intake and Output 09/13/16 09/13/16 09/14/16 15:00 23:00 07:00 Intake Total 400 ml 361 ml 310 ml Output Total 1400 ml Balance -1000 ml 361 ml 310 ml Exam General: WN/WD/NAD, AOx 0 HEENT: Unicetric/atraumatic/EOMI (does not follow commands) NECK: JVD elevated, no thyromegaly Lymph: no lymphadenopathy HEART: regular with no S3, II/ systolic murmur at apex.pacer LUNGS: Coarse sounds ABD: soft, NT, ND, +BS : Intact Neuro: non focal SKIN: chronic changes EXT: trace edema Results Result Diagram: 09/13/16 0620 09/13/16 0545 Results 24 hrs Laboratory Tests Test 09/13/16 16:30 Stool Occult Blood POSITIVE Medications Medications Current Medications Acetaminophen (Tylenol Tab) 325 mg DAILY PRN PO PAIN AND OR ELEVATED TEMP Last administered on 09/13/16 13:00; Admin Dose 325 MG; Start 09/04/16 at 16:00 Amiodarone HCl (Cordarone) 200 mg DAILY PO Last administered on 09/14/16 08:32 ; Admin Dose 200 MG; Start 09/05/16 at 09:00 Aspirin (Aspirin) 81 mg DAILY PO Last administered on 09/14/16 08:31; Admin Dose 81 MG; Start 09/05/16 at 09:00 Naloxone HCl (Narcan) 0.4 mg Q3M PRN IV DECREASED REPIRATORY RATE; Start at 19:30 Ondansetron HCl (Zofran Inj) 4 mg Q6H PRN IV NAUSEA AND/OR VOMITING; Start 09/04 at 19:30 Nitroglycerin (Nitroglycerin (Sl Tab) 0.4 Mg) 1 tab Q5M PRN SL CHEST PAIN; Start 09/04/16 at 19:30 Acetaminophen (Tylenol Tab) 650 mg Q6H PRN PO PAIN LEVEL 1-3 OR FEVER Last administered on 09/13/16 00:45; Admin Dose 650 MG; Start 09/04/16 at 19:30 Docusate Sodium (Colace Liquid Cup) 100 mg BID GTB Last administered on 08:32; Admin Dose 100 MG; Start 09/05/16 at 09:00 Diltiazem HCl (Cardizem) 30 mg Q8 PO Last administered on 09/06/16 05:17; Admin Dose 30 MG; Start 09/05/16 at 14:00; Status Future Hold Carvedilol (Coreg) 6.25 mg BID GTB Last administered on 09/14/16 08:32; Admin Dose 6.25 MG; Start 09/07/16 at 21:00 Apixaban (Eliquis) 2.5 mg BID PO Last administered on 09/14/16 08:32; Admin Dose 2.5 MG; Start 09/09/16 at 21:00 Atorvastatin Calcium (Lipitor) 20 mg QHS PO Last administered on 09/13/16 20: 16; Admin Dose 20 MG; Start 09/09/16 at 21:00 Gentamicin Sulfate (Gentamicin Iv Per Pharmacy) GENTAMICIN PER PHARMACY NOTE XX ; Start 09/10/16 at 16:30 Methylprednisolone Sodium Succinate (Solu-Medrol) 20 mg DAILY IV Last administered on 09/14/16 08:32; Admin Dose 20 MG; Start 09/11/16 at 09:00 Lansoprazole (Prevacid) 30 mg DAILY@06 GTB Last administered on 09/14/16 06:08 ; Admin Dose 30 MG; Start 09/12/16 at 06:00 Metoclopramide HCl (Reglan) 5 mg Q6 IV Last administered on 09/14/16 11:55; Admin Dose 5 MG; Start 09/12/16 at 18:00 BURT BRITT MD Sep 14, 2016 14:09
[2016-09-14] MEDS: COLLAGENASE 30 GM TUBE TOP PRN (15:54)
--- NOTE | 2016-09-14 17:09 | CONS ---
Date/Time of Note Date/Time of Note DATE: 09/14/16 TIME: 17:08 Assessment/Plan Assessment/Plan Chief Complaint/Hosp Course SUBJECTIVE: No acute events overnight. The patient is lying comfortably in bed , no fevers INDWELLINGS: Left chest Perm-A-Cath, PEG, PICC line, permanent pacemaker. ANTIMICROBIALS: Gentamicin ==> abx #9 MICROBIOLOGY: Blood culture on admission grew E. coli PHYSICAL EXAMINATION: GENERAL: This is a fragile, elderly woman who is in no distress. The patient is noncommunicative. HEENT: Head atraumatic, normocephalic. Sclerae anicteric. Buccal mucosa dry. NECK: Supple, trachea midline. CHEST: Rise symmetrical. Breath sounds diminished to bases. HEART: S1, S2. ABDOMEN: Soft. Bowel tones present. EXTREMITIES: Without cyanosis. ASSESSMENT: 1. Sepsis, status post shock. 2. Escherichia coli bacteremia, possibly line sepsis. 3. End-stage renal disease, hemodialysis dependent. 4. Dysphagia. 5. Encephalopathy, status post cerebrovascular accident. 6. Atrial fibrillation. 7. History of permanent pacemaker placement. PLAN: Remained unchanged. Repeat bld cx negative, continue abx, anti-aspiration measures DW staff Problems: Consultation Date/Type/Reason Admit Date/Time Sep 04, 2016 at 16:03 Type of Consultation: ID Referring Provider: CRUZITO ARELLANO MD Exam/Review of Systems Vital Signs Vitals Vital Signs Date Time Temp Pulse Resp B/P Pulse Ox O2 Delivery O2 Flow Rate FiO2 09/14/16 16:06 72 09/14/16 15:25 97.3 18 105/56 98 09/14/16 14:41 3.0 09/14/16 14:38 Nasal Cannula 09/11/16 13:32 36 Intake and Output 09/13/16 09/13/16 09/14/16 15:00 23:00 07:00 Intake Total 400 ml 361 ml 310 ml Output Total 1400 ml Balance -1000 ml 361 ml 310 ml Results Result Diagram: 09/13/16 0620 09/13/16 0545 Medications Medications Current Medications Acetaminophen (Tylenol Tab) 325 mg DAILY PRN PO PAIN AND OR ELEVATED TEMP Last administered on 09/13/16t 13:00; Admin Dose 325 MG; Start 09/04/16 at 16:00 Amiodarone HCl (Cordarone) 200 mg DAILY PO Last administered on 09/14/16 08:32 ; Admin Dose 200 MG; Start 09/05/16 at 09:00 Aspirin (Aspirin) 81 mg DAILY PO Last administered on 09/14/16 08:31; Admin Dose 81 MG; Start 09/05/16 at 09:00 Naloxone HCl (Narcan) 0.4 mg Q3M PRN IV DECREASED REPIRATORY RATE; Start at 19:30 Ondansetron HCl (Zofran Inj) 4 mg Q6H PRN IV NAUSEA AND/OR VOMITING; Start 09/04 at 19:30 Nitroglycerin (Nitroglycerin (Sl Tab) 0.4 Mg) 1 tab Q5M PRN SL CHEST PAIN; Start 09/04/16 at 19:30 Acetaminophen (Tylenol Tab) 650 mg Q6H PRN PO PAIN LEVEL 1-3 OR FEVER Last administered on 09/13/16 00:45; Admin Dose 650 MG; Start 09/04/16 at 19:30 Docusate Sodium (Colace Liquid Cup) 100 mg BID GTB Last administered on 08:32; Admin Dose 100 MG; Start 09/05/16 at 09:00 Diltiazem HCl (Cardizem) 30 mg Q8 PO Last administered on 09/06/16 05:17; Admin Dose 30 MG; Start 09/05/16 at 14:00; Status Future Hold Carvedilol (Coreg) 6.25 mg BID GTB Last administered on 09/14/16 08:32; Admin Dose 6.25 MG; Start 09/07/16 at 21:00 Apixaban (Eliquis) 2.5 mg BID PO Last administered on 09/14/16 08:32; Admin Dose 2.5 MG; Start 09/09/16 at 21:00 Atorvastatin Calcium (Lipitor) 20 mg QHS PO Last administered on 09/13/16 20: 16; Admin Dose 20 MG; Start 09/09/16 at 21:00 Gentamicin Sulfate (Gentamicin Iv Per Pharmacy) GENTAMICIN PER PHARMACY NOTE XX ; Start 09/10/16 at 16:30 Methylprednisolone Sodium Succinate (Solu-Medrol) 20 mg DAILY IV Last administered on 09/14/16 08:32; Admin Dose 20 MG; Start 09/11/16 at 09:00 Lansoprazole (Prevacid) 30 mg DAILY@06 GTB Last administered on 09/14/16 06:08 ; Admin Dose 30 MG; Start 09/12/16 at 06:00 Metoclopramide HCl (Reglan) 5 mg Q6 IV Last administered on 09/14/16 11:55; Admin Dose 5 MG; Start 09/12/16 at 18:00 TREMAINE MUNROE NP Sep 14, 2016 17:09
[2016-09-14] MEDS: ATORVASTATIN 20 MG TAB PO SCH (20:13)
[2016-09-15] VITALS (22 sets, daily range): BP systolic 76–145; BP diastolic 40–72; PULSE 62–78; RESP 18–20
[2016-09-15] MEDS: ACETAMINOPHEN 325 MG TAB PO PRN (00:03)
[2016-09-15] MEDS: METOCLOPRAMIDE 10 MG INJ IV SCH ×5 (00:20→23:58)
[2016-09-15] MEDS: ALBUTEROL/IPRATROPIUM (NEB) 3 ML AMP NEB PRN ×3 (01:48→13:17)
[2016-09-15] MEDS: ACETYLCYSTEINE 20% 4 ML VIAL NEB SCH ×3 (01:48→13:17)
[2016-09-15 06:01] LABS: ADD SCAN DIFF NO
[2016-09-15 06:10] LABS: BASOPHILS % 0.1 % (0.0-2.0); EOSINOPHILS # 0.1 10^3/ul (0.0-0.5); EOSINOPHILS % 0.5 % (0.0-7.0); HEMOGLOBIN 9.9 g/dl (12.0-16.0); LYMPHOCYTES # 1.2 10^3/ul (0.8-2.9); LYMPHOCYTES % 6.6 % (15.0-51.0); MEAN CORPUSCULAR HEMOGLOBIN 34.4 pg (29.0-33.0); MEAN CORPUSCULAR VOLUME 104.2 fl (82.0-101.0); MEAN PLATELET VOLUME 12.1 fl (7.4-10.4); MONOCYTES % 5.4 % (0.0-11.0); NEUTROPHILS % 86.1 % (39.0-77.0); PLATELET COUNT 288 10^3/UL (140-415); RED BLOOD COUNT 2.88 10^6/ul (4.20-5.40); WHITE BLOOD COUNT 17.5 10^3/ul (4.8-10.8)
[2016-09-15 06:32] LABS: ALBUMIN 2.7 g/dl (3.3-4.9)
[2016-09-15 06:34] LABS: CREATININE 3.34 mg/dl (0.44-1.00)
[2016-09-15 06:35] LABS: ALBUMIN/GLOBULIN RATIO 0.93; TOTAL PROTEIN 5.6 g/dl (6.1-8.1)
[2016-09-15 06:36] LABS: CALCIUM 8.8 mg/dl (8.4-10.2)
[2016-09-15] MEDS: LANSOPRAZOLE 30 MG CAP GTB SCH (06:37)
[2016-09-15] MEDS: COLLAGENASE 30 GM TUBE TOP PRN (06:43)
[2016-09-15] MEDS: LEVOTHYROXINE 150 MCG TAB PO SCH (07:17)
[2016-09-15] MEDS: AMIODARONE 200 MG TAB PO SCH (08:55)
[2016-09-15] MEDS: APIXABAN 5 MG TABLET PO SCH ×2 (08:56→21:23)
[2016-09-15] MEDS: DOCUSATE SODIUM 10 MG/ML (10ML CUP) GTB SCH ×2 (08:56→21:22)
[2016-09-15] MEDS: METHYLPREDNISOLONE 40 MG INJ IV SCH (08:56)
[2016-09-15] MEDS: ASPIRIN 81 MG TAB PO SCH (08:56)
--- NOTE | 2016-09-15 15:33 | PN ---
Date/Time of Note Date/Time of Note DATE: 09/15/16 TIME: 15:31 Assessment/Plan VTE Prophylaxis VTE Prophylaxis Intervention: other Lines/Catheters IV Catheter Type (from Nrsg): Central Line Central line still needed: Yes Urinary Cath still in place: No Reason Cath still needed: other (indicate) Assessment/Plan Chief Complaint/Hosp Course IMPRESSION: 1. Sepsis. 2. Lung congestion.better 3. Possible underlying pneumonia. 4. Underlying bronchitis. 5. Endstage renal disease. 6. Atrial fibrillation. 7. Atherosclerotic heart disease. 8. Dyslipidemia. 9. G-tube placement.inc gastric residual 10 e coli sepsis 11 high gastric residuals will need j tube plan antibiotic hd per id dec steroid gi consullt called Problems: Subjective 24 Hr Interval Summary Subjective hx not possible: other (d/w family about j tube they will decide) Exam/Review of Systems Vital Signs Vitals Vital Signs Date Time Temp Pulse Resp B/P Pulse Ox O2 Delivery O2 Flow Rate FiO2 09/15/16 13:17 80 20 99 Nasal Cannula 3.0 09/15/16 11:33 97.8 120/68 09/11/16 13:32 36 Intake and Output 09/14/16 09/14/16 09/15/16 15:00 23:00 07:00 Intake Total 520 ml 50 ml Balance 520 ml 50 ml Exam Neck: supple Respiratory: clear to auscultation Cardiovascular: regular rate and rhythm Gastrointestinal: soft Extremities: edema (+) Results Result Diagram: 09/15/16 0515 09/15/16 0515 Results 24 hrs Laboratory Tests Test 09/15/16 05:15 Alanine Aminotransferase (ALT/SGPT) 39 Albumin 2.7 L Albumin/Globulin Ratio 0.93 Alkaline Phosphatase 232 H Anion Gap 22 H Aspartate Amino Transf (AST/SGOT) 22 Basophils # 0.0 Basophils % 0.1 Blood Urea Nitrogen 94 H Calcium Level 8.8 Carbon Dioxide Level 25 Chloride Level 98 Creatinine 3.34 H Direct Bilirubin 0.00 Eosinophils # 0.1 Eosinophils % 0.5 Globulin 2.90 Glucose Level 81 Hematocrit 30.0 L Hemoglobin 9.9 L Indirect Bilirubin 0.0 Lymphocytes # 1.2 Lymphocytes % 6.6 L Mean Corpuscular Hemoglobin 34.4 H Mean Corpuscular Hemoglobin Concent 33.0 Mean Corpuscular Volume 104.2 H Mean Platelet Volume 12.1 H Monocytes # 1.0 H Monocytes % 5.4 Neutrophils # 15.0 H Neutrophils % 86.1 H Nucleated Red Blood Cells # 0.0 Nucleated Red Blood Cells % 0.0 Platelet Count 288 Potassium Level 4.0 Red Blood Count 2.88 L Red Cell Distribution Width 14.0 Sodium Level 141 Total Bilirubin 0.0 L Total Protein 5.6 L White Blood Count 17.5 H Medications Medications Current Medications Acetaminophen (Tylenol Tab) 325 mg DAILY PRN PO PAIN AND OR ELEVATED TEMP Last administered on 09/13/16 13:00; Admin Dose 325 MG; Start 09/04/16 at 16:00 Amiodarone HCl (Cordarone) 200 mg DAILY PO Last administered on 09/14/16 08:32 ; Admin Dose 200 MG; Start 09/05/16 at 09:00 Aspirin (Aspirin) 81 mg DAILY PO Last administered on 09/15/16 08:56; Admin Dose 81 MG; Start 09/05/16 at 09:00 Naloxone HCl (Narcan) 0.4 mg Q3M PRN IV DECREASED REPIRATORY RATE; Start at 19:30 Ondansetron HCl (Zofran Inj) 4 mg Q6H PRN IV NAUSEA AND/OR VOMITING; Start 09/04 at 19:30 Nitroglycerin (Nitroglycerin (Sl Tab) 0.4 Mg) 1 tab Q5M PRN SL CHEST PAIN; Start 09/04/16 at 19:30 Acetaminophen (Tylenol Tab) 650 mg Q6H PRN PO PAIN LEVEL 1-3 OR FEVER Last administered on 09/15/16 00:03; Admin Dose 650 MG; Start 09/04/16 at 19:30 Docusate Sodium (Colace Liquid Cup) 100 mg BID GTB Last administered on 08:56; Admin Dose 100 MG; Start 09/05/16 at 09:00 Diltiazem HCl (Cardizem) 30 mg Q8 PO Last administered on 09/06/16 05:17; Admin Dose 30 MG; Start 09/05/16 at 14:00; Status Future Hold Carvedilol (Coreg) 6.25 mg BID GTB Last administered on 09/14/16 08:32; Admin Dose 6.25 MG; Start 09/07/16 at 21:00 Apixaban (Eliquis) 2.5 mg BID PO Last administered on 09/15/16 08:56; Admin Dose 2.5 MG; Start 09/09/16 at 21:00 Atorvastatin Calcium (Lipitor) 20 mg QHS PO Last administered on 09/14/16 20: 13; Admin Dose 20 MG; Start 09/09/16 at 21:00 Gentamicin Sulfate (Gentamicin Iv Per Pharmacy) GENTAMICIN PER PHARMACY NOTE XX ; Start 09/10/16 at 16:30 Lansoprazole (Prevacid) 30 mg DAILY@06 GTB Last administered on 09/15/16 06:37 ; Admin Dose 30 MG; Start 09/12/16 at 06:00 Metoclopramide HCl (Reglan) 5 mg Q6 IV Last administered on 09/15/16 12:03; Admin Dose 5 MG; Start 09/12/16 at 18:00 CRUZITO ARELLANO MD Sep 15, 2016 15:33
--- NOTE | 2016-09-15 15:54 | CONS ---
Date/Time of Note Date/Time of Note DATE: 09/15/16 TIME: 15:53 Assessment/Plan Assessment/Plan Chief Complaint/Hosp Course SUBJECTIVE: No acute events overnight. The patient is lying comfortably in bed , no fevers INDWELLINGS: Left chest Perm-A-Cath, PEG, PICC line, permanent pacemaker. ANTIMICROBIALS: Gentamicin ==> abx #10 MICROBIOLOGY: Blood culture on admission grew E. coli PHYSICAL EXAMINATION: GENERAL: This is a fragile, elderly woman who is in no distress. The patient is noncommunicative. HEENT: Head atraumatic, normocephalic. Sclerae anicteric. Buccal mucosa dry. NECK: Supple, trachea midline. CHEST: Rise symmetrical. Breath sounds diminished to bases. HEART: S1, S2. ABDOMEN: Soft. Bowel tones present. EXTREMITIES: Without cyanosis. ASSESSMENT: 1. Sepsis, status post shock. 2. Escherichia coli bacteremia, possibly line sepsis. 3. End-stage renal disease, hemodialysis dependent. 4. Dysphagia. 5. Encephalopathy, status post cerebrovascular accident. 6. Atrial fibrillation. 7. History of permanent pacemaker placement. PLAN: Remained unchanged. Repeat bld cx negative, continue abx, anti-aspiration measures, steroids taper DW staff Problems: Consultation Date/Type/Reason Admit Date/Time Sep 04, 2016 at 16:03 Type of Consultation: ID Referring Provider: CRUZITO ARELLANO MD Exam/Review of Systems Vital Signs Vitals Vital Signs Date Time Temp Pulse Resp B/P Pulse Ox O2 Delivery O2 Flow Rate FiO2 09/15/16 13:17 80 20 99 Nasal Cannula 3.0 09/15/16 11:33 97.8 120/68 09/11/16 13:32 36 Intake and Output 09/14/16 09/14/16 09/15/16 15:00 23:00 07:00 Intake Total 520 ml 50 ml Balance 520 ml 50 ml Results Result Diagram: 09/15/16 0515 09/15/16 0515 Results 24 hrs Laboratory Tests Test 09/15/16 05:15 Alanine Aminotransferase (ALT/SGPT) 39 Albumin 2.7 L Albumin/Globulin Ratio 0.93 Alkaline Phosphatase 232 H Anion Gap 22 H Aspartate Amino Transf (AST/SGOT) 22 Basophils # 0.0 Basophils % 0.1 Blood Urea Nitrogen 94 H Calcium Level 8.8 Carbon Dioxide Level 25 Chloride Level 98 Creatinine 3.34 H Direct Bilirubin 0.00 Eosinophils # 0.1 Eosinophils % 0.5 Globulin 2.90 Glucose Level 81 Hematocrit 30.0 L Hemoglobin 9.9 L Indirect Bilirubin 0.0 Lymphocytes # 1.2 Lymphocytes % 6.6 L Mean Corpuscular Hemoglobin 34.4 H Mean Corpuscular Hemoglobin Concent 33.0 Mean Corpuscular Volume 104.2 H Mean Platelet Volume 12.1 H Monocytes # 1.0 H Monocytes % 5.4 Neutrophils # 15.0 H Neutrophils % 86.1 H Nucleated Red Blood Cells # 0.0 Nucleated Red Blood Cells % 0.0 Platelet Count 288 Potassium Level 4.0 Red Blood Count 2.88 L Red Cell Distribution Width 14.0 Sodium Level 141 Total Bilirubin 0.0 L Total Protein 5.6 L White Blood Count 17.5 H Medications Medications Current Medications Acetaminophen (Tylenol Tab) 325 mg DAILY PRN PO PAIN AND OR ELEVATED TEMP Last administered on 09/13/16 13:00; Admin Dose 325 MG; Start 09/04/16 at 16:00 Amiodarone HCl (Cordarone) 200 mg DAILY PO Last administered on 09/14/16 08:32 ; Admin Dose 200 MG; Start 09/05/16 at 09:00 Aspirin (Aspirin) 81 mg DAILY PO Last administered on 09/15/16 08:56; Admin Dose 81 MG; Start 09/05/16 at 09:00 Naloxone HCl (Narcan) 0.4 mg Q3M PRN IV DECREASED REPIRATORY RATE; Start at 19:30 Ondansetron HCl (Zofran Inj) 4 mg Q6H PRN IV NAUSEA AND/OR VOMITING; Start 09/04 at 19:30 Nitroglycerin (Nitroglycerin (Sl Tab) 0.4 Mg) 1 tab Q5M PRN SL CHEST PAIN; Start 09/04/16 at 19:30 Acetaminophen (Tylenol Tab) 650 mg Q6H PRN PO PAIN LEVEL 1-3 OR FEVER Last administered on 09/15/16 00:03; Admin Dose 650 MG; Start 09/04/16 at 19:30 Docusate Sodium (Colace Liquid Cup) 100 mg BID GTB Last administered on 08:56; Admin Dose 100 MG; Start 09/05/16 at 09:00 Diltiazem HCl (Cardizem) 30 mg Q8 PO Last administered on 09/06/16 05:17; Admin Dose 30 MG; Start 09/05/16 at 14:00; Status Future Hold Carvedilol (Coreg) 6.25 mg BID GTB Last administered on 09/14/16 08:32; Admin Dose 6.25 MG; Start 09/07/16 at 21:00 Apixaban (Eliquis) 2.5 mg BID PO Last administered on 09/15/16 08:56; Admin Dose 2.5 MG; Start 09/09/16 at 21:00 Atorvastatin Calcium (Lipitor) 20 mg QHS PO Last administered on 09/14/16 20: 13; Admin Dose 20 MG; Start 09/09/16 at 21:00 Gentamicin Sulfate (Gentamicin Iv Per Pharmacy) GENTAMICIN PER PHARMACY NOTE XX ; Start 09/10/16 at 16:30 Lansoprazole (Prevacid) 30 mg DAILY@06 GTB Last administered on 09/15/16 06:37 ; Admin Dose 30 MG; Start 09/12/16 at 06:00 Metoclopramide HCl (Reglan) 5 mg Q6 IV Last administered on 09/15/16 12:03; Admin Dose 5 MG; Start 09/12/16 at 18:00 TREMAINE MUNROE NP Sep 15, 2016 15:54
--- NOTE | 2016-09-15 17:48 | CONS ---
Date/Time of Note Date/Time of Note DATE: 09/15/16 TIME: 17:46 Assessment/Plan Assessment/Plan Additional Assessment/Plan 1. Congestive heart failure exacerbation, systolic, acute on chronic. EF 40% by echo 07/16 - stable fluid satus - remove fluid with HD - BETTER NOW 2. Hypotension/shock on pressor support- BP better now (pt DNR) - BP modestly controlled 3. Atrial fibrillation on systemic anticoagulation with reasonable rate control at this time- pacer in place - chronic a. fib - PACED 4. History of recent cerebrovascular accident with altered mental status, encephalopathy- unchanged. 5. Hypoxia- stable - con't supportive care. 6. Coronary artery disease- no Cp now, no intervention planned. 7. Dysphagia status post G-tube- Rx as needed 8. Hypothyroidism. 9. Dyslipidemia. 10.PPM -VVI - good function Consultation Date/Type/Reason Admit Date/Time Sep 04, 2016 at 16:03 Type of Consultation: ID Referring Provider: CRUZITO ARELLANO MD 24 HR Interval Summary Free Text/Dictation NO acute events - BP stable - pacer with good function - no intervention planned. ROS: No fever, no chills, no nausea, no vomiting, no diarrhea/constipation No recent weight changes No chest pain, no PND, no orthopnea No dizziness, blurred vision No thirst, no heat or cold intolerance (per nurse) Exam/Review of Systems Vital Signs Vitals Vital Signs Date Time Temp Pulse Resp B/P Pulse Ox O2 Delivery O2 Flow Rate FiO2 09/15/16 17:34 62 09/15/16 16:15 14 09/15/16 16:04 98.0 131/68 97 09/15/16 13:17 Nasal Cannula 3.0 09/11/16 13:32 36 Intake and Output 09/14/16 09/14/16 09/15/16 15:00 23:00 07:00 Intake Total 520 ml 50 ml Balance 520 ml 50 ml Exam General: WN/WD/NAD, AOx 0 HEENT: Unicetric/atraumatic/EOMI (does not follow commands) NECK: JVD elevated, no thyromegaly Lymph: no lymphadenopathy HEART: regular with no S3, II/ systolic murmur at apex LUNGS: Coarse sounds ABD: soft, NT, ND, +BS : Intact Neuro: non focal SKIN: chronic changes EXT: trace edema Results Result Diagram: 09/15/16 0515 09/15/16 0515 Results 24 hrs Laboratory Tests Test 09/15/16 05:15 Alanine Aminotransferase (ALT/SGPT) 39 Albumin 2.7 L Albumin/Globulin Ratio 0.93 Alkaline Phosphatase 232 H Anion Gap 22 H Aspartate Amino Transf (AST/SGOT) 22 Basophils # 0.0 Basophils % 0.1 Blood Urea Nitrogen 94 H Calcium Level 8.8 Carbon Dioxide Level 25 Chloride Level 98 Creatinine 3.34 H Direct Bilirubin 0.00 Eosinophils # 0.1 Eosinophils % 0.5 Globulin 2.90 Glucose Level 81 Hematocrit 30.0 L Hemoglobin 9.9 L Indirect Bilirubin 0.0 Lymphocytes # 1.2 Lymphocytes % 6.6 L Mean Corpuscular Hemoglobin 34.4 H Mean Corpuscular Hemoglobin Concent 33.0 Mean Corpuscular Volume 104.2 H Mean Platelet Volume 12.1 H Monocytes # 1.0 H Monocytes % 5.4 Neutrophils # 15.0 H Neutrophils % 86.1 H Nucleated Red Blood Cells # 0.0 Nucleated Red Blood Cells % 0.0 Platelet Count 288 Potassium Level 4.0 Red Blood Count 2.88 L Red Cell Distribution Width 14.0 Sodium Level 141 Total Bilirubin 0.0 L Total Protein 5.6 L White Blood Count 17.5 H Medications Medications Current Medications Acetaminophen (Tylenol Tab) 325 mg DAILY PRN PO PAIN AND OR ELEVATED TEMP Last administered on 09/13/16 13:00; Admin Dose 325 MG; Start 09/04/16 at 16:00 Amiodarone HCl (Cordarone) 200 mg DAILY PO Last administered on 09/14/16 08:32 ; Admin Dose 200 MG; Start 09/05/16 at 09:00 Aspirin (Aspirin) 81 mg DAILY PO Last administered on 09/15/16 08:56; Admin Dose 81 MG; Start 09/05/16 at 09:00 Naloxone HCl (Narcan) 0.4 mg Q3M PRN IV DECREASED REPIRATORY RATE; Start at 19:30 Ondansetron HCl (Zofran Inj) 4 mg Q6H PRN IV NAUSEA AND/OR VOMITING; Start 09/04 at 19:30 Nitroglycerin (Nitroglycerin (Sl Tab) 0.4 Mg) 1 tab Q5M PRN SL CHEST PAIN; Start 09/04/16 at 19:30 Acetaminophen (Tylenol Tab) 650 mg Q6H PRN PO PAIN LEVEL 1-3 OR FEVER Last administered on 09/15/16 00:03; Admin Dose 650 MG; Start 09/04/16 at 19:30 Docusate Sodium (Colace Liquid Cup) 100 mg BID GTB Last administered on 08:56; Admin Dose 100 MG; Start 09/05/16 at 09:00 Diltiazem HCl (Cardizem) 30 mg Q8 PO Last administered on 09/06/16 05:17; Admin Dose 30 MG; Start 09/05/16 at 14:00; Status Future Hold Carvedilol (Coreg) 6.25 mg BID GTB Last administered on 09/14/16 08:32; Admin Dose 6.25 MG; Start 09/07/16 at 21:00 Apixaban (Eliquis) 2.5 mg BID PO Last administered on 09/15/16 08:56; Admin Dose 2.5 MG; Start 09/09/16 at 21:00 Atorvastatin Calcium (Lipitor) 20 mg QHS PO Last administered on 09/14/16 20: 13; Admin Dose 20 MG; Start 09/09/16 at 21:00 Gentamicin Sulfate (Gentamicin Iv Per Pharmacy) GENTAMICIN PER PHARMACY NOTE XX ; Start 09/10/16 at 16:30 Lansoprazole (Prevacid) 30 mg DAILY@06 GTB Last administered on 09/15/16 06:37 ; Admin Dose 30 MG; Start 09/12/16 at 06:00 Metoclopramide HCl (Reglan) 5 mg Q6 IV Last administered on 09/15/16 12:03; Admin Dose 5 MG; Start 09/12/16 at 18:00 BURT BRITT MD Sep 15, 2016 17:47
[2016-09-15] MEDS: GENTAMICIN 70 MG in SOD CHLORIDE 0.9% 50 ML IVPB SCH (18:31)
[2016-09-15] MEDS: ATORVASTATIN 20 MG TAB PO SCH (21:22)
--- NOTE | 2016-09-15 21:32 | PN ---
DATE: SUBJECTIVE: Inability to tolerate feeding. The residual is high 200 to 120 despite getting IV Regl an. OBJECTIVE: GENERAL: The patient is lethargic. ABDOMEN: Benign. CARDIOVASCULAR: No murmur. LUNGS: Clear. EXTREMITIES: No edema. CENTRAL NERVOUS SYSTEM: The patient is lethargic. IMPRESSION: 1. Status post sepsis. 2. Pneumonia. 3. Abnormal LFT. 4. Atrial fibrillation. 5. End-stage renal disease. 6. Gastroparesis. 7. Escherichia coli sepsis. PLAN: At this point, is to start the patient on erythromycin. Suggested J-tube to the family, but all the members of the family discussed with each other and decided not to have a J-tube. Hopefully erythromycin will work. Dictated By: HERON FONSECA/NTS Conf#: [id number] DID#: [id number] CC: CRUZITO ARELLANO MD; HERON DIALLO MD;*EndCC*
[2016-09-15] MEDS: ERYTHROMYCIN LACTOBIONATE 250 MG in SOD CHLORIDE 0.9% 100 ML IVPB SCH (23:58)
[2016-09-16] VITALS (11 sets, daily range): BP systolic 102–141; BP diastolic 50–75; PULSE 69–74; RESP 16–20
[2016-09-16] MEDS: METOCLOPRAMIDE 10 MG INJ IV SCH ×3 (05:06→18:52)
[2016-09-16] MEDS: ERYTHROMYCIN LACTOBIONATE 250 MG in SOD CHLORIDE 0.9% 100 ML IVPB SCH ×3 (05:06→21:10)
[2016-09-16] MEDS: LEVOTHYROXINE 150 MCG TAB PO SCH (05:06)
[2016-09-16] MEDS: LANSOPRAZOLE 30 MG CAP GTB SCH (05:06)
[2016-09-16 06:06] LABS: ADD SCAN DIFF NO
[2016-09-16 06:12] LABS: BASOPHILS % 0.1 % (0.0-2.0); EOSINOPHILS # 0.2 10^3/ul (0.0-0.5); EOSINOPHILS % 1.2 % (0.0-7.0); HEMATOCRIT 27.9 % (37.0-47.0); HEMOGLOBIN 9.3 g/dl (12.0-16.0); LYMPHOCYTES % 6.1 % (15.0-51.0); MEAN CORPUSCULAR HEMOGLOBIN 34.2 pg (29.0-33.0); MEAN CORPUSCULAR HGB CONC 33.3 g/dl (32.0-37.0); MEAN CORPUSCULAR VOLUME 102.6 fl (82.0-101.0); MEAN PLATELET VOLUME 11.3 fl (7.4-10.4); MONOCYTE # 0.9 10^3/ul (0.3-0.9); MONOCYTES % 5.8 % (0.0-11.0); NEUTROPHIL # 13.8 10^3/ul (1.6-7.5); NEUTROPHILS % 85.4 % (39.0-77.0); PLATELET COUNT 285 10^3/UL (140-415); RED BLOOD COUNT 2.72 10^6/ul (4.20-5.40); WHITE BLOOD COUNT 16.2 10^3/ul (4.8-10.8)
[2016-09-16 06:29] LABS: ALBUMIN 2.7 g/dl (3.3-4.9)
[2016-09-16 06:31] LABS: BILIRUBIN,INDIRECT 0.1 mg/dl (0-1.1); BILIRUBIN,TOTAL 0.1 mg/dl (0.2-1.3); CREATININE 2.3 mg/dl (0.44-1.00)
[2016-09-16 06:32] LABS: ALBUMIN/GLOBULIN RATIO 0.87; CALCIUM 8.6 mg/dl (8.4-10.2); TOTAL PROTEIN 5.8 g/dl (6.1-8.1)
[2016-09-16] MEDS: APIXABAN 5 MG TABLET PO SCH ×2 (08:48→21:10)
[2016-09-16] MEDS: ASPIRIN 81 MG TAB PO SCH (08:48)
[2016-09-16] MEDS: AMIODARONE 200 MG TAB PO SCH (08:49)
[2016-09-16] MEDS: DOCUSATE SODIUM 10 MG/ML (10ML CUP) GTB SCH ×3 (08:54→22:15)
--- NOTE | 2016-09-16 11:07 | CONS ---
Date/Time of Note Date/Time of Note DATE: 09/16/16 TIME: 11:05 Assessment/Plan Assessment/Plan Chief Complaint/Hosp Course IMPRESSION: 1. Congestive heart failure exacerbation, systolic, acute on chronic. EF 40% by echo 07/16 2. Hypotension/shock on pressor support. 3. Atrial fibrillation on systemic anticoagulation with reasonable rate control at this time. 4. History of recent cerebrovascular accident with altered mental status, encephalopathy. 5. Hypoxia. 6. Coronary artery disease. 7. Dysphagia status post G-tube. 8. Hypothyroidism. 9. Dyslipidemia. 10.PPM Recc: -Tele -HD for volume removal -Continue current BB/ACEI -Continue amio for now/asa/apixaban -Follow MS closely Problems: Consultation Date/Type/Reason Admit Date/Time Sep 04, 2016 at 16:03 Initial Consult Date 09/05/2016 Type of Consultation: Cardiology Reason for Consultation CHF Referring Provider: CRUZITO ARELLANO MD Exam/Review of Systems Vital Signs Vitals Vital Signs Date Time Temp Pulse Resp B/P Pulse Ox O2 Delivery O2 Flow Rate FiO2 09/16/16 10:51 98.5 71 18 125/75 99 09/16/16 02:27 3.0 09/15/16 20:00 Nasal Cannula Intake and Output 09/15/16 09/15/16 09/16/16 15:00 23:00 07:00 Intake Total 760 ml 470 ml Output Total 1200 ml Balance -440 ml 470 ml Exam Review of Systems: CONSTITUTIONAL: No fevers, chills. PULMONARY: No sob CARDIOVASCULAR: No chest pain/palpitations GASTROINTESTINAL: No nausea/vomiting. GENITOURINARY: No hematuria/dysuria. MUSCULOSKELETAL: No myagias/arthalgias. PSYCHIATRIC: The patient denies depression. NEUROLOGIC: encephalopathic Constitutional: other (sleeping) Psych: no complaints Head: normocephalic ENMT: mucosa pink and moist Neck: jvd (9 cm water), supple Respiratory: diminished breath sounds (at bases/B) Cardiovascular: regular rate and rhythm Gastrointestinal: non-tender, soft Musculoskeletal: muscle weakness (generaliZed) Extremities: edema (None) Neurological: lethargic Results Result Diagram: 09/16/16 0554 09/16/16 0554 Results 24 hrs Laboratory Tests Test 09/16/16 05:54 Alanine Aminotransferase (ALT/SGPT) 43 Albumin 2.7 L Albumin/Globulin Ratio 0.87 Alkaline Phosphatase 266 H Anion Gap 17 H Aspartate Amino Transf (AST/SGOT) 33 Basophils # 0.0 Basophils % 0.1 Blood Urea Nitrogen 58 #H Calcium Level 8.6 Carbon Dioxide Level 27 Chloride Level 100 Creatinine 2.30 #H Direct Bilirubin 0.00 Eosinophils # 0.2 Eosinophils % 1.2 Globulin 3.10 Glucose Level 85 Hematocrit 27.9 L Hemoglobin 9.3 L Indirect Bilirubin 0.1 Lymphocytes # 1.0 Lymphocytes % 6.1 L Mean Corpuscular Hemoglobin 34.2 H Mean Corpuscular Hemoglobin Concent 33.3 Mean Corpuscular Volume 102.6 H Mean Platelet Volume 11.3 H Monocytes # 0.9 Monocytes % 5.8 Neutrophils # 13.8 H Neutrophils % 85.4 H Nucleated Red Blood Cells # 0.0 Nucleated Red Blood Cells % 0.0 Platelet Count 285 Potassium Level 3.0 L Red Blood Count 2.72 L Red Cell Distribution Width 14.0 Sodium Level 141 Total Bilirubin 0.1 L Total Protein 5.8 L White Blood Count 16.2 H Medications Medications Current Medications Acetaminophen (Tylenol Tab) 325 mg DAILY PRN PO PAIN AND OR ELEVATED TEMP Last administered on 09/13/16 13:00; Admin Dose 325 MG; Start 09/04/16 at 16:00 Amiodarone HCl (Cordarone) 200 mg DAILY PO Last administered on 09/16/16 08:49 ; Admin Dose 200 MG; Start 09/05/16 at 09:00 Aspirin (Aspirin) 81 mg DAILY PO Last administered on 09/16/16 08:48; Admin Dose 81 MG; Start 09/05/16 at 09:00 Naloxone HCl (Narcan) 0.4 mg Q3M PRN IV DECREASED REPIRATORY RATE; Start at 19:30 Ondansetron HCl (Zofran Inj) 4 mg Q6H PRN IV NAUSEA AND/OR VOMITING; Start 09/04 at 19:30 Nitroglycerin (Nitroglycerin (Sl Tab) 0.4 Mg) 1 tab Q5M PRN SL CHEST PAIN; Start 09/04/16 at 19:30 Acetaminophen (Tylenol Tab) 650 mg Q6H PRN PO PAIN LEVEL 1-3 OR FEVER Last administered on 09/15/16 00:03; Admin Dose 650 MG; Start 09/04/16 at 19:30 Docusate Sodium (Colace Liquid Cup) 100 mg BID GTB Last administered on 08:54; Admin Dose 100 MG; Start 09/05/16 at 09:00 Diltiazem HCl (Cardizem) 30 mg Q8 PO Last administered on 09/06/16 05:17; Admin Dose 30 MG; Start 09/05/16 at 14:00; Status Future Hold Carvedilol (Coreg) 6.25 mg BID GTB Last administered on 09/16/16 08:49; Admin Dose 6.25 MG; Start 09/07/16 at 21:00 Apixaban (Eliquis) 2.5 mg BID PO Last administered on 09/16/16 08:48; Admin Dose 2.5 MG; Start 09/09/16 at 21:00 Atorvastatin Calcium (Lipitor) 20 mg QHS PO Last administered on 09/15/16 21: 22; Admin Dose 20 MG; Start 09/09/16 at 21:00 Gentamicin Sulfate (Gentamicin Iv Per Pharmacy) GENTAMICIN PER PHARMACY NOTE XX ; Start 09/10/16 at 16:30 Lansoprazole (Prevacid) 30 mg DAILY@06 GTB Last administered on 09/16/16 05:06 ; Admin Dose 30 MG; Start 09/12/16 at 06:00 Metoclopramide HCl 5 mg 5 mg Q6 IV Last administered on 09/16/16 05:06; Admin Dose 5 MG; Start 09/12/16 at 18:00 Erythromycin Lactobionate/ Sodium Chloride (Erythromycin Lactobionate/NS) 100 ml @ 100 mls/hr Q6 IVPB Last administered on 09/16/16 05:06; Admin Dose 100 MLS/HR; Start 09/16/16 at 00:00 SASKIA WHITE Sep 16, 2016 11:06
--- NOTE | 2016-09-16 14:44 | CONS ---
Date/Time of Note Date/Time of Note DATE: 09/16/16 TIME: 14:43 Assessment/Plan Assessment/Plan Chief Complaint/Hosp Course SUBJECTIVE: No acute events overnight. The patient is lying comfortably in bed , no fevers INDWELLINGS: Left chest Perm-A-Cath, PEG, PICC line, permanent pacemaker. ANTIMICROBIALS: Gentamicin ==> abx #11, Erythromycin MICROBIOLOGY: Blood culture on admission grew E. coli PHYSICAL EXAMINATION: GENERAL: This is a fragile, elderly woman who is in no distress. The patient is noncommunicative. HEENT: Head atraumatic, normocephalic. Sclerae anicteric. Buccal mucosa dry. NECK: Supple, trachea midline. CHEST: Rise symmetrical. Breath sounds diminished to bases. HEART: S1, S2. ABDOMEN: Soft. Bowel tones present. EXTREMITIES: Without cyanosis. ASSESSMENT: 1. Sepsis, status post shock. 2. Escherichia coli bacteremia, possibly line sepsis. 3. End-stage renal disease, hemodialysis dependent. 4. Dysphagia. 5. Encephalopathy, status post cerebrovascular accident. 6. Atrial fibrillation. 7. History of permanent pacemaker placement. PLAN: Remained unchanged. Completing abx, continue present care, anti- aspiration measures, f/u GI rec-s [facility] staff Problems: Consultation Date/Type/Reason Admit Date/Time Sep 04, 2016 at 16:03 Type of Consultation: id Referring Provider: CRUZITO ARELLANO MD Exam/Review of Systems Vital Signs Vitals Vital Signs Date Time Temp Pulse Resp B/P Pulse Ox O2 Delivery O2 Flow Rate FiO2 09/16/16 12:00 70 09/16/16 10:51 98.5 18 125/75 99 09/16/16 02:27 3.0 09/15/16 20:00 Nasal Cannula Intake and Output 09/15/16 09/15/16 09/16/16 15:00 23:00 07:00 Intake Total 760 ml 470 ml Output Total 1200 ml Balance -440 ml 470 ml Results Result Diagram: 09/16/16 0554 09/16/16 0554 Results 24 hrs Laboratory Tests Test 09/16/16 05:54 Alanine Aminotransferase (ALT/SGPT) 43 Albumin 2.7 L Albumin/Globulin Ratio 0.87 Alkaline Phosphatase 266 H Anion Gap 17 H Aspartate Amino Transf (AST/SGOT) 33 Basophils # 0.0 Basophils % 0.1 Blood Urea Nitrogen 58 #H Calcium Level 8.6 Carbon Dioxide Level 27 Chloride Level 100 Creatinine 2.30 #H Direct Bilirubin 0.00 Eosinophils # 0.2 Eosinophils % 1.2 Globulin 3.10 Glucose Level 85 Hematocrit 27.9 L Hemoglobin 9.3 L Indirect Bilirubin 0.1 Lymphocytes # 1.0 Lymphocytes % 6.1 L Mean Corpuscular Hemoglobin 34.2 H Mean Corpuscular Hemoglobin Concent 33.3 Mean Corpuscular Volume 102.6 H Mean Platelet Volume 11.3 H Monocytes # 0.9 Monocytes % 5.8 Neutrophils # 13.8 H Neutrophils % 85.4 H Nucleated Red Blood Cells # 0.0 Nucleated Red Blood Cells % 0.0 Platelet Count 285 Potassium Level 3.0 L Red Blood Count 2.72 L Red Cell Distribution Width 14.0 Sodium Level 141 Total Bilirubin 0.1 L Total Protein 5.8 L White Blood Count 16.2 H Medications Medications Current Medications Acetaminophen (Tylenol Tab) 325 mg DAILY PRN PO PAIN AND OR ELEVATED TEMP Last administered on 09/13/16 13:00; Admin Dose 325 MG; Start 09/04/16 at 16:00 Amiodarone HCl (Cordarone) 200 mg DAILY PO Last administered on 09/16/16 08:49 ; Admin Dose 200 MG; Start 09/05/16 at 09:00 Aspirin (Aspirin) 81 mg DAILY PO Last administered on 09/16/16 08:48; Admin Dose 81 MG; Start 09/05/16 at 09:00 Naloxone HCl (Narcan) 0.4 mg Q3M PRN IV DECREASED REPIRATORY RATE; Start at 19:30 Ondansetron HCl (Zofran Inj) 4 mg Q6H PRN IV NAUSEA AND/OR VOMITING; Start 09/04 at 19:30 Nitroglycerin (Nitroglycerin (Sl Tab) 0.4 Mg) 1 tab Q5M PRN SL CHEST PAIN; Start 09/04/16 at 19:30 Acetaminophen (Tylenol Tab) 650 mg Q6H PRN PO PAIN LEVEL 1-3 OR FEVER Last administered on 09/15/16 00:03; Admin Dose 650 MG; Start 09/04/16 at 19:30 Docusate Sodium (Colace Liquid Cup) 100 mg BID GTB Last administered on 08:54; Admin Dose 100 MG; Start 09/05/16 at 09:00 Diltiazem HCl (Cardizem) 30 mg Q8 PO Last administered on 09/06/16 05:17; Admin Dose 30 MG; Start 09/05/16 at 14:00; Status Future Hold Carvedilol (Coreg) 6.25 mg BID GTB Last administered on 09/16/16 08:49; Admin Dose 6.25 MG; Start 09/07/16 at 21:00 Apixaban (Eliquis) 2.5 mg BID PO Last administered on 09/16/16 08:48; Admin Dose 2.5 MG; Start 09/09/16 at 21:00 Atorvastatin Calcium (Lipitor) 20 mg QHS PO Last administered on 09/15/16 21: 22; Admin Dose 20 MG; Start 09/09/16 at 21:00 Gentamicin Sulfate (Gentamicin Iv Per Pharmacy) GENTAMICIN PER PHARMACY NOTE XX ; Start 09/10/16 at 16:30 Lansoprazole (Prevacid) 30 mg DAILY@06 GTB Last administered on 09/16/16 05:06 ; Admin Dose 30 MG; Start 09/12/16 at 06:00 Metoclopramide HCl 5 mg 5 mg Q6 IV Last administered on 09/16/16 05:06; Admin Dose 5 MG; Start 09/12/16 at 18:00 Erythromycin Lactobionate/ Sodium Chloride (Erythromycin Lactobionate/NS) 100 ml @ 100 mls/hr Q6 IVPB Last administered on 09/16/16 05:06; Admin Dose 100 MLS/HR; Start 09/16/16 at 00:00 TREMAINE MUNROE NP Sep 16, 2016 14:44
--- NOTE | 2016-09-16 16:40 | CONS ---
Date/Time of Note Date/Time of Note DATE: 09/16/16 TIME: 16:39 Assessment/Plan Assessment/Plan Additional Assessment/Plan IMPRESSION: 1. Status post sepsis. 2. Pneumonia. 3. Abnormal LFT. 4. Atrial fibrillation. 5. End-stage renal disease. 6. Gastroparesis. 7. Escherichia coli sepsis 8.gastroparesis ,resolved Plan continue erythromycin Consultation Date/Type/Reason Admit Date/Time Sep 04, 2016 at 16:03 Type of Consultation: id Referring Provider: CRUZITO ARELLANO MD 24 HR Interval Summary Constitutional: no complaints Exam/Review of Systems Vital Signs Vitals Vital Signs Date Time Temp Pulse Resp B/P Pulse Ox O2 Delivery O2 Flow Rate FiO2 09/16/16 15:08 98.2 78 20 105/66 97 09/16/16 02:27 3.0 09/15/16 20:00 Nasal Cannula Intake and Output 09/15/16 09/15/16 09/16/16 15:00 23:00 07:00 Intake Total 760 ml 470 ml Output Total 1200 ml Balance -440 ml 470 ml Exam Constitutional: alert, oriented, well developed Psych: nl mood/affect, no complaints Head: atraumatic, normocephalic Eyes: EOMI, PERRL, nl conjunctiva, nl lids, nl sclera ENMT: nl external ears & nose, nl lips & teeth, nl nasal mucosa & septum Neck: non-tender, supple Respiratory: clear to auscultation, normal air movement Cardiovascular: nl pulses, regular rate and rhythm Gastrointestinal: nl liver, spleen, non-tender, soft Musculoskeletal: nl extremities to inspection, nl gait and stance Extremities: normal pulses Neurological: [employer] II-XII intact, nl mental status, nl speech, nl strength Skin: nl turgor, No rash or lesions Lymph: nl lymph nodes Results Result Diagram: 09/16/16 0554 09/16/16 0554 Results 24 hrs Laboratory Tests Test 09/16/16 05:54 Alanine Aminotransferase (ALT/SGPT) 43 Albumin 2.7 L Albumin/Globulin Ratio 0.87 Alkaline Phosphatase 266 H Anion Gap 17 H Aspartate Amino Transf (AST/SGOT) 33 Basophils # 0.0 Basophils % 0.1 Blood Urea Nitrogen 58 #H Calcium Level 8.6 Carbon Dioxide Level 27 Chloride Level 100 Creatinine 2.30 #H Direct Bilirubin 0.00 Eosinophils # 0.2 Eosinophils % 1.2 Globulin 3.10 Glucose Level 85 Hematocrit 27.9 L Hemoglobin 9.3 L Indirect Bilirubin 0.1 Lymphocytes # 1.0 Lymphocytes % 6.1 L Mean Corpuscular Hemoglobin 34.2 H Mean Corpuscular Hemoglobin Concent 33.3 Mean Corpuscular Volume 102.6 H Mean Platelet Volume 11.3 H Monocytes # 0.9 Monocytes % 5.8 Neutrophils # 13.8 H Neutrophils % 85.4 H Nucleated Red Blood Cells # 0.0 Nucleated Red Blood Cells % 0.0 Platelet Count 285 Potassium Level 3.0 L Red Blood Count 2.72 L Red Cell Distribution Width 14.0 Sodium Level 141 Total Bilirubin 0.1 L Total Protein 5.8 L White Blood Count 16.2 H Medications Medications Current Medications Acetaminophen (Tylenol Tab) 325 mg DAILY PRN PO PAIN AND OR ELEVATED TEMP Last administered on 09/13/16 13:00; Admin Dose 325 MG; Start 09/04/16 at 16:00 Amiodarone HCl (Cordarone) 200 mg DAILY PO Last administered on 09/16/16 08:49 ; Admin Dose 200 MG; Start 09/05/16 at 09:00 Aspirin (Aspirin) 81 mg DAILY PO Last administered on 09/16/16 08:48; Admin Dose 81 MG; Start 09/05/16 at 09:00 Naloxone HCl (Narcan) 0.4 mg Q3M PRN IV DECREASED REPIRATORY RATE; Start at 19:30 Ondansetron HCl (Zofran Inj) 4 mg Q6H PRN IV NAUSEA AND/OR VOMITING; Start 09/04 at 19:30 Nitroglycerin (Nitroglycerin (Sl Tab) 0.4 Mg) 1 tab Q5M PRN SL CHEST PAIN; Start 09/04/16 at 19:30 Acetaminophen (Tylenol Tab) 650 mg Q6H PRN PO PAIN LEVEL 1-3 OR FEVER Last administered on 09/15/16 00:03; Admin Dose 650 MG; Start 09/04/16 at 19:30 Docusate Sodium (Colace Liquid Cup) 100 mg BID GTB Last administered on 08:54; Admin Dose 100 MG; Start 09/05/16 at 09:00 Diltiazem HCl (Cardizem) 30 mg Q8 PO Last administered on 09/06/16 05:17; Admin Dose 30 MG; Start 09/05/16 at 14:00; Status Future Hold Carvedilol (Coreg) 6.25 mg BID GTB Last administered on 09/16/16 08:49; Admin Dose 6.25 MG; Start 09/07/16 at 21:00 Apixaban (Eliquis) 2.5 mg BID PO Last administered on 09/16/16 08:48; Admin Dose 2.5 MG; Start 09/09/16 at 21:00 Atorvastatin Calcium (Lipitor) 20 mg QHS PO Last administered on 09/15/16 21: 22; Admin Dose 20 MG; Start 09/09/16 at 21:00 Gentamicin Sulfate (Gentamicin Iv Per Pharmacy) GENTAMICIN PER PHARMACY NOTE XX ; Start 09/10/16 at 16:30 Lansoprazole (Prevacid) 30 mg DAILY@06 GTB Last administered on 09/16/16 05:06 ; Admin Dose 30 MG; Start 09/12/16 at 06:00 Metoclopramide HCl 5 mg 5 mg Q6 IV Last administered on 09/16/16 12:36; Admin Dose 5 MG; Start 09/12/16 at 18:00 Erythromycin Lactobionate/ Sodium Chloride (Erythromycin Lactobionate/NS) 100 ml @ 100 mls/hr Q6 IVPB Last administered on 09/16/16 12:36; Admin Dose 100 MLS/HR; Start 09/16/16 at 00:00 HERON DIALLO MD Sep 16, 2016 16:40
--- NOTE | 2016-09-16 17:33 | PN ---
Date/Time of Note Date/Time of Note DATE: 09/16/16 TIME: 17:32 Assessment/Plan VTE Prophylaxis VTE Prophylaxis Intervention: other Lines/Catheters IV Catheter Type (from Nrsg): Central Line Central line still needed: Yes Urinary Cath still in place: No Reason Cath still needed: other (indicate) Assessment/Plan Chief Complaint/Hosp Course IMPRESSION: 1. Sepsis. 2. Lung congestion.better 3. Possible underlying pneumonia. 4. Underlying bronchitis. 5. Endstage renal disease. 6. Atrial fibrillation. 7. Atherosclerotic heart disease. 8. Dyslipidemia. 9. G-tube placement.inc gastric residual 10 e coli sepsis 11 high gastric residuals will need j tube plan antibiotic hd per id dec steroid gi consullt called KCL Problems: Subjective 24 Hr Interval Summary Cardiovascular: no complaints Gastrointestinal: no complaints Exam/Review of Systems Vital Signs Vitals Vital Signs Date Time Temp Pulse Resp B/P Pulse Ox O2 Delivery O2 Flow Rate FiO2 09/16/16 16:00 70 09/16/16 15:08 98.2 20 105/66 97 09/16/16 02:27 3.0 09/15/16 20:00 Nasal Cannula Intake and Output 09/15/16 09/15/16 09/16/16 15:00 23:00 07:00 Intake Total 760 ml 470 ml Output Total 1200 ml Balance -440 ml 470 ml Exam Respiratory: clear to auscultation Cardiovascular: regular rate and rhythm Gastrointestinal: soft Musculoskeletal: nl extremities to inspection Extremities: normal pulses Results Result Diagram: 09/16/16 0554 09/16/16 0554 Results 24 hrs Laboratory Tests Test 09/16/16 05:54 Alanine Aminotransferase (ALT/SGPT) 43 Albumin 2.7 L Albumin/Globulin Ratio 0.87 Alkaline Phosphatase 266 H Anion Gap 17 H Aspartate Amino Transf (AST/SGOT) 33 Basophils # 0.0 Basophils % 0.1 Blood Urea Nitrogen 58 #H Calcium Level 8.6 Carbon Dioxide Level 27 Chloride Level 100 Creatinine 2.30 #H Direct Bilirubin 0.00 Eosinophils # 0.2 Eosinophils % 1.2 Globulin 3.10 Glucose Level 85 Hematocrit 27.9 L Hemoglobin 9.3 L Indirect Bilirubin 0.1 Lymphocytes # 1.0 Lymphocytes % 6.1 L Mean Corpuscular Hemoglobin 34.2 H Mean Corpuscular Hemoglobin Concent 33.3 Mean Corpuscular Volume 102.6 H Mean Platelet Volume 11.3 H Monocytes # 0.9 Monocytes % 5.8 Neutrophils # 13.8 H Neutrophils % 85.4 H Nucleated Red Blood Cells # 0.0 Nucleated Red Blood Cells % 0.0 Platelet Count 285 Potassium Level 3.0 L Red Blood Count 2.72 L Red Cell Distribution Width 14.0 Sodium Level 141 Total Bilirubin 0.1 L Total Protein 5.8 L White Blood Count 16.2 H Medications Medications Current Medications Acetaminophen (Tylenol Tab) 325 mg DAILY PRN PO PAIN AND OR ELEVATED TEMP Last administered on 09/13/16 13:00; Admin Dose 325 MG; Start 09/04/16 at 16:00 Amiodarone HCl (Cordarone) 200 mg DAILY PO Last administered on 09/16/16 08:49 ; Admin Dose 200 MG; Start 09/05/16 at 09:00 Aspirin (Aspirin) 81 mg DAILY PO Last administered on 09/16/16 08:48; Admin Dose 81 MG; Start 09/05/16 at 09:00 Naloxone HCl (Narcan) 0.4 mg Q3M PRN IV DECREASED REPIRATORY RATE; Start at 19:30 Ondansetron HCl (Zofran Inj) 4 mg Q6H PRN IV NAUSEA AND/OR VOMITING; Start 09/04 at 19:30 Nitroglycerin (Nitroglycerin (Sl Tab) 0.4 Mg) 1 tab Q5M PRN SL CHEST PAIN; Start 09/04/16 at 19:30 Acetaminophen (Tylenol Tab) 650 mg Q6H PRN PO PAIN LEVEL 1-3 OR FEVER Last administered on 09/15/16 00:03; Admin Dose 650 MG; Start 09/04/16 at 19:30 Docusate Sodium (Colace Liquid Cup) 100 mg BID GTB Last administered on 08:54; Admin Dose 100 MG; Start 09/05/16 at 09:00 Diltiazem HCl (Cardizem) 30 mg Q8 PO Last administered on 09/06/16 05:17; Admin Dose 30 MG; Start 09/05/16 at 14:00; Status Future Hold Carvedilol (Coreg) 6.25 mg BID GTB Last administered on 09/16/16 08:49; Admin Dose 6.25 MG; Start 09/07/16 at 21:00 Apixaban (Eliquis) 2.5 mg BID PO Last administered on 09/16/16 08:48; Admin Dose 2.5 MG; Start 09/09/16 at 21:00 Atorvastatin Calcium (Lipitor) 20 mg QHS PO Last administered on 09/15/16 21: 22; Admin Dose 20 MG; Start 09/09/16 at 21:00 Gentamicin Sulfate (Gentamicin Iv Per Pharmacy) GENTAMICIN PER PHARMACY NOTE XX ; Start 09/10/16 at 16:30 Lansoprazole (Prevacid) 30 mg DAILY@06 GTB Last administered on 09/16/16 05:06 ; Admin Dose 30 MG; Start 09/12/16 at 06:00 Metoclopramide HCl 5 mg 5 mg Q6 IV Last administered on 09/16/16 12:36; Admin Dose 5 MG; Start 09/12/16 at 18:00 Erythromycin Lactobionate/ Sodium Chloride (Erythromycin Lactobionate/NS) 100 ml @ 100 mls/hr Q6 IVPB Last administered on 09/16/16 12:36; Admin Dose 100 MLS/HR; Start 09/16/16 at 00:00 CRUZITO ARELLANO MD Sep 16, 2016 17:33
[2016-09-16] MEDS ORDERED: POTASSIUM CHLORIDE 30 MEQ in SOD CHLORIDE 0.9% 150 ML IVPB ONE (18:30)
[2016-09-16] MEDS: ATORVASTATIN 20 MG TAB PO SCH (21:10)
[2016-09-17] VITALS (19 sets, daily range): BP systolic 98–118; BP diastolic 50–63; PULSE 69–80; RESP 16–18
[2016-09-17] MEDS: METOCLOPRAMIDE 10 MG INJ IV SCH ×5 (00:03→23:43)
[2016-09-17] MEDS: ERYTHROMYCIN LACTOBIONATE 250 MG in SOD CHLORIDE 0.9% 100 ML IVPB SCH ×5 (00:56→23:43)
[2016-09-17] MEDS: LANSOPRAZOLE 30 MG CAP GTB SCH (06:31)
[2016-09-17] MEDS: LEVOTHYROXINE 150 MCG TAB PO SCH (06:31)
[2016-09-17] MEDS: COLLAGENASE 30 GM TUBE TOP PRN (06:45)
[2016-09-17 07:58] LABS: CREATININE 3.13 mg/dl (0.44-1.00)
[2016-09-17 07:59] LABS: CALCIUM 8.3 mg/dl (8.4-10.2)
[2016-09-17] MEDS: ASPIRIN 81 MG TAB PO SCH (08:51)
[2016-09-17] MEDS: DOCUSATE SODIUM 10 MG/ML (10ML CUP) GTB SCH ×2 (08:51→20:36)
[2016-09-17] MEDS: APIXABAN 5 MG TABLET PO SCH ×2 (08:52→20:37)
[2016-09-17] MEDS: AMIODARONE 200 MG TAB PO SCH (08:53)
--- NOTE | 2016-09-17 11:11 | CONS ---
Date/Time of Note Date/Time of Note DATE: 09/17/16 TIME: 11:07 Assessment/Plan Assessment/Plan Additional Assessment/Plan 1. Congestive heart failure exacerbation, systolic, acute on chronic. EF 40% by echo 07/16 - stable fluid satus - remove fluid with HD - BETTER NOW 2. Hypotension/shock on pressor support- BP better now (pt DNR) - BP modestly controlled - will monitor clinically 3. Atrial fibrillation on systemic anticoagulation with reasonable rate control at this time- pacer in place - chronic a. fib - PACED 4. History of recent cerebrovascular accident with altered mental status, encephalopathy- unchanged. 5. Hypoxia- stable - con't supportive care. 6. Coronary artery disease- no Cp now, no intervention planned. 7. Dysphagia status post G-tube- Rx as needed 8. Hypothyroidism. 9. Dyslipidemia. 10.PPM -VVI - good function - no further interrogation planned now Consultation Date/Type/Reason Admit Date/Time Sep 04, 2016 at 16:03 Type of Consultation: id Referring Provider: CRUZITO ARELLANO MD 24 HR Interval Summary Free Text/Dictation No acute change - BP stable -paced rhythm - family aware of overall poor prognosis ROS: No fever, no chills, no nausea, no vomiting, no diarrhea/constipation No recent weight changes No chest pain, no PND, no orthopnea No dizziness, blurred vision No thirst, no heat or cold intolerance (per nurse, pt non-verbal) Exam/Review of Systems Vital Signs Vitals Vital Signs Date Time Temp Pulse Resp B/P Pulse Ox O2 Delivery O2 Flow Rate FiO2 09/17/16 11:01 97.9 78 18 99/53 99 09/17/16 08:30 Nasal Cannula 3.0 Intake and Output 09/16/16 09/16/16 09/17/16 15:00 23:00 07:00 Intake Total 315 ml 540 ml Balance 315 ml 540 ml Exam General: WN/WD/NAD, AOx 0,encephalopathic HEENT: Unicetric/atraumatic/EOMI (does not follow commands) NECK: JVD elevated, no thyromegaly Lymph: no lymphadenopathy HEART: regular with no S3, II/ systolic murmur at apex, pacer LUNGS: Coarse sounds ABD: soft, NT, ND, +BS : Intact Neuro: non focal SKIN: chronic changes EXT: trace edema Results Result Diagram: 09/16/16 0554 09/17/16 0651 Results 24 hrs Laboratory Tests Test 09/17/16 06:51 Anion Gap 15 Blood Urea Nitrogen 83 H Calcium Level 8.3 L Carbon Dioxide Level 26 Chloride Level 104 Creatinine 3.13 H Glucose Level 86 Potassium Level 4.0 Sodium Level 141 Medications Medications Current Medications Acetaminophen (Tylenol Tab) 325 mg DAILY PRN PO PAIN AND OR ELEVATED TEMP Last administered on 09/13/16 13:00; Admin Dose 325 MG; Start 09/04/16 at 16:00 Amiodarone HCl (Cordarone) 200 mg DAILY PO Last administered on 09/16/16 08:49 ; Admin Dose 200 MG; Start 09/05/16 at 09:00 Aspirin (Aspirin) 81 mg DAILY PO Last administered on 09/17/16 08:51; Admin Dose 81 MG; Start 09/05/16 at 09:00 Naloxone HCl (Narcan) 0.4 mg Q3M PRN IV DECREASED REPIRATORY RATE; Start at 19:30 Ondansetron HCl (Zofran Inj) 4 mg Q6H PRN IV NAUSEA AND/OR VOMITING; Start 09/04 at 19:30 Nitroglycerin (Nitroglycerin (Sl Tab) 0.4 Mg) 1 tab Q5M PRN SL CHEST PAIN; Start 09/04/16 at 19:30 Acetaminophen (Tylenol Tab) 650 mg Q6H PRN PO PAIN LEVEL 1-3 OR FEVER Last administered on 09/15/16 00:03; Admin Dose 650 MG; Start 09/04/16 at 19:30 Docusate Sodium (Colace Liquid Cup) 100 mg BID GTB Last administered on 08:51; Admin Dose 100 MG; Start 09/05/16 at 09:00 Diltiazem HCl (Cardizem) 30 mg Q8 PO Last administered on 09/06/16 05:17; Admin Dose 30 MG; Start 09/05/16 at 14:00; Status Future Hold Carvedilol (Coreg) 6.25 mg BID GTB Last administered on 09/16/16 21:47; Admin Dose 6.25 MG; Start 09/07/16 at 21:00 Apixaban (Eliquis) 2.5 mg BID PO Last administered on 09/17/16 08:52; Admin Dose 2.5 MG; Start 09/09/16 at 21:00 Atorvastatin Calcium (Lipitor) 20 mg QHS PO Last administered on 09/16/16 21: 10; Admin Dose 20 MG; Start 09/09/16 at 21:00 Gentamicin Sulfate (Gentamicin Iv Per Pharmacy) GENTAMICIN PER PHARMACY NOTE XX ; Start 09/10/16 at 16:30 Lansoprazole (Prevacid) 30 mg DAILY@06 GTB Last administered on 09/17/16 06:31 ; Admin Dose 30 MG; Start 09/12/16 at 06:00 Metoclopramide HCl 5 mg 5 mg Q6 IV Last administered on 09/17/16 06:31; Admin Dose 5 MG; Start 09/12/16 at 18:00 Erythromycin Lactobionate/ Sodium Chloride (Erythromycin Lactobionate/NS) 100 ml @ 100 mls/hr Q6 IVPB Last administered on 09/17/16 06:32; Admin Dose 100 MLS/HR; Start 09/16/16 at 00:00 BURT BRITT MD Sep 17, 2016 11:11
[2016-09-17] MEDS: GENTAMICIN 70 MG in SOD CHLORIDE 0.9% 50 ML IVPB SCH (14:16)
--- NOTE | 2016-09-17 15:02 | CONS ---
Date/Time of Note Date/Time of Note DATE: 09/17/16 TIME: 15:01 Assessment/Plan Assessment/Plan Chief Complaint/Hosp Course SUBJECTIVE: No acute events overnight. The patient is lying comfortably in bed , no fevers INDWELLINGS: Left chest Perm-A-Cath, PEG, PICC line, permanent pacemaker. ANTIMICROBIALS: Gentamicin, Erythromycin MICROBIOLOGY: Blood culture on admission grew E. coli PHYSICAL EXAMINATION: GENERAL: This is a fragile, elderly woman who is in no distress. The patient is noncommunicative. HEENT: Head atraumatic, normocephalic. Sclerae anicteric. Buccal mucosa dry. NECK: Supple, trachea midline. CHEST: Rise symmetrical. Breath sounds diminished to bases. HEART: S1, S2. ABDOMEN: Soft. Bowel tones present. EXTREMITIES: Without cyanosis. ASSESSMENT: 1. S/p post septic shock. 2. Escherichia coli bacteremia, possibly line sepsis. 3. End-stage renal disease, hemodialysis dependent. 4. Dysphagia. 5. Encephalopathy, status post cerebrovascular accident. 6. Atrial fibrillation. 7. History of permanent pacemaker placement. PLAN: Remained unchanged. Completing abx, continue present care, anti- aspiration measures, f/u GI rec-s [facility] staff Problems: Consultation Date/Type/Reason Admit Date/Time Sep 04, 2016 at 16:03 Type of Consultation: id Referring Provider: CRUZITO ARELLANO MD Exam/Review of Systems Vital Signs Vitals Vital Signs Date Time Temp Pulse Resp B/P Pulse Ox O2 Delivery O2 Flow Rate FiO2 09/17/16 12:04 77 09/17/16 11:01 97.9 18 99/53 99 09/17/16 08:30 Nasal Cannula 3.0 Intake and Output 09/16/16 09/16/16 09/17/16 15:00 23:00 07:00 Intake Total 315 ml 540 ml Balance 315 ml 540 ml Results Result Diagram: 09/16/16 0554 09/17/16 0651 Results 24 hrs Laboratory Tests Test 09/17/16 06:51 Anion Gap 15 Blood Urea Nitrogen 83 H Calcium Level 8.3 L Carbon Dioxide Level 26 Chloride Level 104 Creatinine 3.13 H Glucose Level 86 Potassium Level 4.0 Sodium Level 141 Medications Medications Current Medications Acetaminophen (Tylenol Tab) 325 mg DAILY PRN PO PAIN AND OR ELEVATED TEMP Last administered on 09/13/16t 13:00; Admin Dose 325 MG; Start 3/8/17 at 16:00 Amiodarone HCl (Cordarone) 200 mg DAILY PO Last administered on 09/16/16 08:49 ; Admin Dose 200 MG; Start 09/05/16 at 09:00 Aspirin (Aspirin) 81 mg DAILY PO Last administered on 09/17/16 08:51; Admin Dose 81 MG; Start 09/05/16 at 09:00 Naloxone HCl (Narcan) 0.4 mg Q3M PRN IV DECREASED REPIRATORY RATE; Start at 19:30 Ondansetron HCl (Zofran Inj) 4 mg Q6H PRN IV NAUSEA AND/OR VOMITING; Start 09/04 at 19:30 Nitroglycerin (Nitroglycerin (Sl Tab) 0.4 Mg) 1 tab Q5M PRN SL CHEST PAIN; Start 09/04/16 at 19:30 Acetaminophen (Tylenol Tab) 650 mg Q6H PRN PO PAIN LEVEL 1-3 OR FEVER Last administered on 09/15/16 00:03; Admin Dose 650 MG; Start 09/04/16 at 19:30 Docusate Sodium (Colace Liquid Cup) 100 mg BID GTB Last administered on 08:51; Admin Dose 100 MG; Start 09/05/16 at 09:00 Diltiazem HCl (Cardizem) 30 mg Q8 PO Last administered on 09/06/16 05:17; Admin Dose 30 MG; Start 09/05/16 at 14:00; Status Future Hold Carvedilol (Coreg) 6.25 mg BID GTB Last administered on 09/16/16 21:47; Admin Dose 6.25 MG; Start 09/07/16 at 21:00 Apixaban (Eliquis) 2.5 mg BID PO Last administered on 09/17/16 08:52; Admin Dose 2.5 MG; Start 09/09/16 at 21:00 Atorvastatin Calcium (Lipitor) 20 mg QHS PO Last administered on 09/16/16 21: 10; Admin Dose 20 MG; Start 09/09/16 at 21:00 Gentamicin Sulfate (Gentamicin Iv Per Pharmacy) GENTAMICIN PER PHARMACY NOTE XX ; Start 09/10/16 at 16:30 Lansoprazole (Prevacid) 30 mg DAILY@06 GTB Last administered on 09/17/16 06:31 ; Admin Dose 30 MG; Start 09/12/16 at 06:00 Metoclopramide HCl 5 mg 5 mg Q6 IV Last administered on 09/17/16 12:25; Admin Dose 5 MG; Start 09/12/16 at 18:00 Erythromycin Lactobionate/ Sodium Chloride (Erythromycin Lactobionate/NS) 100 ml @ 100 mls/hr Q6 IVPB Last administered on 09/17/16 12:25; Admin Dose 100 MLS/HR; Start 09/16/16 at 00:00 TREMAINE MUNROE NP Sep 17, 2016 15:02
--- NOTE | 2016-09-17 18:15 | RADRPT ---
Vent Rate: 75 bpm RR Interval: 0 msec NV Interval: 0 msec QRS Duration: 152 msec QT Interval: 456 msec QTC Interval: 509 msec P-R-T [place]: 0 - -81 - 88 degrees Electronic ventricular pacemaker Electronically Signed By: Clayton Cook [id number]
--- NOTE | 2016-09-17 19:06 | CONS ---
Date/Time of Note Date/Time of Note DATE: 09/17/16 TIME: 19:05 Assessment/Plan Assessment/Plan Additional Assessment/Plan Assessment/Plan Additional Assessment/Plan IMPRESSION: 1. Status post sepsis. 2. Pneumonia. 3. Abnormal LFT. 4. Atrial fibrillation. 5. End-stage renal disease. 6. Gastroparesis. 7. Escherichia coli sepsis 8.gastroparesis ,resolved Plan continue erythromycin pt. now tolerating feeding discussed with Dr. Arellano Consultation Date/Type/Reason Admit Date/Time Sep 04, 2016 at 16:03 Type of Consultation: id Referring Provider: CRUZITO ARELLANO MD 24 HR Interval Summary Constitutional: improved, no complaints Exam/Review of Systems Vital Signs Vitals Vital Signs Date Time Temp Pulse Resp B/P Pulse Ox O2 Delivery O2 Flow Rate FiO2 09/17/16 16:50 3.0 09/17/16 16:28 73 09/17/16 15:03 97.9 18 118/57 98 09/17/16 08:30 Nasal Cannula Intake and Output 09/16/16 09/16/16 09/17/16 15:00 23:00 07:00 Intake Total 315 ml 540 ml Balance 315 ml 540 ml Exam Constitutional: alert, oriented, well developed Psych: nl mood/affect, no complaints Head: atraumatic, normocephalic Eyes: EOMI, PERRL, nl conjunctiva, nl lids, nl sclera ENMT: nl external ears & nose, nl lips & teeth, nl nasal mucosa & septum Neck: non-tender, supple Respiratory: clear to auscultation, normal air movement Cardiovascular: nl pulses, regular rate and rhythm Gastrointestinal: nl liver, spleen, non-tender, soft Musculoskeletal: nl extremities to inspection, nl gait and stance Extremities: normal pulses Neurological: SPA CONSULTANT II-XII intact, nl mental status, nl speech, nl strength Skin: nl turgor, No rash or lesions Lymph: nl lymph nodes Results Result Diagram: 09/16/16 0554 09/17/16 0651 Results 24 hrs Laboratory Tests Test 09/17/16 06:51 Anion Gap 15 Blood Urea Nitrogen 83 H Calcium Level 8.3 L Carbon Dioxide Level 26 Chloride Level 104 Creatinine 3.13 H Glucose Level 86 Potassium Level 4.0 Sodium Level 141 Medications Medications Current Medications Acetaminophen (Tylenol Tab) 325 mg DAILY PRN PO PAIN AND OR ELEVATED TEMP Last administered on 3/17/17at 13:00; Admin Dose 325 MG; Start 09/04/16 at 16:00 Amiodarone HCl (Cordarone) 200 mg DAILY PO Last administered on 09/16/16 08:49 ; Admin Dose 200 MG; Start 09/05/16 at 09:00 Aspirin (Aspirin) 81 mg DAILY PO Last administered on 09/17/16 08:51; Admin Dose 81 MG; Start 09/05/16 at 09:00 Naloxone HCl (Narcan) 0.4 mg Q3M PRN IV DECREASED REPIRATORY RATE; Start at 19:30 Ondansetron HCl (Zofran Inj) 4 mg Q6H PRN IV NAUSEA AND/OR VOMITING; Start 09/04 at 19:30 Nitroglycerin (Nitroglycerin (Sl Tab) 0.4 Mg) 1 tab Q5M PRN SL CHEST PAIN; Start 09/04/16 at 19:30 Acetaminophen (Tylenol Tab) 650 mg Q6H PRN PO PAIN LEVEL 1-3 OR FEVER Last administered on 09/15/16 00:03; Admin Dose 650 MG; Start 09/04/16 at 19:30 Docusate Sodium (Colace Liquid Cup) 100 mg BID GTB Last administered on 08:51; Admin Dose 100 MG; Start 09/05/16 at 09:00 Diltiazem HCl (Cardizem) 30 mg Q8 PO Last administered on 09/06/16 05:17; Admin Dose 30 MG; Start 09/05/16 at 14:00; Status Future Hold Carvedilol (Coreg) 6.25 mg BID GTB Last administered on 09/16/16 21:47; Admin Dose 6.25 MG; Start 09/07/16 at 21:00 Apixaban (Eliquis) 2.5 mg BID PO Last administered on 09/17/16 08:52; Admin Dose 2.5 MG; Start 09/09/16 at 21:00 Atorvastatin Calcium (Lipitor) 20 mg QHS PO Last administered on 09/16/16 21: 10; Admin Dose 20 MG; Start 09/09/16 at 21:00 Gentamicin Sulfate (Gentamicin Iv Per Pharmacy) GENTAMICIN PER PHARMACY NOTE XX ; Start 09/10/16 at 16:30 Lansoprazole (Prevacid) 30 mg DAILY@06 GTB Last administered on 09/17/16 06:31 ; Admin Dose 30 MG; Start 09/12/16 at 06:00 Metoclopramide HCl 5 mg 5 mg Q6 IV Last administered on 09/17/16 17:19; Admin Dose 5 MG; Start 09/12/16 at 18:00 Erythromycin Lactobionate/ Sodium Chloride (Erythromycin Lactobionate/NS) 100 ml @ 100 mls/hr Q6 IVPB Last administered on 09/17/16 17:19; Admin Dose 100 MLS/HR; Start 09/16/16 at 00:00 HERON DIALLO MD Sep 17, 2016 19:06
[2016-09-17] MEDS: ATORVASTATIN 20 MG TAB PO SCH (20:37)
--- NOTE | 2016-09-17 23:21 | PN ---
Date/Time of Note Date/Time of Note DATE: 09/17/16 TIME: 23:20 Assessment/Plan VTE Prophylaxis VTE Prophylaxis Intervention: other Lines/Catheters IV Catheter Type (from Nrsg): Central Line Central line still needed: Yes Urinary Cath still in place: No Reason Cath still needed: other (indicate) Assessment/Plan Chief Complaint/Hosp Course IMPRESSION: 1. Sepsis. 2. Lung congestion.better 3. Possible underlying pneumonia. 4. Underlying bronchitis. 5. Endstage renal disease. 6. Atrial fibrillation. 7. Atherosclerotic heart disease. 8. Dyslipidemia. 9. G-tube placement.inc gastric residual 10 e coli sepsis 11 high gastric residuals will need j tube plan antibiotic hd per id dec steroid peg feeding hd Problems: Subjective 24 Hr Interval Summary Cardiovascular: no complaints Gastrointestinal: No diarrhea Exam/Review of Systems Vital Signs Vitals Vital Signs Date Time Temp Pulse Resp B/P Pulse Ox O2 Delivery O2 Flow Rate FiO2 09/17/16 20:14 97.8 78 18 113/53 92 09/17/16 16:50 3.0 09/17/16 08:30 Nasal Cannula Intake and Output 09/16/16 09/16/16 09/17/16 15:00 23:00 07:00 Intake Total 315 ml 540 ml Balance 315 ml 540 ml Exam Respiratory: clear to auscultation Cardiovascular: regular rate and rhythm Gastrointestinal: soft Musculoskeletal: nl extremities to inspection Extremities: normal pulses Results Result Diagram: 09/16/16 0554 09/17/16 0651 Results 24 hrs Laboratory Tests Test 09/17/16 06:51 Anion Gap 15 Blood Urea Nitrogen 83 H Calcium Level 8.3 L Carbon Dioxide Level 26 Chloride Level 104 Creatinine 3.13 H Glucose Level 86 Potassium Level 4.0 Sodium Level 141 Medications Medications Current Medications Acetaminophen (Tylenol Tab) 325 mg DAILY PRN PO PAIN AND OR ELEVATED TEMP Last administered on 09/13/16 13:00; Admin Dose 325 MG; Start 09/04/16 at 16:00 Amiodarone HCl (Cordarone) 200 mg DAILY PO Last administered on 09/16/16 08:49 ; Admin Dose 200 MG; Start 09/05/16 at 09:00 Aspirin (Aspirin) 81 mg DAILY PO Last administered on 09/17/16 08:51; Admin Dose 81 MG; Start 09/05/16 at 09:00 Naloxone HCl (Narcan) 0.4 mg Q3M PRN IV DECREASED REPIRATORY RATE; Start at 19:30 Ondansetron HCl (Zofran Inj) 4 mg Q6H PRN IV NAUSEA AND/OR VOMITING; Start 09/04 at 19:30 Nitroglycerin (Nitroglycerin (Sl Tab) 0.4 Mg) 1 tab Q5M PRN SL CHEST PAIN; Start 09/04/16 at 19:30 Acetaminophen (Tylenol Tab) 650 mg Q6H PRN PO PAIN LEVEL 1-3 OR FEVER Last administered on 09/15/16 00:03; Admin Dose 650 MG; Start 09/04/16 at 19:30 Docusate Sodium (Colace Liquid Cup) 100 mg BID GTB Last administered on 08:51; Admin Dose 100 MG; Start 09/05/16 at 09:00 Diltiazem HCl (Cardizem) 30 mg Q8 PO Last administered on 09/06/16 05:17; Admin Dose 30 MG; Start 09/05/16 at 14:00; Status Future Hold Carvedilol (Coreg) 6.25 mg BID GTB Last administered on 09/17/16 20:37; Admin Dose 6.25 MG; Start 09/07/16 at 21:00 Apixaban (Eliquis) 2.5 mg BID PO Last administered on 09/17/16 20:37; Admin Dose 2.5 MG; Start 09/09/16 at 21:00 Atorvastatin Calcium (Lipitor) 20 mg QHS PO Last administered on 09/17/16 20: 37; Admin Dose 20 MG; Start 09/09/16 at 21:00 Gentamicin Sulfate (Gentamicin Iv Per Pharmacy) GENTAMICIN PER PHARMACY NOTE XX ; Start 09/10/16 at 16:30 Lansoprazole (Prevacid) 30 mg DAILY@06 GTB Last administered on 09/17/16 06:31 ; Admin Dose 30 MG; Start 09/12/16 at 06:00 Metoclopramide HCl 5 mg 5 mg Q6 IV Last administered on 09/17/16 17:19; Admin Dose 5 MG; Start 09/12/16 at 18:00 Erythromycin Lactobionate/ Sodium Chloride (Erythromycin Lactobionate/NS) 100 ml @ 100 mls/hr Q6 IVPB Last administered on 09/17/16 17:19; Admin Dose 100 MLS/HR; Start 09/16/16 at 00:00 CRUZITO ARELLANO MD Sep 17, 2016 23:21
[2016-09-18] VITALS (15 sets, daily range): BP systolic 89–167; BP diastolic 45–74; PULSE 69–70; RESP 17–19
[2016-09-18] MEDS: METOCLOPRAMIDE 10 MG INJ IV SCH ×3 (05:44→17:38)
[2016-09-18] MEDS: LANSOPRAZOLE 30 MG CAP GTB SCH (05:44)
[2016-09-18] MEDS: ERYTHROMYCIN LACTOBIONATE 250 MG in SOD CHLORIDE 0.9% 100 ML IVPB SCH ×3 (05:45→17:38)
[2016-09-18] MEDS: LEVOTHYROXINE 150 MCG TAB PO SCH (06:02)
[2016-09-18 06:43] LABS: ADD SCAN DIFF NO
[2016-09-18 06:46] LABS: BASOPHILS % 0.1 % (0.0-2.0); EOSINOPHILS # 0.3 10^3/ul (0.0-0.5); EOSINOPHILS % 2.8 % (0.0-7.0); HEMATOCRIT 25.7 % (37.0-47.0); HEMOGLOBIN 8.4 g/dl (12.0-16.0); LYMPHOCYTES # 1.2 10^3/ul (0.8-2.9); LYMPHOCYTES % 10.7 % (15.0-51.0); MEAN CORPUSCULAR HEMOGLOBIN 34.9 pg (29.0-33.0); MEAN CORPUSCULAR HGB CONC 32.7 g/dl (32.0-37.0); MEAN CORPUSCULAR VOLUME 106.6 fl (82.0-101.0); MEAN PLATELET VOLUME 11.8 fl (7.4-10.4); MONOCYTE # 0.9 10^3/ul (0.3-0.9); MONOCYTES % 7.7 % (0.0-11.0); NEUTROPHIL # 8.5 10^3/ul (1.6-7.5); NEUTROPHILS % 77.1 % (39.0-77.0); PLATELET COUNT 241 10^3/UL (140-415); RED BLOOD COUNT 2.41 10^6/ul (4.20-5.40); RED CELL DISTRIBUTION WIDTH 14.1 % (11.5-14.5)
[2016-09-18] MEDS: ASPIRIN 81 MG TAB PO SCH (08:53)
[2016-09-18] MEDS: DOCUSATE SODIUM 10 MG/ML (10ML CUP) GTB SCH ×2 (08:53→21:00)
[2016-09-18] MEDS: APIXABAN 5 MG TABLET PO SCH ×2 (08:54→21:00)
--- NOTE | 2016-09-18 10:24 | CONS ---
Date/Time of Note Date/Time of Note DATE: 09/18/16 TIME: 10:22 Assessment/Plan Assessment/Plan Chief Complaint/Hosp Course IMPRESSION: 1. Congestive heart failure exacerbation, systolic, acute on chronic. EF 40% by echo 07/16 2. HTN-very labile 3. Atrial fibrillation on systemic anticoagulation with reasonable rate control at this time. 4. History of recent cerebrovascular accident with altered mental status, encephalopathy. 5. Hypoxia. 6. Coronary artery disease. 7. Dysphagia status post G-tube. 8. Hypothyroidism. 9. Dyslipidemia. 10.PPM Recc: -Tele -HD for volume removal -Continue current BB/ACEI -Continue amio for now/asa/apixaban -Follow MS closely Problems: Consultation Date/Type/Reason Admit Date/Time Sep 04, 2016 at 16:03 Initial Consult Date 09/05/2016 Type of Consultation: Cardiology Reason for Consultation CHF Referring Provider: CRUZITO ARELLANO MD Exam/Review of Systems Vital Signs Vitals Vital Signs Date Time Temp Pulse Resp B/P Pulse Ox O2 Delivery O2 Flow Rate FiO2 09/18/16 08:08 70 09/18/16 07:22 98.3 18 103/53 98 09/18/16 04:07 3.0 09/17/16 20:00 Nasal Cannula Intake and Output 09/17/16 09/17/16 09/18/16 15:00 23:00 07:00 Intake Total 650 ml 590 ml 633 ml Output Total 3000 ml Balance -2350 ml 590 ml 633 ml Exam Review of Systems: CONSTITUTIONAL: No fevers, chills. PULMONARY: No sob CARDIOVASCULAR: No chest pain/palpitations GASTROINTESTINAL: No nausea/vomiting. GENITOURINARY: No hematuria/dysuria. MUSCULOSKELETAL: No myagias/arthalgias. PSYCHIATRIC: The patient denies depression. NEUROLOGIC: encephalopathy Constitutional: other (sleeping) Psych: no complaints Head: normocephalic ENMT: mucosa pink and moist Neck: jvd (9cm water), supple Respiratory: diminished breath sounds (at bases/B) Cardiovascular: regular rate and rhythm Gastrointestinal: non-tender, soft Musculoskeletal: muscle tone (normal) Extremities: edema (none) Neurological: other (No focal deficits) Results Result Diagram: 09/18/16 0550 09/17/16 0651 Results 24 hrs Laboratory Tests Test 09/18/16 05:50 Basophils # 0.0 Basophils % 0.1 Eosinophils # 0.3 Eosinophils % 2.8 Hematocrit 25.7 L Hemoglobin 8.4 L Lymphocytes # 1.2 Lymphocytes % 10.7 L Mean Corpuscular Hemoglobin 34.9 H Mean Corpuscular Hemoglobin Concent 32.7 Mean Corpuscular Volume 106.6 H Mean Platelet Volume 11.8 H Monocytes # 0.9 Monocytes % 7.7 Neutrophils # 8.5 H Neutrophils % 77.1 H Nucleated Red Blood Cells # 0.0 Nucleated Red Blood Cells % 0.0 Platelet Count 241 Red Blood Count 2.41 L Red Cell Distribution Width 14.1 White Blood Count 11.0 #H Medications Medications Current Medications Acetaminophen (Tylenol Tab) 325 mg DAILY PRN PO PAIN AND OR ELEVATED TEMP Last administered on 09/13/16 13:00; Admin Dose 325 MG; Start 09/04/16 at 16:00 Amiodarone HCl (Cordarone) 200 mg DAILY PO Last administered on 09/16/16 08:49 ; Admin Dose 200 MG; Start 09/05/16 at 09:00 Aspirin (Aspirin) 81 mg DAILY PO Last administered on 09/18/16 08:53; Admin Dose 81 MG; Start 09/05/16 at 09:00 Naloxone HCl (Narcan) 0.4 mg Q3M PRN IV DECREASED REPIRATORY RATE; Start at 19:30 Ondansetron HCl (Zofran Inj) 4 mg Q6H PRN IV NAUSEA AND/OR VOMITING; Start 09/04 at 19:30 Nitroglycerin (Nitroglycerin (Sl Tab) 0.4 Mg) 1 tab Q5M PRN SL CHEST PAIN; Start 09/04/16 at 19:30 Acetaminophen (Tylenol Tab) 650 mg Q6H PRN PO PAIN LEVEL 1-3 OR FEVER Last administered on 09/15/16 00:03; Admin Dose 650 MG; Start 09/04/16 at 19:30 Docusate Sodium (Colace Liquid Cup) 100 mg BID GTB Last administered on 08:53; Admin Dose 100 MG; Start 09/05/16 at 09:00 Diltiazem HCl (Cardizem) 30 mg Q8 PO Last administered on 09/06/16 05:17; Admin Dose 30 MG; Start 09/05/16 at 14:00; Status Future Hold Carvedilol (Coreg) 6.25 mg BID GTB Last administered on 09/18/16 08:53; Admin Dose 6.25 MG; Start 09/07/16 at 21:00 Apixaban (Eliquis) 2.5 mg BID PO Last administered on 09/18/16 08:54; Admin Dose 2.5 MG; Start 09/09/16 at 21:00 Atorvastatin Calcium (Lipitor) 20 mg QHS PO Last administered on 09/17/16 20: 37; Admin Dose 20 MG; Start 09/09/16 at 21:00 Gentamicin Sulfate (Gentamicin Iv Per Pharmacy) GENTAMICIN PER PHARMACY NOTE XX ; Start 09/10/16 at 16:30 Lansoprazole (Prevacid) 30 mg DAILY@06 GTB Last administered on 09/18/16 05:44 ; Admin Dose 30 MG; Start 09/12/16 at 06:00 Metoclopramide HCl 5 mg 5 mg Q6 IV Last administered on 09/18/16 05:44; Admin Dose 5 MG; Start 09/12/16 at 18:00 Erythromycin Lactobionate/ Sodium Chloride (Erythromycin Lactobionate/NS) 100 ml @ 100 mls/hr Q6 IVPB Last administered on 09/18/16 05:45; Admin Dose 100 MLS/HR; Start 09/16/16 at 00:00 SASKIA WHITE Sep 18, 2016 10:24
[2016-09-18] MEDS: AMIODARONE 200 MG TAB PO SCH (11:08)
[2016-09-18] MEDS: VANCOMYCIN HCL 250 MG/5ML POSYG PO SCH ×2 (13:26→17:47)
--- NOTE | 2016-09-18 13:34 | PN ---
DATE: 09/18/2016 SUBJECTIVE: No acute changes. The patient is awake, lying comfortably in bed. She has been workin g with physical therapy, no fevers. MICROBIOLOGY: Stool for C. difficile from yesterday came back positive. INDWELLINGS: She has a Perm-A-Cath, PEG and permanent pacemaker. ANTIMICROBIALS: 1. Gentamicin. 2. Erythromycin per gastroenterology. PHYSICAL EXAMINATION: GENERAL: This is a fragile, chronically ill-appearing, elderly woman who is in no distress. HEENT: Head atraumatic, normocephalic. Sclerae anicteric. Buccal mucosa dry. NECK: Supple. CHEST: Rise symmetrical. Breath sounds diminished. HEART: S1, S2. ABDOMEN: Soft. Bowel tones present. ASSESSMENT: 1. Status post septic shock with Escherichia coli bacteremia. 2. Clostridium difficile colitis. 3. End-stage renal disease, hemodialysis dependent. 4. Diabetic gastroparesis. 5. Dysphagia. 6. Coronary artery disease with a history of permanent pacemaker placement. 7. History of cerebrovascular accident. PLAN: The patient remains clinically stable. We are going to discontinue gentamicin and start her on oral vancomycin. Continue present care and management per primary team and consultants. Dictated By: TREMAINE MUNROE MUSIC SUPERVISOR for OUSMANE JUAREZ/KATE Conf#: [id number] DID#: [id number]
[2016-09-18] MEDS: ACETAMINOPHEN 325 MG TAB PO PRN (17:47)
--- NOTE | 2016-09-18 19:17 | CONS ---
Date/Time of Note Date/Time of Note DATE: 09/18/16 TIME: 19:16 Assessment/Plan Assessment/Plan Additional Assessment/Plan Additional Assessment/Plan IMPRESSION: 1. Status post sepsis. 2. Pneumonia. 3. Abnormal LFT. 4. Atrial fibrillation. 5. End-stage renal disease. 6. Gastroparesis. 7. Escherichia coli sepsis 8.gastroparesis ,resolved 9.c.difficile colitis Plan continue PO Vancomycin pt. now tolerating feeding Consultation Date/Type/Reason Admit Date/Time Sep 04, 2016 at 16:03 Type of Consultation: Cardiology Referring Provider: CRUZITO ARELLANO MD 24 HR Interval Summary Constitutional: no complaints Exam/Review of Systems Vital Signs Vitals Vital Signs Date Time Temp Pulse Resp B/P Pulse Ox O2 Delivery O2 Flow Rate FiO2 09/18/16 16:03 70 09/18/16 15:02 98.2 18 94/49 97 09/18/16 12:18 3.0 09/17/16 20:00 Nasal Cannula Intake and Output 09/17/16 09/17/16 09/18/16 15:00 23:00 07:00 Intake Total 650 ml 590 ml 633 ml Output Total 3000 ml Balance -2350 ml 590 ml 633 ml Exam Constitutional: alert, oriented, well developed Psych: nl mood/affect, no complaints Head: atraumatic, normocephalic Eyes: EOMI, PERRL, nl conjunctiva, nl lids, nl sclera ENMT: nl external ears & nose, nl lips & teeth, nl nasal mucosa & septum Neck: non-tender, supple Respiratory: clear to auscultation, normal air movement Cardiovascular: nl pulses, regular rate and rhythm Gastrointestinal: nl liver, spleen, non-tender, soft Musculoskeletal: nl extremities to inspection, nl gait and stance Extremities: normal pulses Neurological: RETAIL WIRELESS SALES REPRESENTATIVE II-XII intact, nl mental status, nl speech, nl strength Skin: nl turgor, No rash or lesions Lymph: nl lymph nodes Results Result Diagram: 09/18/16 0550 09/17/16 0651 Results 24 hrs Laboratory Tests Test 09/18/16 05:50 White Blood Count 11.0 #H Red Blood Count 2.41 L Hemoglobin 8.4 L Hematocrit 25.7 L Mean Corpuscular Volume 106.6 H Mean Corpuscular Hemoglobin 34.9 H Mean Corpuscular Hemoglobin Concent 32.7 Red Cell Distribution Width 14.1 Platelet Count 241 Mean Platelet Volume 11.8 H Neutrophils % 77.1 H Lymphocytes % 10.7 L Monocytes % 7.7 Eosinophils % 2.8 Basophils % 0.1 Nucleated Red Blood Cells % 0.0 Neutrophils # 8.5 H Lymphocytes # 1.2 Monocytes # 0.9 Eosinophils # 0.3 Basophils # 0.0 Nucleated Red Blood Cells # 0.0 Medications Medications Current Medications Acetaminophen (Tylenol Tab) 325 mg DAILY PRN PO PAIN AND OR ELEVATED TEMP Last administered on 09/13/16 13:00; Admin Dose 325 MG; Start 09/04/16 at 16:00 Amiodarone HCl (Cordarone) 200 mg DAILY PO Last administered on 09/18/16 11:08 ; Admin Dose 200 MG; Start 09/05/16 at 09:00 Aspirin (Aspirin) 81 mg DAILY PO Last administered on 09/18/16 08:53; Admin Dose 81 MG; Start 09/05/16 at 09:00 Naloxone HCl (Narcan) 0.4 mg Q3M PRN IV DECREASED REPIRATORY RATE; Start at 19:30 Ondansetron HCl (Zofran Inj) 4 mg Q6H PRN IV NAUSEA AND/OR VOMITING; Start 09/04 at 19:30 Nitroglycerin (Nitroglycerin (Sl Tab) 0.4 Mg) 1 tab Q5M PRN SL CHEST PAIN; Start 09/04/16 at 19:30 Acetaminophen (Tylenol Tab) 650 mg Q6H PRN PO PAIN LEVEL 1-3 OR FEVER Last administered on 09/18/16 17:47; Admin Dose 650 MG; Start 09/04/16 at 19:30 Docusate Sodium (Colace Liquid Cup) 100 mg BID GTB Last administered on 08:53; Admin Dose 100 MG; Start 09/05/16 at 09:00 Diltiazem HCl (Cardizem) 30 mg Q8 PO Last administered on 09/06/16 05:17; Admin Dose 30 MG; Start 09/05/16 at 14:00; Status Future Hold Carvedilol (Coreg) 6.25 mg BID GTB Last administered on 09/18/16 08:53; Admin Dose 6.25 MG; Start 09/07/16 at 21:00 Apixaban (Eliquis) 2.5 mg BID PO Last administered on 09/18/16 08:54; Admin Dose 2.5 MG; Start 09/09/16 at 21:00 Atorvastatin Calcium (Lipitor) 20 mg QHS PO Last administered on 09/17/16 20: 37; Admin Dose 20 MG; Start 09/09/16 at 21:00 Lansoprazole (Prevacid) 30 mg DAILY@06 GTB Last administered on 09/18/16 05:44 ; Admin Dose 30 MG; Start 09/12/16 at 06:00 Metoclopramide HCl 5 mg 5 mg Q6 IV Last administered on 09/18/16 17:38; Admin Dose 5 MG; Start 09/12/16 at 18:00 Erythromycin Lactobionate/ Sodium Chloride (Erythromycin Lactobionate/NS) 100 ml @ 100 mls/hr Q6 IVPB Last administered on 09/18/16 17:38; Admin Dose 100 MLS/HR; Start 09/16/16 at 00:00 Vancomycin HCl (Vancomycin Oral Syringe) 250 mg Q6 PO Last administered on 09/18 17:47; Admin Dose 250 MG; Start 09/18/16 at 13:00 HERON DIALLO MD Sep 18, 2016 19:17
[2016-09-18] MEDS: ATORVASTATIN 20 MG TAB PO SCH (21:00)
--- NOTE | 2016-09-18 23:14 | PN ---
Date/Time of Note Date/Time of Note DATE: 09/18/16 TIME: 23:13 Assessment/Plan VTE Prophylaxis VTE Prophylaxis Intervention: other Lines/Catheters IV Catheter Type (from Nrs): Perma Cath Urinary Cath still in place: No Assessment/Plan Chief Complaint/Hosp Course IMPRESSION: 1. Sepsis. 2. Lung congestion.better 3. Possible underlying pneumonia. 4. Underlying bronchitis. 5. Endstage renal disease. 6. Atrial fibrillation. 7. Atherosclerotic heart disease. 8. Dyslipidemia. 9. G-tube placement.inc gastric residual 10 e coli sepsis 11 high gastric residuals will need j tube better 12 c diff+ plan antibiotic hd per id dec steroid peg feeding hd vanco po Problems: Subjective 24 Hr Interval Summary Subjective hx not possible: pt non-verbal Cardiovascular: no complaints Gastrointestinal: diarrhea (+) Exam/Review of Systems Vital Signs Vitals Vital Signs Date Time Temp Pulse Resp B/P Pulse Ox O2 Delivery O2 Flow Rate FiO2 09/18/16 22:37 97.6 70 18 94/54 96 Nasal Cannula 3.0 Intake and Output 09/17/16 09/17/16 09/18/16 15:00 23:00 07:00 Intake Total 650 ml 590 ml 633 ml Output Total 3000 ml Balance -2350 ml 590 ml 633 ml Exam Respiratory: diminished breath sounds Cardiovascular: regular rate and rhythm Gastrointestinal: bowel sounds (+), soft Extremities: edema (+) Results Result Diagram: 09/18/16 0550 09/17/16 0651 Results 24 hrs Laboratory Tests Test 09/18/16 05:50 White Blood Count 11.0 #H Red Blood Count 2.41 L Hemoglobin 8.4 L Hematocrit 25.7 L Mean Corpuscular Volume 106.6 H Mean Corpuscular Hemoglobin 34.9 H Mean Corpuscular Hemoglobin Concent 32.7 Red Cell Distribution Width 14.1 Platelet Count 241 Mean Platelet Volume 11.8 H Neutrophils % 77.1 H Lymphocytes % 10.7 L Monocytes % 7.7 Eosinophils % 2.8 Basophils % 0.1 Nucleated Red Blood Cells % 0.0 Neutrophils # 8.5 H Lymphocytes # 1.2 Monocytes # 0.9 Eosinophils # 0.3 Basophils # 0.0 Nucleated Red Blood Cells # 0.0 Medications Medications Current Medications Acetaminophen (Tylenol Tab) 325 mg DAILY PRN PO PAIN AND OR ELEVATED TEMP Last administered on 09/13/16t 13:00; Admin Dose 325 MG; Start 09/04/16 at 16:00 Amiodarone HCl (Cordarone) 200 mg DAILY PO Last administered on 09/18/16 11:08 ; Admin Dose 200 MG; Start 09/05/16 at 09:00 Aspirin (Aspirin) 81 mg DAILY PO Last administered on 09/18/16 08:53; Admin Dose 81 MG; Start 09/05/16 at 09:00 Naloxone HCl (Narcan) 0.4 mg Q3M PRN IV DECREASED REPIRATORY RATE; Start at 19:30 Ondansetron HCl (Zofran Inj) 4 mg Q6H PRN IV NAUSEA AND/OR VOMITING; Start 09/04 at 19:30 Nitroglycerin (Nitroglycerin (Sl Tab) 0.4 Mg) 1 tab Q5M PRN SL CHEST PAIN; Start 09/04/16 at 19:30 Acetaminophen (Tylenol Tab) 650 mg Q6H PRN PO PAIN LEVEL 1-3 OR FEVER Last administered on 09/18/16 17:47; Admin Dose 650 MG; Start 09/04/16 at 19:30 Docusate Sodium (Colace Liquid Cup) 100 mg BID GTB Last administered on 08:53; Admin Dose 100 MG; Start 09/05/16 at 09:00 Diltiazem HCl (Cardizem) 30 mg Q8 PO Last administered on 09/06/16 05:17; Admin Dose 30 MG; Start 09/05/16 at 14:00; Status Future Hold Carvedilol (Coreg) 6.25 mg BID GTB Last administered on 09/18/16 08:53; Admin Dose 6.25 MG; Start 09/07/16 at 21:00 Apixaban (Eliquis) 2.5 mg BID PO Last administered on 09/18/16 21:00; Admin Dose 2.5 MG; Start 09/09/16 at 21:00 Atorvastatin Calcium (Lipitor) 20 mg QHS PO Last administered on 09/18/16 21: 00; Admin Dose 20 MG; Start 09/09/16 at 21:00 Lansoprazole (Prevacid) 30 mg DAILY@06 GTB Last administered on 09/18/16 05:44 ; Admin Dose 30 MG; Start 09/12/16 at 06:00 Metoclopramide HCl 5 mg 5 mg Q6 IV Last administered on 09/18/16 17:38; Admin Dose 5 MG; Start 09/12/16 at 18:00 Erythromycin Lactobionate/ Sodium Chloride (Erythromycin Lactobionate/NS) 100 ml @ 100 mls/hr Q6 IVPB Last administered on 09/18/16 17:38; Admin Dose 100 MLS/HR; Start 09/16/16 at 00:00 Vancomycin HCl (Vancomycin Oral Syringe) 250 mg Q6 PO Last administered on 09/18 17:47; Admin Dose 250 MG; Start 09/18/16 at 13:00 CRUZITO ARELLANO MD Sep 18, 2016 23:14
[2016-09-19] VITALS (16 sets, daily range): BP systolic 105–122; BP diastolic 48–68; PULSE 69–76; RESP 16–19
[2016-09-19] MEDS: ERYTHROMYCIN LACTOBIONATE 250 MG in SOD CHLORIDE 0.9% 100 ML IVPB SCH ×5 (01:03→23:34)
[2016-09-19] MEDS: VANCOMYCIN HCL 250 MG/5ML POSYG PO SCH ×5 (01:04→23:34)
[2016-09-19] MEDS: METOCLOPRAMIDE 10 MG INJ IV SCH ×5 (06:00→23:34)
[2016-09-19] MEDS: LANSOPRAZOLE 30 MG CAP GTB SCH (06:50)
[2016-09-19] MEDS: LEVOTHYROXINE 150 MCG TAB PO SCH (06:51)
[2016-09-19] MEDS: DOCUSATE SODIUM 10 MG/ML (10ML CUP) GTB SCH ×2 (09:00→22:00)
--- NOTE | 2016-09-19 12:42 | CONS ---
Date/Time of Note Date/Time of Note DATE: 09/19/16 TIME: 12:40 Assessment/Plan Assessment/Plan Chief Complaint/Hosp Course IMPRESSION: 1. Congestive heart failure exacerbation, systolic, acute on chronic. EF 40% by echo 07/16 2. HTN-currently well controlled 3. Atrial fibrillation on systemic anticoagulation with reasonable rate control at this time. 4. History of recent cerebrovascular accident with altered mental status, encephalopathy. 5. Hypoxia. 6. Coronary artery disease. 7. Dysphagia status post G-tube. 8. Hypothyroidism. 9. Dyslipidemia. 10.PPM Recc: -Tele -HD for volume removal -Continue current BB/ACEI -Continue amio for now/asa/apixaban -Follow MS closely Problems: Consultation Date/Type/Reason Admit Date/Time Sep 04, 2016 at 16:03 Initial Consult Date 09/05/2016 Type of Consultation: Cardiology Reason for Consultation CHF Referring Provider: CRUZITO ARELLANO MD Exam/Review of Systems Vital Signs Vitals Vital Signs Date Time Temp Pulse Resp B/P Pulse Ox O2 Delivery O2 Flow Rate FiO2 09/19/16 12:04 69 09/19/16 11:18 98.7 105/51 96 09/19/16 09:00 17 09/19/16 02:10 3.0 09/18/16 22:37 Nasal Cannula Intake and Output 09/18/16 09/18/16 09/19/16 15:00 23:00 07:00 Intake Total 600 ml 530 ml Balance 600 ml 530 ml Exam Review of Systems: CONSTITUTIONAL: No fevers, chills. PULMONARY: No sob CARDIOVASCULAR: No chest pain/palpitations GASTROINTESTINAL: No nausea/vomiting. GENITOURINARY: No hematuria/dysuria. MUSCULOSKELETAL: No myagias/arthalgias. PSYCHIATRIC: The patient denies depression. NEUROLOGIC: Encephalopathy Constitutional: alert Psych: no complaints Head: normocephalic ENMT: mucosa pink and moist Neck: jvd (9 cm water), supple Respiratory: diminished breath sounds (at bases/B) Cardiovascular: regular rate and rhythm Gastrointestinal: non-tender, soft Musculoskeletal: muscle tone (normal) Extremities: edema (trace) Neurological: lethargic Results Result Diagram: 09/18/16 0550 09/17/16 0651 Medications Medications Current Medications Acetaminophen (Tylenol Tab) 325 mg DAILY PRN PO PAIN AND OR ELEVATED TEMP Last administered on 09/13/16 13:00; Admin Dose 325 MG; Start 09/04/16 at 16:00 Amiodarone HCl (Cordarone) 200 mg DAILY PO Last administered on 09/18/16 11:08 ; Admin Dose 200 MG; Start 09/05/16 at 09:00 Aspirin (Aspirin) 81 mg DAILY PO Last administered on 09/18/16 08:53; Admin Dose 81 MG; Start 09/05/16 at 09:00 Naloxone HCl (Narcan) 0.4 mg Q3M PRN IV DECREASED REPIRATORY RATE; Start at 19:30 Ondansetron HCl (Zofran Inj) 4 mg Q6H PRN IV NAUSEA AND/OR VOMITING; Start 09/04 at 19:30 Nitroglycerin (Nitroglycerin (Sl Tab) 0.4 Mg) 1 tab Q5M PRN SL CHEST PAIN; Start 09/04/16 at 19:30 Acetaminophen (Tylenol Tab) 650 mg Q6H PRN PO PAIN LEVEL 1-3 OR FEVER Last administered on 09/18/16 17:47; Admin Dose 650 MG; Start 09/04/16 at 19:30 Docusate Sodium (Colace Liquid Cup) 100 mg BID GTB Last administered on 08:53; Admin Dose 100 MG; Start 09/05/16 at 09:00 Diltiazem HCl (Cardizem) 30 mg Q8 PO Last administered on 09/06/16 05:17; Admin Dose 30 MG; Start 09/05/16 at 14:00; Status Future Hold Carvedilol (Coreg) 6.25 mg BID GTB Last administered on 09/18/16 08:53; Admin Dose 6.25 MG; Start 09/07/16 at 21:00 Apixaban (Eliquis) 2.5 mg BID PO Last administered on 09/18/16 21:00; Admin Dose 2.5 MG; Start 09/09/16 at 21:00 Atorvastatin Calcium (Lipitor) 20 mg QHS PO Last administered on 09/18/16 21: 00; Admin Dose 20 MG; Start 09/09/16 at 21:00 Lansoprazole (Prevacid) 30 mg DAILY@06 GTB Last administered on 09/19/16 06:50 ; Admin Dose 30 MG; Start 09/12/16 at 06:00 Metoclopramide HCl 5 mg 5 mg Q6 IV Last administered on 09/18/16 17:38; Admin Dose 5 MG; Start 09/12/16 at 18:00 Erythromycin Lactobionate/ Sodium Chloride (Erythromycin Lactobionate/NS) 100 ml @ 100 mls/hr Q6 IVPB Last administered on 09/19/16 06:50; Admin Dose 100 MLS/HR; Start 09/16/16 at 00:00 Vancomycin HCl (Vancomycin Oral Syringe) 250 mg Q6 PO Last administered on 09/19 06:51; Admin Dose 250 MG; Start 09/18/16 at 13:00 SASKIA WHITE Sep 19, 2016 12:42
[2016-09-19] MEDS: APIXABAN 5 MG TABLET PO SCH ×2 (13:37→22:01)
[2016-09-19] MEDS: ASPIRIN 81 MG TAB PO SCH (13:38)
--- NOTE | 2016-09-19 13:51 | CONS ---
Date/Time of Note Date/Time of Note DATE: 09/19/16 TIME: 13:49 Assessment/Plan Assessment/Plan Chief Complaint/Hosp Course SUBJECTIVE: No acute changes. The patient is awake, lying comfortably in bed. She has been working with physical therapy, no fevers. MICROBIOLOGY: Stool for C. difficile from yesterday came back positive. INDWELLINGS: She has a Perm-A-Cath, PEG and permanent pacemaker. ANTIMICROBIALS: 1. PO Vanco. 2. Erythromycin PHYSICAL EXAMINATION: GENERAL: This is a fragile, chronically ill-appearing, elderly woman who is in no distress. HEENT: Head atraumatic, normocephalic. Sclerae anicteric. Buccal mucosa dry. NECK: Supple. CHEST: Rise symmetrical. Breath sounds diminished. HEART: S1, S2. ABDOMEN: Soft. Bowel tones present. ASSESSMENT: 1. Status post septic shock with Escherichia coli bacteremia. 2. Clostridium difficile colitis. 3. End-stage renal disease, hemodialysis dependent. 4. Diabetic gastroparesis. 5. Dysphagia. 6. Coronary artery disease with a history of permanent pacemaker placement. 7. History of cerebrovascular accident. PLAN: The patient remains stable. Continue present care, GI rec-s staff Problems: Consultation Date/Type/Reason Admit Date/Time Sep 04, 2016 at 16:03 Type of Consultation: id Referring Provider: CRUZITO ARELLANO MD Exam/Review of Systems Vital Signs Vitals Vital Signs Date Time Temp Pulse Resp B/P Pulse Ox O2 Delivery O2 Flow Rate FiO2 09/19/16 12:04 69 09/19/16 11:18 98.7 105/51 96 09/19/16 09:00 17 09/19/16 02:10 3.0 09/18/16 22:37 Nasal Cannula Intake and Output 09/18/16 09/18/16 09/19/16 14:59 22:59 06:59 Intake Total 600 ml 530 ml Balance 600 ml 530 ml Results Result Diagram: 09/18/16 0550 09/17/16 0651 Medications Medications Current Medications Acetaminophen (Tylenol Tab) 325 mg DAILY PRN PO PAIN AND OR ELEVATED TEMP Last administered on 09/13/16 13:00; Admin Dose 325 MG; Start 09/04/16 at 16:00 Amiodarone HCl (Cordarone) 200 mg DAILY PO Last administered on 09/18/16 11:08 ; Admin Dose 200 MG; Start 09/05/16 at 09:00 Aspirin (Aspirin) 81 mg DAILY PO Last administered on 09/19/16 13:38; Admin Dose 81 MG; Start 09/05/16 at 09:00 Naloxone HCl (Narcan) 0.4 mg Q3M PRN IV DECREASED REPIRATORY RATE; Start at 19:30 Ondansetron HCl (Zofran Inj) 4 mg Q6H PRN IV NAUSEA AND/OR VOMITING; Start 09/04 at 19:30 Nitroglycerin (Nitroglycerin (Sl Tab) 0.4 Mg) 1 tab Q5M PRN SL CHEST PAIN; Start 09/04/16 at 19:30 Acetaminophen (Tylenol Tab) 650 mg Q6H PRN PO PAIN LEVEL 1-3 OR FEVER Last administered on 09/18/16 17:47; Admin Dose 650 MG; Start 09/04/16 at 19:30 Docusate Sodium (Colace Liquid Cup) 100 mg BID GTB Last administered on 08:53; Admin Dose 100 MG; Start 09/05/16 at 09:00 Diltiazem HCl (Cardizem) 30 mg Q8 PO Last administered on 09/06/16 05:17; Admin Dose 30 MG; Start 09/05/16 at 14:00; Status Future Hold Carvedilol (Coreg) 6.25 mg BID GTB Last administered on 09/18/16 08:53; Admin Dose 6.25 MG; Start 09/07/16 at 21:00 Apixaban (Eliquis) 2.5 mg BID PO Last administered on 09/19/16 13:37; Admin Dose 2.5 MG; Start 09/09/16 at 21:00 Atorvastatin Calcium (Lipitor) 20 mg QHS PO Last administered on 09/18/16 21: 00; Admin Dose 20 MG; Start 09/09/16 at 21:00 Lansoprazole (Prevacid) 30 mg DAILY@06 GTB Last administered on 09/19/16 06:50 ; Admin Dose 30 MG; Start 09/12/16 at 06:00 Metoclopramide HCl 5 mg 5 mg Q6 IV Last administered on 09/18/16 17:38; Admin Dose 5 MG; Start 09/12/16 at 18:00 Erythromycin Lactobionate/ Sodium Chloride (Erythromycin Lactobionate/NS) 100 ml @ 100 mls/hr Q6 IVPB Last administered on 09/19/16 13:17; Admin Dose 100 MLS/HR; Start 09/16/16 at 00:00 Vancomycin HCl (Vancomycin Oral Syringe) 250 mg Q6 PO Last administered on 09/19 13:17; Admin Dose 250 MG; Start 09/18/16 at 13:00 TREMAINE MUNROE NP Sep 19, 2016 13:51
[2016-09-19] MEDS: AMIODARONE 200 MG TAB PO SCH (18:08)
[2016-09-19] MEDS: ATORVASTATIN 20 MG TAB PO SCH (22:00)
--- NOTE | 2016-09-19 22:35 | PN ---
Date/Time of Note Date/Time of Note DATE: 09/19/16 TIME: 22:34 Assessment/Plan VTE Prophylaxis VTE Prophylaxis Intervention: other Lines/Catheters IV Catheter Type (from Nrs): PERMACATH Urinary Cath still in place: No Assessment/Plan Chief Complaint/Hosp Course IMPRESSION: 1. Sepsis. 2. Lung congestion.better 3. Possible underlying pneumonia. 4. Underlying bronchitis. 5. Endstage renal disease. 6. Atrial fibrillation. 7. Atherosclerotic heart disease. 8. Dyslipidemia. 9. G-tube placement.inc gastric residual 10 e coli sepsis 11 high gastric residuals will need j tube better 12 c diff+ plan antibiotic hd per id dec steroid peg feeding hd vanco po Problems: Subjective 24 Hr Interval Summary Gastrointestinal: No diarrhea Exam/Review of Systems Vital Signs Vitals Vital Signs Date Time Temp Pulse Resp B/P Pulse Ox O2 Delivery O2 Flow Rate FiO2 09/19/16 21:41 3.0 09/19/16 20:11 98.0 72 18 112/56 97 09/19/16 08:30 Nasal Cannula Intake and Output 09/18/16 09/18/16 09/19/16 15:00 23:00 07:00 Intake Total 600 ml 530 ml Balance 600 ml 530 ml Exam Respiratory: diminished breath sounds Cardiovascular: regular rate and rhythm Gastrointestinal: soft Results Result Diagram: 09/18/16 0550 09/17/16 0651 Medications Medications Current Medications Acetaminophen (Tylenol Tab) 325 mg DAILY PRN PO PAIN AND OR ELEVATED TEMP Last administered on 09/13/16 13:00; Admin Dose 325 MG; Start 09/04/16 at 16:00 Amiodarone HCl (Cordarone) 200 mg DAILY PO Last administered on 09/19/16 18:08 ; Admin Dose 200 MG; Start 09/05/16 at 09:00 Aspirin (Aspirin) 81 mg DAILY PO Last administered on 09/19/16 13:38; Admin Dose 81 MG; Start 09/05/16 at 09:00 Naloxone HCl (Narcan) 0.4 mg Q3M PRN IV DECREASED REPIRATORY RATE; Start at 19:30 Ondansetron HCl (Zofran Inj) 4 mg Q6H PRN IV NAUSEA AND/OR VOMITING; Start 09/04 at 19:30 Nitroglycerin (Nitroglycerin (Sl Tab) 0.4 Mg) 1 tab Q5M PRN SL CHEST PAIN; Start 09/04/16 at 19:30 Acetaminophen (Tylenol Tab) 650 mg Q6H PRN PO PAIN LEVEL 1-3 OR FEVER Last administered on 09/18/16 17:47; Admin Dose 650 MG; Start 09/04/16 at 19:30 Docusate Sodium (Colace Liquid Cup) 100 mg BID GTB Last administered on 22:00; Admin Dose 100 MG; Start 09/05/16 at 09:00 Diltiazem HCl (Cardizem) 30 mg Q8 PO Last administered on 09/06/16 05:17; Admin Dose 30 MG; Start 09/05/16 at 14:00; Status Future Hold Carvedilol (Coreg) 6.25 mg BID GTB Last administered on 09/19/16 22:00; Admin Dose 6.25 MG; Start 09/07/16 at 21:00 Apixaban (Eliquis) 2.5 mg BID PO Last administered on 09/19/16 22:01; Admin Dose 2.5 MG; Start 09/09/16 at 21:00 Atorvastatin Calcium (Lipitor) 20 mg QHS PO Last administered on 09/19/16 22: 00; Admin Dose 20 MG; Start 09/09/16 at 21:00 Lansoprazole (Prevacid) 30 mg DAILY@06 GTB Last administered on 09/19/16 06:50 ; Admin Dose 30 MG; Start 09/12/16 at 06:00 Metoclopramide HCl 5 mg 5 mg Q6 IV Last administered on 09/19/16 18:15; Admin Dose 5 MG; Start 09/12/16 at 18:00 Erythromycin Lactobionate/ Sodium Chloride (Erythromycin Lactobionate/NS) 100 ml @ 100 mls/hr Q6 IVPB Last administered on 09/19/16 18:13; Admin Dose 100 MLS/HR; Start 09/16/16 at 00:00 Vancomycin HCl (Vancomycin Oral Syringe) 250 mg Q6 PO Last administered on 09/19 18:05; Admin Dose 250 MG; Start 09/18/16 at 13:00 CRUZITO ARELLANO MD Sep 19, 2016 22:34
[2016-09-19] MEDS: ACETAMINOPHEN 325 MG TAB PO PRN (23:35)
[2016-09-20] VITALS (11 sets, daily range): BP systolic 82–96; BP diastolic 41–54; PULSE 70; RESP 18–20
[2016-09-20] MEDS: LANSOPRAZOLE 30 MG CAP GTB SCH (06:32)
[2016-09-20] MEDS: VANCOMYCIN HCL 250 MG/5ML POSYG PO SCH ×3 (06:32→18:00)
[2016-09-20] MEDS: METOCLOPRAMIDE 10 MG INJ IV SCH ×2 (06:32→15:17)
[2016-09-20] MEDS: LEVOTHYROXINE 150 MCG TAB PO SCH (06:32)
[2016-09-20] MEDS: ERYTHROMYCIN LACTOBIONATE 250 MG in SOD CHLORIDE 0.9% 100 ML IVPB SCH ×3 (06:32→17:59)
[2016-09-20] MEDS: DOCUSATE SODIUM 10 MG/ML (10ML CUP) GTB SCH ×2 (09:00→21:00)
[2016-09-20] MEDS: ASPIRIN 81 MG TAB PO SCH (09:28)
[2016-09-20] MEDS: ACETAMINOPHEN 325 MG TAB PO PRN (09:29)
[2016-09-20] MEDS: AMIODARONE 200 MG TAB PO SCH (09:30)
--- NOTE | 2016-09-20 12:50 | CONS ---
Date/Time of Note Date/Time of Note DATE: 09/20/16 TIME: 12:49 Assessment/Plan Assessment/Plan Chief Complaint/Hosp Course SUBJECTIVE: No acute changes. The patient is lying comfortably in bed. no fevers. MICROBIOLOGY: Stool for C. difficile came back positive. INDWELLINGS: She has a Perm-A-Cath, PEG and permanent pacemaker. ANTIMICROBIALS: 1. PO Vanco. 2. Erythromycin PHYSICAL EXAMINATION: GENERAL: This is a fragile, chronically ill-appearing, elderly woman who is in no distress. HEENT: Head atraumatic, normocephalic. Sclerae anicteric. Buccal mucosa dry. NECK: Supple. CHEST: Rise symmetrical. Breath sounds diminished. HEART: S1, S2. ABDOMEN: Soft. Bowel tones present. ASSESSMENT: 1. Status post septic shock with Escherichia coli bacteremia. 2. Clostridium difficile colitis. 3. End-stage renal disease, hemodialysis dependent. 4. Diabetic gastroparesis. 5. Dysphagia. 6. Coronary artery disease with a history of permanent pacemaker placement. 7. History of cerebrovascular accident. PLAN: The patient remains stable. Continue present care, abx, f/u GI rec-s [facility] staff Problems: Consultation Date/Type/Reason Admit Date/Time Sep 04, 2016 at 16:03 Type of Consultation: id Referring Provider: CRUZITO ARELLANO MD Exam/Review of Systems Vital Signs Vitals Vital Signs Date Time Temp Pulse Resp B/P Pulse Ox O2 Delivery O2 Flow Rate FiO2 09/20/16 12:15 70 09/20/16 11:36 97.6 19 82/41 100 09/20/16 06:05 3.0 09/19/16 20:10 Nasal Cannula Intake and Output 09/19/16 09/19/16 09/20/16 15:00 23:00 07:00 Intake Total 300 ml 560 ml 810 ml Output Total 2300 ml 1 ml Balance -2000 ml 560 ml 809 ml Results Result Diagram: 09/18/16 0550 09/17/16 0651 Medications Medications Current Medications Acetaminophen (Tylenol Tab) 325 mg DAILY PRN PO PAIN AND OR ELEVATED TEMP Last administered on 09/20/16 09:29; Admin Dose 325 MG; Start 09/04/16 at 16:00 Amiodarone HCl (Cordarone) 200 mg DAILY PO Last administered on 09/20/16 09:30 ; Admin Dose 200 MG; Start 09/05/16 at 09:00 Aspirin (Aspirin) 81 mg DAILY PO Last administered on 09/20/16 09:28; Admin Dose 81 MG; Start 09/05/16 at 09:00 Naloxone HCl (Narcan) 0.4 mg Q3M PRN IV DECREASED REPIRATORY RATE; Start at 19:30 Ondansetron HCl (Zofran Inj) 4 mg Q6H PRN IV NAUSEA AND/OR VOMITING; Start 09/04 at 19:30 Nitroglycerin (Nitroglycerin (Sl Tab) 0.4 Mg) 1 tab Q5M PRN SL CHEST PAIN; Start 09/04/16 at 19:30 Acetaminophen (Tylenol Tab) 650 mg Q6H PRN PO PAIN LEVEL 1-3 OR FEVER Last administered on 09/19/16 23:35; Admin Dose 650 MG; Start 09/04/16 at 19:30 Docusate Sodium (Colace Liquid Cup) 100 mg BID GTB Last administered on 22:00; Admin Dose 100 MG; Start 09/05/16 at 09:00 Diltiazem HCl (Cardizem) 30 mg Q8 PO Last administered on 09/06/16 05:17; Admin Dose 30 MG; Start 09/05/16 at 14:00; Status Future Hold Carvedilol (Coreg) 6.25 mg BID GTB Last administered on 09/19/16 22:00; Admin Dose 6.25 MG; Start 09/07/16 at 21:00 Apixaban (Eliquis) 2.5 mg BID PO Last administered on 09/19/16 22:01; Admin Dose 2.5 MG; Start 09/09/16 at 21:00 Atorvastatin Calcium (Lipitor) 20 mg QHS PO Last administered on 09/19/16 22: 00; Admin Dose 20 MG; Start 09/09/16 at 21:00 Lansoprazole (Prevacid) 30 mg DAILY@06 GTB Last administered on 09/20/16 06:32 ; Admin Dose 30 MG; Start 09/12/16 at 06:00 Metoclopramide HCl 5 mg 5 mg Q6 IV Last administered on 09/20/16 06:32; Admin Dose 5 MG; Start 3/16/17 at 18:00 Erythromycin Lactobionate/ Sodium Chloride (Erythromycin Lactobionate/NS) 100 ml @ 100 mls/hr Q6 IVPB Last administered on 09/20/16 06:32; Admin Dose 100 MLS/HR; Start 09/16/16 at 00:00 Vancomycin HCl (Vancomycin Oral Syringe) 250 mg Q6 PO Last administered on 09/20 06:32; Admin Dose 250 MG; Start 09/18/16 at 13:00 TREMAINE MUNROE NP Sep 20, 2016 12:50
[2016-09-20] MEDS: APIXABAN 5 MG TABLET PO SCH ×2 (13:18→21:25)
--- NOTE | 2016-09-20 14:39 | CONS ---
Date/Time of Note Date/Time of Note DATE: 09/20/16 TIME: 14:38 Assessment/Plan Assessment/Plan Additional Assessment/Plan Additional Assessment/Plan IMPRESSION: 1. Status post sepsis. 2. Pneumonia. 3. Abnormal LFT. 4. Atrial fibrillation. 5. End-stage renal disease. 6. Gastroparesis. 7. Escherichia coli sepsis 8.gastroparesis ,resolved 9.c.difficile colitis Plan continue PO Vancomycin pt. now tolerating feeding Consultation Date/Type/Reason Admit Date/Time Sep 04, 2016 at 16:03 Type of Consultation: id Referring Provider: CRUZITO ARELLANO MD 24 HR Interval Summary Subjective hx not possible: pt non-verbal Constitutional: no complaints Exam/Review of Systems Vital Signs Vitals Vital Signs Date Time Temp Pulse Resp B/P Pulse Ox O2 Delivery O2 Flow Rate FiO2 09/20/16 12:15 70 09/20/16 11:36 97.6 19 82/41 100 09/20/16 06:05 3.0 09/19/16 20:10 Nasal Cannula Intake and Output 09/19/16 09/19/16 09/20/16 15:00 23:00 07:00 Intake Total 300 ml 560 ml 810 ml Output Total 2300 ml 1 ml Balance -2000 ml 560 ml 809 ml Exam Constitutional: alert, oriented, well developed Psych: nl mood/affect, no complaints Head: atraumatic, normocephalic Eyes: EOMI, PERRL, nl conjunctiva, nl lids, nl sclera ENMT: nl external ears & nose, nl lips & teeth, nl nasal mucosa & septum Neck: non-tender, supple Respiratory: clear to auscultation, normal air movement Cardiovascular: nl pulses, regular rate and rhythm Gastrointestinal: nl liver, spleen, non-tender, soft Musculoskeletal: nl extremities to inspection, nl gait and stance Extremities: normal pulses Neurological: FREIGHT BOOKER II-XII intact, nl mental status, nl speech, nl strength Skin: nl turgor, No rash or lesions Lymph: nl lymph nodes Results Result Diagram: 09/18/16 0550 09/17/16 0651 Medications Medications Current Medications Acetaminophen (Tylenol Tab) 325 mg DAILY PRN PO PAIN AND OR ELEVATED TEMP Last administered on 09/20/16t 09:29; Admin Dose 325 MG; Start 09/04/16 at 16:00 Amiodarone HCl (Cordarone) 200 mg DAILY PO Last administered on 09/20/16 09:30 ; Admin Dose 200 MG; Start 09/05/16 at 09:00 Aspirin (Aspirin) 81 mg DAILY PO Last administered on 09/20/16 09:28; Admin Dose 81 MG; Start 09/05/16 at 09:00 Naloxone HCl (Narcan) 0.4 mg Q3M PRN IV DECREASED REPIRATORY RATE; Start at 19:30 Ondansetron HCl (Zofran Inj) 4 mg Q6H PRN IV NAUSEA AND/OR VOMITING; Start 09/04 at 19:30 Nitroglycerin (Nitroglycerin (Sl Tab) 0.4 Mg) 1 tab Q5M PRN SL CHEST PAIN; Start 09/04/16 at 19:30 Acetaminophen (Tylenol Tab) 650 mg Q6H PRN PO PAIN LEVEL 1-3 OR FEVER Last administered on 09/19/16 23:35; Admin Dose 650 MG; Start 09/04/16 at 19:30 Docusate Sodium (Colace Liquid Cup) 100 mg BID GTB Last administered on 22:00; Admin Dose 100 MG; Start 09/05/16 at 09:00 Diltiazem HCl (Cardizem) 30 mg Q8 PO Last administered on 09/06/16 05:17; Admin Dose 30 MG; Start 09/05/16 at 14:00; Status Future Hold Carvedilol (Coreg) 6.25 mg BID GTB Last administered on 09/20/16 13:19; Admin Dose 6.25 MG; Start 09/07/16 at 21:00 Apixaban (Eliquis) 2.5 mg BID PO Last administered on 09/20/16 13:18; Admin Dose 2.5 MG; Start 09/09/16 at 21:00 Atorvastatin Calcium (Lipitor) 20 mg QHS PO Last administered on 09/19/16 22: 00; Admin Dose 20 MG; Start 09/09/16 at 21:00 Lansoprazole (Prevacid) 30 mg DAILY@06 GTB Last administered on 09/20/16 06:32 ; Admin Dose 30 MG; Start 09/12/16 at 06:00 Metoclopramide HCl 5 mg 5 mg Q6 IV Last administered on 09/20/16 06:32; Admin Dose 5 MG; Start 09/12/16 at 18:00 Erythromycin Lactobionate/ Sodium Chloride (Erythromycin Lactobionate/NS) 100 ml @ 100 mls/hr Q6 IVPB Last administered on 09/20/16 13:17; Admin Dose 100 MLS/HR; Start 09/16/16 at 00:00 Vancomycin HCl (Vancomycin Oral Syringe) 250 mg Q6 PO Last administered on 09/20 06:32; Admin Dose 250 MG; Start 09/18/16 at 13:00 HERON DIALLO MD Sep 20, 2016 14:39
--- NOTE | 2016-09-20 15:09 | CONS ---
DATE OF ADMISSION: 09/04/2016 DATE OF CONSULTATION: 09/19/2016 SUBJECTIVE: No complaints. OBJECTIVE VITAL SIGNS: Stable. ABDOMEN: Benign. CARDIOVASCULAR: No murmur, gallop or click. LUNGS: Clear, tolerating feeding. CENTRAL NERVOUS SYSTEM: She communicates to the family member. EXTREMITIES: No edema. IMPRESSION: 1. End-stage renal disease on dialysis. 2. Clostridium difficile colitis, for which she is on vancomycin. 3. Gastroparesis, for which she is on erythromycin. 4. Coronary artery disease with permanent pacemaker. 5. Cerebrovascular accident. PLAN: Continue present care. Dictated By: HERON FONSECA/KATE Conf#: [id number] DID#: [id number]
--- NOTE | 2016-09-20 16:19 | PN ---
Date/Time of Note Date/Time of Note DATE: 09/20/16 TIME: 16:17 Assessment/Plan VTE Prophylaxis VTE Prophylaxis Intervention: SCD's Lines/Catheters IV Catheter Type (from Nrs): PERMACATH Central line still needed: Yes Urinary Cath still in place: No Assessment/Plan Chief Complaint/Hosp Course 1. Sepsis. 2. Lung congestion,l better 3. Possible underlying pneumonia. 4. Underlying bronchitis. 5. Endstage renal disease. 6. Atrial fibrillation. 7. Atherosclerotic heart disease. 8. Dyslipidemia. 9. G-tube placement.inc gastric residual 10 e coli sepsis 11. HD tomorrow Problems: Assessment/Plan 1. Continue HD as needed Subjective 24 Hr Interval Summary Constitutional: improved Eyes: no complaints ENT: no complaints Exam/Review of Systems Vital Signs Vitals Vital Signs Date Time Temp Pulse Resp B/P Pulse Ox O2 Delivery O2 Flow Rate FiO2 09/20/16 16:09 70 09/20/16 16:09 98.1 18 91/54 95 09/20/16 06:05 3.0 09/19/16 20:10 Nasal Cannula Intake and Output 09/19/16 09/19/16 09/20/16 15:00 23:00 07:00 Intake Total 300 ml 560 ml 810 ml Output Total 2300 ml 1 ml Balance -2000 ml 560 ml 809 ml Exam Constitutional: alert, oriented Psych: no complaints Head: normocephalic Eyes: nl conjunctiva Cardiovascular: irregular rhythm Gastrointestinal: other (GT tube), soft Results Result Diagram: 09/18/16 0550 09/17/16 0651 Medications Medications Current Medications Acetaminophen (Tylenol Tab) 325 mg DAILY PRN PO PAIN AND OR ELEVATED TEMP Last administered on 09/20/16 09:29; Admin Dose 325 MG; Start 09/04/16 at 16:00 Amiodarone HCl (Cordarone) 200 mg DAILY PO Last administered on 09/20/16 09:30 ; Admin Dose 200 MG; Start 09/05/16 at 09:00 Aspirin (Aspirin) 81 mg DAILY PO Last administered on 09/20/16 09:28; Admin Dose 81 MG; Start 09/05/16 at 09:00 Naloxone HCl (Narcan) 0.4 mg Q3M PRN IV DECREASED REPIRATORY RATE; Start at 19:30 Ondansetron HCl (Zofran Inj) 4 mg Q6H PRN IV NAUSEA AND/OR VOMITING; Start 09/04 at 19:30 Nitroglycerin (Nitroglycerin (Sl Tab) 0.4 Mg) 1 tab Q5M PRN SL CHEST PAIN; Start 09/04/16 at 19:30 Acetaminophen (Tylenol Tab) 650 mg Q6H PRN PO PAIN LEVEL 1-3 OR FEVER Last administered on 09/19/16 23:35; Admin Dose 650 MG; Start 09/04/16 at 19:30 Docusate Sodium (Colace Liquid Cup) 100 mg BID GTB Last administered on 22:00; Admin Dose 100 MG; Start 09/05/16 at 09:00 Diltiazem HCl (Cardizem) 30 mg Q8 PO Last administered on 09/06/16 05:17; Admin Dose 30 MG; Start 09/05/16 at 14:00; Status Future Hold Carvedilol (Coreg) 6.25 mg BID GTB Last administered on 09/20/16 13:19; Admin Dose 6.25 MG; Start 09/07/16 at 21:00 Apixaban (Eliquis) 2.5 mg BID PO Last administered on 09/20/16 13:18; Admin Dose 2.5 MG; Start 09/09/16 at 21:00 Atorvastatin Calcium (Lipitor) 20 mg QHS PO Last administered on 09/19/16 22: 00; Admin Dose 20 MG; Start 09/09/16 at 21:00 Lansoprazole (Prevacid) 30 mg DAILY@06 GTB Last administered on 09/20/16 06:32 ; Admin Dose 30 MG; Start 09/12/16 at 06:00 Metoclopramide HCl 5 mg 5 mg Q6 IV Last administered on 09/20/16 15:17; Admin Dose 5 MG; Start 09/12/16 at 18:00 Erythromycin Lactobionate/ Sodium Chloride (Erythromycin Lactobionate/NS) 100 ml @ 100 mls/hr Q6 IVPB Last administered on 09/20/16 13:17; Admin Dose 100 MLS/HR; Start 09/16/16 at 00:00 Vancomycin HCl (Vancomycin Oral Syringe) 250 mg Q6 PO Last administered on 09/20 15:18; Admin Dose 250 MG; Start 09/18/16 at 13:00 JERAMIE FLORES Sep 20, 2016 16:19
[2016-09-20] MEDS: ATORVASTATIN 20 MG TAB PO SCH (21:25)
[2016-09-21] VITALS (20 sets, daily range): BP systolic 83–114; BP diastolic 42–58; PULSE 69–78; RESP 15–20
[2016-09-21] MEDS: VANCOMYCIN HCL 250 MG/5ML POSYG PO SCH ×4 (00:14→17:42)
[2016-09-21] MEDS: ERYTHROMYCIN LACTOBIONATE 250 MG in SOD CHLORIDE 0.9% 100 ML IVPB SCH ×4 (00:14→17:42)
[2016-09-21] MEDS: LANSOPRAZOLE 30 MG CAP GTB SCH (06:04)
[2016-09-21] MEDS: LEVOTHYROXINE 150 MCG TAB PO SCH (06:04)
[2016-09-21] MEDS: DOCUSATE SODIUM 10 MG/ML (10ML CUP) GTB SCH ×2 (08:36→21:00)
[2016-09-21] MEDS: ASPIRIN 81 MG TAB PO SCH (08:36)
[2016-09-21] MEDS: AMIODARONE 200 MG TAB PO SCH (08:38)
[2016-09-21] MEDS: APIXABAN 5 MG TABLET PO SCH ×2 (08:38→21:17)
--- NOTE | 2016-09-21 10:08 | CONS ---
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 Diff - completed ABX for GNR Line Sepsis Result Diagram: 09/18/16 0550 09/17/16 0651 HPI Briefly, 80 yo F w/MMP admit [facility] 09/04/16 w/Fevers and increased SOB at [facility] w/congested cough admitted with hypoxic respiratory failure and septic shock w/hypotension and significant leukocytosis. The patient was initially admitted to the [facility] ICU and stabilized with pressor support, supplemental oxygen, and started on Vanco IV on 09/04/16 x1 and Cefepime IV 09/05/16 for concern Aspiration HCAP on CXR. Subsequently, Blood Cx have come back (+)GNR E.Coli sensitive to both Gentamicin /Tobramycin and Cefotaxime. The patient has stabilized Specimen: [id number] Status: Complete Guilherme: 09/04/16-1020 Rcvd: 09/04-1340 Source: BLOOD Sp Descrip: Microbiology BLOOD CULTURE Final BCULT GRAM BOTTLE 1 Gram negative rods . seen on gram stain of the broth Organism 1 ESCHERICHIA COLI E COLI M.I.C. RX --------- --- AMPICILLIN >=32 R CEFAZOLIN R CEFOTAXIME S CIPROFLOXACIN 2 I GENTAMICIN <=1 S LEVOFLOXACIN >=8 R TOBRAMYCIN <=1 S TRIMETHOPRIM/SULFAMETHOXAZOLE >=320 R PAST MEDICAL HISTORY: HTN, dyslipidemia, CAD, cardiomyopathy with mildly depressed LV systolic function, last only approximately 40% by echo 06/2016, atrial fibrillation on systemic anticoagulation, recent CVA with thereafter encephalopathy, dysphagia status post G-tube, anemia of chronic disease, ESRD-HD, s/p Right internal jugular vein tunneled hemodialysis catheter placement 07/26/2016. s/p [facility] admission Jun 2016 for KP-ESBL Septicemia. PHYSICAL EXAMINATION: GENERAL: VSS, NAD HEENT: Unremarkable NECK: Trach midline CHEST: Equal chest rise bilaterally, without dyspnea on observation HEART: Pulse RRR ABDOMEN: Soft/peg EXTREMITIES: Warm SKIN: See hard chart skin assessment ID ASSESSMENT: 80 yo F w/MMP including PMHx CVA w/encephalopathy, dysphagia, CAD, CMY, admit [facility] 09/04/16 w/Fevers and [facility] SOB at [facility] w/congested cough admitted with hypoxic respiratory failure and septic shock w/hypotension and significant leukocytosis with: 1. SIRS w/leukocytosis due to C.Diff Colitis 2. s/p GNR Sepsis on admission w/hypotensive shock now resolved=>(+)GNR E.Coli septicemia BCx(+)09/04/16. * Repeat BCx (-) 3. Resolved: HCAP=>Aspiration PNA per (+)Dysphagia, failed swallow eval prior admission, now with Peg. 4. s/p Acute CHF exacerbation 5. CV issues: HTN, DLD, Afib,CAD, CMY EF 40%, Indwelling Pacer 6. ESRD -> PermCath present on admission appears placed Jun 2016. (-)MRSA Nares Screen INVASIVES: PIV ABX ALLERGY: KNDA CURRENT ABX: Vanco PO s/p Cefepime/Gent s/p Vanco IV 09/04/16 x1 ID RECOMMENDATIONS: 1. Continue course of Vanco PO x 10 days total 2. WBC normalizing -- DC planning = OK to DC when WBC normalized . Problems: Consultation Date/Type/Reason Admit Date/Time Sep 04, 2016 at 16:03 Type of Consultation: id Referring Provider: CRUZITO ARELLANO MD Exam/Review of Systems Vital Signs Vitals Vital Signs Date Time Temp Pulse Resp B/P Pulse Ox O2 Delivery O2 Flow Rate FiO2 09/21/16 08:30 Nasal Cannula 3.0 09/21/16 08:21 32 09/21/16 08:18 69 09/21/16 07:53 98.2 19 95/54 99 Intake and Output 09/20/16 09/20/16 09/21/16 15:00 23:00 07:00 Intake Total 560 ml 710 ml Balance 560 ml 710 ml Results Result Diagram: 09/18/16 0550 09/17/16 0651 Medications Medications Current Medications Acetaminophen (Tylenol Tab) 325 mg DAILY PRN PO PAIN AND OR ELEVATED TEMP Last administered on 09/20/16 09:29; Admin Dose 325 MG; Start 09/04/16 at 16:00 Amiodarone HCl (Cordarone) 200 mg DAILY PO Last administered on 09/21/16 08:38 ; Admin Dose 200 MG; Start 09/05/16 at 09:00 Aspirin (Aspirin) 81 mg DAILY PO Last administered on 09/21/16 08:36; Admin Dose 81 MG; Start 09/05/16 at 09:00 Naloxone HCl (Narcan) 0.4 mg Q3M PRN IV DECREASED REPIRATORY RATE; Start at 19:30 Ondansetron HCl (Zofran Inj) 4 mg Q6H PRN IV NAUSEA AND/OR VOMITING; Start 09/04 at 19:30 Nitroglycerin (Nitroglycerin (Sl Tab) 0.4 Mg) 1 tab Q5M PRN SL CHEST PAIN; Start 09/04/16 at 19:30 Acetaminophen (Tylenol Tab) 650 mg Q6H PRN PO PAIN LEVEL 1-3 OR FEVER Last administered on 09/19/16 23:35; Admin Dose 650 MG; Start 09/04/16 at 19:30 Docusate Sodium (Colace Liquid Cup) 100 mg BID GTB Last administered on 08:36; Admin Dose 100 MG; Start 09/05/16 at 09:00 Diltiazem HCl (Cardizem) 30 mg Q8 PO Last administered on 09/06/16 05:17; Admin Dose 30 MG; Start 09/05/16 at 14:00; Status Future Hold Carvedilol (Coreg) 6.25 mg BID GTB Last administered on 09/20/16 13:19; Admin Dose 6.25 MG; Start 09/07/16 at 21:00 Apixaban (Eliquis) 2.5 mg BID PO Last administered on 09/21/16 08:38; Admin Dose 2.5 MG; Start 09/09/16 at 21:00 Atorvastatin Calcium (Lipitor) 20 mg QHS PO Last administered on 09/20/16 21: 25; Admin Dose 20 MG; Start 09/09/16 at 21:00 Lansoprazole 30 mg 30 mg DAILY@06 GTB Last administered on 09/21/16 06:04; Admin Dose 30 MG; Start 09/12/16 at 06:00 Erythromycin Lactobionate/ Sodium Chloride (Erythromycin Lactobionate/NS) 100 ml @ 100 mls/hr Q6 IVPB Last administered on 09/21/16 06:04; Admin Dose 100 MLS/HR; Start 09/16/16 at 00:00 Vancomycin HCl (Vancomycin Oral Syringe) 250 mg Q6 PO Last administered on 09/21 06:04; Admin Dose 250 MG; Start 09/18/16 at 13:00 LOUISA MAREI NP Sep 21, 2016 10:06
--- NOTE | 2016-09-21 12:04 | PN ---
Date/Time of Note Date/Time of Note DATE: 09/21/16 TIME: 11:59 Assessment/Plan VTE Prophylaxis VTE Prophylaxis Intervention: SCD's Lines/Catheters IV Catheter Type (from Nrs): permacath Central line still needed: Yes Urinary Cath still in place: No Assessment/Plan Chief Complaint/Hosp Course 1. Sepsis, resolved, will see labs tomorrrow. 2. Lung congestion, better 3. Bibasilar infiltrates. 4. Underlying bronchitis. 5. Endstage renal disease, HD dependent 6. Atrial fibrillation. 7. Atherosclerotic heart disease. 8. Dyslipidemia. 9. G-tube placement.inc gastric residual 10 e coli sepsis, resolved Problems: Assessment/Plan 1. Discharge planning, talked to family, son agreed 2. Continue HD via permacath 3. Increase GT feeding to 40/h Subjective 24 Hr Interval Summary Subjective hx not possible: pt non-verbal Cardiovascular: no complaints Gastrointestinal: no complaints Genitourinary: no complaints Exam/Review of Systems Vital Signs Vitals Vital Signs Date Time Temp Pulse Resp B/P Pulse Ox O2 Delivery O2 Flow Rate FiO2 09/21/16 11:39 98.4 79 19 114/54 97 09/21/16 08:30 Nasal Cannula 3.0 09/21/16 08:21 32 Intake and Output 09/20/16 09/20/16 09/21/16 15:00 23:00 07:00 Intake Total 560 ml 710 ml Balance 560 ml 710 ml Exam Constitutional: alert, oriented (1) Head: normocephalic Eyes: nl conjunctiva ENMT: nl external ears & nose Respiratory: clear to auscultation, diminished breath sounds Cardiovascular: regular rate and rhythm Gastrointestinal: soft Results Result Diagram: 09/18/16 0550 09/17/16 0651 Medications Medications Current Medications Acetaminophen (Tylenol Tab) 325 mg DAILY PRN PO PAIN AND OR ELEVATED TEMP Last administered on 09/20/16 09:29; Admin Dose 325 MG; Start 09/04/16 at 16:00 Amiodarone HCl (Cordarone) 200 mg DAILY PO Last administered on 09/21/16 08:38 ; Admin Dose 200 MG; Start 09/05/16 at 09:00 Aspirin (Aspirin) 81 mg DAILY PO Last administered on 09/21/16 08:36; Admin Dose 81 MG; Start 09/05/16 at 09:00 Naloxone HCl (Narcan) 0.4 mg Q3M PRN IV DECREASED REPIRATORY RATE; Start at 19:30 Ondansetron HCl (Zofran Inj) 4 mg Q6H PRN IV NAUSEA AND/OR VOMITING; Start 09/04 at 19:30 Nitroglycerin (Nitroglycerin (Sl Tab) 0.4 Mg) 1 tab Q5M PRN SL CHEST PAIN; Start 09/04/16 at 19:30 Acetaminophen (Tylenol Tab) 650 mg Q6H PRN PO PAIN LEVEL 1-3 OR FEVER Last administered on 09/19/16 23:35; Admin Dose 650 MG; Start 09/04/16 at 19:30 Docusate Sodium (Colace Liquid Cup) 100 mg BID GTB Last administered on 08:36; Admin Dose 100 MG; Start 09/05/16 at 09:00 Diltiazem HCl (Cardizem) 30 mg Q8 PO Last administered on 09/06/16 05:17; Admin Dose 30 MG; Start 09/05/16 at 14:00; Status Future Hold Carvedilol (Coreg) 6.25 mg BID GTB Last administered on 09/20/16 13:19; Admin Dose 6.25 MG; Start 09/07/16 at 21:00 Apixaban (Eliquis) 2.5 mg BID PO Last administered on 09/21/16 08:38; Admin Dose 2.5 MG; Start 09/09/16 at 21:00 Atorvastatin Calcium (Lipitor) 20 mg QHS PO Last administered on 09/20/16 21: 25; Admin Dose 20 MG; Start 09/09/16 at 21:00 Lansoprazole 30 mg 30 mg DAILY@06 GTB Last administered on 09/21/16 06:04; Admin Dose 30 MG; Start 09/12/16 at 06:00 Erythromycin Lactobionate/ Sodium Chloride (Erythromycin Lactobionate/NS) 100 ml @ 100 mls/hr Q6 IVPB Last administered on 09/21/16 06:04; Admin Dose 100 MLS/HR; Start 09/16/16 at 00:00 Vancomycin HCl (Vancomycin Oral Syringe) 250 mg Q6 PO Last administered on 09/21 06:04; Admin Dose 250 MG; Start 09/18/16 at 13:00 JERAMIE FLORES Sep 21, 2016 12:04
--- NOTE | 2016-09-21 12:31 | CONS ---
Date/Time of Note Date/Time of Note DATE: 09/21/16 TIME: 12:30 Assessment/Plan Assessment/Plan Additional Assessment/Plan IMPRESSION: 1. End-stage renal disease on dialysis. 2. Clostridium difficile colitis, for which she is on vancomycin. 3. Gastroparesis, for which she is on erythromycin. 4. Coronary artery disease with permanent pacemaker. 5. Cerebrovascular accident. Plan continue present care Consultation Date/Type/Reason Admit Date/Time Sep 04, 2016 at 16:03 Type of Consultation: id Referring Provider: CRUZITO ARELLANO MD 24 HR Interval Summary Free Text/Dictation no diarrhea,no residue Constitutional: improved Exam/Review of Systems Vital Signs Vitals Vital Signs Date Time Temp Pulse Resp B/P Pulse Ox O2 Delivery O2 Flow Rate FiO2 09/21/16 12:15 69 09/21/16 11:39 98.4 19 114/54 97 09/21/16 08:30 Nasal Cannula 3.0 09/21/16 08:21 32 Intake and Output 09/20/16 09/20/16 09/21/16 15:00 23:00 07:00 Intake Total 560 ml 710 ml Balance 560 ml 710 ml Exam Constitutional: alert, oriented, well developed Psych: nl mood/affect, no complaints Head: atraumatic, normocephalic Eyes: EOMI, PERRL, nl conjunctiva, nl lids, nl sclera ENMT: nl external ears & nose, nl lips & teeth, nl nasal mucosa & septum Neck: non-tender, supple Respiratory: clear to auscultation, normal air movement Cardiovascular: nl pulses, regular rate and rhythm Gastrointestinal: nl liver, spleen, non-tender, soft Musculoskeletal: nl extremities to inspection, nl gait and stance Extremities: normal pulses 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, nl mental status, nl speech, nl strength Skin: nl turgor, No rash or lesions Lymph: nl lymph nodes Results Result Diagram: 09/18/16 0550 09/17/16 0651 Medications Medications Current Medications Acetaminophen (Tylenol Tab) 325 mg DAILY PRN PO PAIN AND OR ELEVATED TEMP Last administered on 09/20/16 09:29; Admin Dose 325 MG; Start 09/04/16 at 16:00 Amiodarone HCl (Cordarone) 200 mg DAILY PO Last administered on 09/21/16 08:38 ; Admin Dose 200 MG; Start 09/05/16 at 09:00 Aspirin (Aspirin) 81 mg DAILY PO Last administered on 09/21/16 08:36; Admin Dose 81 MG; Start 09/05/16 at 09:00 Naloxone HCl (Narcan) 0.4 mg Q3M PRN IV DECREASED REPIRATORY RATE; Start at 19:30 Ondansetron HCl (Zofran Inj) 4 mg Q6H PRN IV NAUSEA AND/OR VOMITING; Start 09/04 at 19:30 Nitroglycerin (Nitroglycerin (Sl Tab) 0.4 Mg) 1 tab Q5M PRN SL CHEST PAIN; Start 09/04/16 at 19:30 Acetaminophen (Tylenol Tab) 650 mg Q6H PRN PO PAIN LEVEL 1-3 OR FEVER Last administered on 09/19/16 23:35; Admin Dose 650 MG; Start 09/04/16 at 19:30 Docusate Sodium (Colace Liquid Cup) 100 mg BID GTB Last administered on 08:36; Admin Dose 100 MG; Start 09/05/16 at 09:00 Diltiazem HCl (Cardizem) 30 mg Q8 PO Last administered on 09/06/16 05:17; Admin Dose 30 MG; Start 09/05/16 at 14:00; Status Future Hold Carvedilol (Coreg) 6.25 mg BID GTB Last administered on 09/20/16 13:19; Admin Dose 6.25 MG; Start 09/07/16 at 21:00 Apixaban (Eliquis) 2.5 mg BID PO Last administered on 09/21/16 08:38; Admin Dose 2.5 MG; Start 09/09/16 at 21:00 Atorvastatin Calcium (Lipitor) 20 mg QHS PO Last administered on 09/20/16 21: 25; Admin Dose 20 MG; Start 09/09/16 at 21:00 Lansoprazole 30 mg 30 mg DAILY@06 GTB Last administered on 09/21/16 06:04; Admin Dose 30 MG; Start 09/12/16 at 06:00 Erythromycin Lactobionate/ Sodium Chloride (Erythromycin Lactobionate/NS) 100 ml @ 100 mls/hr Q6 IVPB Last administered on 09/21/16 06:04; Admin Dose 100 MLS/HR; Start 09/16/16 at 00:00 Vancomycin HCl (Vancomycin Oral Syringe) 250 mg Q6 PO Last administered on 09/21 06:04; Admin Dose 250 MG; Start 09/18/16 at 13:00 HERON DIALLO MD Sep 21, 2016 12:31
[2016-09-21] MEDS: ACETAMINOPHEN 325 MG TAB PO PRN (17:47)
--- NOTE | 2016-09-21 17:47 | PN ---
DATE: 09/21/2016 On questioning, the patient does not speak Cymraes, but the son is at the bedside, and the patient i s complaining of just generalized body aches, no specific complaint of chest pain or shortness of br eath and she is alert and oriented. VITAL SIGNS: Blood pressure is 114/54, heart rate of 72 and she is afebrile. NECK: JVP is not raised. CHEST: Bilaterally symmetrical and nontender. HEART: PMI localized in the fourth intercostal space and pacemaker in the chest wall. S1, S2 are r egular with a I-II/ systolic murmur. LUNGS: Clear to percussion and auscultation. ABDOMEN: Soft, nontender belly without any organomegaly. EXTREMITIES: Good femoral and pedal pulses. No pedal edema. No clubbing, no cyanosis. LABORATORIES: There are no laboratories available from today. IMPRESSION: 1. Congestive heart failure with systolic, ____ acute and chronic which seems to be compensated at this date. Ejection fraction was 40% by echo in June 2016. 2. Hypertension, which is well controlled. 3. Atrial fibrillation. 4. History of permanent pacemaker. 5. Coronary artery disease. 6. History of cerebrovascular accident. RECOMMENDATIONS: Will continue telemetry and continue same management from a cardiac standpoint at this stage. Dictated By: NADIA PINEDO MD, RA/KATE Conf#: [id number] DID#: [id number]
--- NOTE | 2016-09-21 19:20 | PDOCDIS ---
Discharge Instructions CONDITION Patient Condition: Stable HOME CARE INSTRUCTIONS: Special Diet: tube feeding ACTIVITY: Activity Restrictions: Slowly Increase Activity FOLLOW UP/APPOINTMENTS Appointments f/u dr geeta watkins pt CRUZITO ARELLANO MD Sep 21, 2016 19:20
[2016-09-21] MEDS ORDERED: LANS30CA GTB (19:27)
[2016-09-21] MEDS ORDERED: CARV6.2579 GTB (19:27)
[2016-09-21] MEDS ORDERED: DILT30TA30 PO (19:27)
[2016-09-21] MEDS ORDERED: Vancomycin Oral Syringe PO (19:27)
[2016-09-21] MEDS: ATORVASTATIN 20 MG TAB PO SCH (21:16)
[2016-09-22] VITALS (7 sets, daily range): BP systolic 96–108; BP diastolic 49–69; PULSE 69–72; RESP 15–18
[2016-09-22] MEDS: ERYTHROMYCIN LACTOBIONATE 250 MG in SOD CHLORIDE 0.9% 100 ML IVPB SCH ×3 (02:43→11:14)
[2016-09-22] MEDS: VANCOMYCIN HCL 250 MG/5ML POSYG PO SCH ×3 (02:43→11:14)
[2016-09-22] MEDS: LEVOTHYROXINE 150 MCG TAB PO SCH (06:37)
[2016-09-22] MEDS: LANSOPRAZOLE 30 MG CAP GTB SCH (06:38)
[2016-09-22 07:09] LABS: ADD SCAN DIFF NO
[2016-09-22 07:12] LABS: ABNORMAL IP MESSAGE 1; BASOPHILS % 0.1 % (0.0-2.0); EOSINOPHILS # 0.2 10^3/ul (0.0-0.5); EOSINOPHILS % 2.6 % (0.0-7.0); HEMATOCRIT 21.6 % (37.0-47.0); LYMPHOCYTES # 0.8 10^3/ul (0.8-2.9); LYMPHOCYTES % 10.4 % (15.0-51.0); MEAN CORPUSCULAR HEMOGLOBIN 33.8 pg (29.0-33.0); MEAN CORPUSCULAR HGB CONC 31.5 g/dl (32.0-37.0); MEAN CORPUSCULAR VOLUME 107.5 fl (82.0-101.0); MEAN PLATELET VOLUME 12.1 fl (7.4-10.4); MONOCYTE # 0.6 10^3/ul (0.3-0.9); MONOCYTES % 7.2 % (0.0-11.0); NEUTROPHILS % 78.7 % (39.0-77.0); PLATELET COUNT 139 10^3/UL (140-415); RED BLOOD COUNT 2.01 10^6/ul (4.20-5.40); RED CELL DISTRIBUTION WIDTH 14.2 % (11.5-14.5); WHITE BLOOD COUNT 7.6 10^3/ul (4.8-10.8)
[2016-09-22 07:19] LABS: HEMOGLOBIN 6.8 g/dl (12.0-16.0); POTASSIUM 3.2 mmol/L (3.5-5.1)
[2016-09-22 07:22] LABS: CREATININE 2.21 mg/dl (0.44-1.00)
[2016-09-22] MEDS: AMIODARONE 200 MG TAB PO SCH (08:39)
[2016-09-22] MEDS: DOCUSATE SODIUM 10 MG/ML (10ML CUP) GTB SCH (08:39)
[2016-09-22] MEDS: ACETAMINOPHEN 325 MG TAB PO PRN (09:03)
--- NOTE | 2016-09-22 11:49 | CONS ---
Date/Time of Note Date/Time of Note DATE: 09/22/16 TIME: 11:47 Assessment/Plan Assessment/Plan Additional Assessment/Plan Assessment/Plan Additional Assessment/Plan IMPRESSION: 1. End-stage renal disease on dialysis. 2. Clostridium difficile colitis, for which she is on vancomycin. 3. Gastroparesis, for which she is on erythromycin. 4. Coronary artery disease with permanent pacemaker. 5. Cerebrovascular accident. 6. Hypotension Plan continue present care. Family decided to take the patient home. We will continue p.o. vancomycin for C. difficile colitis Erythromycin for gastroparesis on a needed basis. TRISTON Cesar. Consultation Date/Type/Reason Admit Date/Time Sep 04, 2016 at 16:03 Type of Consultation: id Referring Provider: CRUZITO ARELLANO MD 24 HR Interval Summary Free Text/Dictation Discussed with the family member, patient has no diarrhea, no abdominal pain, no nausea no vomiting. Discussed with the staff no active GI bleeding. Constitutional: no complaints Exam/Review of Systems Vital Signs Vitals Vital Signs Date Time Temp Pulse Resp B/P Pulse Ox O2 Delivery O2 Flow Rate FiO2 09/22/16 08:02 97.9 70 18 100/49 98 09/22/16 07:54 Nasal Cannula 3.0 09/21/16 18:26 32 Intake and Output 09/21/16 09/21/16 09/22/16 15:00 23:00 07:00 Intake Total 500 ml 100 ml 540 ml Output Total 2500 ml Balance -2000 ml 100 ml 540 ml Exam Constitutional: alert, oriented, well developed Psych: nl mood/affect, no complaints Head: atraumatic, normocephalic Eyes: EOMI, PERRL, nl conjunctiva, nl lids, nl sclera ENMT: nl external ears & nose, nl lips & teeth, nl nasal mucosa & septum Neck: non-tender, supple Respiratory: clear to auscultation, normal air movement Cardiovascular: nl pulses, regular rate and rhythm Gastrointestinal: nl liver, spleen, non-tender, soft Musculoskeletal: nl extremities to inspection, nl gait and stance Extremities: normal pulses 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, nl mental status, nl speech, nl strength Skin: nl turgor, No rash or lesions Lymph: nl lymph nodes Results Result Diagram: 09/22/16 0553 09/22/16 0553 Results 24 hrs Laboratory Tests Test 09/22/16 05:53 White Blood Count 7.6 # Red Blood Count 2.01 L Hemoglobin 6.8 *L Hematocrit 21.6 L Mean Corpuscular Volume 107.5 H Mean Corpuscular Hemoglobin 33.8 H Mean Corpuscular Hemoglobin Concent 31.5 L Red Cell Distribution Width 14.2 Platelet Count 139 #L Mean Platelet Volume 12.1 H Neutrophils % 78.7 H Lymphocytes % 10.4 L Monocytes % 7.2 Eosinophils % 2.6 Basophils % 0.1 Nucleated Red Blood Cells % 0.0 Neutrophils # 6.0 Lymphocytes # 0.8 Monocytes # 0.6 Eosinophils # 0.2 Basophils # 0.0 Nucleated Red Blood Cells # 0.0 Sodium Level 137 Potassium Level 3.2 L Chloride Level 102 Carbon Dioxide Level 28 Anion Gap 10 Blood Urea Nitrogen 39 H Creatinine 2.21 H Glucose Level 91 Calcium Level 8.0 L Medications Medications Current Medications Acetaminophen (Tylenol Tab) 325 mg DAILY PRN PO PAIN AND OR ELEVATED TEMP Last administered on 09/20/16 09:29; Admin Dose 325 MG; Start 09/04/16 at 16:00 Amiodarone HCl (Cordarone) 200 mg DAILY PO Last administered on 09/22/16 08:39 ; Admin Dose 200 MG; Start 09/05/16 at 09:00 Naloxone HCl (Narcan) 0.4 mg Q3M PRN IV DECREASED REPIRATORY RATE; Start at 19:30 Ondansetron HCl (Zofran Inj) 4 mg Q6H PRN IV NAUSEA AND/OR VOMITING; Start 09/04 at 19:30 Nitroglycerin (Nitroglycerin (Sl Tab) 0.4 Mg) 1 tab Q5M PRN SL CHEST PAIN; Start 09/04/16 at 19:30 Acetaminophen (Tylenol Tab) 650 mg Q6H PRN PO PAIN LEVEL 1-3 OR FEVER Last administered on 09/22/16 09:03; Admin Dose 650 MG; Start 09/04/16 at 19:30 Docusate Sodium (Colace Liquid Cup) 100 mg BID GTB Last administered on 08:39; Admin Dose 100 MG; Start 09/05/16 at 09:00 Diltiazem HCl (Cardizem) 30 mg Q8 PO Last administered on 09/06/16 05:17; Admin Dose 30 MG; Start 09/05/16 at 14:00; Status Future Hold Carvedilol (Coreg) 6.25 mg BID GTB Last administered on 09/20/16 13:19; Admin Dose 6.25 MG; Start 09/07/16 at 21:00 Atorvastatin Calcium (Lipitor) 20 mg QHS PO Last administered on 09/21/16 21: 16; Admin Dose 20 MG; Start 09/09/16 at 21:00 Lansoprazole 30 mg 30 mg DAILY@06 GTB Last administered on 09/22/16 06:38; Admin Dose 30 MG; Start 09/12/16 at 06:00 Erythromycin Lactobionate/ Sodium Chloride (Erythromycin Lactobionate/NS) 100 ml @ 100 mls/hr Q6 IVPB Last administered on 09/22/16 11:14; Admin Dose 100 MLS/HR; Start 09/16/16 at 00:00 Vancomycin HCl (Vancomycin Oral Syringe) 250 mg Q6 PO Last administered on 09/22 11:14; Admin Dose 250 MG; Start 09/18/16 at 13:00 HERON DIALLO MD Sep 22, 2016 11:49
--- NOTE | 2016-09-22 14:40 | PN ---
DATE: 09/22/2016 FOLLOWUP CARDIOLOGY NOTE SUBJECTIVE: On questioning, the patient is only moaning and groaning, and did not offer any complai nts. PHYSICAL EXAMINATION: VITAL SIGNS: Revealed blood pressure 100/49, she is afebrile, heart rate is 70. NECK: The JVP is not raised. Carotid pulses with normal upstroke. CHEST: Bilaterally symmetrical with a pacemaker in the chest. HEART: S1, S2 are regular. LUNGS: Are clear to percussion and auscultation. ABDOMEN: Soft, nontender belly, without any organomegaly. EXTREMITIES: No pedal edema and good femoral and pedal pulses. Telemetry reveals pacemaker rhythm. LABORATORY DATA: Today reveals that her white count is down to 7.6, hemoglobin is low at 6.8, and t he platelets are also low at 139,000. The potassium is low at 3.2. BUN and creatinine are 39 and 2 .21 respectively. IMPRESSION: 1. Anemia. 2. Renal insufficiency with slight hypokalemia. I would leave the management of anemia and the hyp okalemia and the renal insufficiency to Dr. 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 Other diagnoses at this stage includes: 3. Congestive heart failure, acute on chronic, which seems to be compensated at this stage. Ejecti on fraction was 40% by echo in June 2016. 4. Hypertension, which is currently controlled. 5. Atrial fibrillation. 6. History of permanent pacemaker. 7. Coronary artery disease. RECOMMENDATION: Continue same treatment from cardiac standpoint, but would recommend holding off th e Eliquis in view of the drop in hemoglobin, and would also recommend holding off the aspirin at thi s stage as well. Dictated By: NADIA PINEDO MD, RA/KATE Conf#: [id number] DID#: [id number]
--- NOTE | 2016-10-03 11:20 | QN ---
Documentation Comment [id number] CRUZITO ARELLANO MD Oct 03, 2016 11:20
--- NOTE | 2016-10-03 14:30 | DS ---
DATE OF ADMISSION: 09/04/2016 DATE OF DISCHARGE: 09/22/2016 HOSPITAL COURSE: Patient with a history of ESRD, hypertension, a history of atrial fibrillation, wh o presented with sepsis, lung congestion, underlying pneumonia, and bronchitis. The patient was se en by Dr. Martínez in consultation. His impression and recommendations were followed. His impressio n was congestive heart failure, hypertension, atrial fibrillation, a history of recent CVA, with alt ered mental status, hypoxia, CAD, dysphagia, G-tube placement, and dyslipidemia. The patient underw ent dialysis. The patient was also seen by Dr. Guido in consultation for E. coli gram-negative zeenat sepsis. The patient had gram-negative zeenat sepsis, healthcare-associated pneumonia, acute CHF, ESRD . The patient was followed by Dr. Martínez in consultation. Patient was also followed by Dr. Suazo for the malfunctioning G-tube, which was addressed and treated. The family decided for the patient to undergo hospice care at home. The patient's hospice was arranged and the patient is stable to be discharged. DISCHARGE DIAGNOSES: Includes: 1. Sepsis. 2. Congestive heart failure. 3. Hypertension. 4. Atrial fibrillation. 5. History of pacemaker. 6. Coronary artery disease. 7. History of cerebrovascular accident. 8. Bedridden state. 9. Decubitus. 10. Gastroparesis. 11. End-stage renal disease. 12. The patient has underlying bronchitis and dyslipidemia. 13. E. coli sepsis. 14. Gram-negative zeenat bacteremia. 15. Systemic inflammatory response syndrome. 16. Healthcare associated pneumonia. 17. Congestive heart failure. Discharge medications and instructions were given. The patient will be going home with hospice care . Dictated By: CRUZITO ARELLANO MD BS/NTS Conf#: [id number] DID#: [id number]
== END 2016-09-22 13:30 | disposition hospice, home (50) | DRG 871 ==
LOC: E/R 08:52 → ICU 16:03 → TEL 23:24
PROVIDERS: ADMIT Internal Medicine Nephrology; ATTEND Internal Medicine Nephrology
PROC: 05HN33Z Insertion of Infusion Device into Left Internal Jugular Vein, Percutaneous Approach (ICD-10-PCS; principal; 2016-09-04)
DX: A41.51 Sepsis due to Escherichia coli [E. coli] (principal); N18.6 End stage renal disease; J69.0 Pneumonitis due to inhalation of food and vomit; R65.21 Severe sepsis with septic shock; I50.23 Acute on chronic systolic (congestive) heart failure; A04.7 Enterocolitis due to Clostridium difficile; I42.9 Cardiomyopathy, unspecified; E11.22 Type 2 diabetes mellitus with diabetic chronic kidney disease; I13.2 Hypertensive heart and chronic kidney disease with heart failure and with stage 5 chronic kidney disease, or end stage renal disease; I48.91 Unspecified atrial fibrillation; R13.10 Dysphagia, unspecified; I25.10 Atherosclerotic heart disease of native coronary artery without angina pectoris; E78.5 Hyperlipidemia, unspecified; E03.9 Hypothyroidism, unspecified; I69.998 Other sequelae following unspecified cerebrovascular disease; G94 Other disorders of brain in diseases classified elsewhere; J40 Bronchitis, not specified as acute or chronic; E87.6 Hypokalemia; Z86.73 Personal history of transient ischemic attack (TIA), and cerebral infarction without residual deficits; Z93.1 Gastrostomy status; Z99.2 Dependence on renal dialysis; Z66 Do not resuscitate; E11.43 Type 2 diabetes mellitus with diabetic autonomic (poly)neuropathy; K31.84 Gastroparesis; Z79.02 Long term (current) use of antithrombotics/antiplatelets; Z74.01 Bed confinement status; Z95.0 Presence of cardiac pacemaker
CPT/HCPCS: 36415; 36600; 71010; 74176; 76705; 76937; 80048; 80053; 80061; 82270; 82550; 82553; 82803; 82962; 83605; 83880; 84443; 84484; 85025; 85610; 85730; 87040; 87075; 87081; 90935; 93005; 94640; 94644; 94664; 94667; 96374; 96375; 96376; 97110; 97162; 97530; C9113; J0692; J1364; J1580; J1956; J2765; J2920; J2930; J3370; J7030; J7040